=== PATIENT | male | born 1935 | race Caucasian/White ===

== ENCOUNTER 2016-06-09 16:18 | Emergency (ER) | payer MEDICARE, OTHER ==
[2016-06-09] MEDS ORDERED: Lidocaine 1% with EPINEPHrine 1:100,000 20 ML MDV INFILT ONE (16:28)
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
[2016-06-09] MEDS ORDERED: Lidocaine 1% 30 ML SDV INJECT ONE (16:33)
[2016-06-09 17:52] VITALS: BP 162/80
[2016-06-09] MEDS ORDERED: Take Home: traMADol 50 MG, 4 Tab Pack PO ONE (18:50)
== END 2016-06-09 19:00 | disposition home or self-care (01) ==
LOC: VM.ED 16:18
DX: S61.214A Laceration without foreign body of right ring finger without damage to nail, initial encounter (principal); S67.21XA Crushing injury of right hand, initial encounter; S62.612A Displaced fracture of proximal phalanx of right middle finger, initial encounter for closed fracture; S61.212A Laceration without foreign body of right middle finger without damage to nail, initial encounter; E78.00 Pure hypercholesterolemia, unspecified; I10 Essential (primary) hypertension; W31.9XXA Contact with unspecified machinery, initial encounter; Z79.82 Long term (current) use of aspirin; Y92.009 Unspecified place in unspecified non-institutional (private) residence as the place of occurrence of the external cause
CPT/HCPCS: 12004; 29125; 73130; 99283; A4216; A9270

== ENCOUNTER 2020-01-02 17:20 | Observation (INO) | payer MEDICARE, OTHER ==
[2020-01-02] MEDS ORDERED: LORazepam 2 MG/ML SDV ONE (17:34)
[2020-01-02 18:10] LABS: CHLORIDE,CL 98 mmol/L (98-107); SODIUM,NA 135 mmol/L (136-145)
[2020-01-02 18:11] LABS: ANION GAP 15.8 mmol/L (10-20)
[2020-01-02] MEDS ORDERED: LORazepam 2 MG/ML SDV IVPUSH ONE (18:37)
[2020-01-02] MEDS ORDERED: Sodium Chloride 0.9% 1,000 ML IV SCH (19:00)
--- NOTE | 2020-01-02 19:06 | CT ---
[id number] CT/CT Head WO IV EXAM: CT Head WO IV CLINICAL DATA: Altered mental status. COMPARISON STUDY: None FINDINGS: No intracranial hemorrhage, extra-axial fluid collection, mass, or acute ischemia. No hydrocephalus. Small areas of encephalomalacia in the left occipital lobe and right cerebellar hemisphere, consistent with chronic ischemia. Mild to moderate changes chronic small vessel disease, including diffuse bilateral symmetric parenchymal atrophy throughout the brain. Calvarium intact. Paranasal sinuses and mastoid air cells are clear. IMPRESSION: No acute intracranial findings. Rufino Arvizu MD 01/02/20 [id number] Thank you for allowing us to participate in the care of your patient.
[2020-01-02] MEDS ORDERED: cefTRIAXone 1 GM Vial IVPUSH ONE (19:27)
[2020-01-02] MEDS: Sodium Chloride 0.9% 10 ML Syringe FLUSH PRN (19:36)
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
[2020-01-02] MEDS ORDERED: Acetaminophen 325 MG Tab PO PRN (20:09)
[2020-01-02] MEDS ORDERED: Sodium Chloride 0.9% 10 ML Syringe FLUSH PRN (20:09)
[2020-01-02] MEDS ORDERED: Ondansetron 4 MG/2 ML SDV IV PRN (20:09)
[2020-01-03 07:55] LABS: ANION GAP 13.2 mmol/L (10-20); CHLORIDE,CL 101 mmol/L (98-107); SODIUM,NA 136 mmol/L (136-145)
[2020-01-03] MEDS: Lisinopril 2.5 MG Tab PO SCH (08:01)
[2020-01-03] MEDS: Sodium Chloride 0.9% 10 ML Syringe FLUSH PRN ×2 (08:02→21:00)
[2020-01-03] MEDS ORDERED: amLODIPine 5 MG Tab PO ONE (08:48)
--- NOTE | 2020-01-03 08:48 | PCM.PN ---
- General Info Date of Service: 01/03/20 Subjective Update: Pt. is much improved this AM. Nursing relates that is has been alert. Appetite has been adequate. He has been afebrile since admission. Lactic acid has decreased from 2.9 to 1.3. He is currently on rocephin IV for UTI. Creatinine has improved as well. Pt. noted to be hypertensive. He was in the 170-190/90 range. He states that he takes his lisinopril intermittently. Not sure if he took the medication yesterday. Previously he was on 5mg once daily but this was recently decreased to 2.5mg daily. Again, he has not been taking this as directed either. Functional Status: Reports: Pain Controlled - Review of Systems General: Reports: No Symptoms HEENT: Reports: No Symptoms Pulmonary: Reports: No Symptoms Cardiovascular: Reports: Other (See HPI) Gastrointestinal: Reports: No Symptoms Genitourinary: Reports: No Symptoms Musculoskeletal: Reports: No Symptoms Skin: Reports: No Symptoms Neurological: Reports: No Symptoms Psychiatric: Reports: No Symptoms - Patient Data Vitals - Most Recent: Last Vital Signs Temp 36.5 C 01/03/20 06:00 Pulse 56 L 01/03/20 06:00 Resp 19 01/03/20 06:00 BP 188/96 H 01/03/20 08:01 Pulse Ox 95 01/03/20 06:00 Weight - Most Recent: 78.698 kg I&O - Last 24 Hours: Intake & Output 01/02/20 01/03/20 01/03/20 22:59 06:59 14:59 Intake Total 0 Output Total 850 750 Balance -850 -750 Lab Results Last 24 Hours: Laboratory Results - last 24 hr 01/02/20 01/02/20 01/02/20 Range/Units 17:20 17:20 17:20 WBC 8.6 (4.0-10.0) x10^3/uL RBC 3.55 L (4.5-6.0) x10^6/uL Hgb 11.9 L (14.0-18.0) g/dL Hct 34.8 L (40.0-52.0) % MCV 98.0 H D (78.0-93.0) fL MCH 33.5 H (26.0-32.0) pg MCHC 34.2 (32.0-36.0) g/dL RDW Coeff of Sara 12.4 (10.0-15.0) % Plt Count 229 (130-400) x10^3/uL Neut % (Auto) 55.6 (50.0-80.0) % Lymph % (Auto) 32.3 (25.0-50.0) % [place] % (Auto) 9.1 (2.0-11.0) % Eos % (Auto) 2.7 (0.0-4.0) % Baso % (Auto) 0.3 (0.2-1.2) % PT 11.1 (9.5-12.3) SEC INR 1.0 L (2.0-3.5) APTT 25.0 L (25.6-32.8) SEC Sodium 135 L (136-145) mmol/L Potassium 3.8 (3.5-5.1) mmol/L Chloride 98 (98-107) mmol/L Carbon Dioxide 25 (21-32) mmol/L Anion Gap 15.8 (10-20) mmol/L BUN 20 H (7-18) mg/dL Creatinine 1.4 H (0.70-1.30) mg/dL Est Cr Clr Drug Dosing TNP Estimated GFR (MDRD) 48 Glucose 101 (74-106) mg/dL Lactic Acid (0.4-2.0) mmol/L Calcium 8.7 (8.5-10.1) mg/dL Corrected Calcium 8.78 (8.5-10.1) mg/dL Magnesium 2.0 (1.8-2.4) mg/dL Total Bilirubin 0.5 (0.2-1.0) mg/dL AST 21 (15-37) U/L ALT 27 (16-63) U/L Alkaline Phosphatase 83 (46-116) U/L Troponin I 0.00 (0.00-0.08) ng/mL Total Protein 7.2 (6.4-8.2) g/dL Albumin 3.9 (3.4-5.0) g/dL Globulin 3.3 Albumin/Globulin Ratio 1.18 Urine Color (YELLOW) Urine Appearance (CLEAR) Urine pH (5.0-8.0) Ur Specific [place] Urine Protein (NEGATIVE) mg/dL Urine Glucose (UA) (NEGATIVE) mg/dL Urine Ketones (NEGATIVE) mg/dL Urine Occult Blood (NEGATIVE) Urine Nitrite (NEGATIVE) Urine Bilirubin (NEGATIVE) Urine Urobilinogen (0.2) EU/dL Ur Leukocyte Esterase (NEGATIVE) Urine RBC (NOT SEEN) /HPF Urine WBC (NOT SEEN) /HPF Ur Squamous Epith Cells (NEGATIVE) /HPF Triple Phos Crystals (NEGATIVE) /HPF Urine Bacteria (NEGATIVE) /HPF Urine Mucus (NEGATIVE) /LPF Ethyl Alcohol 50 H (0-3) mg/dL SARS CoV-2 RNA Rapid MARCO (NEGATIVE) 01/02/20 01/02/20 01/02/20 Range/Units 17:20 17:35 18:00 WBC (4.0-10.0) x10^3/uL RBC (4.5-6.0) x10^6/uL Hgb (14.0-18.0) g/dL Hct (40.0-52.0) % MCV (78.0-93.0) fL MCH (26.0-32.0) pg MCHC (32.0-36.0) g/dL RDW Coeff of Sara (10.0-15.0) % Plt Count (130-400) x10^3/uL Neut % (Auto) (50.0-80.0) % Lymph % (Auto) (25.0-50.0) % [place] % (Auto) (2.0-11.0) % Eos % (Auto) (0.0-4.0) % Baso % (Auto) (0.2-1.2) % PT (9.5-12.3) SEC INR (2.0-3.5) APTT (25.6-32.8) SEC Sodium (136-145) mmol/L Potassium (3.5-5.1) mmol/L Chloride (98-107) mmol/L Carbon Dioxide (21-32) mmol/L Anion Gap (10-20) mmol/L BUN (7-18) mg/dL Creatinine (0.70-1.30) mg/dL Est Cr Clr Drug Dosing Estimated GFR (MDRD) Glucose (74-106) mg/dL Lactic Acid 2.9 H* (0.4-2.0) mmol/L Calcium (8.5-10.1) mg/dL Corrected Calcium (8.5-10.1) mg/dL Magnesium (1.8-2.4) mg/dL Total Bilirubin (0.2-1.0) mg/dL AST (15-37) U/L ALT (16-63) U/L Alkaline Phosphatase (46-116) U/L Troponin I (0.00-0.08) ng/mL Total Protein (6.4-8.2) g/dL Albumin (3.4-5.0) g/dL Globulin Albumin/Globulin Ratio Urine Color Light yellow (YELLOW) Urine Appearance Slightly cloudy H (CLEAR) Urine pH >=9.0 H (5.0-8.0) Ur Specific [place] 1.015 Urine Protein Negative (NEGATIVE) mg/dL Urine Glucose (UA) Negative (NEGATIVE) mg/dL Urine Ketones Negative (NEGATIVE) mg/dL Urine Occult Blood Negative (NEGATIVE) Urine Nitrite Positive H (NEGATIVE) Urine Bilirubin Negative (NEGATIVE) Urine Urobilinogen 0.2 (0.2) EU/dL Ur Leukocyte Esterase Moderate H (NEGATIVE) Urine RBC 0-5 (NOT SEEN) /HPF Urine WBC 5-10 H (NOT SEEN) /HPF Ur Squamous Epith Cells Rare (NEGATIVE) /HPF Triple Phos Crystals Moderate H (NEGATIVE) /HPF Urine Bacteria Few H (NEGATIVE) /HPF Urine Mucus Rare H (NEGATIVE) /LPF Ethyl Alcohol (0-3) mg/dL SARS CoV-2 RNA Rapid MAR[place] Negative (NEGATIVE) 01/02/20 01/03/20 01/03/20 Range/Units 22:03 06:37 06:37 WBC 7.1 (4.0-10.0) x10^3/uL RBC 3.49 L (4.5-6.0) x10^6/uL Hgb 11.6 L (14.0-18.0) g/dL Hct 34.1 L (40.0-52.0) % MCV 97.7 H (78.0-93.0) fL MCH 33.2 H (26.0-32.0) pg MCHC 34.0 (32.0-36.0) g/dL RDW Coeff of Sara 12.3 (10.0-15.0) % Plt Count 198 (130-400) x10^3/uL Neut % (Auto) 64.8 (50.0-80.0) % Lymph % (Auto) 23.0 L (25.0-50.0) % [place] % (Auto) 9.4 (2.0-11.0) % Eos % (Auto) 2.8 (0.0-4.0) % Baso % (Auto) 0.0 L (0.2-1.2) % PT (9.5-12.3) SEC INR (2.0-3.5) APTT (25.6-32.8) SEC Sodium 136 (136-145) mmol/L Potassium 4.2 (3.5-5.1) mmol/L Chloride 101 (98-107) mmol/L Carbon Dioxide 26 (21-32) mmol/L Anion Gap 13.2 (10-20) mmol/L BUN 16 (7-18) mg/dL Creatinine 1.0 (0.70-1.30) mg/dL Est Cr Clr Drug Dosing 60.12 Estimated GFR (MDRD) > 60 Glucose 100 (74-106) mg/dL Lactic Acid 1.3 (0.4-2.0) mmol/L Calcium 8.3 L (8.5-10.1) mg/dL Corrected Calcium (8.5-10.1) mg/dL Magnesium 1.9 (1.8-2.4) mg/dL Total Bilirubin (0.2-1.0) mg/dL AST (15-37) U/L ALT (16-63) U/L Alkaline Phosphatase (46-116) U/L Troponin I (0.00-0.08) ng/mL Total Protein (6.4-8.2) g/dL Albumin (3.4-5.0) g/dL Globulin Albumin/Globulin Ratio Urine Color (YELLOW) Urine Appearance (CLEAR) Urine pH (5.0-8.0) Ur Specific [place] Urine Protein (NEGATIVE) mg/dL Urine Glucose (UA) (NEGATIVE) mg/dL Urine Ketones (NEGATIVE) mg/dL Urine Occult Blood (NEGATIVE) Urine Nitrite (NEGATIVE) Urine Bilirubin (NEGATIVE) Urine Urobilinogen (0.2) EU/dL Ur Leukocyte Esterase (NEGATIVE) Urine RBC (NOT SEEN) /HPF Urine WBC (NOT SEEN) /HPF Ur Squamous Epith Cells (NEGATIVE) /HPF Triple Phos Crystals (NEGATIVE) /HPF Urine Bacteria (NEGATIVE) /HPF Urine Mucus (NEGATIVE) /LPF Ethyl Alcohol < 3 (0-3) mg/dL SARS CoV-2 RNA Rapid MARCO (NEGATIVE) Med Orders - Current: Current Medications Acetaminophen (Tylenol) 650 mg PO Q4H PRN PRN Reason: Pain (Mild 1-3)/fever Aspirin (Halfprin) 81 mg PO MOTH@08 CHAN Sodium Chloride (Normal Saline) 1,000 mls @ 200 mls/hr IV ASDIRECTED CHAN Last Admin: 01/02/20 18:56 Dose: 200 mls/hr Documented by: Lisinopril (Prinivil) 2.5 mg PO DAILY CHAN Last Admin: 01/03/20 08:01 Dose: 2.5 mg Documented by: Ondansetron HCl (Zofran) 4 mg IV Q4H PRN PRN Reason: Nausea/Vomiting Sodium Chloride (Saline Flush) 10 ml FLUSH ASDIRECTED PRN PRN Reason: Keep Vein Open Last Admin: 01/03/20 08:02 Dose: 10 ml Documented by: Discontinued Medications Ceftriaxone Sodium (Rocephin) 1 gm IVPUSH STAT ONE Stop: 01/02/20 19:28 Last Admin: 01/02/20 19:36 Dose: 1 gm Documented by: Lorazepam (Ativan) Confirm Administered Dose 2 mg .ROUTE .STK-MED ONE Stop: 01/02/20 17:35 Last Admin: 01/02/20 17:34 Dose: 2 mg Documented by: Lorazepam (Ativan) 1 mg IVPUSH STAT ONE Stop: 01/02/20 18:38 Last Admin: 01/02/20 18:05 Dose: 1 mg Documented by: Sodium Chloride (Saline Flush) 10 ml FLUSH ASDIRECTED PRN PRN Reason: Keep Vein Open - Exam General: Alert, Oriented HEENT: Pupils Equal, Pupils Reactive, EOMI, Mucous Membr. Moist/[place] Neck: Supple Lungs: Clear to Auscultation, Normal Respiratory Effort Cardiovascular: Regular Rate, Regular Rhythm, No Murmurs, Murmurs GI/Abdominal Exam: Normal Bowel Sounds, Soft, Non-Tender, No Distention, No Mass (Male) Exam: Deferred Back Exam: Normal Inspection, Full Range of Motion Extremities: Normal Inspection, No Pedal Edema, Normal Capillary Refill Skin: Warm, Dry, Intact Neurological: No New Focal Deficit Psy/Mental Status: Alert, Normal Affect, Normal Mood Sepsis Event Note - Evaluation Sepsis Screening Result: No Definite Risk - Focused Exam Vital Signs: Vital Signs Temp Pulse Resp BP BP Pulse Ox 01/03/20 08:01 188/96 H 01/03/20 06:00 36.5 C 56 L 19 180/79 H 95 01/03/20 05:39 97 01/03/20 02:00 36.4 C 63 17 158/79 H 95 01/02/20 22:00 36.3 C 71 16 176/88 H 96 - Problem List Review Problem List Initiated/Reviewed/Updated: Yes - My Orders Last 24 Hours: My Active Orders 01/03/20 08:36 Consult to Physical Therapy [PT Evaluation and Treatment] [CONS] Routine - Plan Plan:: Pt. will be started on amlodipine 5mg once daily and transitioned off the lisinopril since he is not tolerating it. He is keen to go home, but his blood pressure needs to be addressed prior to discharge. Will have PT evaluate the patient today and see how he does with ambulation and ADLs. Continue with IV rocephin. Anticipate discharge tomorrow AM.
[2020-01-04 06:25] VITALS: PULSE 58
[2020-01-04] MEDS: Lisinopril 2.5 MG Tab PO SCH (07:32)
[2020-01-04 07:33] VITALS: BP 157/96
[2020-01-04] MEDS ORDERED: cefTRIAXone 2 GM Vial IVPUSH ONE (09:23)
[2020-01-04] MEDS: Sodium Chloride 0.9% 10 ML Syringe FLUSH PRN (09:39)
[2020-01-06] MEDS ORDERED: Aspirin 81 MG Tab.EC PO SCH (08:00)
--- NOTE | 2020-01-09 11:39 | PCM.DCSUM1 ---
Discharge Summary - Hospital Course Free Text/Narrative:: Pt. was feeling much improved. He was alert and oriented, and was up washing his face. Appetite has been excellent. He has not been experiencing any increased shortness of breath while walking. Denies any chest pain. No diaphoresis. Denies any lightheadedness. No weakness. Lactic acid had returned to normal limits. He has been afebrile since admission. He has not had any elevated white count. Diagnosis: Stroke: No - Discharge Data Discharge Date: 01/04/20 Discharge Disposition: Home, Self-Care 01 Condition: Good - Referral to Home Health Primary Care Physician: Mohit Tadeo PA-C - Discharge Diagnosis/Problem(s) (1) UTI (urinary tract infection) SNOMED Code(s): 75447842 ICD Code: N39.0 - URINARY TRACT INFECTION, SITE NOT SPECIFIED Status: Acute Qualifiers: Urinary tract infection type: catheter-associated UTI Indwelling urinary catheter type: nephrostomy catheter Encounter type: initial encounter Qualified Code(s): T83.512A - Infection and inflammatory reaction due to nephrostomy catheter, initial encounter; N39.0 - Urinary tract infection, site not specified - Patient Summary/Data Consults: Consultations 01/03/20 08:36 Consult to Physical Therapy [PT Evaluation and Treatment] [CONS] Routine - Discharge Plan Home Medications: Home Meds Aspirin [Aspirin EC] 81 mg PO MOTH@08 01/02/20 [History] Cyanocobalamin (Vitamin B-12) [B-12] 1,000 mcg PO DAILY 01/02/20 [History] Multivitamin with Minerals [Multiple Vitamin] 1 each PO DAILY 01/02/20 [History] Sildenafil [Viagra] 100 mg PO BEDTIME PRN 01/02/20 [History] lisinopriL [Prinivil] 2.5 mg PO DAILY 01/02/20 [History] Referrals: Mohit Tadeo PA-C [Primary Care Provider] - - Discharge Summary/Plan Comment DC Time >30 min.: Yes Discharge Summary/Plan Comment: Pt. will be started on bactrim DS twice daily for 1 week. Continue consuming plenty of fluids. Tyenol and ibuprofen as needed for fever. Recheck in clinic in 5-7 days, sooner if not gradually improving. - General Info Functional Status: Reports: Pain Controlled - Review of Systems General: Reports: No Symptoms HEENT: Reports: No Symptoms Pulmonary: Reports: No Symptoms Cardiovascular: Reports: No Symptoms Gastrointestinal: Reports: No Symptoms Genitourinary: Reports: No Symptoms Musculoskeletal: Reports: No Symptoms Skin: Reports: No Symptoms Neurological: Reports: No Symptoms Psychiatric: Reports: No Symptoms - Patient Data Vitals - Most Recent: Last Vital Signs Temp 37.0 C 01/04/20 06:00 Pulse 58 L 01/04/20 06:00 Resp 18 01/04/20 06:00 BP 157/96 H 01/04/20 07:32 Pulse Ox 94 L 01/04/20 06:00 Weight - Most Recent: 78.698 kg Med Orders - Current: Current Medications Discontinued Medications Acetaminophen (Tylenol) 650 mg PO Q4H PRN PRN Reason: Pain (Mild 1-3)/fever Amlodipine Besylate (Norvasc) 5 mg PO ONETIME ONE Stop: 01/03/20 08:49 Last Admin: 01/03/20 09:23 Dose: 5 mg Documented by: Aspirin (Halfprin) 81 mg PO MOTH@08 CHAN Ceftriaxone Sodium (Rocephin) 1 gm IVPUSH STAT ONE Stop: 01/02/20 19:28 Last Admin: 01/02/20 19:36 Dose: 1 gm Documented by: Ceftriaxone Sodium (Rocephin) 2 gm IVPUSH STAT ONE Stop: 01/04/20 09:24 Last Admin: 01/04/20 09:39 Dose: 2 gm Documented by: Sodium Chloride (Normal Saline) 1,000 mls @ 200 mls/hr IV ASDIRECTED [facility] Last Admin: 01/02/20 18:56 Dose: 200 mls/hr Documented by: Lisinopril (Prinivil) 2.5 mg PO DAILY [facility] Last Admin: 01/04/20 07:32 Dose: 2.5 mg Documented by: Lorazepam (Ativan) Confirm Administered Dose 2 mg .ROUTE .STK-MED ONE Stop: 01/02/20 17:35 Last Admin: 01/02/20 17:34 Dose: 2 mg Documented by: Lorazepam (Ativan) 1 mg IVPUSH STAT ONE Stop: 01/02/20 18:38 Last Admin: 01/02/20 18:05 Dose: 1 mg Documented by: Ondansetron HCl (Zofran) 4 mg IV Q4H PRN PRN Reason: Nausea/Vomiting Sodium Chloride (Saline Flush) 10 ml FLUSH ASDIRECTED PRN PRN Reason: Keep Vein Open Last Admin: 01/04/20 09:39 Dose: 10 ml Documented by: Sodium Chloride (Saline Flush) 10 ml FLUSH ASDIRECTED PRN PRN Reason: Keep Vein Open - Exam General: Reports: Alert, Oriented HEENT: Reports: Pupils Equal, Pupils Reactive, EOMI, Mucous Membr. Moist/[place] Neck: Reports: Supple Lungs: Reports: Clear to Auscultation, Normal Respiratory Effort Cardiovascular: Reports: Regular Rate, Regular Rhythm GI/Abdominal Exam: Soft, Non-Tender, No Distention, No Mass Back Exam: Reports: Normal Inspection, Full Range of Motion Extremities: Normal Inspection, Normal Range of Motion, No Pedal Edema, Normal Capillary Refill Skin: Reports: Warm, Dry, Intact Neurological: Reports: No New Focal Deficit Psy/Mental Status: Reports: Alert, Normal Affect
== END 2020-01-04 10:00 | disposition home or self-care (01) ==
LOC: VM.ED 17:20 → VM.MS 19:32
PROVIDERS: ADMIT Nurse Practitioner Family; ATTEND Nurse Practitioner Family
DX: R41.82 Altered mental status, unspecified (principal); N39.0 Urinary tract infection, site not specified; R74.02 Elevation of levels of lactic acid dehydrogenase [LDH]; E78.00 Pure hypercholesterolemia, unspecified; I10 Essential (primary) hypertension; Z98.890 Other specified postprocedural states; Z79.82 Long term (current) use of aspirin; Z79.899 Other long term (current) drug therapy; Z20.828 Contact with and (suspected) exposure to other viral communicable diseases
CPT/HCPCS: 36415; 70450; 80048; 80053; 80307; 81001; 82962; 83605; 83735; 84484; 85025; 85610; 85730; 87086; 87088; 87186; 93005; 93010; 97161-GP; 97530-GP; 99217; 99220; 99225; A9270-GY; J0696; J2060; J7030; U0002

== ENCOUNTER 2020-03-21 10:38 | Inpatient (IN) | payer MEDICARE, OTHER ==
[2020-03-21] MEDS ORDERED: cefTRIAXone 2 GM Vial IVPUSH ONE (10:57)
[2020-03-21] MEDS ORDERED: Lactated Ringers 1,000 ML IV ONE (11:20)
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
[2020-03-21 11:39] LABS: ANION GAP 15.6 mmol/L (5-15); CHLORIDE,CL 94 mmol/L (98-107); SODIUM,NA 131 mmol/L (136-145)
--- NOTE | 2020-03-21 11:49 | CT ---
[id number] CT/CT Head WO IV EXAM: CT Head WO IV CLINICAL DATA: CONFUSION. COMPARISON STUDY: January 02, 2020. FINDINGS: Findings are within limitations of patient motion artifact. No obvious intracranial hemorrhage or extra-axial fluid collection. No hydrocephalus. No CT evidence of acute ischemia. Chronic small vessel disease. Calvarium intact. Paranasal sinuses and mastoid air cells are clear. IMPRESSION: No acute intracranial findings. Rufino Arvizu MD 03/21/20 1147 Thank you for allowing us to participate in the care of your patient.
--- NOTE | 2020-03-21 11:52 | CT ---
[id number] CT/CT Cervical Spine WO IV EXAM: CT Cervical Spine WO IV INDICATION: FALL, CONFUSION. COMPARISON: None. DISCUSSION: No fracture or compression deformity. Vertebral bodies remain in normal alignment. Spondylosis. Findings include ankylosis of the C2-3 facet joints. Advanced degenerative disc disease at C3-4 through C6-7. No prevertebral soft tissue edema. Lung apices are clear. IMPRESSION: No acute findings in the cervical spine. Rufino Arvizu MD 03/21/20 [id number] Thank you for allowing us to participate in the care of your patient.
[2020-03-21] MEDS: Lactated Ringers 1,000 ML IV SCH (12:06)
[2020-03-21] MEDS: Sodium Chloride 0.9% 10 ML Syringe FLUSH PRN (12:07)
--- NOTE | 2020-03-21 12:35 | CR ---
[id number] RAD/RAD Chest PA or AP 1V EXAM: RAD Chest PA or AP 1V INDICATION: CONFUSION. COMPARISON: None. DISCUSSION: Prominent appearance of the hilar regions. On the left there is opacity in the AP window. Finding is nonspecific but underlying lymphadenopathy is possible. Lungs are clear. No pleural effusion or pneumothorax. Consider noncontrast chest CT for further evaluation. IMPRESSION: As above. Rufino Arvizu MD 03/21/20 [id number] Thank you for allowing us to participate in the care of your patient.
[2020-03-21] MEDS ORDERED: Ondansetron 4 MG/2 ML SDV IV PRN (13:17)
[2020-03-21] MEDS ORDERED: Lactated Ringers 1,000 ML IV SCH (13:30)
[2020-03-21] MEDS: Enoxaparin 40 MG/0.4 ML Syringe SUBCUT SCH (14:34)
--- NOTE | 2020-03-21 16:48 | PCM.SN.2 ---
- Free Text/Narrative Note: Patient's confusion has resolved since admission under observation. He is alert appropriate. He follows commands. He is still in C-spine precautions. His CT was negative in the emergency department for any bony abnormality. Palpation on the posterior midline spine does not elicit any midline tenderness or step-offs. He moves all extremities strong and equal to command. He has gross and fine motor appropriate to his upper extremities. He denies any paresthesias. C- collar was removed he was able to flex and extend and rotate without any pain discomfort or paresthesias. He also was able to flex and extend and rotate against resistance without any pain. C-spine is cleared. Has been complaining of some left knee pain with his for the past couple of days after ambulating around the walking track at the [facility] that they do 5 days a week. Examination of the left knee does show some swelling soft tissue around the knee. There is a moderate amount of crepitus on flexion and extension. He has no varus and valgus stress pain. There is no warmth erythema or induration. There is no calf tenderness. Complete an x-ray of the left knee. A/P Left knee pain swelling, ? knee sprain. Xray left knee.
--- NOTE | 2020-03-21 17:57 | CR ---
[id number] RAD/RAD Knee Left 3V Exam: RAD Knee Left 3V Indication:LEFT KNEE PAIN, SWELLING. NO INJURY. PATIENT UNABLE Comparison: No prior imaging for comparison. Discussion/Impression: Moderate-sized knee joint effusion. Bones remain in normal alignment. No fracture. Tricompartmental osteoarthritis with joint space narrowing. No AVN or erosive changes. No periosteal reaction. Vascular calcifications. Rufino Arvizu MD 03/21/20 3302 Thank you for allowing us to participate in the care of your patient.
[2020-03-22] MEDS: Lactated Ringers 1,000 ML IV SCH (03:20)
[2020-03-22] MEDS: Acetaminophen 325 MG Tab PO PRN ×2 (05:35→21:14)
[2020-03-22 08:41] LABS: ANION GAP 13.9 mmol/L (5-15)
[2020-03-22] MEDS: Cyanocobalamin (Vitamin B12) 1,000 MCG Tab PO SCH (08:48)
[2020-03-22] MEDS: Lisinopril 2.5 MG Tab PO SCH (08:48)
[2020-03-22] MEDS: Multivitamins with Iron/Calcium/Folic Acid/Minerals Tab PO SCH (08:48)
[2020-03-22] MEDS: cefTRIAXone 1 GM Vial IVPUSH SCH (08:48)
[2020-03-22] MEDS: Enoxaparin 40 MG/0.4 ML Syringe SUBCUT SCH (14:59)
--- NOTE | 2020-03-22 18:38 | PCM.PN ---
- General Info Date of Service: 03/22/20 Admission Dx/Problem (Free Text): Complicated UTI urostomy infection Acute confusion from infectious process Subjective Update: The patient states that he slept well throughout the night. He ate most of his breakfast. He really does not recall the details of yesterday. He does state that he has a little bit of pain to his knee but he feels very good he would like to go home. He denies any fever or chills. No chest pain no shortness of breath or difficulty breathing. No abdominal pain nausea or vomiting. He relates that his urostomy is draining clear urine like it typically does and he has not seen any of the sediment in there like he had over the past week. He has had no diarrhea. No constipation. He feels strong enough that he should be able to go home. Functional Status: Reports: Pain Controlled - Patient Data Vitals - Most Recent: Last Vital Signs Temp 98.4 F 03/22/20 14:00 Pulse 65 03/22/20 14:00 Resp 20 03/22/20 14:00 BP 144/67 H 03/22/20 14:00 Pulse Ox 97 03/22/20 14:00 Weight - Most Recent: 175 lb 8 oz I&O - Last 24 Hours: Intake & Output 03/22/20 03/22/20 03/22/20 06:59 14:59 22:59 Intake Total 424 922 5716 Output Total 650 Balance 390 192 2028 Lab Results Last 24 Hours: Laboratory Results - last 24 hr 03/22/20 03/22/20 03/22/20 Range/Units 08:07 08:07 08:07 WBC 6.3 (4.0-10.0) x10^3/uL RBC 3.49 L (4.5-6.0) x10^6/uL Hgb 11.7 L (14.0-18.0) g/dL Hct 33.1 L (40.0-52.0) % MCV 94.8 H (78.0-93.0) fL MCH 33.5 H (26.0-32.0) pg MCHC 35.3 (32.0-36.0) g/dL RDW Coeff of Sara 12.2 (10.0-15.0) % Plt Count 129 L (130-400) x10^3/uL Neut % (Auto) 77.0 (50.0-80.0) % Lymph % (Auto) 15.9 L (25.0-50.0) % [place] % (Auto) 6.7 (2.0-11.0) % Eos % (Auto) 0.2 (0.0-4.0) % Baso % (Auto) 0.2 (0.2-1.2) % Sodium 130 L (136-145) mmol/L Potassium 3.9 (3.5-5.1) mmol/L Chloride 94 L (98-107) mmol/L Carbon Dioxide 26 (21-32) mmol/L Anion Gap 13.9 (5-15) mmol/L BUN 21 H (7-18) mg/dL Creatinine 1.4 H (0.70-1.30) mg/dL Est Cr Clr Drug Dosing 43.44 mL/min Estimated GFR (MDRD) 48 Glucose 168 H (74-106) mg/dL Lactic Acid 1.6 (0.4-2.0) mmol/L Calcium 8.4 L (8.5-10.1) mg/dL Corrected Calcium 8.88 (8.5-10.1) mg/dL Total Bilirubin 0.4 (0.2-1.0) mg/dL AST 39 H (15-37) U/L ALT 34 (16-63) U/L Alkaline Phosphatase 92 (46-116) U/L C-Reactive Protein 6.6 H (<=0.9) mg/dL Total Protein 6.9 (6.4-8.2) g/dL Albumin 3.4 (3.4-5.0) g/dL Globulin 3.5 Albumin/Globulin Ratio 0.97 Aki Results Last 24 Hours: Microbiology 03/21/20 11:11 Aerobic Blood Culture - Preliminary Blood - Venous - Lab Draw NO GROWTH AFTER 1 DAY Anaerobic Blood Culture - Preliminary NO GROWTH AFTER 1 DAY 03/21/20 11:01 Aerobic Blood Culture - Preliminary Blood - Venous NO GROWTH AFTER 1 DAY Anaerobic Blood Culture - Final 03/21/20 11:31 Urine Culture - Preliminary Urine, Nephrostomy Gram Negative Rods Gram Positive Cocci Streptococcus Species Med Orders - Current: Current Medications Acetaminophen (Tylenol) 650 mg PO Q4H PRN PRN Reason: Pain (Mild 1-3)/fever Last Admin: 03/22/20 05:35 Dose: 650 mg Documented by: Aspirin (Halfprin) 81 mg PO MOTH@08 [facility] Ceftriaxone Sodium (Rocephin) 1 gm IVPUSH DAILY [facility] Last Admin: 03/22/20 08:48 Dose: 1 gm Documented by: Cyanocobalamin (Vitamin B12) 1,000 mcg PO DAILY [facility] Last Admin: 03/22/20 08:48 Dose: 1,000 mcg Documented by: Enoxaparin Sodium (Lovenox) 40 mg SUBCUT Q24H [facility] Last Admin: 03/22/20 14:59 Dose: 40 mg Documented by: Lisinopril (Prinivil) 5 mg PO DAILY [facility] Last Admin: 03/22/20 08:48 Dose: 5 mg Documented by: Multivitamins/Minerals (Thera M Plus) 1 tab PO DAILY [facility] Last Admin: 03/22/20 08:48 Dose: 1 tab Documented by: Ondansetron HCl (Zofran) 4 mg IV Q6H PRN PRN Reason: Nausea/Vomiting Sodium Chloride (Saline Flush) 10 ml FLUSH ASDIRECTED PRN PRN Reason: Keep Vein Open Last Admin: 03/21/20 12:07 Dose: 10 ml Documented by: Discontinued Medications Ceftriaxone Sodium (Rocephin) 2 gm IVPUSH STAT ONE Stop: 03/21/20 10:58 Last Admin: 03/21/20 11:09 Dose: 2 gm Documented by: Lactated Ringer's (Ringers, Lactated) 1,000 mls @ 999 mls/hr IV ONETIME ONE Stop: 03/21/20 12:20 Last Admin: 03/21/20 11:51 Dose: 999 mls/hr Documented by: Lactated Ringer's (Ringers, Lactated) 1,000 mls @ 150 mls/hr IV ASDIRECTED [facility] Last Admin: 03/22/20 03:20 Dose: 75 mls/hr Documented by: Lactated Ringer's (Ringers, Lactated) 1,000 mls @ 75 mls/hr IV ASDIRECTED [facility] Last Admin: 03/21/20 14:34 Dose: 75 mls/hr Documented by: - Exam General: Alert, Oriented (He knows his name he knows what year it is he knows that he is in the hospital. He does not recall the incidents of yesterday. I do not see any overt confusion he has some what slow to answer at times and has to think about his answers but he is markedly improved since yesterday.), Cooperative HEENT: Pupils Equal, Pupils Reactive, EOMI Neck: Supple Lungs: Clear to Auscultation, Normal Respiratory Effort Cardiovascular: Regular Rate, Regular Rhythm GI/Abdominal Exam: Normal Bowel Sounds, Soft, Non-Tender, No Distention, Other (His urostomy in the right lower quadrant is draining clear pale yellow urine. The stoma has good appearance and is nice and pink. There is no breakdown around the stoma site. There is no mucus or sediment within the urine.) (Male) Exam: Deferred Back Exam: Normal Inspection Extremities: Normal Range of Motion. No: Normal Inspection (The left knee is still somewhat tender on palpation. He is able to flex and extend. There is no warmth. There is a moderate effusion to the left knee. Jensen wrap is kept in place to the left knee. There is no pedal edema.) Peripheral Pulses: 2+: Radial (L), Radial (R), Posterior Tibial (L), Posterior Tibial (R), Dorsalis Pedis (L), Dorsalis Pedis (R) Skin: Warm, Dry, Intact Wound/Incisions: Healing Well Neurological: No New Focal Deficit Psy/Mental Status: Alert, Normal Affect Sepsis Event Note - Evaluation Sepsis Screening Result: No Definite Risk - Focused Exam Vital Signs: Vital Signs Temp Pulse Resp BP BP Pulse Ox 03/22/20 14:00 98.4 F 65 20 144/67 H 97 03/22/20 10:00 97.9 F 64 20 102/56 L 95 03/22/20 08:48 170/90 H - Problem List & Annotations (1) Acute confusion due to infection SNOMED Code(s): 809596989 Code(s): F05 - DELIRIUM DUE TO KNOWN PHYSIOLOGICAL CONDITION Status: Acute Current Visit: Yes (2) Complicated urinary tract infection SNOMED Code(s): 83359373 Code(s): N39.0 - URINARY TRACT INFECTION, SITE NOT SPECIFIED Status: Acute Current Visit: Yes (3) Scalp abrasion SNOMED Code(s): 232017854 Code(s): S00.01XA - ABRASION OF SCALP, INITIAL ENCOUNTER Status: Acute Current Visit: Yes Qualifiers: Encounter type: initial encounter Qualified Code(s): S00.01XA - Abrasion of scalp, initial encounter (4) Presence of urostomy SNOMED Code(s): 135780550 Code(s): Z93.6 - OTHER ARTIFICIAL OPENINGS OF URINARY TRACT STATUS Status: Chronic Current Visit: Yes (5) Hyponatremia SNOMED Code(s): 64479081 Code(s): E87.1 - HYPO-OSMOLALITY AND HYPONATREMIA Status: Acute Current Visit: No (6) Knee effusion, left SNOMED Code(s): 555440924437720 Code(s): M25.462 - EFFUSION, LEFT KNEE Status: Acute Current Visit: Yes - Problem List Review Problem List Initiated/Reviewed/Updated: Yes - My Orders Last 24 Hours: My Active Orders 03/21/20 18:45 Consult to Physical Therapy [PT Evaluation and Treatment] [CONS] Routine JENSEN Bandage [Elastic Wrap] [OM.PC] Routine 03/22/20 08:00 Cyanocobalamin (Vitamin B12) [Vitamin B12] 1,000 mcg PO DAILY Multivitamins w-Iron/Ca/FA/Min [Thera M Plus] 1 tab PO DAILY cefTRIAXone [Rocephin] 1 gm IVPUSH DAILY lisinopriL [Prinivil] 5 mg PO DAILY 03/23/20 08:00 Aspirin [Halfprin] 81 mg PO MOTH@08 03/25/20 07:00 CBC W/O DIFF,HEMOGRAM [HEME] Q3D 03/28/20 07:00 CBC W/O DIFF,HEMOGRAM [HEME] Q3D 03/31/20 07:00 CBC W/O DIFF,HEMOGRAM [HEME] Q3D 04/03/20 07:00 CBC W/O DIFF,HEMOGRAM [HEME] Q3D 04/06/20 07:00 CBC W/O DIFF,HEMOGRAM [HEME] Q3D 04/09/20 07:00 CBC W/O DIFF,HEMOGRAM [HEME] Q3D - Assessment Assessment:: A/P #1: Acute confusion most likely due to UTI complicated with the presence of his urostomy. Much improved still not back to baseline. A little weak and tough to get out of bed. Able to carry on conversation but not back to baseline will take some time for this to resolve. #2: UTI complicated with urostomy. Waiting on cultures improved mucus amount in urostomy. #3: Fall with acute altered mental status. Most likely from #1. Almost back to baseline, most likely take a few more days to improve. #4: Hyponatremia continue to monitor IV fluids discontinued taking in good oral fluids. #5: Presence of urostomy, urostomy cares new bag placed in the ED. Monitor. #6: HX of HTN continue Lisinopril. #7: Anemia chronic continue B 12 and check iron studies. #8: Hx of carotid endart continue aspirin. #9 New diagnosis of left knee effusion. NO real injury. NO erythema most likely for overusage or trauma jensen wrap PT/OT to evaluate for cares and discharge planning. This patient really has improved quite remarkedly on his confusion as well as his altered mental status. He is not back to baseline as of yet and his family especially his daughter is very concerned about this. He is still somewhat weak and difficult to ambulate with the effusion of the left knee. The patient's daughter is very very concerned of discharge home as she does not feel that he is back to baseline. However they are going to care for him at home. We will have physical therapy evaluate him tomorrow to see if he needs some swing bed or other therapies to improve his functional status. We will also have social work meet with him tomorrow to see if they need more assistance at home. We will continue observation at this time. Care will be transferred to Indra Farias PA-C in the morning.
[2020-03-22] MEDS: Sodium Chloride 0.9% 10 ML Syringe FLUSH PRN (21:14)
[2020-03-23] MEDS ORDERED: Aspirin 81 MG Tab.EC PO SCH (08:00)
[2020-03-23] MEDS: Cyanocobalamin (Vitamin B12) 1,000 MCG Tab PO SCH (08:40)
[2020-03-23] MEDS: Multivitamins with Iron/Calcium/Folic Acid/Minerals Tab PO SCH (08:40)
[2020-03-23] MEDS: Lisinopril 2.5 MG Tab PO SCH (08:40)
[2020-03-23] MEDS: cefTRIAXone 1 GM Vial IVPUSH SCH (08:41)
[2020-03-23] MEDS: Enoxaparin 40 MG/0.4 ML Syringe SUBCUT SCH (15:15)
--- NOTE | 2020-03-23 15:54 | PCM.PN ---
- General Info Date of Service: 03/23/20 Admission Dx/Problem (Free Text): Complicated UTI urostomy infection Acute confusion from infectious process Subjective Update: Pt. is one hospital day 2 being treated for a UTI. Overall, he states that he had a good night. Staff states that he continues to be quite weak and requires the assist of 2 for standing/ambulation. Tmax in past 24 hours has been 38.2. He has been eating and drinking and is tolerating this. Fluids had been discontinued by AVELINA Roberts as his intake was adequate. CBC today showed white count of 6.3. lactic acid was within normal limits. Pt. urine culture showed predominant gram positive rods. He also had rare gram negative rods and few strep species. Blood cultures at this point have not grown anything. Pt. will be transitioned to acute care, pending further sensitivity of urine culture/due to continued weakness. Functional Status: Reports: Pain Controlled - Review of Systems General: Reports: No Symptoms HEENT: Reports: No Symptoms Pulmonary: Reports: No Symptoms Cardiovascular: Reports: No Symptoms Gastrointestinal: Reports: No Symptoms Genitourinary: Reports: No Symptoms Musculoskeletal: Reports: No Symptoms Skin: Reports: No Symptoms Neurological: Reports: No Symptoms Psychiatric: Reports: No Symptoms - Patient Data Vitals - Most Recent: Last Vital Signs Temp 37.0 C 03/23/20 14:00 Pulse 66 03/23/20 14:00 Resp 20 03/23/20 14:00 BP 94/54 L 03/23/20 14:00 Pulse Ox 96 03/23/20 14:00 Weight - Most Recent: 79.605 kg I&O - Last 24 Hours: Intake & Output 03/23/20 03/23/20 03/23/20 06:59 14:59 22:59 Intake Total 420 Output Total 700 Balance -700 420 Aki Results Last 24 Hours: Microbiology 03/21/20 11:11 Aerobic Blood Culture - Preliminary Blood - Venous - Lab Draw NO GROWTH AFTER 2 DAYS Anaerobic Blood Culture - Preliminary NO GROWTH AFTER 2 DAYS 03/21/20 11:01 Aerobic Blood Culture - Preliminary Blood - Venous NO GROWTH AFTER 2 DAYS Anaerobic Blood Culture - Final 03/21/20 11:31 Urine Culture - Preliminary Urine, Nephrostomy Gram Negative Rods Gram Positive Rods Streptococcus Species Med Orders - Current: Current Medications Acetaminophen (Tylenol) 650 mg PO Q4H PRN PRN Reason: Pain (Mild 1-3)/fever Last Admin: 03/22/20 21:14 Dose: 650 mg Documented by: Aspirin (Halfprin) 81 mg PO MOTH@08 [facility] Last Admin: 03/23/20 08:40 Dose: 81 mg Documented by: Ceftriaxone Sodium (Rocephin) 1 gm IVPUSH DAILY [facility] Last Admin: 03/23/20 08:41 Dose: 1 gm Documented by: Cyanocobalamin (Vitamin B12) 1,000 mcg PO DAILY [facility] Last Admin: 03/23/20 08:40 Dose: 1,000 mcg Documented by: Enoxaparin Sodium (Lovenox) 40 mg SUBCUT Q24H [facility] Last Admin: 03/23/20 15:15 Dose: 40 mg Documented by: Lisinopril (Prinivil) 5 mg PO DAILY [facility] Last Admin: 03/23/20 08:40 Dose: 5 mg Documented by: Multivitamins/Minerals (Thera M Plus) 1 tab PO DAILY [facility] Last Admin: 03/23/20 08:40 Dose: 1 tab Documented by: Ondansetron HCl (Zofran) 4 mg IV Q6H PRN PRN Reason: Nausea/Vomiting Sodium Chloride (Saline Flush) 10 ml FLUSH ASDIRECTED PRN PRN Reason: Keep Vein Open Last Admin: 03/22/20 21:14 Dose: 10 ml Documented by: Discontinued Medications Ceftriaxone Sodium (Rocephin) 2 gm IVPUSH STAT ONE Stop: 03/21/20 10:58 Last Admin: 03/21/20 11:09 Dose: 2 gm Documented by: Lactated Ringer's (Ringers, Lactated) 1,000 mls @ 999 mls/hr IV ONETIME ONE Stop: 03/21/20 12:20 Last Admin: 03/21/20 11:51 Dose: 999 mls/hr Documented by: Lactated Ringer's (Ringers, Lactated) 1,000 mls @ 150 mls/hr IV ASDIRECTED [facility] Last Admin: 03/22/20 03:20 Dose: 75 mls/hr Documented by: Lactated Ringer's (Ringers, Lactated) 1,000 mls @ 75 mls/hr IV ASDIRECTED [facility] Last Admin: 03/21/20 14:34 Dose: 75 mls/hr Documented by: - Exam General: Alert, Oriented, Lethargic HEENT: Pupils Equal, Pupils Reactive, EOMI Lungs: Clear to Auscultation, Normal Respiratory Effort Cardiovascular: Regular Rate, Regular Rhythm GI/Abdominal Exam: Soft, Non-Tender, No Distention, No Mass (Male) Exam: Deferred Back Exam: Normal Inspection, Full Range of Motion Extremities: Normal Inspection, Normal Range of Motion, Non-Tender, No Pedal Edema, Normal Capillary Refill Peripheral Pulses: 4+: Radial (L) Skin: Warm, Dry, Intact Neurological: No New Focal Deficit Psy/Mental Status: Alert, Normal Affect, Normal Mood Sepsis Event Note - Evaluation Sepsis Screening Result: No Definite Risk - Focused Exam Vital Signs: Vital Signs Temp Temp Pulse Resp BP BP Pulse Ox 03/23/20 14:00 37.0 C 66 20 94/54 L 96 03/23/20 10:00 36.8 C 65 20 149/68 H 97 03/23/20 08:40 174/84 H 03/23/20 05:48 36.6 C 62 18 174/84 H 95 - Problem List Review Problem List Initiated/Reviewed/Updated: Yes - My Orders Last 24 Hours: My Active Orders 03/23/20 11:06 Patient Status [ADT] Routine - Assessment Assessment:: A/P #1: Acute confusion most likely due to UTI complicated with the presence of his urostomy. Much improved still not back to baseline. A little weak and tough to get out of bed. Able to carry on conversation but not back to baseline will take some time for this to resolve. #2: UTI complicated with urostomy. Waiting on cultures improved mucus amount in urostomy. #3: Fall with acute altered mental status. Most likely from #1. Almost back to baseline, most likely take a few more days to improve. #4: Hyponatremia continue to monitor IV fluids discontinued taking in good oral fluids. #5: Presence of urostomy, urostomy cares new bag placed in the ED. Monitor. #6: HX of HTN continue Lisinopril. #7: Anemia chronic continue B 12 and check iron studies. #8: Hx of carotid endart continue aspirin. #9 New diagnosis of left knee effusion. NO real injury. NO erythema most likely for overusage or trauma stefanie wrap PT/OT to evaluate for cares and discharge planning. This patient really has improved quite remarkedly on his confusion as well as his altered mental status. He is not back to baseline as of yet and his family especially his daughter is very concerned about this. He is still somewhat weak and difficult to ambulate with the effusion of the left knee. The patient's daughter is very very concerned of discharge home as she does not feel that he is back to baseline. However they are going to care for him at home. We will have physical therapy evaluate him tomorrow to see if he needs some swing bed or other therapies to improve his functional status. We will also have social work meet with him tomorrow to see if they need more assistance at home. We will continue observation at this time. Care will be transferred to Indra Farias PA-C in the morning. - Plan Plan:: Again patient will be transitioned to acute care. Lynette David PA-C is his PCP and will be handling this. Discussed findings at length with family. They agree with plan of care. Will continue IV rocephin in the hospital. Repeat CBC, BMP and lactic acid in the AM. Will continue PT/OT for ambulation/strengthening. Will encourage ambulation on the unit as well. Family inquired about doing random UA/home UA testing when the patient is discharged. Advised against that, we typically don't treat asymptomatic bacteruria. Pt. is at great risk of bacterial resistance if he is treated without being asymptomatic. Certainly if he is experiencing symptoms such as fever, confusion, weakness, chills, etc. they can contact his PCP or come to ER for a UA.
[2020-03-24 07:21] LABS: CHLORIDE,CL 96 mmol/L (98-107); SODIUM,NA 132 mmol/L (136-145)
[2020-03-24 07:22] LABS: ANION GAP 13.2 mmol/L (5-15)
[2020-03-24] MEDS: Sodium Chloride 0.9% 10 ML Syringe FLUSH PRN (08:22)
[2020-03-24] MEDS: Cyanocobalamin (Vitamin B12) 1,000 MCG Tab PO SCH (08:22)
[2020-03-24] MEDS: cefTRIAXone 1 GM Vial IVPUSH SCH (08:22)
[2020-03-24] MEDS: Lisinopril 2.5 MG Tab PO SCH (08:22)
[2020-03-24] MEDS: Multivitamins with Iron/Calcium/Folic Acid/Minerals Tab PO SCH (08:22)
[2020-03-24] MEDS: Acetaminophen 325 MG Tab PO PRN (08:22)
--- NOTE | 2020-03-24 09:02 | PN ---
Progress Note for BETO DELGADO Date: 03/24/2020 Room #: VM.215 SUBJECTIVE: The patient says he is feeling a little bit better. He is still a little bit confused. He is not exactly certain how he is weak or confused, but he knows he does not think quite clearly yet. He has been seen by Physical Therapy as of yesterday, but not Occupational Therapy. The patient was admitted with urosepsis with confusion as well as left knee injury. He is getting a little bit stronger with therapy. OBJECTIVE: Vital Signs: His temperature is 36.8, pulse 65, blood pressure 146/71, respiratory rate is 19, sats are 97%. General: The patient does easily recognize me. Heart: Regular rate and rhythm. Lungs: Clear to auscultation. He has a few abrasions on top of his scalp. Extremities: His left knee is dressed. He does have slight fluid present with slight effusion. LABORATORY DATA: His urine culture is showing Escherichia coli, small organism, greater than 10 to the 6th is a gram-positive kim, possibly diplococci, but ID and sensitivities are pending yet. Organism 3 is a Streptococcus, small amount. His white blood cell count has improved to 5.0, hemoglobin has dropped slightly to 11.4, platelets are 123 with 64 segs, 21 lymphocytes, 11 monos. Sodium is 132, potassium 4.2, creatinine 1.1. GFR is greater than 60, which has improved. Glucose 98. His AST has increased slightly to 48, ALT is 50. CRP yesterday had gone up to 6.6 from 2.2, was not checked today. Lactic acid has trended downward, it was 2.0 on admission and 1.6 yesterday, and then 0.7 today. Albumin is slightly low at 3.0. IMPRESSION: 1. Urosepsis. 2. Confusion related to urosepsis. 3. Fall with altered mental status. 4. Left knee contusion. 5. Hyponatremia. 6. Bladder cancer history. 7. Hypertension. 8. Anemia of chronic disease. 9. Pending are B12 and iron studies. PLAN: The patient will continue on IV Rocephin. We will continue with physical therapy. We are awaiting Occupational Therapy to see the patient. Lynette David is his primary care provider and she will see the patient tomorrow as she has gone today. Do anticipate the patient hopefully can go home possibly tomorrow versus the next day once he is strong enough with transfers and he would need to be switched over to oral antibiotics as well. GM03/24/2020 08:24:57 MODL: 03/24/2020 08:53:21 /[id number]
[2020-03-24] MEDS: Enoxaparin 40 MG/0.4 ML Syringe SUBCUT SCH (14:33)
[2020-03-25 05:49] VITALS: BP 143/65; PULSE 65
[2020-03-25] MEDS: cefTRIAXone 1 GM Vial IVPUSH SCH (07:42)
[2020-03-25] MEDS: Sodium Chloride 0.9% 10 ML Syringe FLUSH PRN (07:42)
[2020-03-25] MEDS: Lisinopril 2.5 MG Tab PO SCH (07:43)
[2020-03-25] MEDS: Cyanocobalamin (Vitamin B12) 1,000 MCG Tab PO SCH (07:43)
[2020-03-25] MEDS: Multivitamins with Iron/Calcium/Folic Acid/Minerals Tab PO SCH (07:43)
[2020-03-25 07:44] LABS: ANION GAP 12.9 mmol/L (5-15); CHLORIDE,CL 97 mmol/L (98-107); SODIUM,NA 132 mmol/L (136-145)
--- NOTE | 2020-03-25 09:53 | PCM.DCSUM1 ---
Discharge Summary - Hospital Course Free Text/Narrative:: Thiago came to the hospital after confusion and fall at home. He had urosepsis, knee contusion, confusion, scalp abrasion, weakness. He was placed on IV Rocephin for E. coli UTI. The Urine culture is also growing 2 other bacteria, awaiting susceptibility on one strain yet. CT head and C spine were negative. Xray of knee showed effusion. He has had PT evaluation and treatment. He indicates improvement today. He can get up on his own but often forgets walker. He had OT start cognitive and ADL evaluation. She reported ADL evaluation was good. Cognitive evaluation is currently being assessed. Lab studies show mild iron deficiency anemia. Sodium is slightly decreased. His lactic acid returned to normal. He denies pain or other difficulty today. He is anxious to go home. Plan is to go home with home care. Will do further planning with his today. Diagnosis: Stroke: No - Discharge Data Discharge Date: 03/25/20 Discharge Disposition: Home, W Home Health Agency 06 Condition: Good - Referral to Home Health Date of Face to Face Encounter: 03/25/20 Reason for Homebound Status: I certify that Thiago is under my care and I had a face to face encounter on 03/25/20. The encounter with the patient was in whole or in part for the following medical condition which is the primary reason for home health care. PT for strengthening, balance and gait training, detention for medication instruction and compliance. My clinical findings support the need for services because of inability to safely get to an outpatient facility due to fall risk, lack of muscle coordination and tone, balance issues, and weakness. Further I certify that my clinical findings support that this patient is home bound because the patient is unable to safely ambulate distances further than 20 feet. Patient requires stand by assist due to loss of balance and patient requires frequent rest periods due to weakness and loss of endurance. Patient requires use of assistive device and patient requires assistance of another person to leave the home. I certify that Thiago meets home bound requirements for the payor source and has a need for intermittent detention, physician, and therapy services in the home for the diagnosis currently outlined in the initial plan of care. These services will continue to be monitored by , Lynette David PA-C. This provider will periodically review and update the plan of care as required. My signature indicates that this supplemental documentation has been incorporated in the patients medical record. Primary Care Physician: Lynette David PA-C Skilled Need: halfway and PT for strengthening. - Patient Summary/Data Consults: Consultations 03/21/20 13:17 Consult to Case Management/Social Media Senior Associate [CONS] Routine 03/21/20 18:45 Consult to Physical Therapy [PT Evaluation and Treatment] [CONS] Routine 03/22/20 19:38 Consult to Occupational Therapy [OT Evaluation and Treatment] [CONS] Routine 03/24/20 12:14 OT Evaluation and Treatment [CONS] Routine Labs Pending at D/C: Urine susceptibility - Patient Instructions Diet: Regular Diet as Tolerated, Drink 8-10+ Glasses/Day Activity: As Tolerated Driving: Do Not Drive Showering/Bathing: May Shower Other/Special Instructions: Bactrim DS one tablet 2 times a day for 5 days. Home Care and Physical Therapy for strengthening. Follow up clinic visit in 2 weeks. - Discharge Plan *PRESCRIPTION DRUG MONITORING PROGRAM REVIEWED*: Not Applicable *COPY OF PRESCRIPTION DRUG MONITORING REPORT IN PATIENT SATISH: Not Applicable Prescriptions/Med Rec: Sulfamethoxazole/Trimethoprim [Bactrim Ds Tablet] 1 each PO BID 5 Days #10 tablet Home Medications: Home Meds Aspirin [Aspirin EC] 81 mg PO MOTH@08 01/02/20 [History] Cyanocobalamin (Vitamin B-12) [B-12] 1,000 mcg PO DAILY 01/02/20 [History] Multivitamin with Minerals [Multiple Vitamin] 1 each PO DAILY 01/02/20 [History] Sildenafil [Viagra] 100 mg PO BEDTIME PRN 01/02/20 [History] lisinopriL [Prinivil] 5 mg PO DAILY 01/02/20 [History] Sulfamethoxazole/Trimethoprim [Bactrim Ds Tablet] 1 each PO BID 5 Days #10 tablet 03/25/20 [Rx] Oxygen Therapy Mode: Room Air Forms: ED Department Discharge Referrals: Lynette David PA-C [Primary Care Provider] - - Discharge Summary/Plan Comment DC Time >30 min.: Yes - General Info Date of Service: 03/25/20 Admission Dx/Problem (Free Text: Complicated UTI urostomy infection Acute confusion from infectious process Subjective Update: Pt. is one hospital day 2 being treated for a UTI. Overall, he states that he had a good night. Staff states that he continues to be quite weak and requires the assist of 2 for standing/ambulation. Tmax in past 24 hours has been 38.2. He has been eating and drinking and is tolerating this. Fluids had been discontinued by AVELINA Roberts as his intake was adequate. CBC today showed white count of 6.3. lactic acid was within normal limits. Pt. urine culture showed predominant gram positive rods. He also had rare gram negative rods and few strep species. Blood cultures at this point have not grown anything. Pt. will be transitioned to acute care, pending further sensitivity of urine culture/due to continued weakness. Functional Status: Reports: Pain Controlled, Tolerating Diet, Ambulating - Review of Systems General: Reports: Weakness HEENT: Reports: No Symptoms Pulmonary: Reports: No Symptoms Cardiovascular: Reports: No Symptoms Gastrointestinal: Reports: No Symptoms Genitourinary: Reports: No Symptoms Musculoskeletal: Reports: No Symptoms Skin: Reports: Bruising Neurological: Reports: Confusion, Weakness Psychiatric: Reports: Confusion - Patient Data Vitals - Most Recent: Last Vital Signs Temp 37.2 C 03/25/20 05:48 Pulse 65 03/25/20 05:48 Resp 18 03/25/20 05:48 BP 143/65 H 03/25/20 07:43 Pulse Ox 92 L 03/25/20 05:48 Weight - Most Recent: 79.605 kg I&O - Last 24 hours: Intake & Output 03/24/20 03/25/20 03/25/20 22:59 06:59 14:59 Intake Total 240 Output Total 350 475 Balance -110 -475 Lab Results - Last 24 hrs: Laboratory Results - last 24 hr 03/24/20 03/25/20 03/25/20 Range/Units 06:43 06:42 06:42 WBC 5.1 (4.0-10.0) x10^3/uL RBC 3.40 L (4.5-6.0) x10^6/uL Hgb 11.1 L (14.0-18.0) g/dL Hct 32.1 L (40.0-52.0) % MCV 94.4 H (78.0-93.0) fL MCH 32.6 H (26.0-32.0) pg MCHC 34.6 (32.0-36.0) g/dL RDW Coeff of Sara 12.3 (10.0-15.0) % Plt Count 142 (130-400) x10^3/uL Neut % (Auto) 58.3 (50.0-80.0) % Lymph % (Auto) 23.1 L (25.0-50.0) % [place] % (Auto) 13.1 H (2.0-11.0) % Eos % (Auto) 5.3 H (0.0-4.0) % Baso % (Auto) 0.2 (0.2-1.2) % Sodium (136-145) mmol/L Potassium (3.5-5.1) mmol/L Chloride (98-107) mmol/L Carbon Dioxide (21-32) mmol/L Anion Gap (5-15) mmol/L BUN (7-18) mg/dL Creatinine (0.70-1.30) mg/dL Est Cr Clr Drug Dosing mL/min Estimated GFR (MDRD) Glucose (74-106) mg/dL Calcium (8.5-10.1) mg/dL Corrected Calcium (8.5-10.1) mg/dL Iron (65-175) ug/dL TIBC (250-450) ug/dL % Saturation (20.0-50.0) % Ferritin (26-388) ng/mL Total Bilirubin (0.2-1.0) mg/dL AST (15-37) U/L ALT (16-63) U/L Alkaline Phosphatase (46-116) U/L C-Reactive Protein 4.2 H (<=0.9) mg/dL Total Protein (6.4-8.2) g/dL Albumin (3.4-5.0) g/dL Globulin Albumin/Globulin Ratio Vitamin B12 637 (180-914) pg/mL TSH, Ultra Sensitive 2.124 (0.358-3.74) uIU/mL 03/25/20 03/25/20 Range/Units 06:42 06:42 WBC (4.0-10.0) x10^3/uL RBC (4.5-6.0) x10^6/uL Hgb (14.0-18.0) g/dL Hct (40.0-52.0) % MCV (78.0-93.0) fL MCH (26.0-32.0) pg MCHC (32.0-36.0) g/dL RDW Coeff of Sara (10.0-15.0) % Plt Count (130-400) x10^3/uL Neut % (Auto) (50.0-80.0) % Lymph % (Auto) (25.0-50.0) % [place] % (Auto) (2.0-11.0) % Eos % (Auto) (0.0-4.0) % Baso % (Auto) (0.2-1.2) % Sodium 132 L (136-145) mmol/L Potassium 3.9 (3.5-5.1) mmol/L Chloride 97 L (98-107) mmol/L Carbon Dioxide 26 (21-32) mmol/L Anion Gap 12.9 (5-15) mmol/L BUN 21 H (7-18) mg/dL Creatinine 1.1 (0.70-1.30) mg/dL Est Cr Clr Drug Dosing 55.28 mL/min Estimated GFR (MDRD) > 60 Glucose 98 (74-106) mg/dL Calcium 8.2 L (8.5-10.1) mg/dL Corrected Calcium 9.00 (8.5-10.1) mg/dL Iron 54 L (65-175) ug/dL TIBC 225 L (250-450) ug/dL % Saturation 24.0 (20.0-50.0) % Ferritin 324 (26-388) ng/mL Total Bilirubin 0.2 (0.2-1.0) mg/dL AST 51 H (15-37) U/L ALT 60 (16-63) U/L Alkaline Phosphatase 89 (46-116) U/L C-Reactive Protein (<=0.9) mg/dL Total Protein 6.3 L (6.4-8.2) g/dL Albumin 3.0 L (3.4-5.0) g/dL Globulin 3.3 Albumin/Globulin Ratio 0.91 Vitamin B12 (180-914) pg/mL TSH, Ultra Sensitive (0.358-3.74) uIU/mL DARVIN Results - Last 24 hrs: Microbiology 03/21/20 11:11 Aerobic Blood Culture - Preliminary Blood - Venous - Lab Draw NO GROWTH AFTER 3 DAYS Anaerobic Blood Culture - Preliminary NO GROWTH AFTER 3 DAYS 03/21/20 11:01 Aerobic Blood Culture - Preliminary Blood - Venous NO GROWTH AFTER 3 DAYS Anaerobic Blood Culture - Final 03/21/20 11:31 Urine Culture - Preliminary Urine, Nephrostomy Escherichia Coli Gram Positive Rods Streptococcus Species Med Orders - Current: Current Medications Acetaminophen (Tylenol) 650 mg PO Q4H PRN PRN Reason: Pain (Mild 1-3)/fever Last Admin: 03/24/20 08:22 Dose: 650 mg Documented by: Aspirin (Halfprin) 81 mg PO MOTH@08 [facility] Last Admin: 03/23/20 08:40 Dose: 81 mg Documented by: Ceftriaxone Sodium (Rocephin) 1 gm IVPUSH DAILY [facility] Last Admin: 03/25/20 07:42 Dose: 1 gm Documented by: Cyanocobalamin (Vitamin B12) 1,000 mcg PO DAILY [facility] Last Admin: 03/25/20 07:43 Dose: 1,000 mcg Documented by: Enoxaparin Sodium (Lovenox) 40 mg SUBCUT Q24H [facility] Last Admin: 03/24/20 14:33 Dose: 40 mg Documented by: Lisinopril (Prinivil) 5 mg PO DAILY [facility] Last Admin: 03/25/20 07:43 Dose: 5 mg Documented by: Multivitamins/Minerals (Thera M Plus) 1 tab PO DAILY [facility] Last Admin: 03/25/20 07:43 Dose: 1 tab Documented by: Ondansetron HCl (Zofran) 4 mg IV Q6H PRN PRN Reason: Nausea/Vomiting Sodium Chloride (Saline Flush) 10 ml FLUSH ASDIRECTED PRN PRN Reason: Keep Vein Open Last Admin: 03/25/20 07:42 Dose: 10 ml Documented by: Discontinued Medications Ceftriaxone Sodium (Rocephin) 2 gm IVPUSH STAT ONE Stop: 03/21/20 10:58 Last Admin: 03/21/20 11:09 Dose: 2 gm Documented by: Lactated Ringer's (Ringers, Lactated) 1,000 mls @ 999 mls/hr IV ONETIME ONE Stop: 03/21/20 12:20 Last Admin: 03/21/20 11:51 Dose: 999 mls/hr Documented by: Lactated Ringer's (Ringers, Lactated) 1,000 mls @ 150 mls/hr IV ASDIRECTED [facility] Last Admin: 03/22/20 03:20 Dose: 75 mls/hr Documented by: Lactated Ringer's (Ringers, Lactated) 1,000 mls @ 75 mls/hr IV ASDIRECTED [facility] Last Admin: 03/21/20 14:34 Dose: 75 mls/hr Documented by: - Exam General: Reports: Alert, Oriented, Cooperative Cardiovascular: Reports: Regular Rate, Regular Rhythm GI/Abdominal Exam: Normal Bowel Sounds, Soft, Non-Tender Skin: Reports: Warm, Dry Wound/Incisions: Reports: Healing Well Neurological: Reports: No New Focal Deficit Psy/Mental Status: Reports: Alert, Normal Affect, Normal Mood
== END 2020-03-25 11:00 | disposition home health service (06) | DRG 698 ==
LOC: VM.ED 10:38 → VM.MS 12:44 → OBSVTOIN 03-23 11:06
PROVIDERS: ADMIT Physician Assistant; ATTEND Physician Assistant
DX: N39.0 Urinary tract infection, site not specified (principal); Z93.6 Other artificial openings of urinary tract status; R41.0 Disorientation, unspecified; N99.521 Infection of incontinent external stoma of urinary tract; A41.51 Sepsis due to Escherichia coli [E. coli]; G93.41 Metabolic encephalopathy; E87.1 Hypo-osmolality and hyponatremia; F05 Delirium due to known physiological condition; I10 Essential (primary) hypertension; M25.462 Effusion, left knee; Z85.828 Personal history of other malignant neoplasm of skin; D63.8 Anemia in other chronic diseases classified elsewhere; Z85.51 Personal history of malignant neoplasm of bladder; Z20.822 Contact with and (suspected) exposure to COVID-19; S00.01XA Abrasion of scalp, initial encounter; E78.00 Pure hypercholesterolemia, unspecified; N40.0 Benign prostatic hyperplasia without lower urinary tract symptoms; M19.90 Unspecified osteoarthritis, unspecified site; I25.10 Atherosclerotic heart disease of native coronary artery without angina pectoris; S80.02XA Contusion of left knee, initial encounter; I73.9 Peripheral vascular disease, unspecified; Z98.62 Peripheral vascular angioplasty status; Z79.82 Long term (current) use of aspirin; Z79.899 Other long term (current) drug therapy; Z98.49 Cataract extraction status, unspecified eye; W19.XXXA Unspecified fall, initial encounter
CPT/HCPCS: 36415; 70450; 71045; 72125; 73562-LT; 80053; 80307; 81001; 82607; 82728; 82962; 83540; 83550; 83605; 84443; 84484; 85025; 86140; 87040; 87086; 87088; 87186; 93005; 93010; 96372; 96374; 96376; 97110-GP; 97116-GP; 97129-GO; 97130-GO; 97161-GP; 97165-GO; 97530-GP; 99220; 99225; 99232; 99285-25; A9270-GY; G0378; J0696; J1650; J7120; U0002

== ENCOUNTER 2020-04-24 10:42 | Observation (INO) | payer MEDICARE, OTHER ==
[2020-04-24] MEDS ORDERED: cefTRIAXone 2 GM Vial IVPUSH ONE (11:03)
--- NOTE | 2020-04-24 11:05 | CT ---
[id number] CT/CT Head Stroke Protocol Exam: CT Head Stroke Protocol Clinical Data: NEUROLOGIC DEFICIT COMPARISON: CORRELATION IS MADE WITH MARCH 21, 2020 FINDINGS: There is motion artifact There is no mass or mass effect There is no hemorrhage or hydrocephalus There are no extra axial fluid collections Report called at time of dictation IMPRESSION: NEGATIVE PLAIN CT BRAIN CURRENTLY Tone Rosales MD 04/24/20 0433 Thank you for allowing us to participate in the care of your patient.
[2020-04-24] MEDS: Sodium Chloride 0.9% 1,000 ML IV SCH ×2 (11:27→19:28)
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
[2020-04-24 11:35] LABS: ANION GAP 9.7 mmol/L (5-15)
[2020-04-24] MEDS ORDERED: Sodium Chloride 0.9% 10 ML Syringe FLUSH PRN (13:12)
[2020-04-24] MEDS ORDERED: Ondansetron 4 MG/2 ML SDV IV PRN (13:12)
[2020-04-24] MEDS ORDERED: Ondansetron 4 MG Tab.DIS PO PRN (13:12)
[2020-04-24] MEDS ORDERED: Acetaminophen 325 MG Tab PO PRN (13:12)
[2020-04-24] MEDS ORDERED: Enoxaparin 30 MG/0.3 ML Syringe SUBCUT SCH (20:00)
[2020-04-25] MEDS: Sodium Chloride 0.9% 1,000 ML IV SCH ×2 (01:04→08:35)
[2020-04-25] MEDS ORDERED: cefTRIAXone 1 GM Vial IVPUSH SCH (08:00)
[2020-04-25] MEDS ORDERED: Lisinopril 2.5 MG Tab PO SCH (08:00)
[2020-04-25 08:19] LABS: CHLORIDE,CL 102 mmol/L (98-107); SODIUM,NA 133 mmol/L (136-145)
[2020-04-25 08:21] LABS: ANION GAP 11.4 mmol/L (5-15)
--- NOTE | 2020-04-25 09:46 | PCM.DCSUM1 ---
Discharge Summary - Hospital Course HPI Initial Comments: This 84-year-old male was admitted to observation yesterday morning for a syncopal episode which happened at home. Head CT negative for stroke at that time, patient back to baseline shortly after being admitted. Patient had no difficulties throughout the night, is alert and appropriate this morning. Speech is clear and understandable, no weakness. Discussed findings of urine sample as well as lab work with daughter and as well as the patient. Pat ient encouraged to drink more water, fluids with electrolytes. Patient also encouraged to follow-up with his primary care provider for referral to neurology. Patient was given 2 doses of Rocephin while here, and instructed to finish the Keflex that he was placed on by Dr. Cline. Patient and family verbalized understanding. Diagnosis: Stroke: No Modified [place] Scale: No Symptoms at All Modified Hien Scale Score: 0 - Discharge Data Discharge Date: 04/25/20 Discharge Disposition: Home, Self-Care 01 Condition: Good - Referral to Home Health Primary Care Physician: Lynette David PA-C - Discharge Plan *PRESCRIPTION DRUG MONITORING PROGRAM REVIEWED*: No *COPY OF PRESCRIPTION DRUG MONITORING REPORT IN PATIENT SATISH: No Home Medications: Home Meds Aspirin [Aspirin EC] 81 mg PO MOTH@08 01/02/20 [History] Cyanocobalamin (Vitamin B-12) [B-12] 1,000 mcg PO DAILY 01/02/20 [History] Multivitamin with Minerals [Multiple Vitamin] 1 each PO DAILY 01/02/20 [History] Sildenafil [Viagra] 100 mg PO BEDTIME PRN 01/02/20 [History] lisinopriL [Prinivil] 5 mg PO DAILY 01/02/20 [History] cephALEXin [Keflex] 250 mg PO DAILY 04/24/20 [History] Oxygen Therapy Mode: Room Air Patient Handouts: Transient Ischemic Attack, [id number], Urinary Tract Infection, Adult, [id number] Referrals: Lynette David PA-C [Primary Care Provider] - - Discharge Summary/Plan Comment DC Time >30 min.: No - General Info Date of Service: 04/25/20 Functional Status: Reports: Pain Controlled - Review of Systems General: Reports: No Symptoms HEENT: Reports: No Symptoms Pulmonary: Reports: No Symptoms Cardiovascular: Reports: No Symptoms Gastrointestinal: Reports: No Symptoms Genitourinary: Reports: No Symptoms Musculoskeletal: Reports: No Symptoms Skin: Reports: No Symptoms Neurological: Reports: No Symptoms Psychiatric: Reports: No Symptoms - Patient Data Vitals - Most Recent: Last Vital Signs Temp 97.8 F 04/25/20 05:32 Pulse 62 04/25/20 05:32 Resp 16 04/25/20 05:32 BP 149/77 H 04/25/20 08:36 Pulse Ox 97 04/25/20 05:32 Weight - Most Recent: 166 lb 9.6 oz I&O - Last 24 hours: Intake & Output 04/24/20 04/25/20 04/25/20 22:59 06:59 14:59 Intake Total 999 1742 400 Output Total 500 450 Balance 499 1292 400 Lab Results - Last 24 hrs: Laboratory Results - last 24 hr 04/24/20 04/24/20 04/24/20 Range/Units 10:52 10:52 10:52 WBC 8.2 (4.0-10.0) x10^3/uL RBC 3.52 L (4.5-6.0) x10^6/uL Hgb 12.0 L (14.0-18.0) g/dL Hct 33.2 L (40.0-52.0) % MCV 94.3 H (78.0-93.0) fL MCH 34.1 H (26.0-32.0) pg MCHC 36.1 H (32.0-36.0) g/dL RDW Coeff of Sara 12.3 (10.0-15.0) % Plt Count 226 D (130-400) x10^3/uL Neut % (Auto) 64.8 (50.0-80.0) % Lymph % (Auto) 20.2 L (25.0-50.0) % [place] % (Auto) 9.9 (2.0-11.0) % Eos % (Auto) 4.7 H (0.0-4.0) % Baso % (Auto) 0.4 (0.2-1.2) % PT 10.9 (9.9-12.5) SEC INR 1.0 L (2.0-3.5) Sodium 129 L* (136-145) mmol/L Potassium 4.7 (3.5-5.1) mmol/L Chloride 97 L (98-107) mmol/L Carbon Dioxide 27 (21-32) mmol/L Anion Gap 9.7 (5-15) mmol/L BUN 16 (7-18) mg/dL Creatinine 1.2 (0.70-1.30) mg/dL Est Cr Clr Drug Dosing 49.95 mL/min Estimated GFR (MDRD) 58 Glucose 105 (74-106) mg/dL Lactic Acid (0.4-2.0) mmol/L Calcium 9.3 (8.5-10.1) mg/dL Corrected Calcium 9.54 (8.5-10.1) mg/dL Magnesium 1.8 (1.8-2.4) mg/dL Total Bilirubin 0.6 (0.2-1.0) mg/dL AST 32 (15-37) U/L ALT 34 (16-63) U/L Alkaline Phosphatase 107 (46-116) U/L Troponin I High Sens 6 (<=76) ng/L C-Reactive Protein 0.8 (<=0.9) mg/dL Total Protein 7.4 (6.4-8.2) g/dL Albumin 3.7 (3.4-5.0) g/dL Globulin 3.7 Albumin/Globulin Ratio 1.00 Urine Color (YELLOW) Urine Appearance (CLEAR) Urine pH (5.0-8.0) Ur Specific [place] Urine Protein (NEGATIVE) mg/dL Urine Glucose (UA) (NEGATIVE) mg/dL Urine Ketones (NEGATIVE) mg/dL Urine Occult Blood (NEGATIVE) Urine Nitrite (NEGATIVE) Urine Bilirubin (NEGATIVE) Urine Urobilinogen (0.2) EU/dL Ur Leukocyte Esterase (NEGATIVE) U Hyaline Cast (Auto) Urine RBC (NOT SEEN) /HPF Urine WBC (NOT SEEN) /HPF Ur Squamous Epith Cells (NOT SEEN) /HPF Urine Bacteria (NOT SEEN) /HPF Urine Mucus (NOT SEEN) /LPF SARS CoV-2 RNA Rapid MARCO (NEGATIVE) 04/24/20 04/24/20 04/24/20 Range/Units 10:52 12:16 14:41 WBC (4.0-10.0) x10^3/uL RBC (4.5-6.0) x10^6/uL Hgb (14.0-18.0) g/dL Hct (40.0-52.0) % MCV (78.0-93.0) fL MCH (26.0-32.0) pg MCHC (32.0-36.0) g/dL RDW Coeff of Sara (10.0-15.0) % Plt Count (130-400) x10^3/uL Neut % (Auto) (50.0-80.0) % Lymph % (Auto) (25.0-50.0) % [place] % (Auto) (2.0-11.0) % Eos % (Auto) (0.0-4.0) % Baso % (Auto) (0.2-1.2) % PT (9.9-12.5) SEC INR (2.0-3.5) Sodium (136-145) mmol/L Potassium (3.5-5.1) mmol/L Chloride (98-107) mmol/L Carbon Dioxide (21-32) mmol/L Anion Gap (5-15) mmol/L BUN (7-18) mg/dL Creatinine (0.70-1.30) mg/dL Est Cr Clr Drug Dosing mL/min Estimated GFR (MDRD) Glucose (74-106) mg/dL Lactic Acid 1.3 (0.4-2.0) mmol/L Calcium (8.5-10.1) mg/dL Corrected Calcium (8.5-10.1) mg/dL Magnesium (1.8-2.4) mg/dL Total Bilirubin (0.2-1.0) mg/dL AST (15-37) U/L ALT (16-63) U/L Alkaline Phosphatase (46-116) U/L Troponin I High Sens (<=76) ng/L C-Reactive Protein (<=0.9) mg/dL Total Protein (6.4-8.2) g/dL Albumin (3.4-5.0) g/dL Globulin Albumin/Globulin Ratio Urine Color Light yellow (YELLOW) Urine Appearance Clear (CLEAR) Urine pH 7.5 (5.0-8.0) Ur Specific [place] 1.020 Urine Protein Negative (NEGATIVE) mg/dL Urine Glucose (UA) Negative (NEGATIVE) mg/dL Urine Ketones Negative (NEGATIVE) mg/dL Urine Occult Blood Trace-intact H (NEGATIVE) Urine Nitrite Negative (NEGATIVE) Urine Bilirubin Negative (NEGATIVE) Urine Urobilinogen 0.2 (0.2) EU/dL Ur Leukocyte Esterase Trace H (NEGATIVE) U Hyaline Cast (Auto) Rare Urine RBC 5-10 H (NOT SEEN) /HPF Urine WBC 5-10 H (NOT SEEN) /HPF Ur Squamous Epith Cells Rare (NOT SEEN) /HPF Urine Bacteria Few H (NOT SEEN) /HPF Urine Mucus Rare H (NOT SEEN) /LPF SARS CoV-2 RNA Rapid MARCO Negative (NEGATIVE) 04/25/20 04/25/20 Range/Units 07:35 07:35 WBC 6.6 (4.0-10.0) x10^3/uL RBC 3.03 L (4.5-6.0) x10^6/uL Hgb 10.3 L D (14.0-18.0) g/dL Hct 29.3 L (40.0-52.0) % MCV 96.7 H (78.0-93.0) fL MCH 34.0 H (26.0-32.0) pg MCHC 35.2 (32.0-36.0) g/dL RDW Coeff of Sara 12.7 (10.0-15.0) % Plt Count 195 (130-400) x10^3/uL Neut % (Auto) 61.1 (50.0-80.0) % Lymph % (Auto) 22.7 L (25.0-50.0) % [place] % (Auto) 9.8 (2.0-11.0) % Eos % (Auto) 6.1 H (0.0-4.0) % Baso % (Auto) 0.3 (0.2-1.2) % PT (9.9-12.5) SEC INR (2.0-3.5) Sodium 133 L (136-145) mmol/L Potassium 4.4 (3.5-5.1) mmol/L Chloride 102 (98-107) mmol/L Carbon Dioxide 24 (21-32) mmol/L Anion Gap 11.4 (5-15) mmol/L BUN 15 (7-18) mg/dL Creatinine 1.0 (0.70-1.30) mg/dL Est Cr Clr Drug Dosing 57.73 mL/min Estimated GFR (MDRD) > 60 Glucose 98 (74-106) mg/dL Lactic Acid (0.4-2.0) mmol/L Calcium 8.2 L (8.5-10.1) mg/dL Corrected Calcium (8.5-10.1) mg/dL Magnesium (1.8-2.4) mg/dL Total Bilirubin (0.2-1.0) mg/dL AST (15-37) U/L ALT (16-63) U/L Alkaline Phosphatase (46-116) U/L Troponin I High Sens (<=76) ng/L C-Reactive Protein 0.7 (<=0.9) mg/dL Total Protein (6.4-8.2) g/dL Albumin (3.4-5.0) g/dL Globulin Albumin/Globulin Ratio Urine Color (YELLOW) Urine Appearance (CLEAR) Urine pH (5.0-8.0) Ur Specific [place] Urine Protein (NEGATIVE) mg/dL Urine Glucose (UA) (NEGATIVE) mg/dL Urine Ketones (NEGATIVE) mg/dL Urine Occult Blood (NEGATIVE) Urine Nitrite (NEGATIVE) Urine Bilirubin (NEGATIVE) Urine Urobilinogen (0.2) EU/dL Ur Leukocyte Esterase (NEGATIVE) U Hyaline Cast (Auto) Urine RBC (NOT SEEN) /HPF Urine WBC (NOT SEEN) /HPF Ur Squamous Epith Cells (NOT SEEN) /HPF Urine Bacteria (NOT SEEN) /HPF Urine Mucus (NOT SEEN) /LPF SARS CoV-2 RNA Rapid MARCO (NEGATIVE) Med Orders - Current: Current Medications Acetaminophen (Acetaminophen 325 Mg Tab) 650 mg PO Q4H PRN PRN Reason: Pain (Mild 1-3)/fever Aspirin (Aspirin 81 Mg Tab.Ec) 81 mg PO MoTh@0800 [facility] Ceftriaxone Sodium (Ceftriaxone 1 Gm Vial) 1 gm IVPUSH Q24H [facility] Last Admin: 04/25/20 08:36 Dose: 1 gm Documented by: Enoxaparin Sodium (Enoxaparin 30 Mg/0.3 Ml Syringe) 30 mg SUBCUT BEDTIME [facility] Last Admin: 04/24/20 20:08 Dose: 30 mg Documented by: Sodium Chloride (Normal Saline) 1,000 mls @ 150 mls/hr IV ASDIRECTED [facility] Last Admin: 04/25/20 08:35 Dose: 150 mls/hr Documented by: Lisinopril (Lisinopril 2.5 Mg Tab) 5 mg PO DAILY [facility] Last Admin: 04/25/20 08:36 Dose: 5 mg Documented by: Ondansetron HCl (Ondansetron 4 Mg Tab.Dis) 4 mg PO Q4H PRN PRN Reason: nausea, able to take PO Ondansetron HCl (Ondansetron 4 Mg/2 Ml Sdv) 4 mg IV Q4H PRN PRN Reason: Nausea/Vomiting Sodium Chloride (Sodium Chloride 0.9% 10 Ml Syringe) 10 ml FLUSH ASDIRECTED PRN PRN Reason: Keep Vein Open Last Admin: 04/25/20 08:37 Dose: 10 ml Documented by: Discontinued Medications Ceftriaxone Sodium (Ceftriaxone 2 Gm Vial) 2 gm IVPUSH ONETIME ONE Stop: 04/24/20 11:04 Last Admin: 04/24/20 12:45 Dose: 2 gm Documented by: - Exam General: Reports: Alert, Oriented HEENT: Reports: Pupils Equal, Pupils Reactive, EOMI, Mucous Membr. Moist/[place] Neck: Reports: Supple Lungs: Reports: Clear to Auscultation, Normal Respiratory Effort Cardiovascular: Reports: Regular Rate, Regular Rhythm GI/Abdominal Exam: Normal Bowel Sounds, Soft, Non-Tender, No Organomegaly, No Distention, No Abnormal Bruit, No Mass, Pelvis Stable (Male) Exam: Deferred Rectal (Males) Exam: Deferred Back Exam: Reports: Normal Inspection, Full Range of Motion Extremities: Normal Inspection, Normal Range of Motion, Non-Tender, No Pedal Edema, Normal Capillary Refill Skin: Reports: Warm, Dry, Intact Neurological: Reports: No New Focal Deficit Psy/Mental Status: Reports: Alert, Normal Affect, Normal Mood
[2020-04-25 10:12] VITALS: BP 139/72; PULSE 63
[2020-04-27] MEDS ORDERED: Aspirin 81 MG Tab.EC PO SCH (08:00)
== END 2020-04-25 11:05 | disposition home or self-care (01) ==
LOC: VM.ED 10:42 → VM.MS 12:41
PROVIDERS: ADMIT Physician Assistant Medical; ATTEND Physician Assistant Medical
DX: R55 Syncope and collapse (principal); R47.01 Aphasia; E78.00 Pure hypercholesterolemia, unspecified; I10 Essential (primary) hypertension; I73.9 Peripheral vascular disease, unspecified; T83.512A Infection and inflammatory reaction due to nephrostomy catheter, initial encounter; E87.1 Hypo-osmolality and hyponatremia; N39.0 Urinary tract infection, site not specified; Z20.822 Contact with and (suspected) exposure to COVID-19; Z79.82 Long term (current) use of aspirin; Z79.899 Other long term (current) drug therapy; Z98.890 Other specified postprocedural states
CPT/HCPCS: 36415; 70450; 80048; 80053; 81001; 83605; 83735; 84484; 85025; 85610; 86140; 87040; 87086; 87088; 87186; 93005; 96374; 99285-25; A9270-GY; J0696; J1650; J7030; U0002

== ENCOUNTER 2020-08-26 09:13 | Emergency (ER) | payer MEDICARE, OTHER ==
[2020-08-26 09:31] VITALS: BP 128/62; PULSE 68
[2020-08-26] MEDS ORDERED: Sodium Chloride 0.9% 10 ML Syringe FLUSH PRN (10:17)
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
[2020-08-26 11:07] LABS: CHLORIDE,CL 96 mmol/L (98-107); SODIUM,NA 131 mmol/L (136-145)
[2020-08-26 11:10] LABS: ANION GAP 14.6 mmol/L (5-15)
[2020-08-26] MEDS ORDERED: Sodium Chloride 0.9% 500 ML IV ONE (11:37)
--- NOTE | 2020-08-26 11:39 | CR ---
[id number] RAD/RAD Chest PA or AP 1V EXAM: FRONTAL CHEST INDICATION: WEAKNESS. COMPARISON: March 21, 2020. DISCUSSION: Low lung volumes result in mild central vascular crowding and basilar atelectasis. Early left mid lung infiltrates are not excluded. Right nipple shadow versus small nodule at the level of the fifth anterior rib. Consider repeat views with nipple markers. Probable skinfold overlying the right lung apex. IMPRESSION: 1. Small nodule versus nipple shadow right lung base. 2. Low lung volumes with central vascular crowding and possible left mid lung infiltrates. Lazarus Franco MD 08/26/20 [id number] Thank you for allowing us to participate in the care of your patient.
--- NOTE | 2020-08-26 11:40 | CR ---
[id number] RAD/RAD Foot Right 3V Min EXAM: RAD Foot Right 3V Min INDICATION: FELL DOWN, BRUISING TO RIGHT FOOT. COMPARISON: None. DISCUSSION: Extension of the toes somewhat limits assessment. Mild tibiotalar, midfoot and first metatarsophalangeal osteoarthritis. No acute fracture or dislocation is identified. Small plantar calcaneal spur and Achilles tendon attachment enthesophyte. Arterial calcifications. IMPRESSION: 1. No acute findings. Lazarus Franco MD 08/26/20 [id number] Thank you for allowing us to participate in the care of your patient.
[2020-08-26] MEDS ORDERED: Cefepime 2 GM Vial IVPUSH ONE (13:48)
[2020-08-26] MEDS ORDERED: Ciprofloxacin in D5W 400 MG in Premix Bag 1 BAG IV ONE ×2 (13:48)
--- NOTE | 2020-08-28 13:09 | PCM.SN.2 ---
- Free Text/Narrative Note: Received culture and sensitivity report regarding the patient's urine analysis. Patient was contacted and encouraged to report to the clinic at the nearest available appointment for further investigation evaluation of antibiotic use. Patient is currently on antibiotic that is resistant also most outpatient antibiotics on the culture And sensitivity report appear to be resistant. Patient's records were faxed over to the clinic. Patient had no further questions or concerns.
== END 2020-08-26 14:13 | disposition home or self-care (01) ==
LOC: VM.ED 09:13
DX: T83.512A Infection and inflammatory reaction due to nephrostomy catheter, initial encounter (principal); N39.0 Urinary tract infection, site not specified; E86.0 Dehydration; I10 Essential (primary) hypertension; Z79.82 Long term (current) use of aspirin; Z79.899 Other long term (current) drug therapy
CPT/HCPCS: 36415; 71045; 73630-RT; 80053; 81001; 83605; 83735; 83880; 84145; 84484; 85025; 86140; 87086; 87088; 87186; 93005; 96374; 99284; 99285-25; J0692; J7030

== ENCOUNTER 2020-10-28 09:48 | Emergency (ER) | payer MEDICARE, OTHER ==
--- NOTE | 2020-10-28 10:24 | CT ---
[id number] CT/CT Head Stroke Protocol EXAM: NONCONTRAST HEAD CT INDICATION: CODE STROKE. COMPARISON: April 24, 2020. 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 Stable mild generalized atrophy and chronic small vessel ischemic changes. No acute hemorrhage, mass effect, midline shift, hydrocephalus or extra-axial collection. The orbits and paranasal sinuses are unremarkable. Results called at 10:18 AM on 10/28/2020. IMPRESSION: 1. No acute findings. Lazarus Franco MD 10/28/20 [id number] Thank you for allowing us to participate in the care of your patient.
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
[2020-10-28 10:30] LABS: PTT,PARTIAL THROMBOPLSTIN TIME 22.7 SEC (25.6-32.8)
[2020-10-28 10:37] LABS: ANION GAP 14.3 mmol/L (5-15); CHLORIDE,CL 95 mmol/L (98-107); SODIUM,NA 130 mmol/L (136-145)
== END 2020-10-28 11:20 | disposition short-term general hospital (02) ==
LOC: VM.ED 09:48
DX: I63.9 Cerebral infarction, unspecified (principal); E78.00 Pure hypercholesterolemia, unspecified; I10 Essential (primary) hypertension; Z79.82 Long term (current) use of aspirin; Z79.899 Other long term (current) drug therapy
CPT/HCPCS: 36415; 37195; 70450; 80048; 81001; 84484; 85025; 85610; 85730; 99284; 99285-25

== ENCOUNTER 2020-11-03 12:49 | Inpatient (IN) | payer MEDICARE, OTHER ==
[2020-11-03] MEDS: QUEtiapine 25 MG Tab PO SCH (20:12)
[2020-11-03] MEDS: Lisinopril 20 MG Tab PO SCH (20:12)
[2020-11-04] MEDS: Cholecalciferol (Vitamin D3) 25 MCG Tab PO SCH (07:34)
[2020-11-04] MEDS: Cephalexin 250 MG Cap PO SCH (07:34)
[2020-11-04] MEDS: Cyanocobalamin (Vitamin B12) 1,000 MCG Tab PO SCH (07:34)
[2020-11-04] MEDS: Clopidogrel 75 MG Tab PO SCH (07:34)
[2020-11-04] MEDS: Aspirin 81 MG Tab.Chew PO SCH (07:34)
[2020-11-04] MEDS: atorvaSTATin 40 MG Tab PO SCH (07:34)
[2020-11-04] MEDS: Lisinopril 20 MG Tab PO SCH ×2 (07:35→20:26)
--- OUTSIDE RECORDS SUMMARY | 2020-11-04 08:24 | XMSREPORT ---
:1935 Author Organization [facility] Address [facility] [address] [place] [address] Care Team Providers Name Role Phone Nba Barragan MD Unavailable Sam David PA-C Primary Care Provider Sam David PA-C Attributed Provider Reason for Referral Comprehensive Primary Care Plus (Routine) Status Reason Specialty Diagnoses / Referred By Referred To Contact Procedures Contact New Request Diagnoses Cerebrovascular accident (CVA), unspecified mechanism (HCC) Juan Carlos Chau Neuropsych Andry Alexandre MD [address] [place] [address] [place] [address] Phone: Fax: Scheduling Instructions This is an electronic referral. Comprehensive Primary Care Plus (Routine) Status Reason Specialty Diagnoses / Referred By Referred To Procedures Contact Contact New Request Diagnoses Ischemic stroke (HCC) Juan Carlos Chau Neurology Andry Alexandre MD [address] [place] [address] [place] [address] Phone: Scheduling Instructions This is an electronic referral. Reason for Visit Reason Comments Aphasia Pt arrives via EMS from [facility] for aphasia and confusion. Was sitting with , became dizzy then unable to communicate or follow commands. Stroke code called. Auth/Cert Status Reason Specialty Diagnoses / Procedures Referred By Sunil bansal Referred To Contact Encounter Details Date Type Department Care Team Description 10/28/2020 - Hospital Encounter [facility] Department [address] [place] [address] [phone] Ischemic stroke 11/03/2020 CENTER [facility] NEURO Joshua Gonzalez DO [address] [place] [address] [phone] ([facility]) Griffin Hudson MD [address] [place] [address] [phone] [address] [facility] Mariela Eaton MD [address] [place] [address] [phone] [place] [address] Juan Carlos Chau MD [address] [place] [address] [phone] Allergies No Known Active Allergiesdocumented as of this encounter (statuses as of 11/03/2020) Medications Medication Sig Dispensed Refills Start End Date Status Date cyanocobalamin Take 1 tablet 90 tablet 3 A ctive (VITAMIN B-12) (1,000 mcg) by 9 1000 mcg mouth 1 time tabletIndications: per day Stomatitis cephalexin Take 1 capsule 30 capsule 12 Act eddie (KEFLEX) 250 mg (250 mg) by 1 capsuleIndications mouth 1 time : Recurrent UTI per day One pill daily vitamin D3, Take 50 mcg by 0 Act eddie cholecalciferol, mouth 1 time 50 mcg (2000 unit) per day tablet atorvaSTATin Take 1 tablet 90 tablet 1 02/03/20 Act eddie (LIPITOR) 80 mg (80 mg) by 1 21 tabletIndications: mouth 1 time Ischemic stroke per day (HCC) lisinopril Take 1 tablet 180 tablet 0 02/02/20 Acti ve (PRINIVIL, (20 mg) by 1 ZESTRIL) 20 mg mouth 2 times a tabletIndications: day Ischemic stroke (HCC) QUEtiapine Take 1 tablet 30 tablet 0 12/04/19 Activ e (SEROQUEL) 25 mg (25 mg) by 02 26 tabletIndications: mouth every Acute confusional night at state bedtime aspirin 81 mg Take 1 tablet 90 tablet 0 02/03/20 Ac tive chewable (81 mg) by 02 26 tabletIndications: mouth 1 time Ischemic stroke per day (HCC) clopidogrel Take 1 tablet 90 tablet 0 02/03/20 Acti ve (PLAVIX) 75 mg (75 mg) by 02 26 tabletIndications: mouth 1 time Ischemic stroke per day (HCC) aspirin 81 mg Take 81 mg by 0 11/04/19 Di scontinued enteric coated mouth 1 time 21 (S top Taking at tablet per day Discharge) Multiple Take 1 tablet 0 11/04/19 Discon tinued Vitamins-Minerals by mouth 1 time 9 21 (Stop Taking at (MULTIVITAMIN per day Discha rge) THERAPEUTIC WITH MINERALS) tabletIndications: Stomatitis lisinopril Take 1 tablet 90 tablet 4 11/04/19 Disco ntinued (PRINIVIL, (5 mg) by mouth 0 21 (St op Taking at ZESTRIL) 5 mg 1 time per day D ischarge) tabletIndications: Essential hypertension, benign sildenafil Take 100 mg by 0 11/04/19 Disc ontinued (VIAGRA) 100 MG mouth 1 time a 21 (Stop Taking at tablet day as needed Discha rge) for other (Specify) Take 1 hour prior to anticipated sexual activity. aspirin 81 mg Take 1 tablet 0 11/04/19 Di scontinued chewable (81 mg) by 1 21 tabletIndications: mouth 1 time Ischemic stroke per day (HCC) clopidogrel Take 1 tablet 90 tablet 1 11/04/19 Disc ontinued (PLAVIX) 75 mg (75 mg) by 1 21 tabletIndications: mouth 1 time Ischemic stroke per day (HCC) documented as of this encounter (statuses as of 11/03/2020) Active Problems Problem Noted Date Ischemic stroke 10/28/2020 Acute confusional state 05/02/2020 Hyponatremia 04/09/2020 Daily consumption of alcohol 04/09/2020 Vancomycin resistant Enterococcus 04/02/2020 Overview: UTI, 03/29 Cognitive dysfunction 03/25/2020 Overview: Eval on 03/25/20- ADL screen 3.8/5.8 is 66% of norm. MMSE /30 is 80% of norm. OT felt he is still aware of his issues but becomes agitated and covers limitations with aggression/ anger. 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 Gray) 11/19/2007 Left hip arthroplasty by Alireza Gray 11/2007 DJD in both hips was noted. At some point, a procedure was done t o remove/destroy Ca++ deposits 12/08/2014 Patient walks a couple mile s a day and is active Prostatic hypertrophy Overview: PSA has never been above ~1.3 or 1.4, 12/20 0.27 ~ urinary symptoms included waking many times to urinate in the middle of the night Has been treated with Tamsulosin/Duta steride which has helped 12/21 still has to wake a few times p er night to urinate and is uncomfortable when a bathroom is not near. PSA 0.30, post void residual 340 mL 05/22 Photovaporization of prostate by Dr. Cline along with first resection of bladder carcinoma Hyperlipidemia Overview: Was first treated for hypercholestero lemia 02/12/2007. At this time his labs were as follows: LDL-106, HDL-65, Triglycerides-88 By 2009, patient was off statin due t o medication side effects (myalgias) and was to be controlling his hyperlipidemia through lifestyle modification 2010 was started on Crestor, unsure w hen it was discontinued Lipids as of 01/07/2013: LDL-83, HDL-5 7, Triglycerides-75 12/21 Rx Crestor again due to his ris k factors, agreed to restart; Lipids: [id number], HDL 63, trig 94; Crestor appropriate because of the carotid disease; 09/21 D/C'd for Chemo but planning to restart 12/22 Colon cancer screening Overview: Reportedly FH of colon cancer via Dan[facility] tricity (reviewed 12/08/2014) 11/21/02 Colonoscopy-redundant colon 11/12/2007 Negative occult blood test, letter sent to inform patient about results and about colonoscopy screening Should have received colonoscopy 2012 , no record History of bilateral carotid endarterectomy Overview: In 2006: left-sided. In 01/2015: right- sided. Carotid artery stenosis Overview: See also hyperlipidemia 11/12 Patient down in [place] for shopping trip, awoke and was dysarthric, had a left CVA 11/12 L carotid [place]arte[place] 11/13 Bilateral carotid US showed les s than 40% stenosis in each carotid 12/21 OV no further problems, healed scar viewed on exam; now has bruit on R, severe stenosis on repeat US; R carotid endarterectomy 01/20, in [place] again per his request Basal cell carcinoma Overview: Excision, L chest 06/17 09/16 Mohs excision BCC L eyebrow Peripheral vascular disease Overview: See also carotid stenosis, F/P bilate ral carotid endarterectomy 12/22 unable to feel pulses in feet, capillary refill 6 seconds bilateral but asymptomatic, urged lots of walking Anemia, iron deficiency Overview: 10/22 Hb is 9.9, Fe saturation 7% foll owing radical cystectomy 12/22 CBC, Fe sat 25%; folate and B-1 2 also normal, his anemia is probably from chronic disease and stress now, he will continue one iron per day through the winter Systolic murmur Overview: Noted in Hospital 10/22 and on exam , no studies planned since asymptomatic Stomatitis Overview: 06/24 Says his lips are always cracked and painful, already on B-12 tabs, per recommendation of MKA Will also start taking a MV with minerals daily documented as of this encounter (statuses as of 11/03/2020) Resolved Problems Problem Noted Date Resolved Date SBO (small bowel obstruction) 09/04/2017 01/24/2019 Small bowel obstruction 10/29/2015 01/24/2019 Chemotherapy induced neutropenia 07/15/2015 016 S/P vascular surgery 05/02/2020 Ankle edema 01/24/2019 Overview: 11/21 Rx HCTZ 12.5 daily for 3+ ankle edema, no orthopnea 12/22 already off HCTZ, no more edema ; will D/C Coreg also Id reaction 01/24/2019 Overview: 05/23 generalized small scaling macule s, has considerable redness under tape of his ileostomy bag: Rx prednisone 20 mg daily 2 weeks p.o. Fracture, finger, multiple sites 019 Overview: 06/22 PIP joints of ring and long fing ers in log splitter, laceration sutured in ER Has other medical appointments, doesn't want Hand consult unless necessary, x-rays sent to Hand Surgery to request review regarding importance of consult; in the meantime splinted in extension 3 wk 06/24 has flexion contracture of R vielka g and ring fingers, he is used to it now, can grasp fairly well documented as of this encounter (statuses as of 11/03/2020) Immunizations Name Administration Dates Next Due FLU VACCINE TRIVALENT SINGLE 01/25/2013 DOSE(Fluvirin,Afluria) DT (pediatric) 09/15/2003 FLU VACCINE HIGH DOSE 65YR+(Fluzone) 12/04/2019, 11/07/2017, 11/04/2015, 11/13/2014 Hep A,peds/adol 05/18/2004, 09/22/2003 Influenza Vaccine 11/11/2013 Influenza Vaccine,unspecified 02/20/2012 Moderna COVID-19 Vaccine 03/31/2020, 03/03/2020 Pneumococcal Conj PCV13 11/13/2013 Pneumococcal Polysaccharide PPSV23 01/14/2010 TDAP 01/25/2013 Zoster Live(Zostavax) 02/12/2007 Zoster Recombinant (Shingrix) 10/31/2018 documented as of this encounter Social History Tobacco Use Types Packs/Day Years Used Date Never Smoker Smokeless Tobacco: Never Used Alcohol Use Standard Drinks/Week Comments Yes 11 (1 standard drink = 0.6 oz pure alcoh ol) Alcohol Habits Answer Date Recorded How often do you have a drink containing alcohol? Patient re fused 10/31/2020 How many drinks containing alcohol do you have on a 1 or 2 07/02/2019 typical day when you are drinking? How often do you have six or more drinks on one Never 07/02/2019 occasion? Comment: Not asked Sex Assigned at Date Recorded Not on file documented as of this encounter Last Filed Vital Signs Vital Sign Reading Time Taken Comments Blood Pressure 172/83 11/03/2020 7:32 AM CDT Pulse 62 11/03/2020 7:32 AM CDT Temperature 37 C (98.6 F) 11/03/2020 7:32 AM CDT Respiratory Rate 16 11/03/2020 7:32 AM CDT Oxygen Saturation 100% 11/03/2020 7:32 AM CDT Inhaled Oxygen Concentration - - Weight 75.8 kg (167 lb 1.7 oz) 11/03/2020 6:30 AM CDT Height 182.9 cm (6') 10/28/2020 6:00 PM CDT Body Mass Index 22.66 10/28/2020 6:00 PM CDT documented in this encounter Functional Status Functional Status Response Date of Assessment Is the person deaf or does he/she have serious difficulty No 09/04/2017 hearing? Is this person blind or does he/she have difficulty No 09/04/2017 seeing even when wearing glasses? Do you have difficulty with walking, balance, climbing Yes 11/02/2020 stairs, or had a fall in the last 3 months? Does the patient have difficulty dressing or bathing? No 09/04/2017 Because of a physical, mental, or emotional condition; No 09/04/2017 does this person have difficulty doing errands alone such as visiting a doctor's office or shopping? Cognitive Status Response Date of Assessment Because of a physical, mental, or emotional condition; No 09/04/2017 does this person have serious difficulty concentrating, remembering, or making decisions? documented as of this encounter Discharge Summaries Not on filedocumented in this encounter Discharge Instructions Es Mcdermott RN - 11/03/2020 Stroke / TIA Discharge Instructions Medications Medications are an important part of reducing your risk of stroke and transient ischemic attack (TIA) always take medications as directed; do not skip doses. If you are unable to take your medications, please contact your provider. See schedule of discharge medications. If you are on a blood thinner (anticoagulant), call your provider if any signs of bleeding (bruising, blood in urine, stool, vomit, or sputum). Please contact your provider before beginning or resuming herbal and/or vitamin supplements. Review of Risk Factors and Interventions Smoking? No Advised to quit? No Do not smoke or use tobacco. Ask family members to stop smoking. Talk to your provider about using the nicotine patch or other medication. Join a smoking cessation group. High Blood Pressure? Yes Your BP: 172/83 Goal BP is less than 140/90 mmHg or as recommended by your provider Monitor your Blood Pressure Lower your blood pressure by losing weight, exercising, and eating less salt. High Cholesterol? Yes Your current LDL (bad cholesterol) No results found for: LDLDIR Lab Results Component Value Date LDL 86 10/29/2020 Your goal LDL (bad cholesterol) level is less than 70. Review your cholesterol levels with your provider. Follow a low fat and low cholesterol diet. Diabetes? No HgbA1c value Lab Results Component Value Date HGBA1C 5.1 10/28/2020 Your goal is to keep your HgbA1c less than 7 mg/dL. Follow your diet and exercise plan as directed. Keeping your blood sugars under control will lower your risk for another stroke / transient ischemic attack (TIA). Exercise? No Exercise as directed. Staying active (walking or riding a stationary bike) for 30 minutes 5 times a week could reduce the risk of stroke. Alcohol Use? Yes No more than 1 - 2 alcoholic drinks a day. It is very important that you keep all your appointments. Call 911 immediately if you are experiencing any of these common warning signs of stroke / TIA Sudden numbness or weakness of the face, arm or leg, especially on one side of the body. Sudden confusion, trouble speaking or understanding speech. Sudden trouble seeing in one or both eyes. Sudden trouble walking, dizziness, loss of balance or coordination. Sudden severe headache with no known cause. For more information about stroke contact [place] [employer] [facility], , www.strokeassociation.org National Stroke Association, , www.stroke.org National [place] [employer] Neurological Disorders and Stroke, , www. ninds.nih.gov documented in this encounter Medications at Time of Discharge Medication Sig Dispensed Refills Start Date End Date atorvaSTATin (LIPITOR) 80 Take 1 tablet (80 90 tablet 1 02/02/2021 mg tabletIndications: mg) by mouth 1 Ischemic stroke (HCC) time per day lisinopril (PRINIVIL, Take 1 tablet (20 180 tablet 0 021 02/01/2021 ZESTRIL) 20 mg mg) by mouth 2 tabletIndications: times a day Ischemic stroke (HCC) QUEtiapine (SEROQUEL) 25 Take 1 tablet (25 30 tablet 0 10/0812/03/2020 mg tabletIndications: mg) by mouth every Acute confusional state night at bedtime aspirin 81 mg chewable Take 1 tablet (81 90 tablet 0 202002/02/2021 tabletIndications: mg) by mouth 1 Ischemic stroke (HCC) time per day clopidogrel (PLAVIX) 75 mg Take 1 tablet (75 90 tablet 0 02/02/2021 tabletIndications: mg) by mouth 1 Ischemic stroke (HCC) time per day vitamin D3, Take 50 mcg by 0 cholecalciferol, 50 mcg mouth 1 time per (2000 unit) tablet day cephalexin (KEFLEX) 250 mg Take 1 capsule 30 capsule 12 09/02 capsuleIndications: (250 mg) by mouth Recurrent UTI 1 time per day One pill daily cyanocobalamin (VITAMIN Take 1 tablet 90 tablet 3 9 B-12) 1000 mcg (1,000 mcg) by tabletIndications: mouth 1 time per Stomatitis day documented as of this encounter Progress Notes Kierra Ngo DO - 11/02/2020 1:08 PM CDT PROGRESS NOTE Patient Name: Beto Delgado Admitted: 10/28/2020 Today's Date: 11/02/2020 Beto Delgado is an 84-year-old male with a PMH of bilateral carotid artery stenosis, peripheral vascular disease, HTN, hyperlipidemia, who was transferred from [facility] ED on 10/28/2020 for a stroke code. NIHSS was 22. CT head at outside facility was negative for ICH. [place] stroke neurologist was consulted and recommended patient receive tPA and be transferred to [facility] for possible intervention. Upon arrival to [place] ED, the patient was globally aphasic and not following commands. Last known well was 729. ASSESSMENT AND PLAN #1 Acute ischemic stroke, occluded left A2/A3 and occluded right D2. S/p IV tPA. Patient was seen by neurovascular services who felt that the patient likely had a small cyst frontal stroke etiology is likely atherosclerosis vs cardioembolic. Diagnostics: -CTA brain w/ perfusion and neck 10/28 showed occluded left A2/A3 and occluded right D2. Severe stenosis at the origin of the right vertebral artery. Remote left cerebral infarct and at the left PICA territory. No acute intracranial hemorrhage. Symmetrical brain perfusion. -MRI of brain 10/28 showed no evidence of acute ischemia on diffusion imaging. -MRI of brain 10/29 showed a single punctate focus of diffusion abnormality involving the left frontal cortex consistent with acute lacunar infarct. -Neurovascular services consulted and signed off. Plan to follow-up with neurovascular services in 3months. --Continue ASA and plavix: Continue DAPT for 90 days, then ASA only. --Continue Lipitor 80 mg po daily. -EEG negative, Echocardiogram negative. -On telemetry -Plan to place a loop recorder prior to discharge. -Neuro checks Q4 hours, NIHSS q shift. -Swallow study today. SUCTION DREDGE DUMPING SUPERVISOR recommending level 6 soft & bite sized, and mildly thick liquids (nectar like thickness). -PT, OT, SUCTION DREDGE DUMPING SUPERVISOR following. #2 Recurrent syncopal episodes: Etiology unknown at this time. -On telemetry -Plan to place a loop recorder prior to discharge. #2 Bilateral carotid artery stenosis: Noted on imaging. --Continue ASA and plavix: Continue DAPT for 90 days, then ASA only. --Continue Lipitor 80 mg po daily. #3 Hypertension: Noted. Increased Lisinopril to 20 mg BID. The patient is more than 48 hours outsideof stroke. #4 Acute encephalopathy, improving: Secondary to delirium. Continue low dose Seroquel. #5 Hyperlipidemia: Noted. Continue Lipitor 80 mg daily. #6 Left eye ptosis: Noted. Occurred after cataract surgery. #7 Hx of cystectomy: Noted. #8 Disposition: OT recommending high intensity upon medical stability. PT recommending low intensityupon medical stability. Patient has received both COVID-19 vaccines. Moderna 03/03/20 & 03/31/20. CODE STATUS: Full Code DVT Prophylaxis: SCD's and subcutaneous heparin. Therapies: PT, OT, SUCTION DREDGE DUMPING SUPERVISOR Diet: SUCTION DREDGE DUMPING SUPERVISOR recommending level 6 soft & bite sized, and mildly thick liquids (nectar like thickness). INTERVAL HISTORY Today is hospital day 5. Daughter and at the bedside. States the patient has experienced these syncopal episodes five times in the past. Daughter states it is usually attributed to UTI's as the patient does not have a bladder. Currently, the patient is afebrile. Oxygenating well on room air. Blood pressure is elevated 178/83.Plan to increase Lisinopril to 20 mg BID. Patient is able to understand conversations. Global aphasia seems to be resolved. Alert and orientedto person, place, time, date, month, year, president. Able to recall 2/3 items. Family states they feel he is at his baseline. Family is requesting placement for rehab in [place], [place]. Likely placement of loop recorder in the next 1-2 days. Continue to monitor. Subjective: General: No fever, no chills. Respiratory: No cough. No shortness of breath. Cardiovascular: No chest pain. No palpitations. Abdomen: No abdominal pain. No distension. Neuro: No headache. No dizziness. Psychiatry: No severe mood swings. Objective: General: No acute distress. Well nourished, sitting in recliner. Head/ENT: Atraumatic, normocephalic. Hearing grossly intact. External ear/nose normal. Respiratory: Bilateral breath sounds without wheezing or crackles. Cardiovascular: S1 S2 heard, regular. No murmur. Abdomen: Soft, bowel sounds present. Musculoskeletal: No cyanosis. No gross joint swelling. Neuro: Awake and oriented x3. Speech normal. Left eye ptosis. Skin: No rash. Vitals: 11/01/20 1855 11/02/20 0010 11/02/20 0605 11/02/20 0717 BP: 167/75 169/81 178/83 Pulse: 63 58 63 Resp: 18 18 16 Temp: 98 F (36.7 C) 97.8 F (36.6 C) 97.6 F (36.4 C) SpO2: 98% 97% 98% Weight: 76 kg (167 lb 8 oz) Height: Intake/Output Summary (Last 24 hours) at 11/02/2020 1308 Last data filed at 11/02/2020 0800 Gross per 24 hour Intake 200 ml Output 850 ml Net -650 ml Patient Vitals for the past 72 hrs: Weight 11/02/20 0605 76 kg (167 lb 8 oz) LABS/IMAGING I have reviewed all labs and imaging, and pertinent positives and negatives are discussed in the Assessment and Plan. CTA HEAD, NECK 10/28: IMPRESSION: 1. No acute intracranial hemorrhage. 2. Occluded left A-2/A3 anterior cerebral artery and occluded right A2 slightly more proximally withreconstitution distally. There is thready reconstitution distally on the left. Findings may be real or artifactual. Consider MR angiogram for further assessment to include sedation to decreased motion artifact. 3. Very diminutive caliber of the left M3 within the sylvian fissure versus occlusion. There is suboptimal contrast opacification of the intracranial vasculature hampering fine detailed assessment. 4. Occluded origin of the left vertebral artery which is reconstituted at the mid cervical V3 segment, however is thready in opacification to the level of the V4 segment. There is severe stenosis at the origin of the right vertebral artery. Signed by: Kierra Ngo D.O. PGY-1 [facility] [employer] Pager #[phone] Shekhar Hitchcock [place] Associated attestation - Juan Carlos Chau MD - 11/03/2020 2:01 PM CDT I discussed the patient with the resident and personally interviewed and examined the patient. I verified in the medical record all resident documentation/findings, including history, physical exam, and medical decision making, and I agree with the resident's documentation.Mariela Eaton MD - 11/01/2020 11:05 PM CDT Hospital Progress Note Beto Delgado is a 84yr old male admitted on 10/28/2020. Assessment / Plan Active Problems: Ischemic stroke (HCC) Resolved Problems: * No resolved hospital problems. * 84-year-old male who presented to hospital on October 28, 2021 1 secondary to acute ischemic stroke. When the patient initially presented he complained of unresponsive episode. He has a known history of hypertension peripheral vascular disease, hyperlipidemia. Apparently patient went to the bathroom and was planning to take a shower had an episode of dizziness. He sat on the toilet and became unresponsive. CT head at the outside facility showed negative for intracerebral hemorrhage. Stroke neurology was consulted and recommended TPA. Patient was noted to be globally aphasic and not following commands. Stat CTA of the head neck showed occluded left A2/A3 and occluded right D2. There was a lso vertebral artery occlusion and severe stenosis of the right vertebral artery. CT perfusion showed symmetrical cerebral blood flow without evidence of infarct or penumbra. Patient was subsequentlyintubated and sedated for MRI which did not show any evidence of brain ischemia. Patient was seen by neurovascular who felt that the patient likely had a small cyst frontal stroke etiology is likely atherosclerosis versus cardioembolic. Patient was also found to have remote strokes in the frontal lobes and cerebellar area. He also has known history of high-grade stenosis. He was recommended to beon aspirin for stroke prevention, dual antiplatelet for 90 days and aspirin only. His stay has beencomplicated with severe aspiration risk. He was eventually transferred to that medical floor. Interval history 1. Significant improvement in mentation 2. Continue working with PT and OT 3. Will need LOOP recorder placed prior to discharge 4. Discussed with neuro 5. Due to continue elevated BP, will increase lisinopril to 30 Assessment plan Acute encephalopathy: secondary to delerium. Likely has some underlying cognitive issues. Continue low dose seroquel Small acute frontal stroke with now significant aphasia. He is currently on dual antiplatelet therapy. Patient's blood pressures are not controlled. I will restart the patient's home medications oflisinopril but increase it to 20 mg daily. He is more than 48 hours outside of stroke. Accelerated hypertension in the setting of recent stroke: Increase lisinopril. Severe dysphagia secondary to encephalopathy: Video swallow today. I suspect delerium was a component Hyperlipidemia statin 8 Lipitor 80 mg once DVT prophylaxis We will start heparin Code level 1 HPI / History / ROS HPI Review of Systems Constitutional: Negative. Respiratory: Negative. Gastrointestinal: Negative. Musculoskeletal: Negative. Hematological: Negative. Psychiatric/Behavioral: Negative. Physical / Results Vitals: 11/01/20 1855 BP: 167/75 Pulse: 63 Resp: 18 Temp: 98 F (36.7 C) SpO2: 98% Physical Exam Constitutional: General: He is not in acute distress. Appearance: He is not toxic-appearing. Cardiovascular: Rate and Rhythm: Normal rate. Pulmonary: Effort: Pulmonary effort is normal. Abdominal: Comments: ursotomy Musculoskeletal: General: Normal range of motion. Skin: General: Skin is warm. Neurological: Mental Status: He is alert. Mental status is at baseline. [facility] APRN-CHEMISTRY PROFESSOR - 10/31/2020 1:00 PM CDT Neurovascular Note Mr. Delgado is an 84 year old male admitted on 10/28/2020 with episode of unresponsiveness while on the toilet. Upon presentation to outside ER, he was not following commands. S/P IV tPA Interval History: No new events Subjective: Patient frequently closing the left eye which is baseline for the patient feels he's at his baseline cognition Has had several episodes of feeling dizzy then passes out. She's unable to answer questions for me regarding his cognition at that time. Feels he's at his baseline Objective: Current Vital Signs Temp: 98.2 F (36.8 C) BP: 186/73 Pulse: 68 O2 Device: Room Air O2 Flow Rate (L/min): 2 l/min Resp: 14 Pain Rating: Other (specify) (sleeping) (out of 10) Weight: 75 kg (165 lb 5.5 oz) SpO2: 93 % General: He is sitting in the chair, not in distress Eyes: EOMs appear grossly intact but not following all commands. Visual larsen intact Neurologic: Alert, Ox3 Speech and language: Intact in comprehension and fluency Has some trouble with following some commands, but follows most CN: II to XII: Intact Motor: 5/5 in all extremities Sensory exam: Intact with no extinction or neglect. Coordination: Consistently missing nose on the RUE (?) Diagnostics: CTA head and neck/CTP: Bilateral ICA without significant stenosis extracranially. Left VA occluded at the origin which later reconstitutes. Right VA dominant, severe stenosis at the origin. Bilateral V4 segment atherosclerotic disease, but not significant stenosis. Multifocal areas of intracranial atherosclerotic disease, primarily in ROBB with occluded left A2 segment and possibly left M3 stenosis. No perfusion deficit MRI brain: No stroke MRA brain: No left M3 occlusion MRI brain: Small focal restricted diffusion in left frontal lobe. Remote strokes in the left cerebellum, bilateral frontal lobe, left occipital lobe EE) Mild-Moderate generalized slowing. - This is a non-specific finding but is consistent with a generalized disturbance of cerebral function. It may be seen in a variety of conditions, such as toxic, metabolic, post-anoxic, multi-focal ordiffuse structural abnormalities. - No electrographic seizures or non-convulsive status epilepticus were seen during this recording. CTA brain: Left A3 occluded TTE: EF 65%, markedly dilated LA LDL: 86 HgbA1C: 5.1 Assessment: Stroke, small left frontal. Etiology: ICAD vs cardio-embolic S/P IV tPA Remote stroke in bilateral frontal lobes, left cerebellar and left occipital lobe. 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 ?cardiac arrhythmia or hypotension? with hypoperfusion to the brain stem causing syncope. But this would not explain the encephalopathy upon arrival with normal first brain MRI and CTP Encephalopathy unlikely to be related to stroke. ?seizures? Vs alternative etiology Plan: Care coordination and plan discussed with Dr. Smith, it is as follows: Antiplatelet: Continue ASA for stroke prevention Continue Plavix with plan for DAPT x 90 days, then ASA only Continue Lipitor for 80mg PO daily Neuro checks: q4 hours NIHSS q shift DVT prophylaxis: SCDs and SQ hparin PT, OT and ST Recommend implantable loop recorder prior to discharge if no atrial fibrillation found prior to discharge. I discussed extensively with patient and his family that his small left frontal stroke is unrelated to his symptoms. I tried to tease out any details from prior episodes to suggest VB insufficiencyor exclude vascular etiology but his is not a good historian. General neurology consultation for encephalopathy, recurrent episodes of syncope and AMS. Neurovascular will sign off, please call with questions. We will follow remotely for loop recorder placement prior to discharge Follow up with neurovascular in 3 months- ordered Mariela Eaton MD - 10/31/2020 12:36 PM CDT Hospital Progress Note Beto Delgado is a 84yr old male admitted on 10/28/2020. Assessment / Plan Active Problems: Ischemic stroke (HCC) Resolved Problems: * No resolved hospital problems. * 84-year-old male who presented to hospital on October 28, 2021 1 secondary to acute ischemic stroke. When the patient initially presented he complained of unresponsive episode. He has a known history of hypertension peripheral vascular disease, hyperlipidemia. Apparently patient went to the bathroom and was planning to take a shower had an episode of dizziness. He sat on the toilet and became unresponsive. CT head at the outside facility showed negative for intracerebral hemorrhage. Stroke neurology was consulted and recommended TPA. Patient was noted to be globally aphasic and not following commands. Stat CTA of the head neck showed occluded left A2/A3 and occluded right D2. There was a lso vertebral artery occlusion and severe stenosis of the right vertebral artery. CT perfusion showed symmetrical cerebral blood flow without evidence of infarct or penumbra. Patient was subsequentlyintubated and sedated for MRI which did not show any evidence of brain ischemia. Patient was seen by neurovascular who felt that the patient likely had a small cyst frontal stroke etiology is likely atherosclerosis versus cardioembolic. Patient was also found to have remote strokes in the frontal lobes and cerebellar area. He also has known history of high-grade stenosis. He was recommended to beon aspirin for stroke prevention, dual antiplatelet for 90 days and aspirin only. His stay has beencomplicated with severe aspiration risk. He was eventually transferred to that medical floor. Assessment plan Acute encephalopathy: secondary to delerium. Likely has some underlying cognitive issues. Will try low dose seroquel and delerium bundle. Small acute frontal stroke with now significant aphasia. Patient was seen by physical medicine rehab, they are recommending low intensity therapy. He is currently on dual antiplatelet therapy. Patient's blood pressures are not controlled. I will restart the patient's home medications of lisinoprilbut increase it to 20 mg daily. He is more than 48 hours outside of stroke. Accelerated hypertension in the setting of recent stroke: Increase lisinopril. Continue as needed medication. Severe dysphagia secondary to encephalopathy: Speech is recommended n.p.o. however after discussing with speech and the patient words and a trial of least restrictive diet of moderately thick liquids of spoons and pured solids. If he continues to not do well with this we may have to talk about enteral feeding. Hyperlipidemia statin 8 Lipitor 80 mg once DVT prophylaxis We will start heparin Code level 1 HPI / History / ROS HPI Review of Systems Constitutional: Negative. Respiratory: Negative. Gastrointestinal: Negative. Musculoskeletal: Negative. Hematological: Negative. Psychiatric/Behavioral: Negative. Physical / Results Current Vital Signs Temp: 98.2 F (36.8 C) BP: 186/73 Weight: 75 kg (165 lb 5.5 oz) SpO2: 93 % Resp: 14 Pulse: 68 Current BMI (>50 = increased risk): 22.42 O2 Device: Room Air O2 Flow Rate (L/min): 2 l/min Pain Rating: Other (specify) (sleeping) Physical Exam Constitutional: General: He is not in acute distress. Appearance: He is not toxic-appearing. Cardiovascular: Rate and Rhythm: Normal rate. Pulmonary: Effort: Pulmonary effort is normal. Abdominal: Comments: ursotomy Musculoskeletal: General: Normal range of motion. Skin: General: Skin is warm. Neurological: Mental Status: He is alert. He is disoriented. [facility], JESSICA Sky - 10/30/2020 3:13 PM CDT Neurovascular Note Mr. Delgado is an 84 year old male admitted on 10/28/2020 with episode of unresponsiveness while on the toilet. Upon presentation to outside ER, he was not following commands. S/P IV tPA Interval History: Extubated this morning Subjective: Daughter concerned that he doesn't seem "with it" Patient frequently closing the left eye which is baseline for the patient Apparently, has had recurrent, similar episodes in the past few months per family coversation Objective: Current Vital Signs Temp: 96.8 F (36 C) BP: 176/77 Pulse: 109 O2 Device: NC - cool humidity O2 Flow Rate (L/min): 2 l/min Resp: 30 Pain Ratin (out of 10) Weight: 75 kg (165 lb 5.5 oz) SpO2: 96 % General: He is sitting in bed, requiring multiple cues to participate in exam. Continually clearing his throat and very distractable Eyes: EOMs and visual larsen intact Neurologic: Alert, Ox3 Speech and language: Intact in comprehension. Not much fluent speech observed, answering questionswith 1-2 words. Fund of knowledge: Unable to assess as he's minimally answering questions CN: II to XII: Intact Motor: 5/5 in all extremities Sensory exam: Intact with no extinction or neglect. Coordination: Not tested Diagnostics: CTA head and neck/CTP: Bilateral ICA without significant stenosis extracranially. Left VA occluded at the origin which later reconstitutes. Right VA dominant, severe stenosis at the origin. Bilateral V4 segment atherosclerotic disease, but not significant stenosis. Multifocal areas of intracranial atherosclerotic disease, primarily in ROBB with occluded left A2 segment and possibly left M3 stenosis. No perfusion deficit MRI brain: No stroke MRA brain: No left M3 occlusion MRI brain: Small focal restricted diffusion in left frontal lobe. Remote strokes in the left cerebellum, bilateral frontal lobe, left occipital lobe EE) Mild-Moderate generalized slowing. - This is a non-specific finding but is consistent with a generalized disturbance of cerebral function. It may be seen in a variety of conditions, such as toxic, metabolic, post-anoxic, multi-focal ordiffuse structural abnormalities. - No electrographic seizures or non-convulsive status epilepticus were seen during this recording. CTA brain: Left A3 occluded TTE: EF 65%, markedly dilated LA LDL: 86 HgbA1C: 5.1 Assessment: Stroke, small left frontal. Etiology: ICAD vs cardio-embolic Remote stroke in bilateral frontal lobes, left cerebellar and left occipital lobe. 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 ?vasovagal episode with hypoperfusion to the brain stem causing unresponsiveness? But this would not cause ongoing encephalopathy Encephalopathy unlikely to be related to stroke. ?seizures? Vs alternative etiology Plan: Care coordination and plan discussed with Dr. Smith, it is as follows: Antiplatelet: Continue ASA for stroke prevention Add Plavix with plan for DAPT x 90 days, then ASA only Increase Lipitor for 80mg PO daily Neuro checks: q4 hours NIHSS q shift DVT prophylaxis: SCDs. Okay with SQ heparin PT, OT and ST Will continue to follow. If encephalopathy doesn't improve, may need further work up because stroke doesn't explain this. Recommend implantable loop recorder prior to discharge if no atrial fibrillation found. Nayeli Murphy APRN-CNP - 10/30/2020 9:32 AM CDT Neuro Critical Care Progress Note Chief Complaint: Acute onset confusion/ global aphasia s/p tPA History of present illness: Beto Delgado is a 84yr male with a past medical history significant for basal cell carcinomaof skin, BPH, carotid artery stenosis, cognitive dysfunction, hypertension, hyponatremia, PVD, and hyperlipidemia who was admitted on 10/28 as a stroke code. Per chart review, patient apparently got up t o go to the bathroom and take a shower when he had an episode of dizziness. Pt sat down on the toilet and became semi unresponsive. He was not able to follow commands or communicate. [facility] is reported [id number]. Patient was initially seen and evaluated in [place] [facility] where NIHSS was 22. CT head at OSH was negative for ICH. [place] stroke neurology was consulted and recommended pt receive tPA and be transferred to [facility] for possible intervention. On arrival to [facility] pt was globally aphasic, not following commands. Stat head/ Neck CTA was obtained and showed occluded left A2/A3 and occluded right A2 though findings may be artifactual d/t motion. Left vertebral artery occlusion and severe stenosis of the right vertebral artery were also seen. CT perfusion showed symmetric cerebral blood volume and mean transit time without evidence of infarct or penumbra. Given motion artifact on CT/CTA pt was intubated and sedated for brain MRI which did not show any evidence of acute ischemia on diffusion imaging. Patient will be admitted to ICU for close neurological monitoring and continuation of cares. Interval History: Patient seen and evaluated this morning. No neurological changes or acute events overnight. Intubated on mechanical ventilation, Peep 8, FiO2 30%. Hemodynamically stable. Moves all four extremities spontaneously with good antigravity strength. Past Medical History: Diagnosis Date Basal cell carcinoma of skin BPH w/o Urinary Obs/LUTS 02/12/2007 Carotid artery stenosis Elevated blood pressure reading without diagnosis of hypertension 11/28/2012 Osteoarth NOS-unspec 11/07/2007 Pure hypercholesterolemia 02/12/2007 S/P vascular surgery Skin cancer Stroke (HCC) Past Surgical History: Procedure Laterality Date CAROTID ENDARTERECTOMY Left 11/29/2006 Dr Titus Barragan CAROTID ENDARTERECTOMY Right 01/21/2015 Procedure: RIGHT CAROTID ENDARTERECTOMY ;; Surgeon: Edgar Barragan MD CYSTECTOMY W ILEODIVERSION N/A 10/20/2015 Procedure: RADICAL CYSTECTOMY, W/ ILEAL CONDUIT URINARY DIVERSION;; Surgeon: Aleks Cline MD EXCISION BASAL CELL 07/06/2011 removed from left chest JOINT REPLACEMENT bilateral hip replacement and repetitive surgeries TUR BLADDER TUMOR N/A 06/02/2015 Procedure: TRANSURETHRAL RESECTION BLADDER TUMOR (MEDIUM) ;; Surgeon: Aleks Cline MD TURP LASER ASSISTED N/A 06/02/2015 Procedure: PHOTOSELECTIVE VAPORIZATION OF PROSTATE;; Surgeon: Aleks Cline MD Prior to Admission medications Medication Sig Start Date End Date Taking? Authorizing Provider cephalexin (KEFLEX) 250 mg capsule Take 1 capsule (250 mg) by mouth 1 time per day One pill daily 09/02/20 Lynette David PA-C lisinopril (PRINIVIL, ZESTRIL) 5 mg tablet Take 1 tablet (5 mg) by mouth 1 time per day 01/15/20 01/19/21 Lynette David PA-C cyanocobalamin (VITAMIN B-12) 1000 mcg tablet Take 1 tablet (1,000 mcg) by mouth 1 time per day 06/28/18 Yoav Covington MD Multiple Vitamins-Minerals (MULTIVITAMIN THERAPEUTIC WITH MINERALS) tablet Take 1 tablet by mouth 1 time per day 06/14/18 Yoav Covington MD aspirin 81 mg enteric coated tablet Take 81 mg by mouth 2 times a week Provider, Abstract No Known Allergies Social History Tobacco Use Smoking status: Never Smoker Smokeless tobacco: Never Used Substance Use Topics Alcohol use: Yes Alcohol/week: 11.0 standard drinks Types: 4 Glasses of wine, 7 Shots of liquor per week Family History Problem Relation Age of Onset Negative Sister Other Brother 80 Problems with prostate Negative Daughter Negative Son Other Son achilles tendon problems Negative Son Other Son was heavier smoker and alcohol consumption,,? seizure Negative Daughter Negative Daughter Bladder Cancer Neg Hx Kidney Cancer Neg Hx Kidney Disease Neg Hx Nephrolithiasis Neg Hx Prostate Cancer Neg Hx Testicular Cancer Neg Hx Review of Systems: Pertinent items are noted in HPI PHYSICAL EXAMINATION: Temp: 96.8 F (36 C) BP: 143/81 Pulse: 71 O2 Device: Ventilator O2 Flow Rate (L/min): 40 l/min Resp: 16 Pain Ratin (out of 10) Weight: 75 kg (165 lb 5.5 oz) SpO2: 99 % Maximum Temperatures (last 24 hours) Temperature Maximum Max Temp 99.3 F (37.4 C) General: Lightly sedated, opens eyes spontaneously. HEENT: Pupils equal and reactive; conjunctiva and lids unremarkable. Sclera anicteric Neck: Supple. No masses or thyromegaly. Trachea midline. Resp: Intubated on mechanical ventilation. Respiratory effort normal. No rales, rubs or rhonchi to auscultation. CV: Regular rhythm, normal rate. No murmurs or extra sounds auscultated. Abdomen: Soft, non-tender, non-distended. No guarding, no rigidity, no rebound tenderness. Urostomy noted. Ext: No lower extremity edema or varicosities, pulses positive Skin: No rashes, lesions, or subcutaneous nodules, no petechiae. Neuro: Lightly sedated for exam, opens eyes spontaneously. Pupils PERRL, tracking examiner around room. Following some commands, moves all four extremities spontaneously with good antigravity strength. Lines: PIV, Urostomy LABS: Lab Results Component Value Date WBC 11.5 (H) 10/30/2020 NUCRBC 0 10/30/2020 RBC 3.20 (L) 10/30/2020 HEMOGLOBIN 11.0 (L) 10/30/2020 HEMATOCRIT 31.1 (L) 10/30/2020 MCV 97.2 10/30/2020 MCH 34.4 (H) 10/30/2020 MCHC 35.4 10/30/2020 RDW 12.8 05/26/2016 PLTCOUNT 173 10/30/2020 NEUTROPCT 73.7 10/30/2020 BANDPCT 4.0 08/20/2015 LYMPHSPCT 15.1 10/30/2020 MONOSPCT 8.1 10/30/2020 EOSPCT 2.4 10/30/2020 BASOPHILPCT 0.3 10/30/2020 METAMYELOPCT 2.0 08/20/2015 MYELOCYTEPCT 1.0 07/30/2015 Lab Results Component Value Date GLUCOSE 86 10/30/2020 BUN 15 10/30/2020 CREATSERUM 1.04 10/30/2020 BCRATIO 14.4 10/30/2020 NA 133 (L) 10/30/2020 POTASSIUM 4.0 10/30/2020 CL 106 10/30/2020 CO2 19 (L) 10/30/2020 CA 8.5 10/30/2020 PROTEINTOTAL 7.6 07/02/2019 ALBUMIN 3.4 (L) 10/30/2020 ALKPHOS 89 07/02/2019 AST 22 07/02/2019 ALT 16 07/02/2019 BILITOTAL 0.4 07/02/2019 Relevant diagnostic, laboratory and radiological studies have been reviewed in the Electronic Medical Record. Current Medications: atorvaSTATin (LIPITOR) tablet 40 mg 40 mg Feeding tube Daily 40 mg at 10/29/20 0934 cephalexin (KEFLEX) oral suspension (250 mg/5 mL) 250 mg 250 mg Feeding tube daily aspirin chewable tablet 81 mg 81 mg Feeding tube Daily famotidine (PEPCID) tablet 20 mg 20 mg Feeding tube Daily sodium chloride 0.9% flush (adult) 10 mL 10 mL IV 2 times a day and prn sodium chloride 0.9% IV solution IV Continuous New Bag at 10/29/202035 niCARdipine (CARDENE) 25 mg in sodium chloride 0.9% 250 mL (Conc: 0.1 mg/mL) 0-15 mg/hr IV Titrate Stopped at 10/28/20 1438 fentaNYL 100 mcg/2 mL preservative free injection solution 25 mcg 25 mcg IV Every 5 minutes prn nalOXone (NARCAN) injection solution (vial) 0.4 mg 0.4 mg Injection Every 2 minutes prn nalOXone (NARCAN) injection solution (vial) 0.2 mg 0.2 mg Injection Every 2 minutes prn ondansetron (ZOFRAN) injection solution 4 mg 4 mg IV Every 4 hours prn haloperidol lactate (HALDOL) injection solution 2.5 mg 2.5 mg IV Every 6 hours prn chlorhexidine (PERIDEX) 0.12 % solution 15 mL 15 mL Mouth/Throat 2 times a day 15 mL at 10/30/20 0027 polyethyl glycol-propyl glycol (SYSTANE) ophthalmic solution 1 drop 1 drop Both eyes Every 4 hours 1 drop at 10/30/20 0350 propofol (DIPRIVAN) 1000 mg/100 mL IV emulsion 0-50 mcg/kg/min IV Titrate 20 mcg/kg/min at 10/30/20 0350 fentanyl IV BOLUS taken from INFUSION *ADULT* 50 mcg IV Every 15 minutes prn 50 mcg at And fentaNYL 20mcg/ml (2000mcg/100 ml) 0.9% sodium chloride IV solution 0-200 mcg/hr IV Titrate 75 mcg/hr at 10/29/20 2331 hydrALAZINE (APRESOLINE) injection solution 20 mg 20 mg IV Every 3 hours prn labetalol (NORMODYNE;TRANDATE) IV solution 20 mg 20 mg IV Every 3 hours prn acetaminophen (TYLENOL) tablet 650 mg 650 mg Feeding tube Every 4 hours prn senna-docusate sodium (SENOKOT-S;PERICOLACE) tablet 1 tablet 1 tablet Feeding tube 2 times a day 1 tablet at 10/29/20 0934 NORepinephrine (LEVOPHED) 8 mg in sodium chloride 0.9% 250 mL (conc: 32 mcg/mL) 0-1 mcg/kg/min IV Titrate Stopped at 10/29/20 0906 sodium chloride 0.9% flush (adult) 10 mL 10 mL IV 2 times a day and prn bisacodyl (DULCOLAX) suppository 10 mg 10 mg Rectal 1 time a day prn IMAGING: Head/Neck CTA 10/28 IMPRESSION: 1. No acute intracranial hemorrhage. 2. Occluded left A-2/A3 anterior cerebral artery and occluded right A2 slightly more proximally withreconstitution distally. There is thready reconstitution distally on the left. Findings may be real or artifactual. Consider MR angiogram for further assessment to include sedation to decreased motion artifact. 3. Very diminutive caliber of the left M3 within the sylvian fissure versus occlusion. There is suboptimal contrast opacification of the intracranial vasculature hampering fine detailed assessment. 4. Occluded origin of the left vertebral artery which is reconstituted at the mid cervical V3 segment, however is thready in opacification to the level of the V4 segment. There is severe stenosis at the origin of the right vertebral artery. CT Perfusion 10/28 IMPRESSION: Symmetric cerebral blood volume and mean transit time without evidenceof infarct or penumbra Brain MRI 10/28 IMPRESSION: 1.No evidence of acute ischemia on the diffusion imaging. Brain MRI 10/29 IMPRESSION: 1. Single punctate focus of diffusion abnormality involving the left frontal cortex consistent with acute lacunar infarct. 2. Chronic small vessel disease 3. Small areas of encephalomalacia involving the left cerebellum and left posterior frontal, left parietal, and left occipital lobe consistent with remote infarcts. Head CTA 10/30 IMPRESSION: CT head: 1. Chronic infarcts within MCA, DIRECTOR MEDICAL WRITING and PICA territories on the left. 2. No acute territorial infarct. MRI confirmed punctate infarct within left frontal lobe is not visible on CT. 3. No acute intracranial hemorrhage. CTA head: 1. Minimal stenosis along P2 segment of both senior software qa analyst. 2. Short focus moderate stenosis along a three segment right ROBB. 3. Stenosis involving V4 segments of both vertebral arteries, minimal on the right and moderate on the left. PROBLEM LIST: 1. Acute onset global aphasia s/p tPA symptoms likely s/t left A2/A3 occlusion/ stroke vs. seizures 2. Left vertebral artery stenosis 3. Right vertebral artery stenosis 4. Intubated on mechanical ventilation for airway protection- extubated on 10/30 5. Hyponatremia 6. History of basal cell carcinoma of skin 7. 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 History of BPH 9. History of carotid artery stenosis 10. History of cognitive dysfunction 11. History of hypertension 12. History of hyponatremia 13. History of PVD 14. History of hyperlipidemia ASSESSMENT & PLAN emodynamics: Hemodynamically stable, no inotropic support. lactic acid 1.2 BP liberated to allow for permissive hypertension up to 220/120 with reduction of BP by 15% each day. Nicardipine drip and PRN labetalol/hydralazine available. Cardiovascular: Normal sinus rhythm, no cardiac issues 2-D echo showed EF 65%, no wall motion abnormalities or PFO History of hypertension- will hold lisinopril per home regimen for now to allow for permissive hypertension History of hyperlipidemia, LDL 86- continue Lipitor 40 mg daily for secondary stroke prevention Pulmonary: Intubated on mechanical ventilation for airway protection- successfully extubated this AM Adequate oxygenating on 2L NC. Use supplemental oxygen as needed to keep SpO2 >92% ABG and chest xray reviewed- Lungs are clear with stable small calcified granulomas on the right. RT per protocol. Infectious Diseases: Afebrile with no leukocytosis. 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 Bowel regimen as ordered LAB PACK CHEMIST: Patient with confusion and global aphasia status post TPA symptoms likely related to involvement of Left A2/A3 occlusion/stroke vs. seizures Head/ Neck CTA 10/28- occluded left A2/A3 and occluded right A2 though findings may be artifactual d/t motion. Left vertebral artery occlusion and severe stenosis of the right vertebral artery. Repeat Brain MRI 10/29- Single punctate focus of diffusion abnormality involving the left frontal cortex consistent with acute lacunar infarct Repeat Head CTA 10/30- Minimal stenosis along P2 segment of both senior software qa analyst, minimal to moderate stenosis involving V4 segments of both vertebral arteries. Moderate stenosis along right ROBB A3 segment. Spot EEG did not show any electrographic seizures or non-convulsive status epilepticus Neurovascular following appreciate input/ recommendations. Neuro exams and NIHSS as ordered. Stat CT scan of the head if acute change in neuro status. Closely monitor neuro status while in ICU. UDS negative Endocrine: Blood sugar is monitored as per critical care protocol and patient is on insulin sliding scale - HgbA1c 5.1 Health Maintenance: Pepcid for stress ulcer prophylaxis and SCDs for deep venous thrombosis. PT/OT speech following Critical care time spent with this patient for evaluation, assessment and management of the above problems is 40 minutes not including procedure time. This patient was discussed with Dr. Pozo, he agrees with the assessment and plan [facility] Neuro Critical Care Suleiman Serna APRN-CNP - 10/29/2020 2:12 PM CDT NEUROVASCULAR DAILY PROGRESS NOTE Beto Delgado is a 84yr old male admitted on 10/28/2020 with language difficulty. S/P: IV-TPA SUBJECTIVE Intubated, minimal sedation Family at bedside No fluctuations per nursing OBJECTIVE Current Vital Signs Temp: 97.4 F (36.3 C) BP: 141/69 Pulse: 63 O2 Device: Ventilator O2 Flow Rate (L/min): 40 l/min Resp: 20 (out of 10) Weight: 75 kg (165 lb 5.5 oz) SpO2: 100 % Vitals Min/Max Last 24 Hours Vital Signs Min/Max (last 24 hours) Flowsheet Row Name Min Max Temp 97.4 F (36.3 C) 100 F (37.8 C) BP: Systolic 74 158 BP: Diastolic 48 88 Pulse 45 89 Resp 6 21 SpO2 98 % 100 % FiO2 (Set , %) 30 % 40 % O2 Flow Rate (L/min) 40 l/min 40 l/min MAP (mm Hg) 58 mm Hg 107 mm Hg Medications Current Facility-Administered Medications Medication Dose Route Frequency famotidine (PEPCID) tablet 20 mg 20 mg Feeding tube 2 times a day atorvaSTATin (LIPITOR) tablet 40 mg 40 mg Feeding tube Daily [START ON 10/30/2020] cephalexin (KEFLEX) oral suspension (250 mg/5 mL) 250 mg 250 mg Feeding tube daily [START ON 10/30/2020] aspirin chewable tablet 81 mg 81 mg Oral Daily sodium chloride 0.9% flush (adult) 10 mL 10 mL IV 2 times a day and prn sodium chloride 0.9% IV solution IV Continuous niCARdipine (CARDENE) 25 mg in sodium chloride 0.9% 250 mL (Conc: 0.1 mg/mL) 0-15 mg/hr IV Titrate fentaNYL 100 mcg/2 mL preservative free injection solution 25 mcg 25 mcg IV Every 5 minutes prn nalOXone (NARCAN) injection solution (vial) 0.4 mg 0.4 mg Injection Every 2 minutes prn nalOXone (NARCAN) injection solution (vial) 0.2 mg 0.2 mg Injection Every 2 minutes prn ondansetron (ZOFRAN) injection solution 4 mg 4 mg IV Every 4 hours prn haloperidol lactate (HALDOL) injection solution 2.5 mg 2.5 mg IV Every 6 hours prn chlorhexidine (PERIDEX) 0.12 % solution 15 mL 15 mL Mouth/Throat 2 times a day polyethyl glycol-propyl glycol (SYSTANE) ophthalmic solution 1 drop 1 drop Both eyes Every 4 hours propofol (DIPRIVAN) 1000 mg/100 mL IV emulsion 0-50 mcg/kg/min IV Titrate fentanyl IV BOLUS taken from INFUSION *ADULT* 50 mcg IV Every 15 minutes prn And fentaNYL 20mcg/ml (2000mcg/100 ml) 0.9% sodium chloride IV solution 0-200 mcg/hr IV Titrate hydrALAZINE (APRESOLINE) injection solution 20 mg 20 mg IV Every 3 hours prn labetalol (NORMODYNE;TRANDATE) IV solution 20 mg 20 mg IV Every 3 hours prn acetaminophen (TYLENOL) tablet 650 mg 650 mg Feeding tube Every 4 hours prn senna-docusate sodium (SENOKOT-S;PERICOLACE) tablet 1 tablet 1 tablet Feeding tube 2 times a day NORepinephrine (LEVOPHED) 8 mg in sodium chloride 0.9% 250 mL (conc: 32 mcg/mL) 0-1 mcg/kg/min IV Titrate sodium chloride 0.9% flush (adult) 10 mL 10 mL IV 2 times a day and prn bisacodyl (DULCOLAX) suppository 10 mg 10 mg Rectal 1 time a day prn Exam: GCS: [id number] Alert Intubated Follows all verbal commands appropriately. CN: II to XII: Intact Motor: 5/5 in all extremities Sensory exam: Intact with no extinction or neglect. Coordination: Deferred Diagnostics and Labs MRI brain 10/29/2020: Punctate acute diffusion restriction left frontal lobe. Evidence of encephalomalacia involving left cerebellum, left frontal lobe, left parietal lobe, right frontal lobe MRA head 10/28/2020: No LVO. Bilateral ROBB luminal irregularity without ROBB occlusion CTA neck with CTA brain perfusion 10/28/2020: No hemorrhage, no large vessel occlusion. Left ROBB irregularity, stenosis with possible occlusion, distal reconstitution bilaterally. Diminutive left MCA,M M3 segment. Possible occluded left vertebral artery at the origin with distal reconstitution. Right vertebral artery severe stenosis at origin Symmetric blood volume and transit time without evidence of infarct or penumbra TTE: Pending EKG: Normal sinus rhythm EEG: No epileptiform activity Relevant diagnostic, laboratory and radiological studies have been reviewed in the Electronic Medical Record. 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 Suspicious for embolic etiology PLAN 1) Continue neuro critical care 2) Begin aspirin for secondary stroke mention 3) Continue atorvastatin for secondary stroke prevention 4) Q2h neurochecks, NIHSS per protocol 5) Telemetry: Monitor for atrial fibrillation. If no atrial fibrillation detected prior to discharge, recommend adjunct faculty for medical terminology outpatient rhythm monitoring with implantable loop recorder. If atrial fibrillation detected, would be indication for long-term anticoagulation 6) Vascular risk factor modification - Permissive hypertension with blood pressure goal of less than 220/120 for the next 24-48 hours. Decrease by 10-15% daily to SBP goal: < 140 - Goal Total cholesterol: < 200, LDL: < 70, Last: 86 - HbA1c: < 6.0, Last: 5.1 7) TTE: Pending 8) PT/OT/ST 9) Rehab consult 10) DVT prophylaxis: SCDs Will continue to follow Diagnostic imaging, assessment, and plan reviewed in detail with patient and family at bedside. Case reviewed and discussed with Dr. Smith, who agrees with assessment and plan. Total time spent: 40 minutes, with >50% spent reviewing the chart, counseling patient and family,and discussing test results and treatment plan with the patient and family. JESSICA Lara, 10/29/2020 Neurology Consult Service [facility], [place], [place] Nahun Santoro DO - 10/29/2020 12:20 PM CDT Rehab medicine consult note: Attempted to see patient however currently in MRI will attempt to see him again tomorrow if possible. Nayeli Resendiz APRN-CNP - 10/29/2020 7:34 AM CDT Neuro Critical Care Progress Note Chief Complaint: Acute onset confusion/ global aphasia s/p tPA History of present illness: Beto Delgado is a 84yr male with a past medical history significant for basal cell carcinomaof skin, BPH, carotid artery stenosis, cognitive dysfunction, hypertension, hyponatremia, PVD, and hyperlipidemia who was admitted on 10/28 as a stroke code. Per chart review, patient apparently got up t o go to the bathroom and take a shower when he had an episode of dizziness. Pt sat down on the toilet and became semi unresponsive. He was not able to follow commands or communicate. [facility] is reported [id number]. Patient was initially seen and evaluated in [facility] where NIHSS was 22. CT head at OSH was negative for ICH. [place] stroke neurology was consulted and recommended pt receive tPA and be transferred to [facility] for possible intervention. On arrival to [facility] pt was globally aphasic, not following commands. Stat head/ Neck CTA was obtained and showed occluded left A2/A3 and occluded right A2 though findings may be artifactual d/t motion. Left vertebral artery occlusion and severe stenosis of the right vertebral artery were also seen. CT perfusion showed symmetric cerebral blood volume and mean transit time without evidence of infarct or penumbra. Given motion artifact on CT/CTA pt was intubated and sedated for brain MRI which did not show any evidence of acute ischemia on diffusion imaging. Patient will be admitted to ICU for close neurological monitoring and continuation of cares. Interval History: Patient seen and evaluated this morning. No acute events overnight. Hemodynamically unstable overnight, requiring Levo gtt to keep SBP >100- currently off. Intubated on mechanical ventilation. Peep 8, FiO2 30%. Not following commands, moves all extremities spontaneously with good a ntigravity strength. Past Medical History: Diagnosis Date Basal cell carcinoma of skin BPH w/o Urinary Obs/LUTS 02/12/2007 Carotid artery stenosis Elevated blood pressure reading without diagnosis of hypertension 11/28/2012 Osteoarth NOS-unspec 11/07/2007 Pure hypercholesterolemia 02/12/2007 S/P vascular surgery Skin cancer Stroke (HCC) Past Surgical History: Procedure Laterality Date CAROTID ENDARTERECTOMY Left 11/29/2006 Dr Titus Barragan CAROTID ENDARTERECTOMY Right 01/21/2015 Procedure: RIGHT CAROTID ENDARTERECTOMY ;; Surgeon: Edgar Barragan MD CYSTECTOMY W ILEODIVERSION N/A 10/20/2015 Procedure: RADICAL CYSTECTOMY, W/ ILEAL CONDUIT URINARY DIVERSION;; Surgeon: Aleks Cline MD EXCISION BASAL CELL 07/06/2011 removed from left chest JOINT REPLACEMENT bilateral hip replacement and repetitive surgeries TUR BLADDER TUMOR N/A 06/02/2015 Procedure: TRANSURETHRAL RESECTION BLADDER TUMOR (MEDIUM) ;; Surgeon: Aleks Cline MD TURP LASER ASSISTED N/A 06/02/2015 Procedure: PHOTOSELECTIVE VAPORIZATION OF PROSTATE;; Surgeon: Aleks Cline MD Prior to Admission medications Medication Sig Start Date End Date Taking? Authorizing Provider cephalexin (KEFLEX) 250 mg capsule Take 1 capsule (250 mg) by mouth 1 time per day One pill daily 09/02/20 Frankie, Lynette L, PA-C lisinopril (PRINIVIL, ZESTRIL) 5 mg tablet Take 1 tablet (5 mg) by mouth 1 time per day 01/15/20 01/19/21 Lynette David PA-C cyanocobalamin (VITAMIN B-12) 1000 mcg tablet Take 1 tablet (1,000 mcg) by mouth 1 time per day 06/28/18 Yoav Covington MD Multiple Vitamins-Minerals (MULTIVITAMIN THERAPEUTIC WITH MINERALS) tablet Take 1 tablet by mouth 1 time per day 06/14/18 Yoav Covington MD aspirin 81 mg enteric coated tablet Take 81 mg by mouth 2 times a week Provider, Abstract No Known Allergies Social History Tobacco Use Smoking status: Never Smoker Smokeless tobacco: Never Used Substance Use Topics Alcohol use: Yes Alcohol/week: 11.0 standard drinks Types: 4 Glasses of wine, 7 Shots of liquor per week Family History Problem Relation Age of Onset Negative Sister Other Brother 80 Problems with prostate Negative Daughter Negative Son Other Son achilles tendon problems Negative Son Other Son was heavier smoker and alcohol consumption,,? seizure Negative Daughter Negative Daughter Bladder Cancer Neg Hx Kidney Cancer Neg Hx Kidney Disease Neg Hx Nephrolithiasis Neg Hx Prostate Cancer Neg Hx Testicular Cancer Neg Hx Review of Systems: Pertinent items are noted in HPI PHYSICAL EXAMINATION: Temp: 98.1 F (36.7 C) BP: 100/48 Pulse: 51 O2 Device: Ventilator O2 Flow Rate (L/min): 40 l/min Resp: 18 (out of 10) Weight: 75 kg (165 lb 5.5 oz) SpO2: 100 % Maximum Temperatures (last 24 hours) Temperature Maximum Max Temp 100 F (37.8 C) General: Lightly sedated, opens eyes spontaneously. HEENT: Pupils equal and reactive; conjunctiva and lids unremarkable. Sclera anicteric, Examination of oropharynx reveals no oral lesions, mucositis or thrush. Neck: Supple. No masses or thyromegaly. Trachea midline. Resp: Intubated on mechanical ventilation. Respiratory effort normal. No rales, rubs or rhonchi to auscultation. CV: Regular rhythm, normal rate. No murmurs or extra sounds auscultated. Abdomen: Soft, non-tender, non-distended. No guarding, no rigidity, no rebound. No hepatomegaly, no splenomegaly. Urostomy noted Ext: No lower extremity edema or varicosities, pulses positive Skin: No rashes, lesions, or subcutaneous nodules, no petechiae. Neuro: Lightly sedated for exam. Opens eyes spontaneously. Not following commands. Pupils PERRL, tracks around room. Moves all for extremities spontaneously with good antigravity strength. Lines: PIV, Urostomy LABS: Lab Results Component Value Date WBC 10.9 10/29/2020 NUCRBC 0 10/29/2020 RBC 3.26 (L) 10/29/2020 HEMOGLOBIN 11.0 (L) 10/29/2020 HEMATOCRIT 31.3 (L) 10/29/2020 MCV 96.0 10/29/2020 MCH 33.7 10/29/2020 MCHC 35.1 10/29/2020 RDW 12.8 05/26/2016 PLTCOUNT 215 10/29/2020 NEUTROPCT 66.4 10/29/2020 BANDPCT 4.0 08/20/2015 LYMPHSPCT 22.6 10/29/2020 MONOSPCT 8.9 10/29/2020 EOSPCT 1.4 10/29/2020 BASOPHILPCT 0.2 10/29/2020 METAMYELOPCT 2.0 08/20/2015 MYELOCYTEPCT 1.0 07/30/2015 Lab Results Component Value Date GLUCOSE 103 (H) 10/29/2020 BUN 18 10/29/2020 CREATSERUM 1.14 10/29/2020 BCRATIO 15.8 10/29/2020 NA 132 (L) 10/29/2020 POTASSIUM 3.9 10/29/2020 CL 104 10/29/2020 CO2 18 (L) 10/29/2020 CA 8.8 10/29/2020 PROTEINTOTAL 7.6 07/02/2019 ALBUMIN 3.4 (L) 10/29/2020 ALKPHOS 89 07/02/2019 AST 22 07/02/2019 ALT 16 07/02/2019 BILITOTAL 0.4 07/02/2019 Relevant diagnostic, laboratory and radiological studies have been reviewed in the Electronic Medical Record. Current Medications: magnesium sulfate 2 g/50 mL premixed IV solution 2 g IV Now sodium chloride 0.9% flush (adult) 10 mL 10 mL IV 2 times a day and prn sodium chloride 0.9% IV solution IV Continuous New Bag at 10/28/20 1254 niCARdipine (CARDENE) 25 mg in sodium chloride 0.9% 250 mL (Conc: 0.1 mg/mL) 0-15 mg/hr IV Titrate Stopped at 10/28/20 1438 fentaNYL 100 mcg/2 mL preservative free injection solution 25 mcg 25 mcg IV Every 5 minutes prn nalOXone (NARCAN) injection solution (vial) 0.4 mg 0.4 mg Injection Every 2 minutes prn nalOXone (NARCAN) injection solution (vial) 0.2 mg 0.2 mg Injection Every 2 minutes prn ondansetron (ZOFRAN) injection solution 4 mg 4 mg IV Every 4 hours prn haloperidol lactate (HALDOL) injection solution 2.5 mg 2.5 mg IV Every 6 hours prn chlorhexidine (PERIDEX) 0.12 % solution 15 mL 15 mL Mouth/Throat 2 times a day 15 mL at 10/29/20 0025 polyethyl glycol-propyl glycol (SYSTANE) ophthalmic solution 1 drop 1 drop Both eyes Every 4 hours 1 drop at 10/29/20 0405 famotidine (PEPCID) IV solution 20 mg 20 mg IV 2 times a day 20 mg at 10/28/20 2111 propofol (DIPRIVAN) 1000 mg/100 mL IV emulsion 0-50 mcg/kg/min IV Titrate 20 mcg/kg/min at 10/29/20 0416 fentanyl IV BOLUS taken from INFUSION *ADULT* 50 mcg IV Every 15 minutes prn 50 mcg at 009 And fentaNYL 20mcg/ml (2000mcg/100 ml) 0.9% sodium chloride IV solution 0-200 mcg/hr IV Titrate 75 mcg/hr at 10/29/20 0232 hydrALAZINE (APRESOLINE) injection solution 20 mg 20 mg IV Every 3 hours prn labetalol (NORMODYNE;TRANDATE) IV solution 20 mg 20 mg IV Every 3 hours prn no anticoagulants/antiplatelets reminder 1 each Does not apply Upon permission acetaminophen (TYLENOL) tablet 650 mg 650 mg Feeding tube Every 4 hours prn senna-docusate sodium (SENOKOT-S;PERICOLACE) tablet 1 tablet 1 tablet Feeding tube 2 times a day 1 tablet at 10/28/202033 NORepinephrine (LEVOPHED) 8 mg in sodium chloride 0.9% 250 mL (conc: 32 mcg/mL) 0-1 mcg/kg/min IV Titrate 0.03 mcg/kg/min at 10/29/20 0303 sodium chloride 0.9% flush (adult) 10 mL 10 mL IV 2 times a day and prn sodium chloride 0.9% IV solution 1 L IV Continuous bisacodyl (DULCOLAX) suppository 10 mg 10 mg Rectal 1 time a day prn IMAGING: Head/Neck CTA 10/28 IMPRESSION: 1. No acute intracranial hemorrhage. 2. Occluded left A-2/A3 anterior cerebral artery and occluded right A2 slightly more proximally withreconstitution distally. There is thready reconstitution distally on the left. Findings may be real or artifactual. Consider MR angiogram for further assessment to include sedation to decreased motion artifact. 3. Very diminutive caliber of the left M3 within the sylvian fissure versus occlusion. There is suboptimal contrast opacification of the intracranial vasculature hampering fine detailed assessment. 4. Occluded origin of the left vertebral artery which is reconstituted at the mid cervical V3 segment, however is thready in opacification to the level of the V4 segment. There is severe stenosis at the origin of the right vertebral artery. CT Perfusion 10/28 IMPRESSION: Symmetric cerebral blood volume and mean transit time without evidenceof infarct or penumbra Brain MRI 10/28 IMPRESSION: 1.No evidence of acute ischemia on the diffusion imaging. PROBLEM LIST: 1. Acute onset global aphasia s/p tPA symptoms likely s/t left A2/A3 occlusion/ stroke vs. seizures 2. Left vertebral artery occlusion 3. Right vertebral artery severe stenosis 4. Intubated on mechanical ventilation for airway protection 5. Hyponatremia 6. History of basal cell carcinoma of skin 7. 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 History of BPH 9. History of carotid artery stenosis 10. History of cognitive dysfunction 11. History of hypertension 12. History of hyponatremia 13. History of PVD 14. History of hyperlipidemia ASSESSMENT & PLAN emodynamics: Hemodynamically unstable, requiring Levo overnight to keep SBP 90- 100, currently off. Hypotension likely s/t to sedation. Will check lactic acid Keep SBP<180/105 for first 24 hours post TPA, then permissive hypertension up to 220/120 with reduction of BP by 15% each day. Nicardipine drip and PRN labetalol/hydralazine available. Cardiovascular: Normal sinus rhythm, no cardiac issues - Serum troponin negative 2-D echo to evaluate for wall motion abnormality/ejection fraction/rule out thrombus - results pending History of hypertension- will hold lisinopril per home regimen for now to allow for permissive hypertension History of hyperlipidemia, LDL 86- Lipitor 40 mg started for secondary stroke prevention Pulmonary: Intubated on mechanical ventilation for airway protection Adequate oxygenating and ventilation on peep 8, FiO2 30%, adjust FiO2 as needed to keep SpO2 >92% ABG and chest xray reviewed- Lungs are clear with small calcified granulomas on the right. SBT today after repeat MRI at 11 am and if pt does well will extubate. RT per protocol. Infectious Diseases: Afebrile with no leukocytosis. 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 OG in place, if pt is able to be extubated and passes bed side swallow eval can advance diet as tolerated. If unable to be extubated will start TF. Bowel regimen as ordered LAB PACK CHEMIST: Patient with confusion and global aphasia status post TPA symptoms likely related to involvement of Left A2/A3 occlusion/stroke vs. seizures Head/ Neck CTA showed occluded left A2/A3 and occluded right A2 though findings may be artifactual d/t motion. Left vertebral artery occlusion and severe stenosis of the right vertebral artery. CT perfusion showed symmetric cerebral blood volume and mean transit time without evidence of infarct or penumbra. Brain MRI- No evidence of acute ischemia on the diffusion imaging. Repeat brain MRI scheduled for 11 am, If no ICH will start on aspirin. S/P TPA we'll hold antiplatelet/anticoagulation for 24 hours. Spot EEG ordered to evaluate for seizures- will follow results, will also send prolactin levels Neurovascular following appreciate input/ recommendations. Neuro exams and NIHSS as ordered. Stat CT scan of the head if acute change in neuro status. Closely monitor neuro status while in ICU. Endocrine: Blood sugar is monitored as per critical care protocol - HgbA1c 5.1 Health Maintenance: Pepcid for stress ulcer prophylaxis and SCDs for deep venous thrombosis. PT OT speech following Patient discussed with neurology service appreciated their input and follow-up. Critical care time spent with this patient for evaluation, assessment and management of the above problems is 38 minutes not including procedure time. This patient was discussed with Dr. Pozo, he agrees with the assessment and plan JESSICA Marrero Neuro Critical Care documented in this encounter H&P Notes Nayeli Murphy APRN-CNP - 10/28/2020 12:30 PM CDT HOSPITAL ADMISSION HISTORY AND PHYSICAL Chief Complaint: Acute onset confusion/ global aphasia s/p tPA History of present illness: Beto Delgado is a 84yr male with a past medical history significant for basal cell carcinomaof skin, BPH, carotid artery stenosis, cognitive dysfunction, hypertension, hyponatremia, PVD, and hyperlipidemia who was admitted on 10/28 as a stroke code. Per chart review, patient apparently got up t o go to the bathroom and take a shower when he had an episode of dizziness. Pt sat down on the toilet and became semi unresponsive. He was not able to follow commands or communicate. [facility] is reported [id number]. Patient was initially seen and evaluated in [facility] ER where NIHSS was 22. CT head at OSH was negative for ICH. [place] stroke neurology was consulted and recommended pt receive tPA and be transferred to [facility] for possible intervention. On arrival to [facility] pt was globally aphasic, not following commands. Stat head/ Neck CTA was obtained and showed occluded left A2/A3 and occluded right A2 though findings may be artifactual d/t motion. Left vertebral artery occlusion and severe stenosis of the right vertebral artery were also seen. CT perfusion showed symmetric cerebral blood volume and mean transit time without evidence of infarct or penumbra. Given motion artifact on CT/CTA pt was intubated and sedated for brain MRI which did not show any evidence of acute ischemia on diffusion imaging. Patient will be admitted to ICU for close neurological monitoring and continuation of cares. Patient was seen and evaluated in ER prior to intubation. Hemodynamically stable. Oxygenating well on 2L NC. Confusion/globally aphasic, not following commands. Moves all four extremities spontaneouslywith good antigravity strength. Past Medical History: Diagnosis Date Basal cell carcinoma of skin BPH w/o Urinary Obs/LUTS 02/12/2007 Carotid artery stenosis Elevated blood pressure reading without diagnosis of hypertension 11/28/2012 Osteoarth NOS-unspec 11/07/2007 Pure hypercholesterolemia 02/12/2007 S/P vascular surgery Skin cancer Stroke (HCC) Past Surgical History: Procedure Laterality Date CAROTID ENDARTERECTOMY Left 11/29/2006 Dr Titus Barragan CAROTID ENDARTERECTOMY Right 01/21/2015 Procedure: RIGHT CAROTID ENDARTERECTOMY ;; Surgeon: Edgar Barragan MD CYSTECTOMY W ILEODIVERSION N/A 10/20/2015 Procedure: RADICAL CYSTECTOMY, W/ ILEAL CONDUIT URINARY DIVERSION;; Surgeon: Aleks Cline MD EXCISION BASAL CELL 07/06/2011 removed from left chest JOINT REPLACEMENT bilateral hip replacement and repetitive surgeries TUR BLADDER TUMOR N/A 06/02/2015 Procedure: TRANSURETHRAL RESECTION BLADDER TUMOR (MEDIUM) ;; Surgeon: Aleks Cline MD TURP LASER ASSISTED N/A 06/02/2015 Procedure: PHOTOSELECTIVE VAPORIZATION OF PROSTATE;; Surgeon: Aleks Cline MD Prior to Admission medications Medication Sig Start Date End Date Taking? Authorizing Provider cephalexin (KEFLEX) 250 mg capsule Take 1 capsule (250 mg) by mouth 1 time per day One pill daily 09/02/20 Lynette David PA-C lisinopril (PRINIVIL, ZESTRIL) 5 mg tablet Take 1 tablet (5 mg) by mouth 1 time per day 01/15/20 01/19/21 Lynette David PA-C cyanocobalamin (VITAMIN B-12) 1000 mcg tablet Take 1 tablet (1,000 mcg) by mouth 1 time per day 06/28/18 Yoav Covington MD Multiple Vitamins-Minerals (MULTIVITAMIN THERAPEUTIC WITH MINERALS) tablet Take 1 tablet by mouth 1 time per day 06/14/18 Yoav Covington MD aspirin 81 mg enteric coated tablet Take 81 mg by mouth 2 times a week Provider, Abstract No Known Allergies Social History Tobacco Use Smoking status: Never Smoker Smokeless tobacco: Never Used Substance Use Topics Alcohol use: Yes Alcohol/week: 11.0 standard drinks Types: 4 Glasses of wine, 7 Shots of liquor per week Family History Problem Relation Age of Onset Negative Sister Other Brother 80 Problems with prostate Negative Daughter Negative Son Other Son achilles tendon problems Negative Son Other Son was heavier smoker and alcohol consumption,,? seizure Negative Daughter Negative Daughter Bladder Cancer Neg Hx Kidney Cancer Neg Hx Kidney Disease Neg Hx Nephrolithiasis Neg Hx Prostate Cancer Neg Hx Testicular Cancer Neg Hx Review of Systems: Pertinent items are noted in HPI PHYSICAL EXAMINATION: (out of 10) Maximum Temperatures (last 24 hours) None General: Alert, sitting up in bed. No obvious distress. HEENT: Pupils equal and reactive; conjunctiva and lids unremarkable. Sclera anicteric, Examination of oropharynx reveals no oral lesions, mucositis or thrush. Neck: Supple. No masses or thyromegaly. Trachea midline. Resp: Intubated on mechanical ventilation. Respiratory effort normal. No rales, rubs or rhonchi to auscultation. CV: Regular rhythm, normal rate. No murmurs or extra sounds auscultated. Abdomen: Soft, non-tender, non-distended. No guarding, no rigidity, no rebound. No hepatomegaly, no splenomegaly. No masses palpated. Ext: No lower extremity edema or varicosities, pulses positive Skin: No rashes, lesions, or subcutaneous nodules, no petechiae. Neuro: Alert, not following commands. Globally aphasic/ incomprehensible sounds. Pupils PERRL, EOM intact. Moves all four extremities spontaneously with good antigravity strength. Lines: PIV LABS: Lab Results Component Value Date WBC 10.1 08/28/2020 RBC 3.48 (L) 08/28/2020 HEMOGLOBIN 12.0 (L) 08/28/2020 HEMATOCRIT 33.3 (L) 08/28/2020 MCV 95.7 08/28/2020 MCH 34.5 (H) 08/28/2020 MCHC 36.0 08/28/2020 RDW 12.8 05/26/2016 PLTCOUNT 232 08/28/2020 NEUTROPCT 59.3 08/28/2020 BANDPCT 4.0 08/20/2015 LYMPHSPCT 25.3 08/28/2020 MONOSPCT 11.3 08/28/2020 EOSPCT 3.9 08/28/2020 BASOPHILPCT 0.2 08/28/2020 METAMYELOPCT 2.0 08/20/2015 MYELOCYTEPCT 1.0 07/30/2015 Lab Results Component Value Date GLUCOSE 97 04/08/2020 BUN 16 04/08/2020 CREATSERUM 0.95 04/08/2020 BCRATIO 16.8 04/08/2020 NA 129 (L) 04/08/2020 POTASSIUM 4.6 04/08/2020 CL 95 (L) 04/08/2020 CO2 24 04/08/2020 CA 9.0 04/08/2020 PROTEINTOTAL 7.6 07/02/2019 ALBUMIN 4.6 07/02/2019 ALKPHOS 89 07/02/2019 AST 22 07/02/2019 ALT 16 07/02/2019 BILITOTAL 0.4 07/02/2019 Relevant diagnostic, laboratory and radiological studies have been reviewed in the Electronic Medical Record. Current Medications: sodium chloride 0.9% flush (adult) 10 mL 10 mL IV 2 times a day and prn sodium chloride 0.9% IV solution IV Continuous New Bag at 10/28/20 1254 niCARdipine (CARDENE) 25 mg in sodium chloride 0.9% 250 mL (Conc: 0.1 mg/mL) 0-15 mg/hr IV Titrate 5 mg/hr at 10/28/20 1346 propofol (DIPRIVAN) 1000 mg/100 mL IV emulsion propofol (DIPRIVAN) 1000 mg/100 mL IV emulsion 0-50 mcg/kg/min IV Titrate acetaminophen (TYLENOL) tablet 650 mg 650 mg Oral Every 4 hours prn fentaNYL 100 mcg/2 mL preservative free injection solution 25 mcg 25 mcg IV Every 5 minutes prn nalOXone (NARCAN) injection solution (vial) 0.4 mg 0.4 mg Injection Every 2 minutes prn nalOXone (NARCAN) injection solution (vial) 0.2 mg 0.2 mg Injection Every 2 minutes prn ondansetron (ZOFRAN) injection solution 4 mg 4 mg IV Every 4 hours prn haloperidol lactate (HALDOL) injection solution 2.5 mg 2.5 mg IV Every 6 hours prn [START ON 10/29/2020] chlorhexidine (PERIDEX) 0.12 % solution 15 mL 15 mL Mouth/Throat 2 times aday polyethyl glycol-propyl glycol (SYSTANE) ophthalmic solution 1 drop 1 drop Both eyes Every 4 hours famotidine (PEPCID) IV solution 20 mg 20 mg IV 2 times a day propofol (DIPRIVAN) 1000 mg/100 mL IV emulsion 0-50 mcg/kg/min IV Titrate fentanyl IV BOLUS taken from INFUSION *ADULT* 50 mcg IV Every 15 minutes prn And fentaNYL 20mcg/ml (2000mcg/100 ml) 0.9% sodium chloride IV solution 0-200 mcg/hr IV Titrate senna-docusate sodium (SENOKOT-S;PERICOLACE) tablet 1 tablet 1 tablet Oral 2 times a day bisacodyl (DULCOLAX) suppository 10 mg 10 mg Rectal 1 time a day prn hydrALAZINE (APRESOLINE) injection solution 20 mg 20 mg IV Every 3 hours prn labetalol (NORMODYNE;TRANDATE) IV solution 20 mg 20 mg IV Every 3 hours prn IMAGING: Head/Neck CTA 10/28 IMPRESSION: 1. No acute intracranial hemorrhage. 2. Occluded left A-2/A3 anterior cerebral artery and occluded right A2 slightly more proximally withreconstitution distally. There is thready reconstitution distally on the left. Findings may be real or artifactual. Consider MR angiogram for further assessment to include sedation to decreased motion artifact. 3. Very diminutive caliber of the left M3 within the sylvian fissure versus occlusion. There is suboptimal contrast opacification of the intracranial vasculature hampering fine detailed assessment. 4. Occluded origin of the left vertebral artery which is reconstituted at the mid cervical V3 segment, however is thready in opacification to the level of the V4 segment. There is severe stenosis at the origin of the right vertebral artery. CT Perfusion 10/28 IMPRESSION: Symmetric cerebral blood volume and mean transit time without evidenceof infarct or penumbra Brain MRI 10/28 IMPRESSION: 1.No evidence of acute ischemia on the diffusion imaging. PROBLEM LIST: 1. Acute onset global aphasia s/p tPA symptoms likely s/t left A2/A3 occlusion 2. Left vertebral artery occlusion 3. Right vertebral artery severe stenosis 4. Intubated on mechanical ventilation for airway protection 5. Hyponatremia 6. History of basal cell carcinoma of skin 7. History of BPH 8. History of carotid artery stenosis 9. History of cognitive dysfunction 10. History of hypertension 11. History of hyponatremia 12. History of PVD 13. History of hyperlipidemia ASSESSMENT & PLAN emodynamics: Hemodynamically stable, no inotropic support. Keep SPB<180/105 for first 24 hours post TPA, then permissive hypertension up to 220/120 with reduction of BP by 15% each day. Nicardipine drip and PRN labetalol/hydralazine available. Cardiovascular: Normal sinus rhythm, no cardiac issues - Serum troponin negative 2-D echo to evaluate for wall motion abnormality/ejection fraction/rule out thrombus - ordered History of hypertension- will hold lisinopril per home regimen for now to allow for permissive hypertension History of hyperlipidemia- will check lipid profile and if needed use Lipitor for secondary stroke prevention Pulmonary: Intubated on mechanical ventilation for airway protection Will obtain ABG and chest xray and will adjust ventilator settings based on the results Adequate oxygenation on nasal cannula - incentive spirometry as ordered. Infectious Diseases: Afebrile with mild leukocytosis, likely stress reacitve. No signs of infectionor indication for antibiotics Will obtain UA to evaluate for UTI Renal/Fluids/Elecrlytes and Metabolic: Stable kidney functions, will monitor urine output, electrolytes and kidney functions History of chronic hyponatremia, Na 132- continue NS IVF as ordered and will recheck renal panel tomorrow AM Replace electrolytes per critical care protocol Hematology: Stable hemoglobin, hematocrit and platelets, normal coagulation profile INR 1.3 GI: No active issues. Will keep pt NPO for possible surgical intervnetion and reevaluate tomorrow morning. Bowel regimen as ordered LAB PACK CHEMIST: Patient with confusion and global aphasia status post TPA symptoms likely related to involvement of Left A2/A3 occlusion Head/ Neck CTA showed occluded left A2/A3 and occluded right A2 though findings may be artifactual d/t motion. Left vertebral artery occlusion and severe stenosis of the right vertebral artery. CT perfusion showed symmetric cerebral blood volume and mean transit time without evidence of infarct or penumbra. Brain MRI- No evidence of acute ischemia on the diffusion imaging. S/P TPA we'll hold antiplatelet/anticoagulation for 24 hours. Repeat neuro imaging 24 hours post tPA. If no ICH will start on aspirin. cEEG ordered to evaluate for seizures- will follow results Neurovascular following appreciate input/ recommendations. Neuro exams and NIHSS as ordered. Stat CT scan of the head if acute change in neuro status. Closely monitor neuro status while in ICU. Endocrine: Blood sugar is monitored as per critical care protocol - will check HbA1c Health Maintenance: Pepcid for stress ulcer prophylaxis and SCDs for deep venous thrombosis. PT OT speech consulted Patient discussed with neurology service appreciated their input and follow-up. Critical care time spent with this patient for evaluation, assessment and management of the above problems is 77 minutes not including procedure time. This patient was discussed with Dr. Pozo, he agrees with the assessment and plan Nayeli Murphy APRN-CHEMISTRY PROFESSOR Neuro Critical Care Associated attestation - Griffin Pzoo MD - 10/28/2020 4:46 PM CDT I discussed the patient with the WILEY and personally interviewed and examined the patient. I verifiedin the medical record all WILEY documentation/findings, including history, physical exam, and medical decision making, and I agree with the WILEY's documentation. Will keep intubated on mech vent and obtain MRI brain tomorrow with contrast. F/U EEG results Griffin Pozo MD Critical Care/ Neuro Critical Care documented in this encounter Procedure Notes Amber Betancur MD - 10/29/2020 12:30 PM CDTAssociated Order(s): ELECTROENCEPHALOGRAM ROUTINE EEG Identifying Information: Name: Beto Delgado : 1935 Interpreting Physician: Amber Betancur MD Clinical History: Beto Delgado is an 84yr male for which a routine EEG was ordered on for further evaluation of altered mental status. EEG date: 10/29/20 Technical Summary: 20 channels of continuous EEG were recorded in a digital format on a patient who is reported to be sedated during the recording. The background rhythm consists of 20-40 microvolt activity in the theta frequency range approximately 6 Hz that was maximal over the posterior head regions and reactive to eye opening and closure. During the recording: No focal slowing was seen. No epileptiform discharges or seizures were detected. The EKG monitoring channel did not detect any significant rhythm abnormalities. EEG Interpretation: This EEG is abnormal due to the presence of: 1) Mild-Moderate generalized slowing. - This is a non-specific finding but is consistent with a generalized disturbance of cerebral function. It may be seen in a variety of conditions, such as toxic, metabolic, post-anoxic, multi-focal or diffuse structural abnormalities. - No electrographic seizures or non-convulsive status epilepticus were seen during this recording. Clinical correlation is recommended. Kierra Ruiz - 10/29/2020 11:37 AM CDT Date: 10/29/2020 CSN#: [id number] Beto Delgado : 1935 84yr old male PCP: Lynette David PA-C Order # [id number] Electroencephalogram Procedure EEG Record # [id number] Requesting provider: No ref. provider found Study type: Inpatient Study performed at: [facility] Medications at time of study: Current Facility-Administered Medications Medication famotidine atorvaSTATin [START ON 10/30/2020] cephalexin sodium chloride sodium chloride niCARdipine (CARDENE) 0.1 mg/mL IV solution (SMF-standard) fentaNYL nalOXone nalOXone ondansetron haloperidol lactate chlorhexidine polyethyl glycol-propyl glycol propofol fentanyl IV BOLUS taken from INFUSION *ADULT* And fentaNYL 20mcg/ml (2000mcg/100 ml) 0.9% sodium chloride hydrALAZINE labetalol acetaminophen senna-docusate sodium NORepinephrine (LEVOPHED) 8 mg in sodium chloride 0.9% 250 mL sodium chloride bisacodyl IV Fluids: Yes Feeding Tube: Yes Hours since last meal:1 Patient status: intubated light sedation Head appearance:normalcephalic Activation: Photic-No Hyperventilation-No Reason if no activation: n/a EKG strip:Yes Patient history: Beto Delgado is having EEG study today by request of Katherine REYNAGA. Beto Delgado is noted to be having episodes of AMS post stroke. This EEG will be presented to a neurologist for interpretation. Indication: AMS Channel:16 Video: Yes Level of Monitoring: continuous monitoring Total time of study: 00 Hours 30 Minutes 02 Seconds Kierra FergusonEEGT documented in this encounter Consult Notes Amber Betancur MD - 10/31/2020 4:17 PM CDTAssociated Order(s): CONSULT NEUROLOGY NEUROLOGY CONSULT NOTE 10/31/2020 NAME: Beto Delgaod is a 84yr old male 1935 PCP: Lynette David PA-C Referring Provider: No ref. provider found Reason for Consult: confusional spells Impression / Plan 1) Prolonged confusion: fainted per report, no obvious seizure activity; ? Prolonged cerebral hypoperfusion; ? Due to Cardiac arrhythmia vs VBI (less likely); agree with stroke workup; stressed importance of loop recorder The patient is an 84-year-old with a history of hypertension, hyperlipidemia, and bladder cancer currently in remission who was admitted to the ICU on 10/28/2020 after having acute onset confusion and aphasia concerning for stroke. Neurology was consulted for further evaluation of confusion. His hospital course has included an MRI brain which revealed a tiny left frontal stroke in the setting of multiple areas of encephalomalacia. After further discussion with the on 10/28/2020 he reported feeling woozy, then sat on a chair, fainted and slumped over. She held him up for the next 10-15 minutes. She then called 911. When EMS arrived he remained limp with eyes closed and they took him to the. It is unclear what occurred there if he regained consciousness and was poorly responsive, but there was concern for stroke, he was given tPA, and was ultimately admitted to the [facility]. At this time his prolonged confusion cannot be explained by his left frontal punctate stroke. Therewas obviously no witnessed seizure activity and him slumping over with eyes closed fits more with syncope rather than seizure. I do wonder whether he may have had a cardiac arrhythmia causing him to feel woozy which ultimately led to a loss of consciousness which was complicated by remaining upright for 10-15 minutes. I feel this arrhythmia may have resulted in his tiny punctate stroke. I feel it is less likely that his issues were related to VBI as there is no obvious posterior circulation stroke. Prolonged cerebral hypoperfusion from remaining upright for 10-15 minutes may have resulted in his prolonged confusion. Moving forward I feel it is important to capture these events as they seem lesa occurring once every 2-3 months. I recommended to the patient's family that he proceed with a implantable loop recorder to capture any obvious cardiac arrhythmias. No further neurological evaluation is needed at this time. Plan (discussed with the patient): 1) Continue current medical management 2) Loop recorder placement prior to discharge - Ideally need to capture an event. Per daughter events are occurred 1x every 2 months. Total time spent with patient care: 45 minutes. Chief Complaint Confusional spells HPI History is taken from the patient's . Family reports that the patient has slowed down in the last few years and does not walk as much. He has had intermittent episodes of confusion which have coincided with UTIs. He is also had issues with being found on the floor in April 2020 which was felt possibly due to a TIA but no work-up was initiated at that time per family preference. On the day of admission on 10/28/2020 after getting out of the shower he reported feeling woozy and sat on a stool. He then lost consciousness and slumped to the side. His was then holding him upand he was poorly responsive. She does not remember if he was pale or diaphoretic. She was afraid to let go as she thought he would fall. 10-15 minutes later she propped him up against the wall and called 911. He was then taken to the [place] emergency room where there was concern for stroke and he was ultimately given TPA. The patient is with multiple grown children and he lives in [place] with his . Medications Outpatient Medications Marked as Taking for the 10/28/20 encounter (Hospital Encounter) Medication Sig Dispense Refill sildenafil (VIAGRA) 100 MG tablet Take 100 mg by mouth 1 time a day as needed for other (Specify) Take 1 hour prior to anticipated sexual activity. vitamin D3, cholecalciferol, 50 mcg (2000 unit) tablet Take 50 mcg by mouth 1 time per day cephalexin (KEFLEX) 250 mg capsule Take 1 capsule (250 mg) by mouth 1 time per day One pill daily 30 capsule 12 lisinopril (PRINIVIL, ZESTRIL) 5 mg tablet Take 1 tablet (5 mg) by mouth 1 time per day 90 tablet 4 cyanocobalamin (VITAMIN B-12) 1000 mcg tablet Take 1 tablet (1,000 mcg) by mouth 1 time per day 90 tablet 3 Multiple Vitamins-Minerals (MULTIVITAMIN THERAPEUTIC WITH MINERALS) tablet Take 1 tablet by mouth 1 time per day 0 aspirin 81 mg enteric coated tablet Take 81 mg by mouth 1 time per day Allergies No Known Allergies Problem List Patient Active Problem List Diagnosis Ischemic stroke (HCC) Acute confusional state Hyponatremia Daily consumption of alcohol Vancomycin resistant Enterococcus UTI, 03/29 Cognitive dysfunction Eval on 03/25/20- ADL screen 3.8/5.8 is 66% of norm. MMSE 24/30 is 80% of norm. OT felt he is still aware of his issues but becomes agitated and covers limitations with aggression/anger. Sepsis due to urinary tract infection ([facility]) Dec 2019 and Mar 2020 Essential hypertension, benign Stomatitis 06/24 Says his lips are always cracked and painful, already on B-12 tabs, per recommendation of [facility] Will also start taking a MV with minerals daily Peripheral vascular disease ([facility]) See also carotid stenosis, F/P bilateral carotid endarterectomy 12/22 unable to feel pulses in feet, capillary refill 6 seconds bilateral but asymptomatic, urgedlots of walking Anemia, iron deficiency 10/22 Hb is 9.9, Fe saturation 7% following radical cystectomy 12/22 CBC, Fe sat 25%; folate and B-12 also normal, his anemia is probably from chronic disease and stress now, he will continue one iron per day through the winter Systolic murmur Noted in Hospital 10/22 and on exam 12/22, no studies planned since asymptomatic Carotid artery stenosis See also hyperlipidemia 11/12 Patient down in [place] for shopping trip, awoke and was dysarthric, had a left CVA 11/12 L carotid endarterectomy in [place] 11/13 Bilateral carotid US showed less than 40% stenosis in each carotid 12/21 OV no further problems, healed scar viewed on exam; now has bruit on R, severe stenosis on repeat US; R carotid endarterectomy 01/20, in [place] again per his request Basal cell carcinoma Excision, L chest 06/17 09/16 Mohs excision BCC L eyebrow Status post ileal conduit ([facility]) In 10/2015 in [facility]: Underwent radical cystectomy w/ ileal conduit urinary diversion. Transitional cell carcinoma of bladder (HCC) 05/22 Hematuria, found to have high-grade urothelial CA,, resection along with TURP; ChemoRx with plans for surgery later 10/22 radical cystectomy with ileal diversion, Oncology F/U q.6 months History of bilateral carotid endarterectomy In 2006: left-sided. In 01/2015: right-sided. Colon cancer screening Reportedly FH of colon cancer via [facility] (reviewed 12/08/2014) 11/21/02 Colonoscopy-redundant colon 11/12/2007 Negative occult blood test, letter sent to inform patient about results and about colonoscopy screening Should have received colonoscopy 2012, no record Osteoarthritis First hip arthroplasty was done on right hip when patient was in his late 30s or 40s, at this time the kim that was placed was not cemented and later needed further repair/operation ([address] Gray) 11/19/2007 Left hip arthroplasty by Dr. 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 At some point, a procedure was done to remove/destroy Ca++ deposits 12/08/2014 Patient walks a couple miles a day and is active Prostatic hypertrophy PSA has never been above ~1.3 or 1.4, 12/20 0.27 ~ urinary symptoms included waking many times to urinate in the middle of the night Has been treated with Tamsulosin/Dutasteride which has helped 12/21 still has to wake a few times per night to urinate and is uncomfortable when a bathroom is not near. PSA 0.30, post void residual 340 mL 05/22 Photovaporization of prostate by Dr. Cline along with first resection of bladder carcinoma Hyperlipidemia Was first treated for hypercholesterolemia 02/12/2007. At this time his labs were as follows: LDL-106, HDL-65, Triglycerides-88 By 2009, patient was off statin due to medication side effects (myalgias) and was to be controlling his hyperlipidemia through lifestyle modification 2010 was started on Crestor, unsure when it was discontinued Lipids as of 01/07/2013: LDL-83, HDL-57, Triglycerides-75 12/21 Rx Crestor again due to his risk factors, agreed to restart; Lipids: [id number], HDL 63, trig 94; Crestor appropriate because of the carotid disease; 09/21 D/C'd for Chemo but planning to restart 12/22 Social History Social History Socioeconomic History Marital status: Spouse name: Not on file Number of children: Not on file Years of education: Not on file Highest education level: Not on file Occupational History Not on file Tobacco Use Smoking status: Never Smoker Smokeless tobacco: Never Used Substance and Sexual Activity Alcohol use: Yes Alcohol/week: 11.0 standard drinks Types: 4 Glasses of wine, 7 Shots of liquor per week Drug use: No Sexual activity: Not on file Other Topics Concern Not on file Social History Narrative Lives with in [place], has 5 children. Retired from [employer], his sons manage [employer]. He and winter in [place], as they have for 20 yr, on [place] [facility], from about mid-Feb annually, will not go 02/25. [facility] info in 12/08/14. Last CPE 06/28/18. Social Determinants of Health Financial Resource Strain: Difficulty of Paying Living Expenses: Food Insecurity: Worried About Running Out of Food in the Last Year: Ran Out of Food in the Last Year: Transportation Needs: Lack of Transportation (Medical): Lack of Transportation (Non-Medical): Physical Activity: Days of Exercise per Week: Minutes of Exercise per Session: Stress: Feeling of Stress : Social Connections: Frequency of Communication with Friends and Family: Frequency of Social Gatherings with Friends and Family: Attends [employer] Services: Active Member of Clubs or Organizations: Attends Club or Organization Meetings: Marital Status: Intimate Partner Violence: Fear of Current or Ex-Partner: Emotionally Abused: Physically Abused: Sexually Abused: Famly History Family History Problem Relation Age of Onset Negative Sister Other Brother 80 Problems with prostate Negative Daughter Negative Son Other Son achilles tendon problems Negative Son Other Son was heavier smoker and alcohol consumption,,? seizure Negative Daughter Negative Daughter Bladder Cancer Neg Hx Kidney Cancer Neg Hx Kidney Disease Neg Hx Nephrolithiasis Neg Hx Prostate Cancer Neg Hx Testicular Cancer Neg Hx ROS Allergic: No frequent infections, no frequent sneezing, no itchy eyes. Cardiovascular: No chest pain, no heart murmur, no rapid heart beat, no swollen feet/ankles. Constitutional: Fatigue Endocrine: No increased thirst, no increased urination. Gastrointestinal: No constipation, no diarrhea, no heartburn, no nausea, no poor appetite, no stomach pain, no stool incontinence, no vomiting. Genitourinary: No frequent urination, no frequent night urination, no leaking urine, no pain with urination, no sexual concerns, no urinary urgency. HEENT: No decreased sense of smell, no drooling, no eye pain, no hearing loss, no ringing in the ears, no sinus problems. Hematological: No easy bleeding, no easy bruising, no swollen glands. Integumentary: No rash, no skin lumps, no sores that won't heal. Musculoskeletal: Back Pain Neurologic: Blackouts/Fainting Psychiatric: No anxiety, no depression, no mood swings. Pulmonary: No cough, no shortness of breath. Sleep: No acting out in dreams, no problems falling asleep, no problems staying asleep, no disruptive snoring, no excessive daytime sleepiness, no vivid dreams. Physical Exam BP 163/82 Pulse 63 Temp 98.1 F (36.7 C) Resp 16 Ht 1.829 m (6') Wt 75 kg (165 lb 5.5 oz) SpO2 95% BMI 22.42 kg/m2 Body mass index is 22.42 kg/m. General Exam: General: Well nourished well hyrated, in no acute distress. Neurologic Exam: Mental Status: Pleasant to conversation. Average historian. Able to name items. Repeat a sentence. Able to follow 2 step commands. Confused about year. Labs/Imaging Procedures Amber Betancur MD Nahun Santoro DO - 10/30/2020 9:14 PM CDT Images from the original note were not included. INITIAL REHAB MEDICINE CONSULT NOTE: Referring Physician: Dr. Eaton PCP: Lynette David PA-C Reason for consult: Evaluate patient for admission to acute inpatient rehab. 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 He sat on the toilet and became semi unresponsive. He was unabl;eto follow commands at that time. He was then brought to [facility] ER, CT head was neg for ICH and NIHSS was 22, he received TPA and was transferred to [facility] for further evaluation and management. Upon arrival he was globally aphasic, not following commands. Stat head/ Neck CTA was obtained andshowed occluded left A2/A3 and occluded right A2 though findings may be artifactual d/t motion. Leftvertebral artery occlusion and severe stenosis of the right vertebral artery were also seen. CT perfusion showed symmetric cerebral blood volume and mean transit time without evidence of infarct or penumbra. Given motion artifact on CT/CTA pt was intubated and sedated for brain MRI which did not showany evidence of acute ischemia on diffusion imaging. Past Medical History Beto has a past medical history of Basal cell carcinoma of skin, BPH w/o Urinary Obs/LUTS (02/12/2007), Carotid artery stenosis, Elevated blood pressure reading without diagnosis of hypertension (11/28/2012), Osteoarth NOS-unspec (11/07/2007), Pure hypercholesterolemia (02/12/2007), S/P vascular surgery, Skin cancer, and Stroke (HCC). Past Surgical History Beto has a past surgical history that includes Joint Replacement; carotid endarterectomy (Left, 11/29/2006); excision basal cell; carotid endarterectomy (Right, 01/21/2015); tur bladder tumor (N/A, 06/02/2015); turp laser assisted (N/A, 06/02/2015); and cystectomy w ileodiversion (N/A, 10/20/2015). Prior to Admission Medications Medications Prior to Admission Medication Sig Dispense Refill Last Dose sildenafil (VIAGRA) 100 MG tablet Take 100 mg by mouth 1 time a day as needed for other (Specify) Take 1 hour prior to anticipated sexual activity. vitamin D3, cholecalciferol, 50 mcg (2000 unit) tablet Take 50 mcg by mouth 1 time per day 10/28/2020 cephalexin (KEFLEX) 250 mg capsule Take 1 capsule (250 mg) by mouth 1 time per day One pill daily 30 capsule 12 10/27/2020 lisinopril (PRINIVIL, ZESTRIL) 5 mg tablet Take 1 tablet (5 mg) by mouth 1 time per day 90 tablet 4 10/27/2020 cyanocobalamin (VITAMIN B-12) 1000 mcg tablet Take 1 tablet (1,000 mcg) by mouth 1 time per day 90 tablet 3 10/28/2020 Multiple Vitamins-Minerals (MULTIVITAMIN THERAPEUTIC WITH MINERALS) tablet Take 1 tablet by mouth 1 time per day 0 10/28/2020 aspirin 81 mg enteric coated tablet Take 81 mg by mouth 1 time per day 10/28/2020 Allergies Allergies have been reviewed. Beto has No Known Allergies. Social History Beto reports that he has never smoked. He has never used smokeless tobacco. He reports current alcohol use of about 11.0 standard drinks of alcohol per week. He reports that he does not use drugs. Family History Beto's family history includes Negative in his daughter, daughter, daughter, sister, son, and son;Other in his son and son; Other (age of onset: 80) in his brother. Immunizations Immunization History Administered Date(s) Administered FLU VACCINE TRIVALENT SINGLE DOSE(Fluvirin,Afluria) 01/25/2013 DT (pediatric) 09/15/2003 FLU VACCINE HIGH DOSE 65YR+(Fluzone) 11/13/2014, 11/04/2015, 11/07/2017, 12/04/2019 Hep A,peds/adol 09/22/2003, 05/18/2004 Influenza Vaccine 11/11/2013 Influenza Vaccine,unspecified 02/20/2012 Moderna COVID-19 Vaccine 03/03/2020, 03/31/2020 Pneumococcal Conj PCV13 11/13/2013 Pneumococcal Polysaccharide PPSV23 01/14/2010 TDAP 01/25/2013 Zoster Live(Zostavax) 02/12/2007 Zoster Recombinant (Shingrix) 10/31/2018 Code Status Full Code Review of Systems History obtained from chart review and unable to perform ROS due to mental status of the patient Admission Vital Signs Temp: 96.9 F (36.1 C) BP: 166/115 Pulse: 101 Resp: 18 Pain Ratin (out of 10) O2 Device: Ventilator O2 Flow Rate (L/min): 40 l/min SpO2: 97 % Height: 182.9 cm (6') Wt Readings from Last 3 Encounters: 10/28/20 75 kg (165 lb 5.5 oz) 09/02/20 78 kg (172 lb) 08/28/20 78 kg (172 lb) Ht Readings from Last 3 Encounters: 10/28/20 1.829 m (6') 09/02/20 1.842 m (6' 0.5") 07/02/19 1.84 m (6' 0.44") Body mass index is 22.42 kg/m. Physical Exam Constitutional: Appears well developed, well nourished, average body habitus and normal hygiene Head: NC/AT and EOMI Cardiovascular: (+) S1, S2, No lower extremity edema appreciated, 1+ distal pulses at PT BL, and extremities warm to palpation and not tender to palpation Lymphatic: No cervical Adenopathy and No axillary adenopathy Pulmonary: normal breath sounds Skin: Skin appears normal without scars,lesions, rashes, ulcers Neurological/psychiatric: Awake, unable to follow commands, DTRs 2+ at LUE, RUE, RLE and LLE, Yodit's and Babinski negative bilaterally, and Sensation intact to LT Extremities and MSK: Inspection and palpation of Head and neck, spine/ribs/pelvis, RUE, RLE, LUE andLLE with no gross misalignment, asymmetry, defects, masses or effusion, FPROM x 4 extremities with end range of motion discomfort, Muscle tone: normal and no spasticity noted, and No cogwheeling or flaccidity noted Gait: Could not be safely assessed today. Diagnostics and Labs Recent Results (from the past 120 hour(s)) RAD OUTSIDE STUDY WITHOUT INTERP Narrative Outside Study no Interpretation. EKG Result Value Ref Range EKG WAVEFORM Normal sinus rhythm Right bundle branch block Septal infarct , age undetermined Abnormal ECG When compared with ECG of 02-OCT-2015 13:45, Nonspecific T wave abnormality no longer evident in Lateral leads QT has lengthened Ventricular Rate: 92 BPM Atrial Rate: 92 BPM P-R Interval: 178 ms QRS Duration: 144 ms Q-T Interval: 420 ms QTc Calculation(Bazett): 519 ms Calculated P Laurier: 53 degrees Calculated R Laurier: -19 degrees Calculated T Laurier: 49 degrees CTA BRAIN WITH PERFUSION Narrative Patient Name: BETO DELGADO Date of : 1935 Procedure: CTA BRAIN WITH PERFUSION Date of Service: 10/28/2020 EXAM: CTA NECK, CTA BRAIN WITH PERFUSION INDICATION: Neuro deficit, acute, stroke suspected TECHNIQUE: 1. CT angiogram of the brain performed without and following IV contrast administration. MIP reformations generated and reviewed. 2. CT angiogram of the neck performed following the same IV contrast injection. MIP reformations generated and reviewed. 3. Brain perfusion images generated on an independent workstation including cerebral blood volume, cerebral blood flow, mean transit time and Tmax. COMPARISON(S): Head CT dated 10/28/2020 at T10 01 hours FINDINGS: Noncontrast head CT: Remote left cerebral infarct, also seen at the left PICA territory. Age-appropriate global parenchymal volume loss. No evidence of acute intra-axial hemorrhage. Mild/moderate motion artifact on the exam. CT angiogram brain: Suboptimal contrast opacification of the intracranial vasculature, potentially on the basis of poor cardiac output. There is occlusion of the left A2/A3 junction and of the right Q2ishcepsl more proximally with reconstitution of these vessels beyond this point which is quite thready on the left. The right middle cerebral artery is without large vessel occlusion or aneurysm. Similarly on the left, no large vessel occlusion. There is either very diminutive caliber or occlusion of the left M3 in the sylvian fissure on image 155 of 280. Posteriorly, nondominant intracranial left vertebral artery with atheromatous multifocal luminal narrowing. Mild narrowing involving the right intracranial vertebral artery. Basilar artery and bilateral posterior cerebral arteries are without flow-limiting stenosis or aneurysm. Multifocal luminal irregularity of the right [employer] at the level of the crural cistern, likely on the basis of atheromatous disease. Brain perfusion: Symmetric cerebral blood volume and mean transit time without evidence of infarct or penumbra. CT angiogram neck: Left-sided aortic arch. Common origin innominate and left common carotid artery. Carotid origins are unremarkable bilaterally. Severe stenosis at the origin of the right vertebral artery which is the dominant vessel. There is occlusion of the origin of the left vertebral artery which is reconstituted by muscular collaterals in the mid cervical spine with thready opacification throughout the remainder of the vessel with normal appearance of the distal V3 segment. There is atheromatous disease with soft and calcified plaquing at the carotid bifurcations bilaterally and distal common carotid arteries. No significant narrowing within the carotid vessels. Moderate motion artifact at the upper neck hampering findings detailed assessment of the cervical internal carotid arteries. IMPRESSION: 1. No acute intracranial hemorrhage. 2. Occluded left A-2/A3 anterior cerebral artery and occluded right A2 slightly more proximally withreconstitution distally. There is thready reconstitution distally on the left. Findings may be real or artifactual. Consider MR angiogram for further assessment to include sedation to decreased motion artifact. 3. Very diminutive caliber of the left M3 within the sylvian fissure versus occlusion. There is suboptimal contrast opacification of the intracranial vasculature hampering fine detailed assessment. 4. Occluded origin of the left vertebral artery which is reconstituted at the mid cervical V3 segment, however is thready in opacification to the level of the V4 segment. There is severe stenosis at the origin of the right vertebral artery. Findings discussed with GARRY SMITH on 10/28/2020 12:46 PM CDT Finalized by: Ross David DO on 10/28/2020 12:51 PM CDT Patient/Procedure Information: [facility] MRN/TIFFANY: [id number] Order Number: [id number] Accession Number: [id number] Ordering Provider: GARRY SMITH Authorizing Provider: GARRY SMITH CTA NECK Narrative Patient Name: BETO DELGADO Date of : 1935 Procedure: CTA NECK Date of Service: 10/28/2020 EXAM: CTA NECK, CTA BRAIN WITH PERFUSION INDICATION: Neuro deficit, acute, stroke suspected TECHNIQUE: 1. CT angiogram of the brain performed without and following IV contrast administration. MIP reformations generated and reviewed. 2. CT angiogram of the neck performed following the same IV contrast injection. MIP reformations generated and reviewed. 3. Brain perfusion images generated on an independent workstation including cerebral blood volume, cerebral blood flow, mean transit time and Tmax. COMPARISON(S): Head CT dated 10/28/2020 at T10 01 hours FINDINGS: Noncontrast head CT: Remote left cerebral infarct, also seen at the left PICA territory. Age-appropriate global parenchymal volume loss. No evidence of acute intra-axial hemorrhage. Mild/moderate motion artifact on the exam. CT angiogram brain: Suboptimal contrast opacification of the intracranial vasculature, potentially on the basis of poor cardiac output. There is occlusion of the left A2/A3 junction and of the right [id number] more proximally with reconstitution of these vessels beyond this point which is quite thready on the left. The right middle cerebral artery is without large vessel occlusion or aneurysm. Similarly on the left, no large vessel occlusion. There is either very diminutive caliber or occlusion of the left M3 in the sylvian fissure on image 155 of 280. Posteriorly, nondominant intracranial left vertebral artery with atheromatous multifocal luminal narrowing. Mild narrowing involving the right intracranial vertebral artery. Basilar artery and bilateral posterior cerebral arteries are without flow-limiting stenosis or aneurysm. Multifocal luminal irregularity of the right [employer] at the level of the crural cistern, likely on the basis of atheromatous disease. Brain perfusion: Symmetric cerebral blood volume and mean transit time without evidence of infarct or penumbra. CT angiogram neck: Left-sided aortic arch. Common origin innominate and left common carotid artery. Carotid origins are unremarkable bilaterally. Severe stenosis at the origin of the right vertebral artery which is the dominant vessel. There is occlusion of the origin of the left vertebral artery which is reconstituted by muscular collaterals in the mid cervical spine with thready opacification throughout the remainder of the vessel with normal appearance of the distal V3 segment. There is atheromatous disease with soft and calcified plaquing at the carotid bifurcations bilaterally and distal common carotid arteries. No significant narrowing within the carotid vessels. Moderate motion artifact at the upper neck hampering findings detailed assessment of the cervical internal carotid arteries. IMPRESSION: 1. No acute intracranial hemorrhage. 2. Occluded left A-2/A3 anterior cerebral artery and occluded right A2 slightly more proximally withreconstitution distally. There is thready reconstitution distally on the left. Findings may be real or artifactual. Consider MR angiogram for further assessment to include sedation to decreased motion artifact. 3. Very diminutive caliber of the left M3 within the sylvian fissure versus occlusion. There is suboptimal contrast opacification of the intracranial vasculature hampering fine detailed assessment. 4. Occluded origin of the left vertebral artery which is reconstituted at the mid cervical V3 segment, however is thready in opacification to the level of the V4 segment. There is severe stenosis at the origin of the right vertebral artery. Findings discussed with GARRY SMITH on 10/28/2020 12:46 PM CDT Finalized by: Ross David DO on 10/28/2020 12:51 PM CDT Patient/Procedure Information: [facility] MRN/[facility]FF[facility]: [id number] Order Number: [id number] Accession Number: [id number] Ordering Provider: GARRY SMITH Authorizing Provider: GARRY SMITH XRAY CHEST PORTABLE - Narrative Patient Name: BETO DELGADO Date of : 1935 Procedure: XRAY CHEST PORTABLE Date of Service: 10/28/2020 EXAM: XRAY CHEST PORTABLE INDICATION:check ett placement COMPARISON(S): 08/26/2020 FINDINGS/IMPRESSION: Endotracheal tube is present with the tip approximately 11.3 cm above the radha. Enteric tube can be followed as far as the stomach. The lungs are free of consolidating opacities. There is no significant pneumothorax. There are no significant pleural effusions. The cardiomediastinal silhouette is stable. Finalized by: Gideon Silverman MD on 10/28/2020 1:47 PM CDT Patient/Procedure Information: [facility] MRN/[facility]FF[facility]: [id number] Order Number: [id number] Accession Number: [id number] Ordering Provider: JOSHUA GONZALEZ Authorizing Provider: JOSHUA GONZALEZ MRA HEAD WITHOUT CONTRAST Narrative Patient Name: BETO DELGADO Date of : 1935 Procedure: MRA HEAD WITHOUT CONTRAST Date of Service: 10/28/2020 -------- ADDENDUM #1 -------- Addendum: Additional images obtained. 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 The left posterior inferior cerebellar artery and right posterior inferior cerebellar artery appear to be patent. Left middle cerebral artery is grossly patent. There is no discrete M2 or M3 identified. The right middle cerebral artery is grossly patent. There is luminal irregularity/narrowing involving the distalright anterior cerebral artery likely A3 segment. Mild luminal irregularity in the right A2 segment more proximally. There is mild luminal irregularity/narrowing involving the left A2 segment anterior cerebral artery. No anterior cerebral artery complete occlusion. Finalized by: Elijah Quijano MD on 10/28/2020 4:47 PM CDT -------- ORIGINAL REPORT -------- EXAM: MRA HEAD WITHOUT CONTRAST INDICATION: Neuro deficit, acute, stroke suspected. TECHNIQUE: MRA of the brain performed without IV contrast using time of flight imaging. MIP and 3D reformations generated and reviewed. COMPARISON(S): CT angiogram brain dated 10/28/2020. FINDINGS: Right intracranial vertebral artery is dominant. The left intracranial vertebral artery is limited in evaluation. There is mild luminal irregularity. This is better appreciated on the CTA head dated 10/28/2020. The visualized left posterior inferior cerebellar artery is grossly patent. Origin of the right posterior inferior cerebellar artery is patent with the vessels incompletely imaged. The basilar artery, bilateral superior cerebellar arteries, and posterior cerebral arteries are grossly patent. The posterior communicating arteries are not well visualized. Limited evaluation of the middle cerebral arteries demonstrates a grossly patent M1 and visualized M2 segments of the middle cerebral arteries. The M3 segments are not included on this limited exam. The A1 and proximal A2 segments of the anterior cerebral arteries appear to be patent. The A3 and distal anterior cerebral arteries are not included on this exam. There is mild luminal narrowing involvingthe intracranial internal carotid arteries due to atherosclerotic plaquing. IMPRESSION: 1. Dominant right vertebral artery with small left vertebral artery demonstrated luminal narrowing. This is better visualized on the previous study dated 10/28/2020. 2. The proximal middle cerebral arteries and anterior cerebral arteries are imaged on today's MRA and appear to be patent. The luminal irregularity/narrowing seen on the CTA involving the distal A2 segments of the anterior cerebral arteries and left M3 segment of the middle cerebral artery are not included on the MRA images and therefore not well evaluated on this follow- up exam. Edited by: lam 10/28/2020 4:07 PM CDT Finalized by: Elijah Quijano MD on 10/28/2020 4:17 PM CDT Patient/Procedure Information: [facility] MRN/[facility]: [id number] Order Number: [id number] Accession Number: [id number] Ordering Provider: GARRY SMITH Authorizing Provider: GARRY SMITH MRI BRAIN WITHOUT CONTRAST Narrative Patient Name: BETO DELGADO Date of : 1935 Procedure: MRI BRAIN WITHOUT CONTRAST Date of Service: 10/28/2020 EXAM: MRI BRAIN WITHOUT CONTRAST INDICATION: Stroke, follow up TECHNIQUE: Axial diffusion images were obtained per hyperacute stroke protocol COMPARISON(S): CTA brain 10/28/2020 FINDINGS: Diffusion images demonstrate convincing area of acute diffusion restriction.. No midline shift, herniation or hydrocephalus.. IMPRESSION: 1.No evidence of acute ischemia on the diffusion imaging. Finalized by: Greg Castellano MD on 10/28/2020 2:41 PM CDT Patient/Procedure Information: [facility] MRN/[facility]FF[facility]: [id number] Order Number: [id number] Accession Number: [id number] Ordering Provider: GARRY SMITH Authorizing Provider: GARRY SMITH XRAY CHEST PORTABLE - Narrative Patient Name: BETO DELGADO Date of : 1935 Procedure: XRAY CHEST PORTABLE Date of Service: 10/29/2020 EXAM: XRAY CHEST PORTABLE INDICATION: Male, 84 years year old patient, ETT placement COMPARISON(S): 10/28/2020 TECHNIQUE: AP portable view FINDINGS: Support devices: Side port of enteric tube terminates within gastroesophageal junction. Distal tip of endotracheal tube terminates at the level of clavicular heads. Lungs: The lungs are expanded. The lungs are clear. There are small calcified granulomas on the right. Pleura: There is no visible pneumothorax on either side. There is minimal blunting of right costophrenic angle. Left costophrenic angle is sharp. Cardiac/Mediastinum: Normal heart size. Normal mediastinum. There is no pulmonary edema. Thoracic aorta is tortuous. IMPRESSION: Lungs are clear. Please advance enteric tube by 8 cm if there is no contraindication such as prior esophageal or gastric surgery. Finalized by: Jayme Torres MD on 10/29/2020 7:42 AM CDT Patient/Procedure Information: [facility] MRN/[facility]FF[facility]: [id number] Order Number: [id number] Accession Number: [id number] Ordering Provider: NAYELI MURPHY Authorizing Provider: NAYELI MURPHY MRI BRAIN WITHOUT AND WITH CONTRAST Narrative Patient Name: BETO DELGADO Date of : 1935 Procedure: MRI BRAIN WITH AND WITHOUT CONTRAST Date of Service: 10/29/2020 EXAM: MRI BRAIN WITH AND WITHOUT CONTRAST INDICATION: Stroke, follow up, 24 hour post TPA, with initial DWI negative, complete with contrast to look for other etiologies TECHNIQUE: MRI of the brain performed without and following IV contrast. COMPARISON(S): 10/28/2020 FINDINGS: Diffusion-weighted images demonstrate a small punctate focus of hyperintensity within the left frontal cortex consistent with acute lacunar infarct. The ventricles are stable in size and position without evidence of hydrocephalus. There are T2 hyperintensities of the cerebral white matter which are most consistent with chronic small vessel disease. Small areas of encephalomalacia are seen within the left posterior frontal lobe, left parietal lobe, left occipital lobe and left cerebellum consistent with remote infarcts. There is no mass effect or midline shift. There is no abnormal intraparenchymal enhancement. On the sagittal images, the midline markers are unremarkable. The corpus callosum is normal in shapeand signal intensity. The posterior fossa is unremarkable. The pituitary and sella are normal. The brainstem and craniocervical junction are unremarkable. There is mild mucosal thickening of the paranasal sinuses. Visualized orbits and mastoids are unremarkable. IMPRESSION: 1. Single punctate focus of diffusion abnormality involving the left frontal cortex consistent withacute lacunar infarct. 2. Chronic small vessel disease 3. Small areas of encephalomalacia involving the left cerebellum and left posterior frontal, left parietal, and left occipital lobe consistent with remote infarcts. Finalized by: Gideon Silverman MD on 10/29/2020 1:40 PM CDT Patient/Procedure Information: [facility] MRN/TIFFANY: [id number] Order Number: [id number] Accession Number: [id number] Ordering Provider: GARRY SMITH Authorizing Provider: GARRY SMITH ECHO ADULT COMPLETE Narrative Patient: BETO DELGADO MR#: [id number] Exam Date: 10/29/2020 [facility] [address] [place]hor[place] [address] BP: 141/69 mmHg HR: 69 bpm : 1935 Exam Location: Height: 72.00 "(182.9 cm) Age: 84 year(s) Patient Room: 539 Weight: 178 lbs.(80.74 kg) Gender: Male Patient Status: Inpatient BSA: 2.03m2 Narcotics Investigator: DONNIE MALDONADO RDCS Reading Physician: HERNANDO COLON MD Ordering Physician: GARRY SMITH Procedure Indication(s): TIA Examination: TTE Complete 2D(m-mode), Complete Spectral Doppler, Color Doppler Conclusions Left Ventricle: Normal left ventricular systolic function. The ejection fraction is visually estimated to be 65 %. Left Atrium: Markedly dilated left atrium. Aortic Valve: Mild aortic regurgitation. Mild aortic stenosis. IAS: No evidence of an atrial shunt. Right Ventricle: Normal right ventricular systolic function. IVC: Normal IVC size with normal respirophasic changes. Pericardium: No significant pericardial effusion.Sinus rhythm. Comparison Study Comparison Study: No previous echo was available for comparison Findings Left Ventricle: Normal left ventricular size. Normal left ventricular wall thickness. Normal left ventricular systolic function. The ejection fraction is visually estimated to be 65 %. There are no left ventricular regional wall motion abnormalities. Grade 1 left ventricular diastolic dysfunction. Left Atrium: Markedly dilated left atrium. Aortic Valve: The aortic valve is tricuspid. Mild aortic cuspal calcification. Mild aortic regurgitation. Mild aortic stenosis. Aortic valve mean gradient is 12 mmHg. Estimated aortic valve area (by VTI) is 2.0 cm-sq. Aorta: The ascending aorta is normal in size measuring 42.0 mm. Mitral Valve: Normal mitral valve structure. No significant mitral regurgitation. No mitral stenosis. IAS: No evidence of an atrial shunt. Right Ventricle: Normal right ventricular size. Normal right ventricular systolic function. Normal right ventricular wall thickness. Right Atrium: Dilated right atrium. Tricuspid Valve: Normal tricuspid valve structure. No significant tricuspid regurgitation. Pulmonic Valve: Normal pulmonary valve structure. No significant pulmonary regurgitation. No pulmonary stenosis. IVC: Normal IVC size with normal respirophasic changes. Pericardium: No significant pericardial effusion. Sinus rhythm. No pleural effusion. Measurements Left Ventricle Aortic Valve Label Value Normal Value Label Value Normal Value Cardiac Output 6.83 L/min LVOT Vmax 140 cm/s Cardiac Index 3.36 AV Vmax 245 cm/s L/min/m-sq LVOTd 21 mm LVDd, 2D 51.2 mm LVOT VTI 28.6 cm LVDs, 2D 29.6 mm LVOT PGmax 8 mmHg IVSd, 2D 11.6 mm AV Vmean 159 cm/s LVPWd, 2D 10.6 mm AV VTI 49.3 cm FS, 2D 42.19 % AV PGmax 24 mmHg LVEF, 2D 73 % VISHNU (Vmax) 2 cm-sq LVEDV, 2D 125 ml AV Vmax, Caliper 245 cm/s LVESV, 2D 34 ml Obstructive Index 0.57 LVEDVI, 2D 61.6 ml/m2 (Vmax) LVESVI, 2D 16.7 ml/m2 Obstruction Index 0.58 Stroke Index 48.77 (VTI) ml/m-sq AV PGmean 12 mmHg Left Atrium VISHNU (VTI) 2 cm-sq Label Value Normal Value Mitral Valve LADs Long. 61 mm Label Value Normal Value LA Volume Index 47.1 ml/m-sq MV E Vmax 88 cm/s Aorta MV A Vmax 114 cm/s Label Value Normal Value MV E/E' lateral 9.21 Ao Asc 42 mm MV E/E' septal 13.75 Ao Sinus, 2D 35 mm MV Dec Time 331 ms Heart Rate MV E' septal 0.1 cm/s Label Value Normal Value MV E' lateral 0.1 cm/s Heart Rate 69 bpm MV E/A 0.77 HEAD Narrative Patient Name: BETO DELGADO Date of : 1935 Procedure: CTA HEAD Date of Service: 10/30/2020 EXAM: CTA HEAD INDICATION: Male, 84 years year old patient, Stroke, follow up COMPARISON(S): MRI brain 10/29/2020, CT perfusion 10/28/2020 TECHNIQUE: Initial routine unenhanced CT scan of the head was performed. CT angiography was performed with a multi-detector CT scanner. Data acquisition was obtained from the skull base through the vertex following intravenous administration of 70 ml of Omnipaque 350. 2D MIP images were reconstructed from the axial data set. Post-processing of the angiographic images was performed, with multiplanar reformation and 3D volume rendering reconstruction. FINDINGS: NONVASCULAR: Soft tissues and Calvarium: Normal soft tissue structures. No acute calvarial fracture. Parenchyma: There is stable focal encephalomalacia within occipital lobe on the left, DIRECTOR [employer]ICAL WRITING territory. There are also small areas of peripheral encephalomalacia within posterior frontal and posterior parietal lobes on the left, MCA territories. 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 Normal right cerebral hemisphere. The cerebellar tonsils are normally positioned. There are white matter hypodensities scattered within bilateral cerebral hemispheres, consistent with chronic microvascular changes. Normal basal ganglia. Normal thalami. Brainstem: Normal brainstem. Ventricular system and extra-axial spaces: There is no hydrocephalus. Basal cisterns are preserved. Infarct: No acute territorial infarct. Hemorrhage: There is no acute intracranial hemorrhage. Midline shift: None. Orbits: There has been bilateral cataract surgery. With this exception, the remaining orbits and globes are unremarkable. Paranasal sinuses and mastoids: There is minimal mucosal thickening within left maxillary and right sphenoid sinuses. Normal remaining visualized paranasal sinuses. Mastoid air cells are clear bilaterally. ANGIOGRAM HEAD: Right petrous carotid artery: Widely patent. Left petrous carotid artery: Widely patent. Right cavernous/supraclinoid carotid artery: There is moderate stenosis due to calcified plaques. Left cavernous/supraclinoid carotid artery. There is moderate stenosis due to calcified plaques. Right anterior cerebral artery: Patent A1 segment. Patent A2 segment. There is short segment of moderate stenosis involving A3 segment, best seen on coronal 2- D MIP image 66/207. Left anterior cerebral artery: Patent A1 segment. Patent A2 segment. Anterior communicating artery: Normal intact anterior communicating artery (ACOM). Right middle cerebral artery: M1 segment is widely patent. M2 segments are widely patent. Left middle cerebral artery: M1 segment is widely patent. M2 segments are widely patent. Right posterior communicating artery: None visualization. Left posterior communicating artery: None visualization. 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 Minimal stenosis along both PICA V4 segment on the right due to calcified plaque. Thereis short segment of moderate stenosis involving V4 segment on the left, pre-PICA. Basilar artery: Widely patent. Right superior cerebellar artery: Patent. Left superior cerebellar artery: Patent. Right posterior cerebral artery: P1 segment is widely patent. There is minimal stenosis along proximal P2 segment without flow attenuation. Left posterior cerebral artery: P1 segment is widely patent. There is minimal stenosis along proximal P2 segment without flow attenuation. IMPRESSION: CT head: Chronic infarcts within MCA, [employer] WRITING and PICA territories on the left. No acute territorial infarct. MRI confirmed punctate infarct within left frontal lobe is not visibleon CT. No acute intracranial hemorrhage. CTA head: Minimal stenosis along P2 segment of both senior software qa analyst. Short focus moderate stenosis along a three segment right ROBB. Stenosis involving V4 segments of both vertebral arteries, minimal on the right and moderate on theleft. Finalized by: Jayme Torres MD on 10/30/2020 1:15 AM CDT Patient/Procedure Information: [facility] MRN/TIFFANY: [id number] Order Number: [id number] Accession Number: [id number] Ordering Provider: SULEIMAN BEAN Authorizing Provider: SULEIMAN BEAN XRAY CHEST PORTABLE - Narrative Patient Name: BETO DELGADO Date of : 1935 Procedure: XRAY CHEST PORTABLE Date of Service: 10/30/2020 EXAM: XRAY CHEST PORTABLE INDICATION:ETT placement HISTORY: 84-year-old. Respiratory failure. The patient was admitted on 10/28/2020 with a left frontalstroke. Post TPA. COMPARISON(S): 10/29/2020 FINDINGS: Endotracheal tube is in good position. A previous NG tube has been removed. There is no pneumothorax. There are surgical clips in the neck at which I believe are related to previous endarterectomies. The lungs are currently clear of acute infiltrate. No CHF. There appears be a calcified granuloma in the right lower chest and in the right perihilar region. IMPRESSION: No focal pneumonia or CHF Finalized by: Derrick Saunders MD on 10/30/2020 8:04 AM CDT Patient/Procedure Information: [facility] MRN/TIFFANY: [id number] Order Number: [id number] Accession Number: [id number] Ordering Provider: NAYELI MURPHY Authorizing Provider: NAYELI MURPHY Labs (Last day) 10/30/20 0513 - 10/30/20 0513 BG ARTERIAL 10/30/20 0513 BG ARTERIAL pH Arterial 7.35-7.45 7.39 pCO2 Arterial 35-45 (mmHg) 34 pO2 Arterial 80-100 (mmHg) 116 O2 Sat % Arterial 95-98 (%) 97 Base Excess Arterial -2-2 (meq/L) -4 HCO3 (Bicarb) 20-29 (mmol/L) 20 Collection Site Arterial Rt radial O2 Source Ventilator 10/30/20 0434 - 10/30/20 0434 CBC 10/30/20 0434 CBC WBC 4.0-11.0 (K/uL) 11.5 RBC 4.40-5.80 (M/uL) 3.20 Hemoglobin 13.5-17.5 (g/dL) 11.0 Hematocrit 40.0-50.0 (%) 31.1 MCV 80.0-98.0 (fL) 97.2 MCH 25.5-34.0 (pg) 34.4 MCHC 31.5-36.5 (g/dL) 35.4 RDW-CV 11.5-15.5 (%) 13.3 RDW-SD 35.5-50.0 (fl) 47.8 Platelet Count 140-400 (K/uL) 173 MPV 8.5-12.0 (fL) 10.5 10/30/20433 - 10/30/20433 CHEMISTRY 10/30/2043310/30/20433 CHEMISTRY Glucose 70-100 (mg/dL) 86 Sodium 135-145 (meq/L) 133 Potassium 3.5-5.3 (meq/L) 4.0 Chloride 99-110 (meq/L) 106 CO2 20-29 (meq/L) 19 Anion Gap with K 6-20 (meq/L) 12 BUN 6-22 (mg/dL) 15 Creatinine 0.80-1.30 (mg/dL) 1.04 BUN/Creatinine Ratio 10.0-25.0 14.4 Calcium 8.5-10.5 (mg/dL) 8.5 Corrected Calcium 8.5-10.5 (mg/dL) 9.0 Phosphorus 2.5-4.5 (mg/dL) 3.6 Magnesium 1.8-2.4 (mg/dL) 1.9 Albumin 3.5-5.0 (g/dL) 3.4 eGFR >=60 (mL/min/1.73m2) 82 eGFR Non- >=60 (mL/min/1.73m2) 68 10/30/20 0513 - 10/30/20512 CO-OXIMETRY STUDIES 10/30/20512 CO-OXIMETRY STUDIES Carbon Monoxide 0.0-3.0 (%) 1.0 Methemoglobin 0.0-3.0 (%) 0.6 10/30/20433 - 10/30/20433 DIFFERENTIAL 10/30/20433 DIFFERENTIAL Seg Neut Absolute 1.8-8.0 (K/uL) 8.5 Lymphocytes Absolute 0.8-4.1 (K/uL) 1.7 Monocytes Absolute 0.0-1.0 (K/uL) 0.9 Eosinophils Absolute 0.0-0.7 (K/uL) 0.3 Basophil Absolute 0.0-0.2 (K/uL) 0.0 Immature Granulocyte Absolute 0.00-0.06 (K/uL) 0.05 Neutrophils Percent (%) 73.7 Neutrophils Abs. (Segs and Bands) (/uL) 8,500 Lymphocytes Percent (%) 15.1 Monocytes Percent (%) 8.1 Immature Granulocyte Percent (%) 0.4 Eosinophils Percent (%) 2.4 Basophil Percent (%) 0.3 Nucleated RBC (/100 WBC's) 0 10/30/202049 - 10/29/202223 GLUCOSE POINT OF CARE 10/30/20204910/29/202223 GLUCOSE POINT OF CARE Glucose POC 70-99 (mg/dL) 106 93 10/30/20 0434 - 10/30/20 0434 LIPID 10/30/20433 LIPID Triglyceride 50-150 (mg/dL) 102 10/30/20 0513 - 10/30/20 0434 OTHER 10/30/20 0513 10/30/20 0434 OTHER Age (Years) 84 Allens Test Positive p50 25.00-29.00 (mmHg) 26.39 Assessment and recommendations: 84-year-old male with left frontal lacunar infarct and remote infarct involving left cerebellum, left posterior frontal, left parietal and left occipital lobes Plan 1. Recommend low intensity therapy/subacute rehab setting once medically ready. Does not demonstrate the ability to follow three-step commands or carryover at this time. 2. Continue with acute care therapies as tolerated 3. We will continue to follow Thank you for this consult. Please contact with any questions. Gilda Santoro DO Garry Cabrales MD - 10/28/2020 1:22 PM CDT Images from the original note were not included. Neurovascular Initial Consult Evaluation Note: Consult: 10/28/2020, 1:22 PM CDT Senior Interactive Producer: Garry Smith Reason for consult: aphasia or other acute language disorder Source of information: Spouse Beto Delgado is a 84yr male, who presents to [facility] with stroke related symptoms. A stroke alert was called for STAT consultation. He is being seen and evaluated at the request of Dr. Gonzalez at on ER service. 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) Carotid artery stenosis Basal cell carcinoma Peripheral vascular disease (HCC) Anemia, iron deficiency Systolic murmur Stomatitis Essential hypertension, benign Cognitive dysfunction Sepsis due to urinary tract infection (HCC) Vancomycin resistant Enterococcus Hyponatremia Daily consumption of alcohol Acute confusional state Impression Stroke Diagnostic/Treatment Eligibility Information: Last Known Well or Initial Symptom Onset (if fully resolved): 7:30 AM, (10/28/2020) Site of Occlusion: Clinical location of primary occluded vessel not documented or Unable to determine Thrombolytic given at [facility]: No, due to given MERCHANDISE EXECUTION LEADER Endovascular intervention needed: No, due to No LVO Beto Delgado presents today, acutely with symptoms of aphasia or other acute language disorder. After full clinical, laboratory and radiographic assessment, Beto Delgado's presentation is suggestive of a diagnosis of acute ischemic stroke. Beto Delgado presented to his outside hospital with dizziness followed by unresponsiveness followed by acute aphasia that started around 730 this morning after going to the bathroom. He reportedly has not had any similar problems like this before. As was described as very acute and he was given IV TPA and transferred. On arrival he continued to have difficulties communicating without any real focal weakness and attempted imaging was made with CT CT angiogram and CT perfusion being relatively unrevealing. Discussed with family that there was some concern that the CT angiogram was not thebest quality and possibly had some evidence of missing segments of the ROBB however because of movement artifact we could not tell for sure. We also discussed that if they wanted to do any further intervention if possible we would need to complete an MRI and repeat MRA. In order to do this he did require intubation because he would not stop moving. Interestingly this imaging does not show evidence of stroke. It is possible he has something that is either early or cleared however we will need to look for other etiologies as well. For now he is being admitted to the ICU post IV TPA and will continue to treat as a possible stroke until we have repeat MRI with and without contrast tomorrow.. Detailed plan as outlined below. Plan I appreciate the opportunity to participate in the care of this patient. At this time, Neurology team will continue to follow daily and leave further recommendations as indicated after review of pending test/procedure results and review of daily clinical progress. Please feel free to contact me with any questions or concerns. 1. Continue close acute monitoring and medical management for patients admitted with diagnosis of acute ischemic stroke post IV rtPA without thrombectomy 2. Neuro checks q 15 min for 2 hours, then q 30 min for 6 hours, then q 60 minutes for 16 hours, if still in ICU continue q 60 minute checks until 48 hours after IV rtPA administration and then transition to q 2 hours if clinically stable 3. Hold home blood pressure medications (can restart Beta Blockers after passing swallow screen, if failed Beta Blockers should be converted to IV) and utilize PRN therapy (Labetalol preferred, Hydralazine if HR <60), if continued elevation after two PRN doses contact provider to start Nicardipine Drip titrated to achieve noted BP goals to maintain blood pressure goals of <180 SBP & <105 DBP for the first 48 hours after which home medications can be restarted and titrated for goal of 15% reduction of blood pressure / week to achieve final outpatient goal of <130 SBP & <90 DBP 4. Anti-platelet/Anti-coagulation therapy within 24 hours or documentation of contraindication (Recommend that he continue on Asprin 81 mg daily) - As IV rtPA was utilized confirm no hemorrhage on 24 hour imaging before starting 5. High intensity statin therapy or documentation of contraindication (Recommend that he start therapy with Atorvastatin 40 mg daily) 6. Continue telemetry throughout admission and Plan for Zio Patch on discharge 7. Obtain patient appropriate studies to aid in determining stroke etiology and for follow-up as appropriate after acute treatment Imaging studies: Full (w&wo contrast) Brain MRI at 24 hours after IV rtPA or thrombectomy Laboratory studies: CBC, Chem Panel, Liver Function Studies, Full lipid panel and Hemoglobin A1C Cardiovascular studies: Transthoracic Echocardiogram and EKG (if not completed in ER) Other Studies: EEG 8. Obtain consultative services to aid in management as appropriate, recommend evaluation by Social Work, Physical Therapy, Occupational Therapy, Speech Therapy and Physical Medicine & Rehabilitation 9. Provide stroke education to patient and family including all five areas of stroke education: Activation of EMS, Need for post-discharge follow-up, explanation of medications prescribed, risk factorsfor stroke, warning signs and symptoms of acute stroke 10. Place on appropriate GI and DVT Prophylaxis (mechanical prophylaxis for 24 hours after IV rtPA/Thrombectomy, if no hemorrhage on [address] start chemical prophylaxis with subcutaneous heparin) 11. Maintain NPO (including oral medications) until able to pass dysphagia screening while maintaining on 1 ml / kg IV fluids; when able to pass dysphagia screening, initiate appropriate diet accounting for any documented cardiac or metabolic risk factors 12. Document patient formal code status and goals of care 13. Arrange follow-up in stroke clinic within 90 days of discharge Admission History: Beto Delgado developed symptoms of aphasia. At this time he does still have symptoms which are currently unchanged. Additional associated symptoms at the time of onset included unresponsive. Hereports that he has never had a previous stroke or TIA in the past. His historical stroke risk factors include Hypertension, Hyperlipidemia and Carotid artery stenosis. Prior Anti-Thrombotic / Anti-Coagulation Use: Asprin 81 mg daily Prior Statin Use: None Stroke Clinical Assessment Information: NIH Stroke Scale: (Date:10/28/2020 Time: 1:22 PM CDT) 1a. Level of Consciousness (LOC) General 0=Alert 1b. LOC Questions: Ask patient: What month is it? How old are you? 2=Both incorrect 1c. LOC Commands: Ask patient: Open and close your eyes. Squeeze and release your hand. 2=Both incorrect 2. Best Gaze (Only horizontal eye movements are tested) 0=Normal 3. Visual Field Testin=No visual loss 4. Facial Paresis: Ask patient to show teeth, raise eyebrows, and close eyes tightly. (by words orpantomime) 0=Normal symmetrical movement 5a. Motor Functions Arm Right: 0=Normal - able to hold arm at 45 degrees for 10 seconds without drift 5b. Motor Functions Arm Left: 0=Normal - able to hold arm at 45 degrees for 10 seconds without drift 6a. Motor Functions Leg Right: 0=Normal - holds leg at 30 degrees for 5 seconds 6b. Motor Functions Leg Left: 0=Normal - holds leg at 30 degrees for 5 seconds 7. Limb Ataxia: Ievddp-tdzy-serfcf and heel-llamas (score only if out of proportion to weakness) 0=No ataxia 8. Sensory: Pinprick to test arms, legs, trunk and face. Compare side to side. Use noxious stimulus in obtunded or aphasic patient. Do not test on hands or feet. 0=Normal 9. Best Language: Describe picture, name items, read sentence. 3=Mute/global aphasia 10. Dysarthria: Read several words. 2=Near unintelligible or unable to speak 11. Extinction and Inattention: 0=Normal attention to both sides for vision sensation and attention TOTAL NIHSS = 9 Baseline (Pre-Admission) Modified [place] Score: 0 - No symptoms Medical History Past Medical History: Diagnosis Date Basal cell carcinoma of skin BPH w/o Urinary Obs/LUTS 02/12/2007 Carotid artery stenosis Elevated blood pressure reading without diagnosis of hypertension 11/28/2012 Osteoarth NOS-unspec 11/07/2007 Pure hypercholesterolemia 02/12/2007 S/P vascular surgery Skin cancer Stroke (HCC) Social History Social History Socioeconomic History Marital status: Spouse name: Not on file Number of children: Not on file Years of education: Not on file Highest education level: Not on file Occupational History Not on file Tobacco Use Smoking status: Never Smoker Smokeless tobacco: Never Used Substance and Sexual Activity Alcohol use: Yes Alcohol/week: 11.0 standard drinks Types: 4 Glasses of wine, 7 Shots of liquor per week Drug use: No Sexual activity: Not on file Other Topics Concern Not on file Social History Narrative Lives with in [place], has 5 children. Retired from [employer], his sons manage [employer]. He and winter in [place], as they have for 20 yr, on [place] [facility], from about mid-Feb annually, will not go 02/25. Centricity info in 12/08/14. Last CPE 06/28/18. Social Determinants of Health Financial Resource Strain: Difficulty of Paying Living Expenses: Food Insecurity: Worried About Running Out of Food in the Last Year: Ran Out of Food in the Last Year: Transportation Needs: Lack of Transportation (Medical): Lack of Transportation (Non-Medical): Physical Activity: Days of Exercise per Week: Minutes of Exercise per Session: Stress: Feeling of Stress : Social Connections: Frequency of Communication with Friends and Family: Frequency of Social Gatherings with Friends and Family: Attends [employer] Services: Active Member of Clubs or Organizations: Attends Club or Organization Meetings: Marital Status: Intimate Partner Violence: Fear of Current or Ex-Partner: Emotionally Abused: Physically Abused: Sexually Abused: Famly History Family History Problem Relation Age of Onset Negative Sister Other Brother 80 Problems with prostate Negative Daughter Negative Son Other Son achilles tendon problems Negative Son Other Son was heavier smoker and alcohol consumption,,? seizure Negative Daughter Negative Daughter Bladder Cancer Neg Hx Kidney Cancer Neg Hx Kidney Disease Neg Hx Nephrolithiasis Neg Hx Prostate Cancer Neg Hx Testicular Cancer Neg Hx Allergies No Known Allergies Medications Current Facility-Administered Medications Medication Dose Route Frequency Provider Last Rate Last Admin sodium chloride 0.9% flush (adult) 10 mL 10 mL IV 2 times a day and prn Garry Smith MD sodium chloride 0.9% IV solution IV Continuous Garry Smith MD 100 mL/hr at 10/28/20 1254 New Bag at 10/28/20 1254 niCARdipine (CARDENE) 25 mg in sodium chloride 0.9% 250 mL (Conc: 0.1 mg/mL) 0-15 mg/hr IV Titrate Garry Smith MD 50 mL/hr at 10/28/20 1250 5 mg/hr at 10/28/20 1250 propofol (DIPRIVAN) 1000 mg/100 mL IV emulsion Review of Systems: Review of Systems Unable to perform ROS: Mental status change Physical Exam Current Vital Signs Temp: 96.9 F (36.1 C) BP: 100/48 Pulse: 93 Resp: 27 (out of 10) Weight: 81 kg (178 lb 9.2 oz) SpO2: 96 % GENERAL PHYSICAL EXAM: Gen: Patient is critically ill HENT/N: Normocephalic, Atraumatic, Mucus Membranes Moist, No notable conjunctival injection or jaundice Heart: Tachycardic rate Lungs: regular rate, no distress Extremities: No cyanosis, clubbing or edema NEUROLOGICAL EXAMINATION: General Appearance / Mental Status: Beto Delgado is alert, eyes are open at baseline. His speech is limited, no usable verbal or non-verbal communication. He will not follow any commands in allextremities. Cranial Nerve Examination: He does have intact visual larsen to threat. He does have intact pupillary response to light bilateral, he does not track a visual target in all directions spontaneously. His eye movements are normal. His facial symmetry demonstrates no appreciable side-side difference his hearing is intact to loud noise, his tongue and palate does appear grossly midline. He does have an intact gag reflex. Strength/Motor/Reflex Examination: His passive movement is not limited. He does not follow commands with his any of the tested extremities. He does have spontaneous movement in his left upper extremity, right upper extremity, left lowerextremity and right lower extremity. Sensory examination: He does not acknowledge awareness of light touch and light noxious stimulation in the any of the tested extremities. On deeper noxious stimulation he does respond appropriately in the left upper extremity, right upper extremity, left lower extremity and right lower extremity. DIAGNOSTIC RESULTS/PROCEDURES: Imaging/Radiologic Studies: MRI Brain (10/28/2020): Images reviewed personally, radiology report as below 1.No evidence of acute ischemia on the diffusion imaging. MRI Angiogram Brain (10/28/2020): Images reviewed personally, radiology report as below The distal cervical vertebral artery is occluded and reconstitutes intracranially. The left posterior inferior cerebellar artery and right posterior inferior cerebellar artery appear to be patent. Left middle cerebral artery is grossly patent. There is no discrete M2 or M3 identified. The right middle cerebral artery is grossly patent. There is luminal irregularity/narrowing involving the distalright anterior cerebral artery likely A3 segment. Mild luminal irregularity in the right A2 segment more proximally. There is mild luminal irregularity/narrowing involving the left A2 segment anterior cerebral artery. No anterior cerebral artery complete occlusion. CT Brain, Cerebral Perfusion, Angiogram Brain and Angiogram Neck (10/28/2020): Images reviewed personally, radiology report as below 1. No acute intracranial hemorrhage. 2. Occluded left A-2/A3 anterior cerebral artery and occluded right A2 slightly more proximally withreconstitution distally. There is thready reconstitution distally on the left. Findings may be real or artifactual. Consider MR angiogram for further assessment to include sedation to decreased motion artifact. 3. Very diminutive caliber of the left M3 within the sylvian fissure versus occlusion. There is suboptimal contrast opacification of the intracranial vasculature hampering fine detailed assessment. 4. Occluded origin of the left vertebral artery which is reconstituted at the mid cervical V3 segment, however is thready in opacification to the level of the V4 segment. There is severe stenosis at the origin of the right vertebral artery. Procedures: EKG (10/28/2020): Report reviewed as below Normal sinus rhythm Right bundle branch block Septal infarct , age undetermined Abnormal ECG When compared with ECG of 02-OCT-2015 13:45, Nonspecific T wave abnormality no longer evident in Lateral leads QT has lengthened Ventricular Rate: 92 BPM Atrial Rate: 92 BPM P-R Interval: 178 ms QRS Duration: 144 ms Q-T Interval: 420 ms QTc Calculation(Bazett): 519 ms Calculated P Laurier: 53 degrees Calculated R Laurier: -19 degrees Calculated T Laurier: 49 degrees Labs Last CBC: Lab Results Component Value Date WBC 13.1 (H) 10/28/2020 RBC 3.80 (L) 10/28/2020 HEMOGLOBIN 12.7 (L) 10/28/2020 HEMATOCRIT 34.9 (L) 10/28/2020 MCV 91.8 10/28/2020 MCH 33.4 10/28/2020 MCHC 36.4 10/28/2020 RDW 12.8 05/26/2016 PLTCOUNT 246 10/28/2020 NEUTROPCT 59.3 08/28/2020 BANDPCT 4.0 08/20/2015 LYMPHSPCT 25.3 08/28/2020 MONOSPCT 11.3 08/28/2020 EOSPCT 3.9 08/28/2020 BASOPHILPCT 0.2 08/28/2020 METAMYELOPCT 2.0 08/20/2015 MYELOCYTEPCT 1.0 07/30/2015 Last Chemistry: Lab Results Component Value Date GLUCOSE 120 (H) 10/28/2020 BUN 16 10/28/2020 CREATSERUM 1.06 10/28/2020 BCRATIO 15.1 10/28/2020 NA 132 (L) 10/28/2020 POTASSIUM 3.8 10/28/2020 CL 99 10/28/2020 CO2 19 (L) 10/28/2020 CA 9.7 10/28/2020 EGFR 66 10/28/2020 EGFRAF 80 10/28/2020 Last Coags: Lab Results Component Value Date INR 1.3 (H) 10/28/2020 PT 15.0 (H) 10/28/2020 Lab Results Component Value Date APTT 23 (L) 10/28/2020 Last LFTs and Pacreatic Enzymes: Lab Results Component Value Date ALBUMIN 4.6 07/02/2019 ALKPHOS 89 07/02/2019 BILIDIRECT 0.4 (H) 01/21/2015 BILIINDIRECT 0.1 01/21/2015 BILITOTAL 0.4 07/02/2019 AST 22 07/02/2019 ALT 16 07/02/2019 PROTEINTOTAL 7.6 07/02/2019 Last Diabetic & Lipid Studies: Lab Results Component Value Date HGBA1C 5.6 11/20/2006 Lab Results Component Value Date CHOLESTEROL 203 (H) 07/02/2019 HDLCHOL 67 07/02/2019 LDL 107 (H) 07/02/2019 CHOLHDLRAT1 3.8 11/18/2006 TRIGLYCERIDE 144 07/02/2019 Inflammatory Markers: No results found for: ESR No results found for: CRPHS, CRP Last Test: No results found for: BETAHCGSCR, PREGURINE, BETAHCGQNT Medical Decision Making 10/28/2020, I have personally spent 45 min, for documentation but not time billed as patient in ER (ER code [id number]) providing patient care for Beto oMralesmatias inclusive of time spent in reviewing the chart (all relevant laboratory studies and imaging studies independently reviewed), examining Beto Delgado, completing orders and charting and counseling Beto Delgado / Beto Arian Delgado's family, including discussing test results and treatment plan with them. Greater than 50% of this visit was spent in [id number] counseling with Beto Delgado / Beto Don Samantha's family and providing coordination of care as documented. Garry Smith MD [facility] Department of Neurology / Vascular Neurology Pager #[phone] documented in this encounter ED Notes Ted Stone RN - 10/28/2020 1:40 PM CDT Plan of care includes addressing Neurological with attention to Chief Complaint Patient presents with Aphasia Pt arrives via EMS from [place] for aphasia and confusion. Was sitting with , became dizzythen unable to communicate or follow commands. Stroke code called. LITJoshua Gonzalez DO - 10/28/2020 12:19 PM CDTAssociated Order(s): CRITICAL CARE; INTUBATIONPost-Procedure Diagnose(s): Cerebrovascular accident (CVA), unspecified mechanism (HCC) DIAGNOSIS 1. Cerebrovascular accident (CVA), unspecified mechanism (HCC) Plan: Admit to the neuro ICU DISPOSITION Patient Admitted and Treated in this Facility Patient will be admitted. MonOct 28, 2020 1:13 PM CDT FOLLOW UP INFORMATION DISCHARGE MEDS Medication List ASK your doctor about these medications aspirin 81 mg enteric coated tablet cephalexin 250 mg capsule Commonly known as: KEFLEX Take 1 capsule (250 mg) by mouth 1 time per day One pill daily cyanocobalamin 1000 mcg tablet Commonly known as: vitamin B-12 Take 1 tablet (1,000 mcg) by mouth 1 time per day lisinopril 5 mg tablet Commonly known as: PRINIVIL, ZESTRIL Take 1 tablet (5 mg) by mouth 1 time per day multivitamin therapeutic with minerals tablet Take 1 tablet by mouth 1 time per day sildenafil 100 MG tablet Commonly known as: VIAGRA vitamin D3 (cholecalciferol) 50 mcg (2000 unit) tablet HPI / History / ROS Chief Complaint Patient presents with Aphasia Pt arrives via EMS from [place] for aphasia and confusion. Was sitting with , became dizzythen unable to communicate or follow commands. Stroke code called. HPI Patient is a 84-year-old male with history of cognitive dysfunction, carotid artery stenosis, hypertension, hyperlipidemia, hyponatremia, peripheral vascular disease, sepsis, UTI, transitional cell carcinoma the bladder who presents to the ER from [place] at [facility] for evaluation of a stroke code. Apparently he was last known well this morning around 830. He apparently got up to use thebathroom and take a shower. He had an episode of dizziness and sat down on the toilet and became semiunresponsive. He was not able to follow commands or communicate. He was taken to the ER in [place] where they did a head CT which was unremarkable. Labs, urinalysis were unremarkable. His NIH s troke scale was 22. The case was discussed with our stroke neurologist on-call and the decision wasmade to give TPA. He was given TPA and is finished prior to arrival. Symptoms have been unchanged since transport. History is unobtainable from the patient. The history is provided by the EMS personnel. The history is limited by the condition of the patient. Aphasia Primary symptoms include speech change. This is a new problem. Episode onset: today. The problem hasnot changed since onset. 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 02/12/2007 Carotid artery stenosis Elevated blood pressure reading without diagnosis of hypertension 11/28/2012 Osteoarth NOS-unspec 11/07/2007 Pure hypercholesterolemia 02/12/2007 S/P vascular surgery Skin cancer Stroke (HCC) Past Surgical History: Procedure Laterality Date CAROTID ENDARTERECTOMY Left 11/29/2006 Dr Titus Barragan CAROTID ENDARTERECTOMY Right 01/21/2015 Procedure: RIGHT CAROTID ENDARTERECTOMY ;; Surgeon: Edgar Barragan MD CYSTECTOMY W ILEODIVERSION N/A 10/20/2015 Procedure: RADICAL CYSTECTOMY, W/ ILEAL CONDUIT URINARY DIVERSION;; Surgeon: Aleks Cline MD EXCISION BASAL CELL 07/06/2011 removed from left chest JOINT REPLACEMENT bilateral hip replacement and repetitive surgeries TUR BLADDER TUMOR N/A 06/02/2015 Procedure: TRANSURETHRAL RESECTION BLADDER TUMOR (MEDIUM) ;; Surgeon: Aleks Cline MD TURP LASER ASSISTED N/A 06/02/2015 Procedure: PHOTOSELECTIVE VAPORIZATION OF PROSTATE;; Surgeon: Aleks Cline MD Family History Problem Relation Age of Onset Negative Sister Other Brother 80 Problems with prostate Negative Daughter Negative Son Other Son achilles tendon problems Negative Son Other Son was heavier smoker and alcohol consumption,,? seizure Negative Daughter Negative Daughter Bladder Cancer Neg Hx Kidney Cancer Neg Hx Kidney Disease Neg Hx Nephrolithiasis Neg Hx Prostate Cancer Neg Hx Testicular Cancer Neg Hx Social History Socioeconomic History Marital status: Spouse name: Not on file Number of children: Not on file Years of education: Not on file Highest education level: Not on file Tobacco Use Smoking status: Never Smoker Smokeless tobacco: Never Used Substance and Sexual Activity Alcohol use: Yes Alcohol/week: 11.0 standard drinks Types: 4 Glasses of wine, 7 Shots of liquor per week Drug use: No Social History Narrative Lives with in [place], has 5 children. Retired from [employer], his sons manage [employer]. He and winter in [place], as they have for 20 yr, on [place] [facility], from about mid-Feb annually, will not go 02/25. Centricity info in 12/08/14. Last CPE 06/28/18. Social Determinants of Health Physical Activity: Days of Exercise per Week: Minutes of Exercise per Session: Stress: Feeling of Stress : Social Connections: Frequency of Communication with Friends and Family: Frequency of Social Gatherings with Friends and Family: Attends [employer] Services: Active Member of Clubs or Organizations: Attends Club or Organization Meetings: Marital Status: Intimate Partner Violence: Fear of Current or Ex-Partner: Emotionally Abused: Physically Abused: Sexually Abused: Financial Resource Strain: Difficulty of Paying Living Expenses: Food Insecurity: Worried About Running Out of Food in the Last Year: Ran Out of Food in the Last Year: Transportation Needs: Lack of Transportation (Medical): Lack of Transportation (Non-Medical): HOME MEDICATIONS Current Outpatient Medications Medication Sig sildenafil (VIAGRA) 100 MG tablet Take 100 mg by mouth 1 time a day as needed for other (Specify) Take 1 hour prior to anticipated sexual activity. vitamin D3, cholecalciferol, 50 mcg (2000 unit) tablet Take 50 mcg by mouth 1 time per day cephalexin (KEFLEX) 250 mg capsule Take 1 capsule (250 mg) by mouth 1 time per day One pill daily lisinopril (PRINIVIL, ZESTRIL) 5 mg tablet Take 1 tablet (5 mg) by mouth 1 time per day cyanocobalamin (VITAMIN B-12) 1000 mcg tablet Take 1 tablet (1,000 mcg) by mouth 1 time per day Multiple Vitamins-Minerals (MULTIVITAMIN THERAPEUTIC WITH MINERALS) tablet Take 1 tablet by mouth 1 time per day aspirin 81 mg enteric coated tablet Take 81 mg by mouth 1 time per day ROS Review of Systems Unable to perform ROS: Mental status change Neurological: Positive for speech change. Physical / Results PHYSICAL EXAM ED Triage Vitals [10/28/20 1215] Temp Temp Source Pulse Resp BP SpO2 O2 Flow Rate (L/min) O2 Device 96.9 F (36.1 C) Oral 101 18 166/115 97 % -- -- Physical Exam Vitals and nursing note reviewed. Constitutional: Appearance: He is normal weight. HENT: Head: Normocephalic and atraumatic. Nose: Nose normal. Mouth/Throat: Mouth: Mucous membranes are moist. Eyes: Extraocular Movements: Extraocular movements intact. Pupils: Pupils are equal, round, and reactive to light. Comments: Left eyelid remains closed, chronic related to previous eye surgery by report. Cardiovascular: Rate and Rhythm: Normal rate and regular rhythm. Pulmonary: Effort: Pulmonary effort is normal. Breath sounds: Normal breath sounds. Abdominal: General: Abdomen is flat. Musculoskeletal: General: Normal range of motion. Cervical back: Normal range of motion. Comments: Moving all extremities spontaneously Neurological: Mental Status: He is alert. Comments: Mumbling, garbled speech, moving all extremities but not following commands Scoring Scales Zeina Coma Scale Score: 11 NIHSS Total Score: 5 ED COURSE The patient was examined at bedside. Currently he is not able to follow commands or verbalize. History is obtained from EMS staff and medical records. He was placed on the hall monitor. Labs were obtained. The patient was seen and evaluated by Dr. Smith from stroke neurology. EKG was done andshows normal sinus rhythm with a right bundle branch block and a septal infarct at a rate of 92.. CTA of the neck, CTA of the head with perfusion and a brain MRI were ordered. CT/CTA shows no acute hemorrhage. There appears to be an occluded left AT 2/A3 anterior cerebral artery and occluded right A2 slightly more proximally with reconstitution distally. The patient has a very diminutive caliber of the left M3 within the sylvian fissure versus an occlusion. There is suboptimal contrast opacification of the intracranial vasculature hampering fine details. There appears to be occluded origin ofthe left vertebral arch which is reconstituted at the mid cervical V3 segment. There is severe stenosis at the origin of the right vertebral artery. Stroke neurology is wanting to do an MRI for better definition of the patient's lesions. However though to do this the patient will require sedation and paralyzation as he cannot remain still for imaging. The discussion was had with the patient's and daughters and they agree to emergent intubation, sedation and MRI to see if there is anything that can be done with neurovascular intervention. The patient was sedated with IV etomidate and paralyzed with rocuronium. He was intubated with a 8.0 ET tube without complication. He was then sedatedwith IV propofol. OG tube was placed. Portable chest x-ray shows good position of the ET/OG tubes. The patient was taken emergently for an MRI and then will ultimately end up being admitted to the neuro ICU. It is unclear if he will undergo neurovascular intervention at this time. This will be determined by his MRI. The plan was discussed with the patient's family. They were understanding and agreeable with this plan. PROCEDURES CRITICAL CARE Performed by: Joshua Gonzalez DO Authorized by: Joshua Gonzalez DO Critical care time (minutes): 60. Critical care was necessary to treat or prevent imminent or life-threatening deterioration of the following conditions: LAB PACK CHEMIST failure or compromise. Critical care was time spent personally by me on the following activities: discussions with consultants, development of treatment plan with patient or surrogate, interpretation of cardiac output measurements, evaluation of patient's response to treatment, examination of patient, obtaining history from patient or surrogate, ordering and performing treatments and interventions, ordering and review of laboratory studies, ordering and review of radiographic studies, pulse oximetry, re-evaluation of patient's condition, review of old charts and ventilator management. INTUBATION Date/Time: 10/28/2020 2:02 PM Performed by: Joshua Gonzalez DO Authorized by: Joshua Gonzalez DO Consent: The procedure was performed in an emergent situation. Risks and benefits: risks, benefits and alternatives were discussed Consent given by: spouse Required items: required blood products, implants, devices, and special equipment available Patient identity confirmed: arm band Indications: airway protection Intubation method: video-assisted Patient status: paralyzed (RSI) Preoxygenation: nonrebreather mask Sedatives: etomidate Paralytic: rocuronium Laryngoscope size: Mac 3 Tube size: 8.0 mm Number of attempts: 1 Cricoid pressure: yes Cords visualized: yes Post-procedure assessment: chest rise and ETCO2 monitor Breath sounds: equal Cuff inflated: yes ETT to lip: 22 cm Tube secured with: ETT carranza Chest x-ray interpreted by me. Chest x-ray findings: endotracheal tube in appropriate position Patient tolerance: patient tolerated the procedure well with no immediate complications MDM-CODING: MDM Number of Diagnoses or Management Options Cerebrovascular accident (CVA), unspecified mechanism (HCC): new and requires workup Amount and/or Complexity of Data Reviewed Clinical lab tests: ordered and reviewed Tests in the radiology section of CPT: ordered and reviewed Tests in the medicine section of CPT: ordered and reviewed Review and summarize past medical records: yes (Outside medical records, imaging reports, labs) Discuss the patient with other providers: yes (Dr. Smith from stroke neurology) Independent visualization of images, tracings, or specimens: yes documented in this encounter Miscellaneous Notes Physical Therapy - Carla Rosas PT - 11/03/2020 11:45 AM CDT Physical Therapy Acute Inpatient Treatment Note ASSESSMENT/RECOMMENDATIONS Patient continues to have deficits with strength, balance, and overall activity tolerance. Recommend continued PT at low-intensity therapy setting. SUBJECTIVE Agreeable to PT. States he will be leaving for swing bed today. OBJECTIVE Transfers: Sit to/from stand with contact guard assistance from chair to front wheeled walker, somewhat effortful. Therapeutic Exercises: 10 x sit to stands 10 x marching at FWW 10 x hamstring curls 10 x heel raises 10 x hip abduction in standing Other: Patient left sitting up in chair with call light within reach and chair alarm on. Patient Education: Patient was educated on goals of PT session, daily activity recommendations, and PT POC today through explanation. They accepted teaching and verbalized understanding. Interdisciplinary Communication: Spoke with interdisciplinary team members regarding patient plan ofcare. PLAN Continue plan of care. Today's Treatment: Gait Trainin minutes Therapeutic Exercise: 23 minutes Therapeutic Activity: 0 minutes TOTAL TIMED CODES: 23 minutes TREATMENT TOTAL TIME: 23 minutes Carla Rosas PT, DPT Board-Certified Clinical Specialist in Geriatric Physical Therapy Certified Exercise Expert for Aging Adults Alpha Pager [phone] [phone] Mgmt - Heather Grewal RN - 11/03/2020 11:07 AM CDT CASE MANAGEMENT / SOCIAL SERVICE FINAL TRANSITION PLAN TRANSITION DATE: 11/03/2020 TRANSITION TIME: 1400 INTENDED PAYER SOURCE FOR AGENCY: Medicare Replacement Plan: [employer] TRANSITION DESTINATION: [facility] [id number]: [phone] DOES ACCEPTING FACILITY REQUIRE COVID TESTING BEFORE DISCHARGE: N/A-- Per Admissions TRANSITION TRANSPORTATION: Family Car TRANSPORTATION PAYMENT: Not applicable TRANSITION CHOICES OFFERED: Acute Rehab Swing Bed Transitional Care DOES THE PATIENT HAVE A PRIMARY CARE PHYSICIAN? Yes Lynette David PA-C PATIENT / SUBSTITUTE DECISION MAKER GOAL UPON TRANSITION: First Choice: Swing Bed Second Choice: Acute Rehab PATIENT CHOICE EDUCATION: Patient/family completed Choice Form with Gas CutterManager MEDICARE 3 IP MIDNIGHT CRITERIA MET: Yes: 6 Midnights RESOURCE(S) PROVIDED: Placement and Transportation DOES PATIENT HAVE CLOTHING TO WEAR AT DISCHARGE? Yes ANTICIPATED MODE OF TRANSPORT TO AND FROM FOLLOW UP APPOINTMENTS: Family Car VERIFIED CORRECT PHARMACY IS ENTERED FOR DISCHARGE: Yes - Pharmacy: [facility] METHOD OF PRESCRIBING MEDICATIONS: Reconcile medications as Patient Transfer ("65 button") TRANSITION ROUNDING COMPLETED WITH THE FOLLOWING: Patient / family Gas Cutter Attending MD Bedside RN Discussed in person COMMENTS / PATIENT AND FAMILY RESPONSE TO PLAN: Patient's medical record reviewed. Discussed with attending provider. Requested that loop recorder be placed this morning. Received call from [facility] and they are able to accept the patient today. They DO NOT need a ND Screen. Plan is for patient to discharge today and admit to [facility]. Patient's family is going to provide transportation SPECIAL TRANSITION DAY INSTRUCTIONS TO NURSE / MD: RN: Please call report to [phone]. Do NOT release the signed/held orders. If the patient is running late, please call [phone] and notify them. MD: Please complete the discharge/re-admit to rehab order set. "Button 65" for medications. CURRENT READMISSION RISK SCORE / HANDOFF: Predictive Risk Score Risk of Unplanned Readmission: 25.7 Handoff given: N/A SIGNED: Heather Grewal RN, BSN, SCRN Case Management [id number] signed by Heather Grewal RN at 11/03/2020 11:40 AM CDTCase Mgmt - Heather Grewal RN - 11/03/2020 9:48 AM CDT CASE MANAGEMENT / SOCIAL SERVICE TRANSITION PLAN - PROGRESS NOTE PLAN: Awaiting Medical Doctor Recommendations for Transition Will Continue to Follow for Support and Progression Towards Final Transition Plan BARRIERS TO TRANSITION: Awaiting Therapy Recommendations Discharge Needs to be Determined Medical barriers: q4h neuro checks, NIHSS, tele DOES ACCEPTING FACILITY REQUIRE COVID TESTING BEFORE DISCHARGE: Other: To be determined based upon transition planning -- Patient is vaccinated. Moderna 03/03/20 & 03/31/20 COMMENTS / PATIENT AND FAMILY RESPONSE TO PLAN: Patient's medical record reviewed. Planning for loop recorder placement today. Received call VM from patient's family yesterday evening. The family has decided that they would like to try and pursue the [place] [facility]ing[facility] at [facility]. CM faxed clinicals this AM to facility and called and provided writers contact information. Updated Stephanie (Patient's daughter) regarding fax being sent, and loop recorder plan. Will update as able regarding Swing bed. They are having a meeting today at regarding admissions.Updated Sharon at [facility]. PT recommending low intensity. Will continue to follow and assist with transition planning IS PATIENT'S ADMISSION ASSOCIATED WITH TIA, ISCHEMIC, OR HEMORRHAGIC STROKE?: Yes Depression screening assessment completed and documented in flowsheet. PATIENT / SUBSTITUTE DECISION MAKER GOAL UPON TRANSITION: First Choice: Transitional Care Second Choice: Acute Rehab ANTICIPATED NEEDS UPON TRANSITION: Acute Rehab Swing Bed Transitional Care RESOURCE(S) PROVIDED: Placement VERIFIED CORRECT PHARMACY IS ENTERED FOR DISCHARGE: No-- Will be determined based upon transition plan TRANSITION ROUNDING COMPLETED WITH THE FOLLOWING: Patient / family Gas Cutter Discussed in person SIGNED: Heather Grewal RN, BSN, SCRN Case Management [id number] signed by Heather Grewal RN at 11/03/2020 9:53 AM CDTOccupational Therapy - Jeannette Cali OTR/Sam - 11/03/2020 8:50 AM CDT Occupational Therapy Acute Care Progress Note Impression/Recommendations Recommend high intensity upon medical stability. Patient completing observed ADLs and functional transfers with SBA-Hima/FWW. Patient presents with decreased strength and activity tolerance, mild-moderate cognitive deficits (MoCA score of 17/30 on 11/02) in relation to attention, sequencing and problem-solving. Patient currently below baseline independence. Will continue to monitor acutely and make updated recommendations as able to maximize functional strength, activity tolerance, cognition and safety. Objective Diagnosis: ICD-10-CM 1. Cerebrovascular accident (CVA), unspecified mechanism (HCC) I63.9 CRITICAL CARE INTUBATION Precautions: Pressure ulcer risk, HOB [id number] degrees, falland bed/chair alarms Infection Control: Contact Precautions Cognition: Patient alert upon OT arrival, agreeable to therapy session. Oriented x name, , month, city and location. Difficulty verbalizing year. Very pleasant; mild difficulty noted at times with sequencing and problem-solving. Vision: Patient reports baseline droopy L eyelid; patient able to consciously able to open it thoughotherwise at rest is closed. ADLs: Feeding: Independent Grooming: SBA in standing for ~12 minutes to wash/dry face, brush dentures and teeth, and shave Dressing: Hima to thread R LE into pants, CGA in standing for clothing management Toileting: SBA sitting and standing for cares while holding onto L side grab bar; CGA standing for clothing management Transfers: Bed: Not observed, sitting in chair upon OT arrival. Chair: Sit <> stand with CGA/FWW Toilet: Sit <> stand with CGA-SBA/FWW, use of L side grab bar Mobility/Ambulation: Patient ambulating in room room, and loop in hallway (~250 ft) with CGA-Hima/FWW. Patient benefits from VCs to decreased shuffling steps. At end of session: patient up in chair, alarm activated, call light and tray table within reach, education provided on use call light and waiting for assistance prior to transferring , RN updated on patient status, safety precautions in place upon OT departure from room and Gripper socks and gait belt donned for all OOB activity. Pain: Pain at rest: 0/10 Pain during activity: 0/10 Location: No pain reported/observed. Vitals: Pt on RA without signs of shortness of breath during OT. Interdisciplinary Communication: Nurse Bonita Education Education/Training provided: Role of OT, plan of care, ADLs, transfers/mobility, safety, AE needs,d/c recommendations, activity tolerance, cognition and vision Learners: Patient Readiness: accepting Method of Training: verbal and demonstration Response: Verbalizes understanding and Demonstrates understanding; Will benefit from continued reinforcement: yes Adaptive Equipment Recommendations Adaptive Equipment Recommended: OT will continue to assess AE needs and will update as necessary Adaptive Equipment Available:shower stool, hand held shower, grab bars tub/shower and handicapped-height toilet Plan to obtain adaptive equipment: To further assess. Goals Patient/Family Stated Goal for Session: agreeable to therapy Goals by Discharge: (1) Patient will tolerate 15-30 minutes U/E exercise to further increase independence with ADL/IADLs. (2) Patient will complete 3x grooming tasks safely standing at the sink withminAusing adaptive equipment as needed. (met) (3) Patient will complete LB dressing safely withminAusing adaptive equipment as needed.(partially met) (4) Patient will complete toileting safely withminAusing adaptive equipment as needed.(met) (5) Patient will complete functional transfers safely withminAusing adaptive equipment as needed.(met) (6) Patient will further participate with cognitive assessment to increase safety with functional tasks. (met) (7) Patient will have AE in place to increase safety with ADLs by discharge. Patient continues to demonstrate progress towards OT goals: Yes Charges Treatment/Minutes: Today's Evaluation/Treatment Self care/home management: 44 minutes Therapeutic activity: 10 minutes Total Treatment Time: 54 minutes Treatment Session 04/10 Weekly Assessment/Plan (): Continue OT POC. Therapist Alpha Pager Number [phone] are Planning - Bala Robles RN - 11/03/2020 5:32 AM CDT Problem: RISK FOR INEFFECTIVE CEREBRAL PERFUSION Goal: NEUROLOGICAL STATUS Description: DEFINITION: Ability of the peripheral and central nervous systems to receive, process, and respond to internal and external stimuli. 1=Severely compromised, 2=Substantially compromised, 3=Moderately compromised, 4=Mildly compromised, 5=Not compromised. Outcome: NOC Rating 3 Flowsheets (Taken 11/03/2020 0528) Initial Score: 4 Target Score: 5 Plan of care reviewed with: Patient Patient specific goal for the day: To not have neuro decline. Patient specific goal for the stay: To establish new neurological baseline Achieve goal for stay: By discharge Patient Progress: Patient is alert and oriented x 4. forgetful at times. Denied pain, Vital signs WDL. NIHSS 3, No acute neuro decline. Urostomy functioning. Urine out has strong smell. Will continue to monitor. Occupational Therapy - Jeannette Cali, OTR/L - 11/02/2020 11:30 AM CDT Occupational Therapy Acute Care Progress Note Impression/Recommendations Recommend high intensity upon medical stability. Patient recently up to the chair, agreeable to completion of the MoCA. Patient completing the MoCA with a score of 17/30 indicating moderate cognitive impairment; borderline mild- moderate, which is below baseline per patient and family. Will continue to monitor acutely and make updated recommendations as able to maximize functional strength, activity tolerance, cognition and safety. Objective Diagnosis: ICD-10-CM 1. Cerebrovascular accident (CVA), unspecified mechanism (HCC) I63.9 CRITICAL CARE INTUBATION Precautions: Pressure ulcer risk, HOB elevated 30 degrees, fall and bed/chair alarms Infection Control: Contact Precautions Cognition: Patient is alert, agreeable to completion of the MOCA. The purpose of the MoCA is to be used as a screening tool and not used as the sole indicator to determine patient's capacity (i.e. if a patient is competent to make decisions or care for themselves). Patient completing with much increased time, appeared to be frustrated at times with difficult comprehension. Discussed recommended discharge plan from an OT perspective for placement to regain strength and independence with functional tasks; patient hopeful to discharge home though aware of recommendation. Yonny Cognitive Assessment (MoCA) Category Score Version 8.1 Visual-Spatial / Executive 2/5 Naming 3/3 Memory Trial not scored Attention Digits Letters Serial 2/2 0/1 0/3 Language Repeat Fluency 1/2 0/1 Abstraction 1/2 Delayed Recall 2/5 Orientation 5/6 Does patient have less than or equal to 12 years of education? Yes Total 17/30 Score of 26 or greater indicates cognitive function within normal limits. Score below 26 is indicative of cognitive impairment. 18-25: Mild Cognitive Impairment 10-17: Moderate Cognitive Impairment Less than 10: Significant Cognitive Impairment Memory Index Score Category Score Recall with No Cue 6 Category Cue 6 Multiple Choice Cue 0 MIS Total Score 12 ADLs: Not observed. Transfers: Patient sitting in chair upon OT arrival with eliud chair alarm in place. At end of session: call light and tray table within reach, education provided on use call light and waiting for assistance prior to transferring , family at bedside and Gripper socks and gait belt donned for all OOB activity. Pain: Pain at rest: 0/10 Pain during activity: 0/10 Location: No pain reported/observed. Vitals: Pt on RA without signs of shortness of breath during OT. SpO2 at rest >90%, SpO2 with activity >90% Interdisciplinary Communication: Family/Caregivers Education Education/Training provided: Role of OT, plan of care, ADLs, transfers/mobility, safety, AE needs,d/c recommendations, cognition Learners: Patient and family Readiness: accepting Method of Training: verbal and demonstration Response: Verbalizes understanding and Demonstrates understanding; Will benefit from continued reinforcement: yes Adaptive Equipment Recommendations Adaptive Equipment Recommended: OT will continue to assess AE needs and will update as necessary Adaptive Equipment Available: shower stool, hand held shower, grab bars tub/shower and handicapped-height toilet Plan to obtain adaptive equipment: To further assess. Goals Patient/Family Stated Goal for Session: agreeable to therapy Goals by Discharge: (1) Patient will tolerate 15-30 minutes U/E exercise to further increase independence with ADL/IADLs. (2) Patient will complete 3x grooming tasks safely standing at the sink withminAusing adaptive equipment as needed. (3) Patient will complete LB dressing safely withminAusing adaptive equipment as needed. (4) Patient will complete toileting safely withminAusing adaptive equipment as needed. (5) Patient will complete functional transfers safely withminAusing adaptive equipment as needed. (6) Patient will further participate with cognitive assessment to increase safety with functional tasks. (met) (7) Patient will have AE in place to increase safety with ADLs by discharge. Patient continues to demonstrate progress towards OT goals: Yes Charges Treatment/Minutes: Today's Evaluation/Treatment Therapeutic activity: 58 minutes Total Treatment Time: 58 minutes Treatment Session / Weekly Assessment/Plan (Day 5): Continue OT POC. Therapist Alpha Pager Number [phone] ase Mgmt - Uri Heather Alonzo RN - 11/02/2020 11:22 AM CDT CASE MANAGEMENT / SOCIAL SERVICE TRANSITION PLAN - PROGRESS NOTE PLAN: Awaiting Medical Doctor Recommendations for Transition Will Continue to Follow for Support and Progression Towards Final Transition Plan BARRIERS TO TRANSITION: Awaiting Therapy Recommendations Discharge Needs to be Determined Medical barriers: q4h neuro checks, NIHSS, tele, Swallow Eval DOES ACCEPTING FACILITY REQUIRE COVID TESTING BEFORE DISCHARGE: Other: To be determined based upon transition planning -- Patient is vaccinated. Moderna 03/03/20 & 03/31/20 COMMENTS / PATIENT AND FAMILY RESPONSE TO PLAN: Patient's medical record reviewed. Rounding completed with attending provider. Discussed loop recorder. Will need prior to discharge. Received call from patient's daughter Stephanie. She would like for patient to have placement, rather than returning home. Stephanie indicated that her parents home is large, with many stairs. Requested therapies see this AM to get a better idea of patient's needs. Met with patient's other daughter, and at the bedside. Discussed therapies and patient's current needs. First preference [facility] be [facility], but patient's daughter also brought up [facility]. Patient is profiled in [facility]. [facility] does not currently have any openings, message left for the hospital [facility] in regards to their availability. Sugar Grinder updated family regarding discussions. At this time, family is going to speak at 5pm and discuss their options. 1- D/C to [facility] ([facility] w/ ) OR 2- [facility]. They are going to call and leave a for CM regarding plan. Will fax clinicals to [facility] at [phone] PT recommending low intensity. Will continue to follow and assist with transition planning IS PATIENT'S ADMISSION ASSOCIATED WITH TIA, ISCHEMIC, OR HEMORRHAGIC STROKE?: Yes Depression screening assessment completed and documented in flowsheet. PATIENT / SUBSTITUTE DECISION MAKER GOAL UPON TRANSITION: First Choice: Transitional Care Second Choice: Acute Rehab ANTICIPATED NEEDS UPON TRANSITION: Acute Rehab Swing Bed Transitional Care RESOURCE(S) PROVIDED: Placement VERIFIED CORRECT PHARMACY IS ENTERED FOR DISCHARGE: No-- Will be determined based upon transition plan TRANSITION ROUNDING COMPLETED WITH THE FOLLOWING: Patient / family Gas Cutter Attending MD Residents Discussed in person SIGNED: Heather Grewal RN, BSN, SCRN Case Management [id number] signed by Heather Grewal RN at 11/02/2020 2:24 PM CDTSpeech Therapy - Jazmyn Morales, [facility]-SUCTION DREDGE DUMPING SUPERVISOR - 11/02/2020 11:13 AM CDT Speech Therapy Acute Care Video Fluoroscopy Swallow Evaluation Assessment/ Impression Oral phase of swallow: Mild impairment characterized by mildly weak and prolonged oral phase for bolus formation, cohesion and propulsion. Oral containment and clearance adequate. Mastication rotary and effective. Pharyngeal phase of swallow: Mild to moderate characterized by pharyngeal delay to valleculae and pyriform sinuses, mild laryngeal penetration noted with thin liquids only, mild to moderate degree of post-swallow residue in valleculae and pyriform sinuses with solids indicates weak tongue base and laryngeal excursion. Laryngeal sensation noted. Delayed pharyngeal clearance, improved with use of liquid wash. Patient was noted to cough during mildly thick liquid trials, twice in a 120 ml trial, but no supporting penetration or aspiration noted. Recommendations for diet as per below. ST will continue f/u as per POC for dysphagia, and speech/language and cognition programming as per stroke program, at future session. Plan/ Recommendations Diet textures: Level 6 Soft & Bite Sized (NDD3) and Mildly Thick Liquids ([place] Like Thickness) Feeding: self feed, assist for set-up and supervision vs. Feeding assist if needed Positioning: up to chair for meals as able Swallow strategies: 1 tsp per bite/sip, eat and drink slowly, reduce/no distractions at meals, okay to drink from straw, remain upright 45 degrees-usp- for 30 to 45 minutes after meals, meals only when patient most awake/alert and 3 cough rule- if patient coughs 3x with any one item, discontinue that item for current meal tray and notify SUCTION DREDGE DUMPING SUPERVISOR Medications: whole with Mildly Thick Liquids ([place] Like Thickness) Problems signs to watch for: throat clearing, coughing, choking and pneumonia Speech-Language Pathology will follow the patient 3-5 times a week for dysphagia treatment. Speech-Language Pathology will follow up for: diet tolerance, assessment of upgraded textures, diet upgrade as appropriate, oropharyngeal exercise program and instrumental swallow evaluation if indicated Recommend high vs. low intensity rehabilitation program upon d/c. Recommend: Repeat videofluoroscopic swallow study if not tolerating diet recommendations otherwise do not anticipate further VFSS needs. May be able to advance textures with clinical bedside exam. These recommendations are based upon todays assessment and may reduce, but cannot entirely eliminate this patients risk of aspiration. 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) Carotid artery stenosis Basal cell carcinoma Peripheral vascular disease (HCC) Anemia, iron deficiency Systolic murmur Stomatitis Essential hypertension, benign Cognitive dysfunction Sepsis due to urinary tract infection (HCC) Vancomycin resistant Enterococcus Hyponatremia Daily consumption of alcohol Acute confusional state Ischemic stroke (HCC) Social History: Social History Socioeconomic History Marital status: Spouse name: Not on file Number of children: Not on file Years of education: Not on file Highest education level: Not on file Occupational History Not on file Tobacco Use Smoking status: Never Smoker Smokeless tobacco: Never Used Substance and Sexual Activity Alcohol use: Yes Alcohol/week: 11.0 standard drinks Types: 4 Glasses of wine, 7 Shots of liquor per week Drug use: No Sexual activity: Not on file Other Topics Concern Not on file Social History Narrative Lives with in [place], has 5 children. Retired from [employer], his sons manage [employer]. He and winter in [place], as they have for 20 yr, on [place] [facility], from about mid-Feb annually, will not go 02/25. Centricity info in 12/08/14. Last CPE 06/28/18. Social Determinants of Health Financial Resource Strain: Difficulty of Paying Living Expenses: Food Insecurity: Worried About Running Out of Food in the Last Year: Ran Out of Food in the Last Year: Transportation Needs: Lack of Transportation (Medical): Lack of Transportation (Non-Medical): Physical Activity: Days of Exercise per Week: Minutes of Exercise per Session: Stress: Feeling of Stress : Social Connections: Frequency of Communication with Friends and Family: Frequency of Social Gatherings with Friends and Family: Attends [employer] Services: Active Member of Clubs or Organizations: Attends Club or Organization Meetings: Marital Status: Intimate Partner Violence: Fear of Current or Ex-Partner: Emotionally Abused: Physically Abused: Sexually Abused: Patient lives: [address] [place] [address] SUCTION DREDGE DUMPING SUPERVISOR Diagnosis: oral and pharyngeal dysphagia Indication/reason for referral: high risk of aspiration Dysphagia history: None per EMR or patient's family report. Subjective Patient is an 84 year old male admitted on 10/28 with dizziness episode and not being able to follow commands or communicate. LKW 0830. NIHSS 22. CT head (-) for ICH. TPA around 1100. Transfer to [facility]. Global aphasia, not following commands. MRI Brain complete. No evidence of acute ischemia. Intubated from 10/29 - 10/30. PMH significant for cognitive dysfunction, HTN, PVD, and hyperlipidemia. Patient alert, interactive, appropriate. He was also seen up in room after exam with spouse present,asking appropriate questions. Objective Completed in the lateral plane. Amount of barium consumed: 160 ml Radiologist: Dr. Mayo CURRENT NUTRITION: #4 solids and moderately thick liquids RESPIRATORY: RA, LS clear and dimin CONTEXTUAL FACTORS (POSITIONING, ENVIRONMENT, ETC): Video chair, lateral view, regular fluoro ORAL MOTOR EXAMINATION: No change c/w initial eval Dentition: full TEXTURES TRIALED: Thin liquids, mild and moderately thick liquids, puree, soft/mixed solids and regular solids ORAL PHASE: Lip seal: within normal limits Mastication: slow, rotary and thorough Bolus formation: mildly reduced bolus formation and control kervin with thin liquids Bolus transit: slow Oral clearance: within normal lmits Nasal Regurgitation: neg PHARYNGEAL PHASE: Pharyngeal swallow: delayed to the level of the valleculae for single bolus liquids or solids, pyriform sinuses mixed textures and larger volumes liquids Tongue base retraction: Mild-moderate impaired as evidenced by small to moderate amount of residue in valleculae with larger volumes with solids Pharyngeal contraction: Not impaired as evidenced by trace to no amount of residue on the posterior pharyngeal wall Laryngeal elevation/excursion: Mild to moderate impaired as evidenced by small to moderate amount ofresidue in pyriform sinuses with increased volume with coarse dry solids Epiglottic inversion: Noted Pharyngeal clearance: Needs cues to reswallow, delayed with repeat dry swallows, and use of liquid flush did clear post-swallow food residue. Aspiration: Not noted Penetration: Noted with thin liquids Laryngeal sensation: cough reflexive Airway protection: Thin Liquids: #3 by tsp Mildly/[place] thick Liquids: #1 by spoon, cup and straw Coughing was noted with nectar liquid use x 2 during a 120 ml trial, but there was no supporting penetration or aspiration Moderately/Honey thick Liquids: #1 Puree #4: #1 Mixed/soft #6: #1 Regular #7: #1 Barium tablet: administered with nectar/mildly thick liquids #1 Penetration/Aspiration Scale: #1: Contrast does not enter airway #2: Contrast enters the airway, remains above vocal folds, no residue #3: Contrast enters above vocal folds, visible residue remains #4: Contrast contacts vocal folds, no residue #5: Contrast contacts vocal folds, visible residue remains #6: Contrast passes glottis, no sub-glottic residue visible #7: Contrast passes glottis, visible sub-glottic residue despite patient's response #8. Contrast passes glottis, visible sub-glottic residue, absent patient response Source: Nohemi COLLADO. Geoffrey MESA. Dora DIEGO. Morales JACKSON. Lai JACKSON. A penetration- aspiration scale. Dysphagia. 11(2):93-8, 1995. COMPENSATORY STRATEGIES: Texture and volume alterations Goals/Education Patient/family goal: No new goals indicated by family today. Goals: Pattern Grader Goals: Patient will tolerate the least restrictive diet with no signs/symptoms of aspiration. Short Term Goals: Patient will demonstrate recall and use of compensatory swallowing strategies for safe oral intake. Patient will participate in trials of upgraded textures with SUCTION DREDGE DUMPING SUPERVISOR only to determine safety with diet upgrade. Patient will participate in oropharyngeal strengthening program to improve safety with swallowing. Patient will participate in repeat instrumental swallow assessment (FEES exam or VFSS) if clinicallyindicated or as recommended by SUCTION DREDGE DUMPING SUPERVISOR. Education: Education regarding the results and recommendations of todays evaluation provided to: patient andfamily Understanding and agreement expressed by: patient and family Patient was able to express understanding but would need repetition and reinforcement secondary to: impaired comprehensive/cognition Education Interventions: Results were documented in the patient care notes section of the patient's inpatient chart. Sign reflecting diet and swallow recommendations were posted in the patient's room. Nurse was updated regarding the results and recommendations of today's evaluation. MD informed re: diet upgrade. Charges Total Time: 30 minutes Video Swallow Evaluation Alpha Pager [phone] Em: [facility]: [phone] signed by Jazmyn Morales CCC-SUCTION DREDGE DUMPING SUPERVISOR at 11/02/2020 1:13 PM CDTPhysical Therapy - Carla Rosas PT - 11/02/2020 9:11 AM CDT Physical Therapy Acute Inpatient Treatment Note ASSESSMENT/RECOMMENDATIONS Patient presents with generalized deconditioning. He is able to perform bed mobility, transfers, and ambulation with front wheeled walker with standby assist. He did require minimal assistance for stairs. At this point, I feel he would likely benefit from continued PT at low-intensity therapy setting prior to return home. If he and family do choose to return home, would recommend PT. 6-Clicks Basic Mobility Score: 18 Activity Prescription with Nursing: With assist of 1, walk in kahn 3 times per day. At a minimum, up to chair for all meals or 3 times per day. SUBJECTIVE Agreeable to PT. States he wants to go home and do outpatient PT at the hospital in [place]. OBJECTIVE Bed Mobility: Supine to/from sit with standby assist from supine to sit. Transfers: Sit to/from stand with standby assist from bed to front wheeled walker. Gait: Ambulated ~150' with front wheeled walker and standby assist. He ambulates extremely slowly,although no imbalance or otherwise impairments noted. Stairs: Ascended/descended 4 stairs with single railing in step to pattern with close contact guardassistance-minimal assistance. Stairs very effortful for him. Other: Left sitting up in chair with call light within reach and chair alarm on. Patient Education: Patient was educated on goals of PT session, daily activity recommendations, and rec's of SNF today through explanation. They accepted teaching and verbalized understanding. Interdisciplinary Communication: Spoke with interdisciplinary team members regarding patient plan ofcare. PLAN Continue plan of care. Today's Treatment: Gait Trainin minutes Therapeutic Exercise: 0 minutes Therapeutic Activity: 23 minutes TOTAL TIMED CODES: 23 minutes TREATMENT TOTAL TIME: 23 minutes Carla Rosas PT, DPT Board-Certified Clinical Specialist in Geriatric Physical Therapy Certified Exercise Expert for Aging Adults Alpha Pager [phone] are Planning - Oliva Campos RN - 11/02/2020 1:46 AM CDT Problem: RISK FOR INEFFECTIVE CEREBRAL PERFUSION Goal: NEUROLOGICAL STATUS Description: DEFINITION: Ability of the peripheral and central nervous systems to receive, process, and respond to internal and external stimuli. 1=Severely compromised, 2=Substantially compromised, 3=Moderately compromised, 4=Mildly compromised, 5=Not compromised. Outcome: NOC Rating 5 Flowsheets (Taken 11/02/2020 0145) Initial Score: 4 Target Score: 5 Plan of care reviewed with: Patient Spouse/Significant Other Patient specific goal for the day: Pt will have acute neuro changes this shift Patient specific goal for the stay: Pt will establish new neurological baseline Achieve goal for stay: By discharge Patient Progress: Alert and orientedx3 is forgetful and impulsive, denies pain vital signs WDL, NIHSS 4. he is up with 2 GB/W, fall precautions in place. linical Team - Julieta Lino RN - 11/01/2020 6:19 PM CDT Pt alert to self, constant redirection needed. Able to make simple needs known. Delirium protocol inplace. VSS, on RA. Tele in place, NSR Denies any chest pain or SOB. No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 clearing. SUCTION DREDGE DUMPING SUPERVISOR then reviewed results of bedside swallow evaluation, including recommendations to keep patient NPO with the exception of meds in puree and single ice chips for comfort. Discussed with Dr. Eaton after evaluation who is in agreement. Instructed patient and family on aspiration precautions (listed abov e). Also discussed option to complete VFSS at later date. Patient unable to verbalize understanding,although family verbalized understanding of information provided and had no further questions/concerns for SUCTION DREDGE DUMPING SUPERVISOR. Will follow while in acute care. Goals/Education Patient/family goal: To go home Goals: Pattern Grader Goals: Patient will tolerate the least restrictive diet with no signs/symptoms of aspiration. Short Term Goals: Patient will demonstrate recall and use of compensatory swallowing strategies for safe oral intake. Patient will participate in trials of upgraded textures with SUCTION DREDGE DUMPING SUPERVISOR only to determine safety with diet upgrade. Patient will participate in oropharyngeal strengthening program to improve safety with swallowing. Patient will participate in instrumental swallow assessment (FEES exam or VFSS) if clinically indicated or as recommended by SUCTION DREDGE DUMPING SUPERVISOR. Education: Education regarding the results and recommendations of todays evaluation provided to: patient, family and nurse Understanding and agreement expressed by: family and nurse Patient was unable to express understanding secondary to: impaired comprehensive/cognition Education Interventions: Results were documented in the patient care notes section of the patient's inpatient chart. Nurse was updated regarding the results and recommendations of today's evaluation. Charges Total Time: 28 minutes Dysphagia Evaluation Alpha Pager [phone] Em: [facility]: [phone] signed by Renae Manjarrez CCC-SUCTION DREDGE DUMPING SUPERVISOR at 10/30/2020 4:48 PM CDTPhysical Therapy - Bianca Davis, PT - 10/30/2020 11:03 AM CDT Physical Therapy Acute Inpatient Initial Evaluation ASSESSMENT/RECOMMENDATIONS Pt presents with good strength x 4 extremities. Impaired cognition, inconsistent following commands.Able to stand bedside min/mod assist x 2, required max assist to return to sitting 2/2 unable to follow directives. 6-Clicks Basic Mobility Score: 12 Activity Prescription with Nursing: pivot transfer assist x 2 Anticipated D/C Service needs: Too early to determine. Will update as medical acuity diminishes. Diagnosis: ICD-10-CM 1. Cerebrovascular accident (CVA), unspecified mechanism (HCC) I63.9 CRITICAL CARE INTUBATION Prescription: Eval and Treat Admit Date: 10/28/2020 Pertinent Medical / Surgical History: Patient has a past medical history of Basal cell carcinoma of skin, BPH w/o Urinary Obs/LUTS (02/12/2007), Carotid artery stenosis, Elevated blood pressure reading without diagnosis of hypertension (11/28/2012), Osteoarth NOS-unspec (11/07/2007), Pure hypercholesterolemia (02/12/2007), S/P vascular surgery, Skin cancer, and Stroke ([facility]). Patient has a past surgical history that includes Joint Replacement; carotid endarterectomy (Left, 11/29/2006); excision basal cell; carotid endarterectomy (Right, 01/21/2015); tur bladder tumor (N/A,06/02/2015); turp laser assisted (N/A, 06/02/2015); and cystectomy w ileodiversion (N/A, 10/20/2015). Activity Orders: Activity as tolerated, Progressive Mobility Bundle, Precautions: contact SUBJECTIVE Social History: Patient lives: with spouse Home environment: house Steps: bi-level home ~8 steps, 2 rails Prior Level of Function: Activities of Daily Living: independent Mobility: independent History of falls: no Home O2: no Adaptive equipment available: quad cane, SEC, 4WW Patient Concerns: expressed fear of falling in sitting and standing. Patient/Family Goals: TBD OBJECTIVE Observation: Patient seen at bedside. Patient presents with O2 2L NC, IV Gait belt applied prior to out of bed activity. Vitals: Prior to activity: HR: 97, O2 Sats: 95% 2L, BP: 153/71 Cognition: oriented to self and spouse only. Pain: no reports of pain Posture: wfl Observation: frequently blinks L eye-per family this is baseline. Diminished tracking. Constant throat clearing-was extubated ~ 1 hour ago. Range of Motion: Bilateral lower extremities within functional limits Refer to Occupational Therapy report for upper extremity range of motion. Strength: Bilateral lower extremities within grossly functional limits Refer to Occupational Therapy report for upper extremity strength testing. Tone: normal Bed Mobility: Supine to Sit: min/mod assist x 2 Sit to Supine: max a x 2 Transfers: Sit to Stand: min assist x 2. Stand to sit:max a x 2 Balance: Static Sitting Balance: good balance, constant reaching out into space to hold on to something. "I'm going to fall" Education: Patient was educated on role of acute PT, goals of PT session, and daily activity recommendations through explanation. They were unable to learn and will need reinforcement. Interdisciplinary Communication: Spoke with interdisciplinary team members regarding patient plan ofcare. GOALS Goals to be achieved by discharge. Patient will be aware of equipment recommendations as indicated in note to allow for safe mobility. Patient will transfer sit to/from supine with SBA assistance. Patient will transfer from sit to/from stand with CGA assistance and equipment as needed to progressto safe household mobility. Patient will be able to ambulate 50 feet using LRAD with CGA assistance to progress to safe functional mobility in the home. PLAN Will continue 5 times per week. Physical Therapy Services: balance training bed mobility training education equipment gait training therapeutic activity therapeutic exercise transfer training Evaluation, goals, and plan discussed with family Today's Treatment Evaluation: Completed Gait: 0 minutes Exercise: 0 minutes Therapeutic Activity: 10 minutes TOTAL TIMED CODES: 10 minutes TREATMENT TOTAL TIME: 40 Minutes Alpha Pager: [phone] linical Team - Brianne Mruphy RN - 10/30/2020 10:53 AM CDT Shift Summary Assessment Neurological: Neuro Q4h. Pt awake, oriented to self and time. Confused with some directions, intermittently follows commands. NIH 12 this AM prior to extubation. PERRL. Afebrile. Respiratory: Lung sounds clear/diminished, on RA. Extubated at 1000. Weak, non- productive cough. Cardiac: NSR to ST. SBP goal <180 GI/: NPO. No BM. Urostomy in place, adequate UO. Speech consulted d/t cough and repeated throat clearing, recommend NPO with meds pureed. IV's/Lines: PIV x1 are Planning - Brianne Murphy RN - 10/30/2020 10:52 AM CDT Problem: RISK FOR INJURY Goal: SAFE HEALTH CARE ENVIRONMENT Description: DEFINITION: Physical and system arrangements to minimize factors that might cause physical harm or injury in the health care facility. 1 = Not adequate, 2 = Slightly adequate, 3 = Moderately adequate, 4 = Substantially adequate, 5 = Totally adequate. 10/30/2020 1052 by Brianne Murphy RN Outcome: Outcome acceptable for discharge 10/30/2020 1051 by Brianne Murphy RN Flowsheets (Taken 10/30/2020 0800) Plan of care reviewed with: Patient Patient specific goal for the day: Remain free from injury. Patient specific goal for the stay: No longer meet requirements for restraint use. Achieve goal for stay: By discharge Patient Progress: Bilateral soft wrist restraints remain in place. Reaching for invasive airway at times. Q2hr release, ROM and skin checks complete. No signs of injury noted. are Planning - Brianne Murphy RN - 10/30/2020 10:52 AM CDT Problem: RISK FOR INJURY Goal: SAFE HEALTH CARE ENVIRONMENT Description: DEFINITION: Physical and system arrangements to minimize factors that might cause physical harm or injury in the health care facility. 1 = Not adequate, 2 = Slightly adequate, 3 = Moderately adequate, 4 = Substantially adequate, 5 = Totally adequate. Flowsheets (Taken 10/30/2020 0800) Plan of care reviewed with: Patient Patient specific goal for the day: Remain free from injury. Patient specific goal for the stay: No longer meet requirements for restraint use. Achieve goal for stay: By discharge Patient Progress: Bilateral soft wrist restraints remain in place. Reaching for invasive airway at times. Q2hr release, ROM and skin checks complete. No signs of injury noted. Respiratory Therapy - Shahbaz Phelps RRT - 10/30/2020 10:09 AM CDT Order to extubate was received. Pt was extubated to NC 2L RR 20 97%. No evidence of stridor. RT to follow. ase Mgmt - Heather Grewal RN - 10/30/2020 8:07 AM CDT CASE MANAGEMENT / SOCIAL SERVICE TRANSITION PLAN - PROGRESS NOTE PLAN: Awaiting Medical Doctor Recommendations for Transition Will Continue to Follow for Support and Progression Towards Final Transition Plan BARRIERS TO TRANSITION: Awaiting Therapy Recommendations Discharge Needs to be Determined Medical barriers: q2h neuro checks, NIHSS, tele, intubated, sedated, NPO DOES ACCEPTING FACILITY REQUIRE COVID TESTING BEFORE DISCHARGE: Other: To be determined based upon transition planning COMMENTS / PATIENT AND FAMILY RESPONSE TO PLAN: Patient's medical record reviewed. Discussed with Neurovascular team. Patient extubated this morning. Stopped by patient's room this morning. No family at bedside. Will follow-up Monday OT worked with patient yesterday, recommending low intensity. No other therapy recommendations at this time. Will continue to follow and assist with transition planning IS PATIENT'S ADMISSION ASSOCIATED WITH TIA, ISCHEMIC, OR HEMORRHAGIC STROKE?: Yes Family / caregiver readiness to provide care (review of skills, capacity and rescources to provide post-hospital care): Patient's family ( and Children) are able to provide increased assistance unable to complete stroke assessment depression screening at this time due to aphasia or critical illness PATIENT / SUBSTITUTE DECISION MAKER GOAL UPON TRANSITION: First Choice: Acute Rehab ANTICIPATED NEEDS UPON TRANSITION: Acute Rehab Swing Bed Transitional Care RESOURCE(S) PROVIDED: nothing needed at this time VERIFIED CORRECT PHARMACY IS ENTERED FOR DISCHARGE: No-- Will be determined based upon transition plan TRANSITION ROUNDING COMPLETED WITH THE FOLLOWING: Gas Cutter TYPEWRITER ASSEMBLY AND PARTS INSPECTOR / PA Discussed in person SIGNED: Heather Grewal RN, BSN, SCRN Case Management [id number] signed by Heather Grewal RN at 10/30/2020 12:37 PM CDTClinical Team - Pepito Jane RN - 10/30/2020 6:55 AM CDT Shift Summary: [id number] Neuro: NIHSS 10. Q2hr neuros. Sedated. Eyes open spontaneously and to voice. PERRL. Follows commandsintermittently. Left droop. Cough/gag/corneals present. See flowsheet. CTA Head complete. Cardiac: Regular w/ PVCs. HR 60s-80s. SBP goal >90, <180; DBP goal <105. No pressors needed. Lungs: Intubated. PEEP 8, FiO2 30%. Clear, diminished lung sounds. Small secretions w/ suction. GI/: NPO. Bowel sounds active. No BM. Urostomy. 600mL UO. BG stable. Skin: No new skin issues. Lines/Drains: 1 PIV, ETT, Urostomy. Drips: Propofol, Fentanyl, IVF. Other: Soft bilateral wrist restraints in use. are Planning - Pepito Jane RN - 10/30/2020 3:19 AM CDT Problem: RISK FOR INEFFECTIVE CEREBRAL PERFUSION Goal: NEUROLOGICAL STATUS Description: DEFINITION: Ability of the peripheral and central nervous systems to receive, process, and respond to internal and external stimuli. 1=Severely compromised, 2=Substantially compromised, 3=Moderately compromised, 4=Mildly compromised, 5=Not compromised. Outcome: NOC Rating 3 Flowsheets (Taken 10/30/2020318) Initial Score: 3 Target Score: 5 Plan of care reviewed with: Patient Patient specific goal for the day: No neurological decline. Patient specific goal for the stay: Return to neurological baseline. Achieve goal for stay: By discharge Patient Progress: NIHSS 10. Neuros completed Q2hrs. CTA Head complete. Following commands intermittently. See flowsheet and shift note. Problem: RISK FOR INJURY Goal: SAFE HEALTH CARE ENVIRONMENT Description: DEFINITION: Physical and system arrangements to minimize factors that might cause physical harm or injury in the health care facility. 1 = Not adequate, 2 = Slightly adequate, 3 = Moderately adequate, 4 = Substantially adequate, 5 = Totally adequate. Outcome: NOC Rating 4 Flowsheets (Taken 10/30/2020315) Initial Score: 4 Target Score: 5 Plan of care reviewed with: Patient Patient specific goal for the day: Remain free from injury. Patient specific goal for the stay: No longer meet requirments for restriant use. Achieve goal for stay: By discharge Patient Progress: Bilateral soft wrist restraints remain in place. Reaching for invasive airway at times. Q2hr release, ROM and skin checks complete. No signs of injury noted. linical Team - Maria E Olguin RN - 10/29/2020 6:20 PM CDT Shift Summary [id number] Assessment Neurological: using minimal sedation needed to tolerate vent, patient follows commands in all 4 extremities, eyes conjugate, PERRL 2-3 mm, left eye has slight droop, hand squeeze is equal, ataxia in both limbs. Neuro status improving throughout shift, patient more interactive and makes needs known. NIHSS 14, neuros q2h unchanged Respiratory: tolerating vent, started suctioning plata/white/thick secretions from ETT around 16:00 Cardiac: sinus rhythm 50-70, frequent runs of vent trigeminy and vent bigeminy GI: BS present in all quadrants, abdomen rounded/soft : urostomy patent, yellow/temi/clear output, UA sent Peripheral Vascular: pulses present in all extremities, cap refill < 3 sec in all extremities, BUE cool, BLE cool Skin: Pain: shakes head no when asked about pain IV's/Access: L AC PIV Pertinent details/events: plan to keep intubated for CT and SBT tomorrow morning Occupational Therapy - Jeannette Cali, BETTY/Sam - 10/29/2020 3:30 PM CDT Occupational Therapy Acute Care Evaluation Note Impression/Recommendations Recommend low intensity upon medical stability. Patient intubated/sedated, completing observed ADLs and functional transfers with assist of 1-2. Patient presents with decreased strength and activity tolerance, following commands in all extremities; difficulty tracking L <> R. Will continue to monitor acutely and make updated recommendations as able to maximize functional strength, activity tolerance, cognition and safety. Admitting Diagnosis: ICD-10-CM 1. Cerebrovascular accident (CVA), unspecified mechanism (HCC) I63.9 CRITICAL CARE INTUBATION History of Present Illness: Refer to H&P for details Past Medical History: Past Medical History: Diagnosis Date Basal cell carcinoma of skin BPH w/o Urinary Obs/LUTS 02/12/2007 Carotid artery stenosis Elevated blood pressure reading without diagnosis of hypertension 11/28/2012 Osteoarth NOS-unspec 11/07/2007 Pure hypercholesterolemia 02/12/2007 S/P vascular surgery Skin cancer Stroke (HCC) Activity Level: Progressive mobility bundle Precautions: Pressure ulcer risk, HOB elevated 30 degrees and non violent wrist restraints Infection Control: Standard Precautions Patient History Patient intubated/sedated, information obtained from family present. Social/Home Environment: Patient lives: with their House: House Steps to enter: Yes- 2 with B rails Home Environment: Bed/Bath on main level: No, split level (7 to bed/bath) Bathroom Setup: walk in shower with curtain Employment: retired Prior Level of Function Independent with: dressing, bathing and money management Assistance needed with: medication management Comments: Per spouse, patient is independent at baseline. Daughter does medication management; does majority of driving and homemaking tasks. Adaptive Equipment Available: shower stool, hand held shower, grab bars tub/shower and handicapped-height toilet Present for Eval: Patient and family Objective Activities of Daily Living: Feeding: NPO, TF Grooming: Not observed. Upper Extremity Dressing: Not observed. Lower Extremity Dressing: MaxA to don B gripper socks Bathing: Not observed. Toileting: Not observed. Comments: Patient currently below baseline independence. Transfers: Bed: Supine <> sit EOB with maxA of 2. Chair: Not observed. Toilet: Not observed. Tub/Shower: Not observed. Comments: Patient tolerates static sitting EOB with CGA-Hima, brief bouts of SBA. Improves with verbal and tactile cues. At end of session: patient resting in bed, bed in lowest position, call light and tray table within reach, non-violent restraints in place, family at bedside, RN present at end of session and taking over pt care, safety precautions in place upon OT departure from room and Gripper socks donned for all OOB activity. Pain: Patient gave thumbs up to pain, though difficult to know where. Vitals: Pt on vent (PEEP 8, 30% FiO2) without signs of shortness of breath during OT. SpO2 at rest >90%, SpO2 with activity >90% Upper Extremity Function: Range of Motion: Right:limited to ~45 degrees limited by lines/tubes Left: limited to ~45 degrees limited by lines/tubes Strength: Right: within functional limits Left: within functional limits Endurance: limited Coordination: intact Sensation: intact Edema: No Dominant Hand: right Cognition: Orientation: alert. Intubated/sedated. Attention: intact Following Directions: intact Safety Awareness: impaired Impulsivity: Mild Comments: Patient following verbal commands in all 4 extremities. Nodding/smiling appropriately. Visual/Perception: Glasses: Yes- reading Comments: Patient having a difficult time tracking. Interdisciplinary Communication: Family/Caregivers and Nurse Maria E Education Education/Training provided: Role of OT, plan of care, ADLs, transfers/mobility, safety, AE needs,d/c recommendations, cognition, vision and activity tolerance Learners: Patient and family Readiness: accepting Method of Training: verbal and handout Response: Demonstrates understanding; Will benefit from continued reinforcement: yes Adaptive Equipment Recommendations Adaptive Equipment Recommended: OT will continue to assess AE needs and will update as necessary Adaptive Equipment Available: shower stool, hand held shower, grab bars tub/shower and handicapped-height toilet Plan to obtain adaptive equipment: To further assess. Assessment/Plan Assessment: Patient demonstrates decreased UE strength, decreased physical conditioning, decreased visual perceptual skills, decreased independence with ADL/IADL tasks, decreased independence with functional mobility and decreased safety judgement/insight into deficits Patient showing a decrease in ADL/transfer performance and will benefit from continued OT. Plan: Patient to be seen 3-5x/week to work toward goals listed below. Treatment plan will consist of Monday thru Monday sessions. Goals Patient/Family Stated Goal for Session: agreeable to therapy evaluation, RN agreeable Goals by Discharge: (1) Patient will tolerate 15-30 minutes U/E exercise to further increase independence with ADL/IADLs. (2) Patient will complete 3x grooming tasks safely standing at the sink with Hima using adaptive equipment as needed. (3) Patient will complete LB dressing safely with Hima using adaptive equipment as needed. (4) Patient will complete toileting safely with Hima using adaptive equipment as needed. (5) Patient will complete functional transfers safely with Hima using adaptive equipment as needed. (6) Patient will further participate with cognitive assessment to increase safety with functional tasks. (7) Patient will have AE in place to increase safety with ADLs by discharge. Treatment Provided See above note for detailed evaluation. Provided patient with education regarding ADLs, transfers/mobility, safety, AE needs, d/c recommendations, cognition, vision and activity tolerance. Charges Treatment/Minutes: Today's Evaluation/Treatment Evaluation Self care/home management: 15 minutes Total for time-based codes: 15 minutes Total treatment time: 35 minutes Evaluation Complexity PMH/Comorbidities that affect Occupational Performance: See PMHx Occupational Profile/Medical and Therapy History: LOW - Brief history relating to presenting problem Patient Assessment: LOW - 1-3 performance deficits relating to physical, cognitive, psychosocial limitations/restrictions Clinical Decision Making: LOW - Low complexity, limited amount of treatment options, no assessment modification, no comorbidities Evaluation Complexity: Low Therapist Alpha Pager Number: [phone] Physical Therapy - Bianca Davis PT - 10/29/2020 12:55 PM CDT Orders acknowledged, pt intubated and sedated. Will follow up as appropriate. 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 Intubated on mechanical ventilation for airway protection Hyponatremia PMH: Basal cell carcinoma of skin, Carotid artery stenosis, Skin cancer, Stroke Recommendations/Plan: If unable to extubate, start enteral nutrition for nutrition support: With similar propofol rate (25 mcg/kg/min, providing ~320 kcal): Replete with 60 ml/hour goal rate Add Liquid Protein Powder 11 gm daily Expect ~ 1760 kcal & 95 gm protein/day NUTRITION ASSESSMENT Anthropometrics: Height: 182.9 cm (6') Admission Wt: Weight: 81 kg (178 lb 9.2 oz) as of 10/28/2020 per bed scale Most Recent Wt: Weight: 75 kg (165 lb 5.5 oz) (10/28/20 1800) per bed scale Weight Change: -6 kg (13 lb) since admission BMI: Body mass index is 22.42 kg/m. IBW: 81 kg %IBW: 92% (based on most recent weight) Usual Body Weight: 170-175 lbs per EMR review Unintentional Weight Loss: Current weight appears down ~ 7 lbs from 2 months ago Estimated Needs: 8202-1185 kcal/day (23-25 kcal/kg Using: Most Recent Weight) 90-110 gm protein (1.2-1.5 gm/kg) Using:Most Recent Weight Fluids per MD (10/29/2020) [place] Equation: 1763 kcal Intake Records: Intake Prior to Admit: Quality of diet unknown at this time. Current Intake: Pt is NPO Type of Feeding Tube / Location of Tip / Date Placed: OG tube placed on 10/28 Physical Assessment: Edema: (per cable coverer at 0900 today) None GI Assessment: Abdominal exam: Surgical Incision with Active, Audible bowel sounds, per cable coverer at 0900 today. Stool Frequency: Pt has not had a documented BM since admission Wounds/Pressure Points: (per cable coverer at 0900 today) Elbow Left, Right, Blanchable Redness Heel Left, Right, Blanchable Redness Functional Status: Intubated and Sedated Nutrition Focused Physical Exam: Deferred at this time, pt out of room at time of visit Nutritionally-Relevant Medications, Vitamins and Minerals: Lipitor, Pepcid, Fentanyl, Senokot, IV sodium chloride Nutritionally-Relevant Biochemical Data: (10/29/2020) Glucose: 103 H Sodium: 132 L Magnesium: 1.6 L Albumin: 3.4 L GFR: 61 Triglycerides: 125 WNL Allergies/Food Intolerance: Beto has No Known Allergies. Culturally Episcopal Needs: no INTERVENTIONS Provided tube feeding recommendations MONITORING/EVALUATION Monitor diet advancement Monitor for initiation of nutrition support Monitor I&O, weight trends, nutrition-related labs and medications, clinical status, and planof care r/t need for nutrition intervention and provide as warranted Stable renal panel Nutrition Therapy will reassess every 1-5 days Myriam Winn MS, RD, LRD Pager # [phone] ase Mgmt - Heather Grewal RN - 10/29/2020 11:00 AM CDT CASE MANAGEMENT / SOCIAL SERVICE TRANSITION PLAN - INITIAL ASSESSMENT TRANSITION PLAN: Awaiting Medical Doctor Recommendations for Transition Will Continue to Follow for Support and Progression Towards Final Transition Plan BARRIERS TO TRANSITION: Awaiting Therapy Recommendations Discharge Needs to be Determined Medical barriers: Post-TPA Neuro checks, NIHSS, tele, Intubated, Sedated, MRI, Norephinephrine gtt COMMENTS / PATIENT AND FAMILY RESPONSE TO PLAN: Patient's medical record reviewed. Discussed with Neurovascular team. MRI today. Gas Cutter met with patient's and son at bedside. Patient unable to participate in assessmentas he is currently intubated and sedated. Introduced and explained the role of Case Management. Patient lives in [place] with his Cinthya. At baseline, patient is independent with IADLs. Deniesthe use of DME or services for additional assistance. Patient drives, has a PCP and manages his own medications. Discussed the need for therapy with patient's family. They are understanding. Will wait for clear recommendations from the therapists after patient is extubated. Provided ASA Pamphlet regarding therapysettings. Will continue to follow and assist with transition planning ADMISSION DX: No admission diagnoses are documented for this encounter. PATIENT STATUS: Inpatient RELEASE OF INFORMATION: Substitute consent decision maker being utilized: Patient's Cinthya SOURCES OF INFORMATION (See demographics for contact information): Family: Son and Spouse Medical Doctor Medical Record CURRENT LIVING SITUATION / LEVEL OF ASSISTANCE: Lives with his Cinthya in [place], [place] Independent COMMUNITY SERVICES: None HEALTHCARE DIRECTIVE: Yes-On File and reviewed POWER OF CHUTE MAN: Healthcare Power of Dental Hygiene Administrative Assistant Cinthya Delgado FINANCIAL CONCERNS: No Concerns Medicare Option 1 [employer] PRIMARY CARE PHYSICIAN: Yes Lynette David PA-C : Yes:Patient is but does not use VA services IS PATIENT'S ADMISSION ASSOCIATED WITH TIA, ISCHEMIC, OR HEMORRHAGIC STROKE?: Yes unable to complete stroke assessment depression screening at this time due to aphasia or critical illness LANGUAGE / COMMUNICATION BARRIERS: Does the patient have a barrier to communication other than language: Yes Intubated / sedated PATIENT / SUBSTITUTE DECISION MAKER GOAL UPON TRANSITION: First Choice: Acute Rehab Second Choice: Transitional Care ANTICIPATED NEEDS, TRANSITION CHOICES OFFERED: Swing Bed Transitional Care RESOURCE(S) PROVIDED: nothing needed at this time DOES PATIENT HAVE CLOTHING TO WEAR AT DISCHARGE? Yes ANTICIPATED MODE OF TRANSPORT UPON DISCHARGE: Other: To be determined based on transition plan VERIFIED CORRECT PHARMACY IS ENTERED FOR DISCHARGE: No-- Will be determined based on transition plan Patient typically uses [facility] CURRENT READMISSION RISK SCORE Predictive Risk Score Risk of Unplanned Readmission: 22.9 Please refer to readmission risk assessment flowsheet for further details. SIGNED: Heather Grewal RN, BSN, SCRN Case Management [id number] signed by Heather Grewal RN at 10/29/2020 11:06 AM CDTSpeech Therapy - Renae Manjarrez CCC-SLP - 10/29/2020 9:[address] order received and chart review completed. Patient is currently intubated and sedated. ST will follow along and intervene upon successful extubation and when patient appropriate to participate. Renae Manjarrez MS, CORY-SUCTION DREDGE DUMPING SUPERVISOR Pager #[phone] espiratory Therapy - Elena Askew RRT - 10/29/2020 8:29 AM CDT Ventilator Patient continues on [place] ventilator on settings: Mode APVcmv, RR 16, Vt 500, PEEP 8, WxQ165%. SpO2: 100 % Breath Sounds: Clear Secretions: None, ABG Results: Lab Results Component Value Date PHART 7.49 (H) 10/29/2020 PQP3REM 27 (L) 10/29/2020 PO2ART 193 (H) 10/29/2020 BASEEXART -1 10/29/2020 Patient continues with Q4H vent checks. RT to follow. are Planning - Maria E Olguin RN - 10/29/2020 7:38 AM CDT Problem: RISK FOR INEFFECTIVE CEREBRAL PERFUSION Goal: NEUROLOGICAL STATUS Description: DEFINITION: Ability of the peripheral and central nervous systems to receive, process, and respond to internal and external stimuli. 1=Severely compromised, 2=Substantially compromised, 3=Moderately compromised, 4=Mildly compromised, 5=Not compromised. Outcome: NOC Rating 3 Flowsheets (Taken 10/29/2020 0737) Initial Score: 3 Target Score: 5 Plan of care reviewed with: Patient Spouse/Significant Other Patient specific goal for the day: maintain neuro status Patient specific goal for the stay: maintain neuro status Achieve goal for stay: By discharge Patient Progress: see flowsheet and shift note for details are Planning - Pepito Jane RN - 10/29/2020 6:48 AM CDT Problem: RISK FOR INEFFECTIVE CEREBRAL PERFUSION Goal: NEUROLOGICAL STATUS Description: DEFINITION: Ability of the peripheral and central nervous systems to receive, process, and respond to internal and external stimuli. 1=Severely compromised, 2=Substantially compromised, 3=Moderately compromised, 4=Mildly compromised, 5=Not compromised. Outcome: NOC Rating 3 Flowsheets (Taken 10/29/2020 0644) Initial Score: 3 Target Score: 5 Plan of care reviewed with: Patient Patient specific goal for the day: No neurological decline. Patient specific goal for the stay: Return to neurological baseline. Achieve goal for stay: By discharge Patient Progress: Intubated & sedated. NIHSS 21. Opens eyes to voice. PERRL. Localize/spontaneous movement x4 off sedation. Not following commands. Slight left droop. Cough/gag/corneals present. S/p TPA. linical Team - Pepito Jane RN - 10/28/2020 10:04 PM CDT Shift Summary: [id number] Neuro: Q1hr neuros/NIHSS. NIHSS 21. Sedated. Eyes open to voice. PERRL. Localizes/spontaneous movement x4 off sedation. Left droop. Cough/gag/corneals present. See flowsheet. Cardiac: Regular w/ rare PVCs. HR 60s. SBP goal >90, <180; DBP goal <105. Norepinephrine gtt titrated to SBP goal. Lungs: Intubated. PEEP 8, FiO2 30% following morning ABG. Clear, diminished lung sounds. Minimal secretions w/ suction. GI/: NPO. OG clamped. Bowel sounds active. No BM. Urostomy. 400mL UO. BG stable. Skin: Scattered bruising. Scar to lower abdomen. Blanchable redness heels and elbows. Lines/Drains: 1 PIV, ETT, OG, Urostomy. Drips: Propofol, Fentanyl, Norepinephrine, IVF. linical Team - Chelsie Felipe RN - 10/28/2020 6:59 PM CDT Shift Summary Pt arriving to ICU from ED at approx 1745. Pt intubated and sedated via prop & fent. PERRL. Withdrawing to pain in all 4 extremities, eyes not opening with sedation. Localizing to pain & eyes opening to voice w/ sedation paused for 30min. NIHSS 21, see flowsheets. Ventilator dependent. SpO2 > 90% on +8, 40%. Lung sounds clear, diminished. Strong cough, minimal secretions. NSR/ST rates 50-60s. BP within goal, cardene & levo off. Urostomy w/ 75ml UO. No BM. OG clamped. 4 eyes on skin performed w/ R. Gwen, MARIPOSA - blanchable redness to heels. Family at bedside - all questions answered within nursing scope of practice. espiratory Therapy - Robby Ricketts RT - 10/28/2020 1:27 PM CDT Patient intubated with a 8.0 ETT 22 @ lip. Patient has bilateral breath sounds. End tidal 31. Initial vent settings placed are CMV 16 VT 500 +8 50%. Will go down on FIo2 as tolerated. harmacy - Leona David [facility] - 10/28/2020 12:19 PM CDT 10/28/2020 12:19 PM CDT - Patient was seen by pharmacy in the Emergency Department. HOME MEDICATIONS have been reconciled and updated to match the patient's home usage. Due to patient's condition, medication list from [facility] was utilized to complete medication reconciliation. Daisy David PharmD, [facility] Prior to Admission Medications Prescriptions Last Dose Informant Patient Reported? Taking? Multiple Vitamins-Minerals (MULTIVITAMIN THERAPEUTIC WITH MINERALS) tablet 10/28/2020 MED Bottles or MED List No Yes Sig: Take 1 tablet by mouth 1 time per day aspirin 81 mg enteric coated tablet 10/28/2020 MED Bottles or MED List Yes Yes Sig: Take 81 mg by mouth 1 time per day cephalexin (KEFLEX) 250 mg capsule 10/27/2020 MED Bottles or MED List No Yes Sig: Take 1 capsule (250 mg) by mouth 1 time per day One pill daily cyanocobalamin (VITAMIN B-12) 1000 mcg tablet 10/28/2020 MED Bottles or MED List No Yes Sig: Take 1 tablet (1,000 mcg) by mouth 1 time per day lisinopril (PRINIVIL, ZESTRIL) 5 mg tablet 10/27/2020 MED Bottles or MED List No Yes Sig: Take 1 tablet (5 mg) by mouth 1 time per day sildenafil (VIAGRA) 100 MG tablet MED Bottles or MED List Yes Yes Sig: Take 100 mg by mouth 1 time a day as needed for other (Specify) Take 1 hour prior to anticipated sexual activity. vitamin D3, cholecalciferol, 50 mcg (2000 unit) tablet 10/28/2020 MED Bottles or MED List Yes Yes Sig: Take 50 mcg by mouth 1 time per day Facility-Administered Medications: None documented in this encounter Plan of Treatment Date Type Specialty Care Team Description 02/15/2021 Office Visit Neurology Maite Perez, PhD [address] [place] [address] [phone] 02/15/2021 Clinical Support Visit Neurology 02/22/2021 Office Visit Neurosurgery Suleiman Bean, TOMOGRAPHIC TECH-CHEMISTRY PROFESSOR [address] [place], [place] [id number] Name Type Priority Associated Diagnoses Order S chedule CTA HEAD Imaging Routine today for 1 Occurrences sta rting 10/29/2020 unti l 10/29/2020 CARDIAC EVENT CVS Routine Cerebrovascular accident Or dered: 11/03/2020 MONITOR (UP TO 30 (CVA), unspecified DAY) mechanism (HCC) Name Type Priority Associated Diagnoses Order S chedule CLINIC REFERRAL NEUROLOGY Referral Routine Ischemic stroke (HCC) Ordered: ONE CHART 11/03/2020 CLINIC REFERRAL Referral Routine Cerebrovascular accident Ordered: NEUROPSYCHOLOGY ONE CHART (CVA), unspecif ied 11/03/2020 mechanism (HCC) documented as of this encounter Implants Implanted Type Area Relay Worker Device Shelf Model / Identifier Expiration Serial / Date Lot Patch Vascuguard [id number] N [id number] Ea - [id number] Cardiovascul ar Right: ROJAS 09/27/2019 [id number] / Implanted: Qty: 1 on 01/21/2015 by Edgar Barragan MD at [facility] / [id number] Stnt Remote Computer Terminal Operator Sofflex Rt 7fr 75 N [id number] Ea - [id number] Urology Righ t: COOK 09/07/2018 [id number] / Implanted: Qty: 1 on 10/20/2015 by Aleks Cline MD at [facility] / [id number] Stnt Remote Computer Terminal Operator Sofflex Lft7fr 75 N [id number] Ea - [id number] Urology Left : COOK 08/25/2018 [id number] / Implanted: Qty: 1 on 10/20/2015 by Aleks Cline MD at [facility] / [id number] Patch Vascuguard [id number] - [id number] Vascular Left: SYNOVIS 06/07/2011 [id number] / Implanted: Qty: 1 on 11/29/2006 at [facility] / [id number] documented as of this encounter Procedures Procedure Name Priority Date/Time Associated Diagnosis Comme nts SARS-COV-2, INFLUENZA A+B, STAT 11/03/2020 R esults for AND/OR RSV NUCLEIC ACID 12:48 PM CDT this procedure TESTING PANEL are in the results section. LAB ONLY-COMPLETE BLOOD Routine 11/03/2020 Resu lts for COUNT WITH DIFFERENTIAL 6:50 AM CDT this procedure are in the results section. MAGNESIUM Routine 11/03/2020 Results for 6:50 AM CDT this procedure are in the results section. RENAL FUNCTION PANEL Routine 11/03/2020 Results for 6:50 AM CDT this procedure are in the results section. LAB ONLY-COMPLETE BLOOD Routine 11/03/2020 Resu lts for COUNT WITH DIFFERENTIAL 6:50 AM CDT this procedure are in the results section. LAB ONLY-COMPLETE BLOOD Routine 11/02/2020 Resu lts for COUNT WITH DIFFERENTIAL 3:11 PM CDT this procedure are in the results section. MAGNESIUM Routine 11/02/2020 Results for 3:11 PM CDT this procedure are in the results section. RENAL FUNCTION PANEL Routine 11/02/2020 Results for 3:11 PM CDT this procedure are in the results section. LAB ONLY-COMPLETE BLOOD Routine 11/02/2020 Resu lts for COUNT WITH DIFFERENTIAL 3:11 PM CDT this procedure are in the results section. XRAY VIDEO SWALLOW WITH Routine 11/02/2020 Resu lts for FLUORO 11:09 AM CDT this procedure are in the results section. LAB ONLY-COMPLETE BLOOD Routine 11/01/2020 Resu lts for COUNT WITH DIFFERENTIAL 6:35 AM CDT this procedure are in the results section. MAGNESIUM Routine 11/01/2020 Results for 6:35 AM CDT this procedure are in the results section. RENAL FUNCTION PANEL Routine 11/01/2020 Results for 6:35 AM CDT this procedure are in the results section. LAB ONLY-COMPLETE BLOOD Routine 11/01/2020 Resu lts for COUNT WITH DIFFERENTIAL 6:35 AM CDT this procedure are in the results section. GLUCOSE BY METER, POCT Routine 10/31/2020 Resul ts for 5:37 PM CDT this procedure are in the results section. GLUCOSE BY METER, POCT Routine 10/31/2020 Resul ts for 12:25 PM CDT this procedure are in the results section. LAB ONLY-COMPLETE BLOOD Routine 10/31/2020 Resu lts for COUNT WITH DIFFERENTIAL 5:58 AM CDT this procedure are in the results section. MAGNESIUM Routine 10/31/2020 Results for 5:58 AM CDT this procedure are in the results section. RENAL FUNCTION PANEL Routine 10/31/2020 Results for 5:58 AM CDT this procedure are in the results section. LAB ONLY-COMPLETE BLOOD Routine 10/31/2020 Resu lts for COUNT WITH DIFFERENTIAL 5:58 AM CDT this procedure are in the results section. GLUCOSE BY METER, POCT Routine 10/30/2020 Resul ts for 8:50 PM CDT this procedure are in the results section. XRAY CHEST PORTABLE ADRIENNE 10/30/2020 Results for 5:30 AM CDT this procedure are in the results section. BLOOD GASES ARTERIAL Routine 10/30/2020 Results for 5:13 AM CDT this procedure are in the results section. LAB ONLY-COMPLETE BLOOD Routine 10/30/2020 Resu lts for COUNT WITH DIFFERENTIAL 4:34 AM CDT this procedure are in the results section. TRIGLYCERIDE Routine 10/30/2020 Results for 4:34 AM CDT this procedure are in the results section. MAGNESIUM Routine 10/30/2020 Results for 4:34 AM CDT this procedure are in the results section. RENAL FUNCTION PANEL Routine 10/30/2020 Results for 4:34 AM CDT this procedure are in the results section. LAB ONLY-COMPLETE BLOOD Routine 10/30/2020 Resu lts for COUNT WITH DIFFERENTIAL 4:34 AM CDT this procedure are in the results section. CTA HEAD Routine 10/30/2020 Results for 12:16 AM CDT this procedure are in the results section. GLUCOSE BY METER, POCT Routine 10/29/2020 Resul ts for 10:24 PM CDT this procedure are in the results section. LAB ONLY-URINE MICROSCOPIC STAT 10/29/2020 R esults for REFLEX 4:06 PM CDT this procedure are in the results section. URINE DIP, REFLEX TO STAT 10/29/2020 Results for MICROSCOPIC, REFLEX TO 4:06 PM CDT this procedure CULTURE are in the results section. DRUG SCREEN RAPID, URINE Routine 10/29/2020 Res ults for 4:06 PM CDT this procedure are in the results section. PROLACTIN Routine 10/29/2020 Results for 2:47 PM CDT this procedure are in the results section. LACTIC ACID Routine 10/29/2020 Results for 2:47 PM CDT this procedure are in the results section. ECHO ADULT COMPLETE Routine 10/29/2020 Results for 2:26 PM CDT this procedure are in the results section. MRI BRAIN WITH AND WITHOUT Routine 10/29/2020 R esults for CONTRAST 12:56 PM CDT this procedure are in the results section. ELECTROENCEPHALOGRAM Routine 10/29/2020 Results for 12:30 PM CDT this procedure are in the results section. GLUCOSE BY METER, POCT Routine 10/29/2020 Resul ts for 11:29 AM CDT this procedure are in the results section. XRAY CHEST PORTABLE ADRIENNE 10/29/2020 Results for 5:34 AM CDT this procedure are in the results section. LAB ONLY-COMPLETE BLOOD Routine 10/29/2020 Resu lts for COUNT WITH DIFFERENTIAL 5:10 AM CDT this procedure are in the results section. LIPID PANEL Routine 10/29/2020 Results for 5:10 AM CDT this procedure are in the results section. MAGNESIUM Routine 10/29/2020 Results for 5:10 AM CDT this procedure are in the results section. RENAL FUNCTION PANEL Routine 10/29/2020 Results for 5:10 AM CDT this procedure are in the results section. LAB ONLY-COMPLETE BLOOD Routine 10/29/2020 Resu lts for COUNT WITH DIFFERENTIAL 5:10 AM CDT this procedure are in the results section. BLOOD GASES ARTERIAL Routine 10/29/2020 Results for 3:47 AM CDT this procedure are in the results section. GLUCOSE BY METER, POCT Routine 10/28/2020 Resul ts for 8:43 PM CDT this procedure are in the results section. GLUCOSE BY METER, POCT Routine 10/28/2020 Resul ts for 6:11 PM CDT this procedure are in the results section. BLOOD GASES ARTERIAL STAT 10/28/2020 Results for 4:24 PM CDT this procedure are in the results section. MRI BRAIN WITHOUT CONTRAST STAT 10/28/2020 R esults for 2:23 PM CDT this procedure are in the results section. MRA HEAD WITHOUT CONTRAST STAT 10/28/2020 Re sults for 2:22 PM CDT this procedure are in the results section. INTUBATION Routine 10/28/2020 Cerebrovascular Results for 2:02 PM CDT accident (CVA), this procedu re unspecified mechanism are in the (HCC) results section. XRAY CHEST PORTABLE ADRIENNE 10/28/2020 Results for 1:38 PM CDT this procedure are in the results section. CTA NECK STAT 10/28/2020 Results for 12:50 PM CDT this procedure are in the results section. CTA BRAIN WITH PERFUSION STAT 10/28/2020 Res ults for 12:48 PM CDT this procedure are in the results section. EKG STAT 10/28/2020 Results for 12:36 PM CDT this procedure are in the results section. GLUCOSE BY METER, POCT STAT 10/28/2020 Resul ts for 12:20 PM CDT this procedure are in the results section. CRITICAL CARE Routine 10/28/2020 Cerebrovascular Results for 12:19 PM CDT accident (CVA), this procedu re unspecified mechanism are in the (HCC) results section. PTT STAT 10/28/2020 Results for 12:18 PM CDT this procedure are in the results section. PROTIME/INR STAT 10/28/2020 Results for 12:18 PM CDT this procedure are in the results section. COMPLETE BLOOD COUNT STAT 10/28/2020 Results for WITHOUT DIFFERENTIAL 12:18 PM CDT this pr ocedure are in the results section. GLYCATED HEMOGLOBIN STAT 10/28/2020 Results for 12:18 PM CDT this procedure are in the results section. TROPONIN I STAT 10/28/2020 Results for 12:18 PM CDT this procedure are in the results section. BASIC METABOLIC PANEL STAT 10/28/2020 Result s for 12:18 PM CDT this procedure are in the results section. documented in this encounter Results SARS-COV-2, INFLUENZA A+B, AND/OR RSV NUCLEIC ACID TESTING PANEL (11/03/2020 12:48 PM CDT) Pathologist Sig nature SARS-CoV-2 Not Detected Not Detected [address] Specimen Respiratory - Nasopharyngeal swab (speci men) Narrative Performed At Please read entire report. Results for Influenza A and B or RSV [address] may also be available depending on which viruses your provider selected for testing. Your Covid-19 test is negative: 1)Avoiding close contact is s till recommended. 2)Cover your coughs and snee zes. 3)Wash your hands often with soap and wate r for at least 20 seconds or use an alcohol-based waitress con taining over 60% alcohol. Avoid touching your fa ce. 4)Avoid sharing personal household items, including dishes, cups, utensils, towels, clothing, or bedding. These items should be cleaned thoroughly with soap and water after use. Clean all "high touch" surfaces in your home d aily. 5) Monitor your symptoms. Contact your provider if you are feeling worse. If you have shortness of breath or diff iculty breathing, call 911. This assay is for in vitro diagnostic use under FDA Em ergency Use Authorization only. Optimal performance of this test requires appropriate specimen collection, storage, and transport to [facility] test site. Detection of SARS-CoV-2 RNA may be affected by sample collection methods, patient factors (eg, presence of symptoms), a nd/or stage of infection. False-negative results may arise from degradation of v iral RNA during shipping/storage. Results should be interpreted by a trained professiona l in conjunction with the patient s history and clinical signs and symptoms, and epidemi ological risk factors. Negative (Not Detected) results do not preclude infect ion with the SARS-CoV-2 virus and should not be the sole basis of patient treatment/management or public health decision. Follow up testing should be performed according to the current CDC recom mendations. This test was performed by polymerase chain reaction ( PCR) on the GeneXpert instrument. Performing Organization Address City/State/ZIP Code Phon e Number [address] [place] [address] LAB ONLY-COMPLETE BLOOD COUNT WITH DIFFERENTIAL (11/03/2020 6:50 AM CDT) [facility] WBC 7.7 4.0 - 11.0 K/uL [address] RBC 3.18 (L) 4.40 - 5.[address] M/uL Hemoglobin 10.4 (L) 13.5 - 17.[address] g/dL Hematocrit 31.3 (L) 40.0 - 50.0 % [address] MCV 98.4 (H) 80.0 - 98.[address] MCH 32.7 25.5 - 34.[address] MCHC 33.2 31.5 - 36.[address] g/dL RDW-CV 13.1 11.5 - 15.5 % [address] RDW-SD 46.8 35.5 - 50.[address] Platelet Count 252 140 - 400 K/uL [address] MPV 9.9 8.5 - 12.[address] Seg Neut Absolute 4.8 1.8 - 8.0 K/uL [address] Lymphocytes Absolute 1.8 0.8 - 4.1 K/uL [place] [id number] [facility] Monocytes Absolute 0.7 0.0 - 1.0 K/uL [address] Eosinophils Absolute 0.4 0.0 - 0.7 K/uL [place] [address] [facility] Basophil Absolute 0.0 0.0 - 0.2 K/uL [address] Immature Granulocyte 0.03 0.00 - 0.[address] Absolute K/uL Neutrophils Abs. 4,800 /uL [address] (Segs and Bands) Neutrophils Percent 62.1 % [address] Lymphocytes Percent 23.6 % [address] Monocytes Percent 8.7 % [address] Immature Granulocyte 0.4 % [address] Percent Eosinophils Percent 4.8 % [address] Basophil Percent 0.4 % [address] Nucleated RBC 0 /[address] Specimen Blood - Blood specimen (specimen) Performing Organization Address [facility] Phon e Number [address] [place] [id number] RENAL FUNCTION PANEL (11/03/2020 6:50 AM CDT) Pathologist Sig nature Glucose 94 70 - 100 mg/dL [address] BUN 20 6 - 22 mg/dL [address] Creatinine 0.86 0.80 - 1.[address] mg/dL BUN/Creatinine Ratio 23.3 10.0 - 25.[address] Sodium 139 135 - 145 meq/L [address] Potassium 3.8 3.5 - 5.3 meq/L [address] Chloride 107 99 - 110 meq/L [address] CO2 21 20 - 29 meq/L [address] Anion Gap with K 15 6 - 20 meq/L [address] Calcium 9.3 8.5 - 10.5 mg/dL [address] Phosphorus 3.5 2.5 - 4.5 mg/dL [address] Albumin 3.5 3.5 - 5.0 g/dL [address] Corrected Calcium 9.7 8.5 - 10.5 mg/dL [address] Age [address] eGFR Non- 85 >=[address] Martiniquais mL/min/1.73m2 eGFR >90 >=[address] mL/min/1.73m2 Specimen Blood - Blood specimen (specimen) Performing Organization Address [facility] Phon e Number [address] [place] [address], [place] [address] MAGNESIUM (11/03/2020 6:50 AM CDT) Pathologist Sig nature Magnesium 1.6 (L) 1.8 - 2.4 mg/dL [address] Specimen Blood - Blood specimen (specimen) Performing Organization Address City/State/ZIP Code Phon e Number [address], [place] [address] LAB ONLY-COMPLETE BLOOD COUNT WITH DIFFERENTIAL (11/02/2020 3:11 PM CDT) Pathologist [facility] nature WBC 7.7 4.0 - 11.0 K/uL [address] RBC 3.27 (L) 4.40 - 5.[address] M/uL Hemoglobin 10.7 (L) 13.5 - 17.[address] g/dL Hematocrit 32.3 (L) 40.0 - 50.0 % [address] MCV 98.8 (H) 80.0 - 98.[address] MCH 32.7 25.5 - 34.[address] MCHC 33.1 31.5 - 36.[address] g/dL RDW-CV 13.1 11.5 - 15.5 % [address] RDW-SD 47.7 35.5 - 50.[address] Platelet Count 260 140 - 400 K/uL [address] MPV 10.1 8.5 - 12.[address] Seg Neut Absolute 5.4 1.8 - 8.0 K/uL [address] Lymphocytes Absolute 1.4 0.8 - 4.1 K/uL [place] [address] [facility] Monocytes Absolute 0.7 0.0 - 1.0 K/uL [address] Eosinophils Absolute 0.3 0.0 - 0.7 K/uL [place] [address] [facility] Basophil Absolute 0.0 0.0 - 0.2 K/uL [address] Immature Granulocyte 0.03 0.00 - 0.[address] Absolute K/uL Neutrophils Abs. 5,400 /uL [address] (Segs and Bands) Neutrophils Percent 69.4 % [address] Lymphocytes Percent 17.4 % [address] Monocytes Percent 9.0 % [address] Immature Granulocyte 0.4 % [facility] Percent Eosinophils Percent 3.4 % [place] [address] [facility] Basophil Percent 0.4 % [address] Nucleated RBC 0 /[address] Specimen Blood - Blood specimen (specimen) Performing Organization Address [facility] Phon e Number [address] [place] [address] RENAL FUNCTION PANEL (11/02/2020 3:11 PM CDT) Pathologist Sig nature Glucose 98 70 - 100 mg/dL [address] BUN 23 (H) 6 - 22 mg/dL [address] Creatinine 1.11 0.80 - 1.[address] mg/dL BUN/Creatinine Ratio 20.7 10.0 - 25.[address] Sodium 140 135 - 145 meq/L [address] Potassium 3.9 3.5 - 5.3 meq/L [address] Chloride 108 99 - 110 meq/L [address] CO2 23 20 - 29 meq/L [address] Anion Gap with K 13 6 - 20 meq/L [address] Calcium 9.5 8.5 - 10.5 mg/dL [address] Phosphorus 2.4 (L) 2.5 - 4.5 mg/dL [address] Albumin 3.8 3.5 - 5.0 g/dL [address] Corrected Calcium 9.7 8.5 - 10.5 mg/dL [address] Age [address] eGFR Non- 63 >=[address] Martiniquais mL/min/1.73m2 eGFR 76 >=[address] mL/min/1.73m2 Specimen Blood - Blood specimen (specimen) Performing Organization Address City/[facility]/ZIP Code Phon e Number [place] [address] [facility] [address] [place] [address] MAGNESIUM (11/02/2020 3:11 PM CDT) Pathologist Sig nature Magnesium 1.6 (L) 1.8 - 2.4 mg/dL [address] Specimen Blood - Blood specimen (specimen) Performing Organization Address City/[facility]/ZIP Code Phon e Number [facility] [address] [place] [address] XRAY VIDEO SWALLOW WITH FLUORO (11/02/2020 11:09 AM CDT) Specimen Narrative Performed At [facility] Patient Name: BETO DELGADO Date of : 1935 Procedure: XRAY VIDEO SWALLOW WITH FLUO RO Date of Service: 11/02/2020 EXAM: XRAY VIDEO SWALLOW WITH FLUORO INDICATION:concern for dysphagia/aspirat ion COMPARISON(S): None Available FINDINGS: The patient was challenged with multiple consistencies of barium in conjunction with speech pathology. There was deep pene tration versus aspiration of thin liquids by mouth which was sensed. No penetration or aspiration with nectar thickened or honey thickened li quids. No penetration or aspiration with solids or mixed consist encies. Small to moderate residuals noted with solids. The patient swal lowed the barium tablet without complication. Results were discussed with speech pathology time of exam and full report will follow. Finalized by: Alan Mayo MD on 10/08 11:18 AM CDT Patient/Procedure Information: [facility] MRN/TIFFANY: [id number] Order Number: [id number] Accession Number: [id number] Ordering Provider: MARIELA EATON Authorizing Provider: MARIELA EATON Procedure Note Interface, [facility] - 11/02/2020 11:20 AM CDT Patient Name: BETO DELGADO Date of : 1935 Procedure: XRAY VIDEO SWALLOW WITH FLUO RO Date of Service: 11/02/2020 EXAM: XRAY VIDEO SWALLOW WITH FLUORO INDICATION:concern for dysphagia/aspirat ion COMPARISON(S): None Available FINDINGS: The patient was challenged with multiple consistencies of barium in conjunction with speech pathology. There was deep penetration versus aspiration of thin liquids by mouth which was sensed. No penetration or aspiration with nectar thickened or blanca y thickened liquids. No penetration or aspiration with solids or mixed consistencies. Small to moderate residuals noted with solids. The patient swallowed the barium tablet without complication. Results were discussed with speech path ology time of exam and full report will follow. Finalized by: Alan Mayo MD on 10/08 11:18 AM CDT Patient/Procedure Information: [facility] MRN/TIFFANY: [id number] Order Number: [id number] Accession Number: [id number] Ordering Provider: MARIELA EATON Authorizing Provider: MARIELA EATON Performing Organization Address City/State/ZIP Code Phon e Number [facility] LAB ONLY-COMPLETE BLOOD COUNT WITH DIFFERENTIAL (11/01/2020 6:35 AM CDT) [facility] nature WBC 9.2 4.0 - 11.0 K/uL [address] RBC 2.86 (L) 4.40 - 5.[address] M/uL Hemoglobin 9.4 (L) 13.5 - 17.[address] g/dL Hematocrit 28.2 (L) 40.0 - 50.0 % [address] MCV 98.6 (H) 80.0 - 98.[address] MCH 32.9 25.5 - 34.[address] MCHC 33.3 31.5 - 36.[address] g/dL RDW-CV 13.1 11.5 - 15.5 % [address] RDW-SD 47.1 35.5 - 50.[address] Platelet Count 199 140 - 400 K/uL [address] MPV 10.2 8.5 - 12.[address] Seg Neut Absolute 6.2 1.8 - 8.0 K/uL [address] Lymphocytes Absolute 1.9 0.8 - 4.1 K/uL [place] [address] [facility] Monocytes Absolute 0.7 0.0 - 1.0 K/uL [address] Eosinophils Absolute 0.4 0.0 - 0.7 K/uL [place] [address] [facility] Basophil Absolute 0.0 0.0 - 0.2 K/uL [address] Immature Granulocyte 0.03 0.00 - 0.[address] Absolute K/uL Neutrophils Abs. 6,200 /uL [address] (Segs and Bands) Neutrophils Percent 67.5 % [address] Lymphocytes Percent 20.2 % [address] Monocytes Percent 7.8 % [address] Immature Granulocyte 0.3 % [place] [address] [facility] Percent Eosinophils Percent 3.8 % [place] [address] [facility] Basophil Percent 0.4 % [address] Nucleated RBC 0 /[address] Specimen Blood - Blood specimen (specimen) Performing Organization Address [facility] Phon e Number [address] [place] [address] RENAL FUNCTION PANEL (11/01/2020 6:35 AM CDT) Pathologist Sig nature Glucose 92 70 - 100 mg/dL [address] BUN 19 6 - 22 mg/dL [address] Creatinine 1.03 0.80 - 1.[address] mg/dL BUN/Creatinine Ratio 18.4 10.0 - 25.[address] Sodium 139 135 - 145 meq/L [address] Potassium 3.9 3.5 - 5.3 meq/L [address] Chloride 110 99 - 110 meq/L [address] CO2 21 20 - 29 meq/L [address] Anion Gap with K 12 6 - 20 meq/L [address] Calcium 8.9 8.5 - 10.5 mg/dL [address] Phosphorus 3.5 2.5 - 4.5 mg/dL [address] Albumin 3.3 (L) 3.5 - 5.0 g/dL [address] Corrected Calcium 9.5 8.5 - 10.5 mg/dL [address] Age [address] eGFR Non- 69 >=[address] Martiniquais mL/min/1.73m2 eGFR 83 >=[address] mL/min/1.73m2 Specimen Blood - Blood specimen (specimen) Performing Organization Address [facility] Phon e Number [place] [address] [facility] [address] [place] [address] MAGNESIUM (11/01/2020 6:35 AM CDT) Pathologist Sig nature Magnesium 1.7 (L) 1.8 - 2.4 mg/dL [facility] Specimen Blood - Blood specimen (specimen) Performing Organization Address City/State/ZIP Code Phon e Number [address] [address] GLUCOSE BY METER, POCT (10/31/2020 5:37 PM CDT) Pathologist Sig nature Glucose POC 113 (H) 70 - 99 mg/dL [facility] POINT OF CARE TESTING Specimen Blood - Blood specimen (specimen) Performing Organization Address City/[facility]/ZIP Code Phon e Number [facility] [address], [place] [address] OF CARE TESTING GLUCOSE BY METER, POCT (10/31/2020 12:25 PM CDT) Pathologist Sig nature Glucose POC 119 (H) 70 - 99 mg/dL [facility] POINT OF CARE TESTING Specimen Blood - Blood specimen (specimen) Performing Organization Address [facility]/ZIP [facility] Phon e Number [facility] [address], [place] [address] OF CARE TESTING LAB ONLY-COMPLETE BLOOD COUNT WITH DIFFERENTIAL (10/31/2020 5:58 AM CDT) Pathologist Sig nature WBC 13.4 (H) 4.0 - 11.0 K/uL [address] RBC 2.96 (L) 4.40 - 5.80 [place] [address] [facility] M/uL Hemoglobin 9.9 (L) 13.5 - 17.[address] g/dL Hematocrit 28.7 (L) 40.0 - 50.0 % [address] MCV 97.0 80.0 - 98.[address] MCH 33.4 25.5 - 34.[address] MCHC 34.5 31.5 - 36.[address] g/dL RDW-CV 12.9 11.5 - 15.5 % [address] RDW-SD 46.2 35.5 - 50.[address] Platelet Count 170 140 - 400 K/uL [address] MPV 10.0 8.5 - 12.[address] Seg Neut Absolute 10.7 (H) 1.8 - 8.0 K/uL [address] Lymphocytes Absolute 1.6 0.8 - 4.1 K/uL [place] [address] [facility] Monocytes Absolute 0.8 0.0 - 1.0 K/uL [place] [address] [facility] Eosinophils Absolute 0.3 0.0 - 0.7 K/uL [place] [address] [facility] Basophil Absolute 0.0 0.0 - 0.2 K/uL [address] Immature Granulocyte 0.07 (H) 0.00 - 0.06 [place] [address] [facility] Absolute K/uL Neutrophils Abs. 10,700 /uL [address] (Segs and Bands) Neutrophils Percent 79.9 % [address] Lymphocytes Percent 11.6 % [address] Monocytes Percent 5.9 % [address] Immature Granulocyte 0.5 % [address] Percent Eosinophils Percent 1.9 % [address] Basophil Percent 0.2 % [address] Nucleated RBC 0 /[address] Specimen Blood - Blood specimen (specimen) Performing Organization Address City/State/ZIP Code Phon e Number [address] [place] [address] RENAL FUNCTION PANEL (10/31/2020 5:58 AM CDT) Pathologist Sig nature Glucose 103 (H) 70 - 100 mg/dL [address] BUN 12 6 - 22 mg/dL [address] Creatinine 0.85 0.80 - 1.[address] mg/dL BUN/Creatinine Ratio 14.1 10.0 - 25.[address] Sodium 137 135 - 145 meq/L [address] Potassium 4.0 3.5 - 5.3 meq/L [address] Chloride 108 99 - 110 meq/L [place] [address] [facility] CO2 18 (L) 20 - 29 meq/L [address] Anion Gap with K 15 6 - 20 meq/L [address] Calcium 8.9 8.5 - 10.5 mg/dL [address] Phosphorus 3.7 2.5 - 4.5 mg/dL [address] Albumin 3.5 3.5 - 5.0 g/dL [address] Corrected Calcium 9.3 8.5 - 10.5 mg/dL [address] Age [address] eGFR Non- 86 >=[address] Martiniquais mL/min/1.73m2 eGFR >90 >=[address] mL/min/1.73m2 Specimen Blood - Blood specimen (specimen) Performing Organization Address [facility] e Number [address] [place] [address] MAGNESIUM (10/31/2020 5:58 AM CDT) Pathologist Sig nature Magnesium 1.7 (L) 1.8 - 2.4 mg/dL [address] Specimen Blood - Blood specimen (specimen) Performing Organization Address [facility] e Number [address] [place] [address] GLUCOSE BY METER, POCT (10/30/2020 8:50 PM CDT) Pathologist Sig nature Glucose POC 106 (H) 70 - 99 mg/dL [facility] POINT OF CARE TESTING Specimen Blood - Blood specimen (specimen) Performing Organization Address [facility] POINT [address] [place] [address] 04 OF CARE TESTING XRAY CHEST PORTABLE - (10/30/2020 5:30 AM CDT)Only the most recent of3 results within the time period is included. Specimen Narrative Performed At This result has an attachment that is no t available. [facility] Patient Name: BETO DELGADO Date of : 1935 Procedure: XRAY CHEST PORTABLE Date of Service: 10/30/2020 EXAM: XRAY CHEST PORTABLE INDICATION:ETT placement HISTORY: 84-year-old. Respiratory failur e. The patient was admitted on 10/28/2020 with a left frontal stroke. Post TPA. COMPARISON(S): 10/29/2020 FINDINGS: Endotracheal tube is in good position. A previous NG tube has been removed. There is no pneumothorax. There are surgical clips in the neck at which I believe are related to previous endarterectomies. The lungs are currently clear of acute infiltrate. No CHF. There appears be a calcified granuloma i n the right lower chest and in the right perihilar region. IMPRESSION: No focal pneumonia or CHF Finalized by: Derrick Saunders MD on 10/30/2020 8:04 AM CDT Patient/Procedure Information: [facility] MRN/[facility]FF[facility]: [id number] Order Number: [id number] Accession Number: [id number] Ordering Provider: NAYELI MURPHY Authorizing Provider: NAYELI MURPHY Procedure Note Interface, [facility] - 10/30/2020 8:06 AM CDT Patient Name: BETO DELGADO Date of : 1935 Procedure: XRAY CHEST PORTABLE Date of Service: 10/30/2020 EXAM: XRAY CHEST PORTABLE INDICATION:ETT placement HISTORY: 84-year-old. Respiratory failur e. The patient was admitted on 10/28/2020 with a left frontal stroke. Post TPA. COMPARISON(S): 10/29/2020 FINDINGS: Endotracheal tube is in good position. A previous NG tube has been removed. There is no pneumothorax. There are surgical clips in the neck at which I believe are related to previous endarterectomies. The lungs are currently clear of acute i nfiltrate. No CHF. There appears be a calcified granuloma i n the right lower chest and in the right perihilar region. IMPRESSION: No focal pneumonia or CHF Finalized by: Derrick Saunders MD on 10/08 8:04 AM CDT Patient/Procedure Information: [facility] MRN/[facility]FF[facility]: [id number] Order Number: [id number] Accession Number: [id number] Ordering Provider: NAYELI MURPHY Authorizing Provider: NAYELI MURPHY Performing Organization Address City/State/ZIP Code Phon e Number [facility] BLOOD GASES ARTERIAL (10/30/2020 5:13 AM CDT) pH Arterial 7.39 7.35 - 7.45 [facility] pCO2 Arterial 34 (L) 35 - 45 mmHg [facility] pO2 Arterial 116 (H) 80 - 100 mmHg [facility] Base Excess Arterial -4 (L) -2 - 2 meq/L [facility] RESPIRATORY [facility] HCO3 (Bicarb) 20 20 - 29 mmol/L [facility] RESPIRATORY THERAPY O2 Sat % Arterial 97 95 - 98 % [facility] RESPIRATORY [facility] Carbon Monoxide 1.0 0.0 - 3.0 % [facility] RESPIRATORY [facility] Methemoglobin 0.6 0.0 - 3.0 % [facility] RESPIRATORY [facility] p50 26.39 25.00 - 29.00 [facility] RESPIRATORY [facility] Allens Test Positive [facility] RESPIRATORY THERAPY Collection Site Rt radial [facility] RESPIRATORY [facility] O2 Source Ventilator [facility] RESPIRATORY [facility] Specimen Blood - Arterial blood specimen (specime n) Narrative Performed At CMV: Rate 16, Vt 500, PEEP 8, FiO2 30% [facility] RESPIRATO RY THERAPY Performing Organization Address City/State/ZIP Code Phon e Number [facility] - [address] [place] [address] RESPIRATORY THERAPY LAB ONLY-COMPLETE BLOOD COUNT WITH DIFFERENTIAL (10/30/2020 4:34 AM CDT) Pathologist Sig nature WBC 11.5 (H) 4.0 - 11.0 K/uL [place] [address] [facility] RBC 3.20 (L) 4.40 - 5.80 [place] [address] [facility] M/uL Hemoglobin 11.0 (L) 13.5 - 17.[address] g/dL Hematocrit 31.1 (L) 40.0 - 50.0 % [address] MCV 97.2 80.0 - 98.[address] MCH 34.4 (H) 25.5 - 34.[address] MCHC 35.4 31.5 - 36.[address] g/dL RDW-CV 13.3 11.5 - 15.5 % [address] RDW-SD 47.8 35.5 - 50.[address] Platelet Count 173 140 - 400 K/uL [address] MPV 10.5 8.5 - 12.[address] Seg Neut Absolute 8.5 (H) 1.8 - 8.0 K/uL [address] Lymphocytes Absolute 1.7 0.8 - 4.1 K/uL [place] [address] [facility] Monocytes Absolute 0.9 0.0 - 1.0 K/uL [place] [address] [facility] Eosinophils Absolute 0.3 0.0 - 0.7 K/uL [place] [address] [facility] Basophil Absolute 0.0 0.0 - 0.2 K/uL [address] Immature Granulocyte 0.05 0.00 - 0.06 [place] [address] [facility] Absolute K/uL Neutrophils Abs. 8,500 /uL [place] [address] [facility] (Segs and Bands) Neutrophils Percent 73.7 % [address] Lymphocytes Percent 15.1 % [place] [address] [facility] Monocytes Percent 8.1 % [address] Immature Granulocyte 0.4 % [place] [address] [facility] Percent Eosinophils Percent 2.4 % [address] Basophil Percent 0.3 % [address] Nucleated RBC 0 /[address] Specimen Blood - Blood specimen (specimen) Performing Organization Address [facility] Phon e Number [address] [place] [address] TRIGLYCERIDE (10/30/2020 4:34 AM CDT) Pathologist Sig [facility] Triglyceride 102 50 - 150 mg/dL [address] Specimen Blood - Blood specimen (specimen) Performing Organization Address [facility] Phon e Number [address] [place] [address] RENAL FUNCTION PANEL (10/30/2020 4:34 AM CDT) Pathologist Sig [facility] Glucose 86 70 - 100 mg/dL [address] BUN 15 6 - 22 mg/dL [address] Creatinine 1.04 0.80 - 1.[address] mg/dL BUN/Creatinine Ratio 14.4 10.0 - 25.0 [place] [address] [facility] Sodium 133 (L) 135 - 145 meq/L [address] Potassium 4.0 3.5 - 5.3 meq/L [address] Chloride 106 99 - 110 meq/L [place] [address] [facility] CO2 19 (L) 20 - 29 meq/L [address] Anion Gap with K 12 6 - 20 meq/L [address] Calcium 8.5 8.5 - 10.5 mg/dL [address] Phosphorus 3.6 2.5 - 4.5 mg/dL [address] Albumin 3.4 (L) 3.5 - 5.0 g/dL [address] Corrected Calcium 9.0 8.5 - 10.5 mg/dL [address] Age [address] eGFR Non- 68 >=[address] Martiniqu[place] mL/min/1.73m2 eGFR 82 >=[address] mL/min/1.73m2 Specimen Blood - Blood specimen (specimen) Performing Organization Address [facility] Phon e Number [address] [place] [address] MAGNESIUM (10/30/2020 4:34 AM CDT) Pathologist Sig [facility] Magnesium 1.9 1.8 - 2.4 mg/dL [address] Specimen Blood - Blood specimen (specimen) Performing Organization Address [facility] Phon e Number [address] [place] [address], [place] [address] CTA HEAD (10/30/2020 12:16 AM CDT) Specimen Narrative Performed At [facility] Patient Name: BETO DELGADO Date of : 1935 Procedure: CTA HEAD Date of Service: 10/30/2020 EXAM: CTA HEAD INDICATION: Male, 84 years year old pa tient, Stroke, follow up COMPARISON(S): MRI brain 10/29/2020, CT perfusion 021 TECHNIQUE: Initial routine unenhanced CT scan of the [facility]. CT angiography was performed with a multi-detector CT scanner. Data acquisition was obtained from the skull base through t he vertex following intravenous administration of 70 ml of Omnip aque 350. 2D MIP images were reconstructed from the axial data set. Pos t-processing of the angiographic images was performed, with multiplana r reformation and 3D volume rendering reconstruction. FINDINGS: NONVASCULAR: Soft tissues and Calvarium: Normal soft tissue structu res. No acute calvarial fracture. Parenchyma: There is stable focal encephalomalacia w ithin occipital lobe on the left, [employer] territory. There are also small areas of peripheral encephalomalacia within posterior frontal a nd posterior parietal lobes on the left, MCA territories. 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 Normal right cerebral hemisphere. The cerebellar ton sils are normally positioned. There are white matter hypodensities scatt ered within bilateral cerebral hemispheres, consistent with chroni c microvascular changes. Normal basal ganglia. Normal th charile. Brainstem: Normal brainstem. Ventricular system and extra-axial spaces: There is no hydrocephalus. Basal cisterns are preserved. Infarct: No acute territorial infarct. Hemorrhage: There is no acute intracrani al hemorrhage. Midline shift: None. Orbits: There has been bilateral cataract surgery. Wit h this exception, the remaining orbits and globes are unre markable. Paranasal sinuses and mastoids: There is minimal mucos al thickening within left maxillary and right sphenoid sinuses. Norm al remaining visualized paranasal sinuses. Mastoid ai r cells are clear bilaterally. ANGIOGRAM HEAD: Right petrous carotid artery: Widely pat ent. Left petrous carotid artery: Widely goldberg nt. Right cavernous/supraclinoid carotid artery: There is moderate stenosis due to calcified plaques. Left cavernous/supraclinoid carotid artery. There is m oderate stenosis due to calcified plaques. Right anterior cerebral artery: Patent A1 segment. Pat ent A2 segment. There is short segment of moderate stenosis involving A3 segment, best seen on coronal 2-D MIP image 66/207. Left anterior cerebral artery: Patent A1 segment. Patent A2 segment. Anterior communicating artery: Normal intact anterior communicating artery (ACOM). Right middle cerebral artery: M1 segment is widely pat ent. M2 segments are widely patent. Left middle cerebral artery: M1 segment is widely goldberg nt. M2 segments are widely patent. Right posterior communicating artery: No ne visualization. Left posterior communicating artery: Non e visualization. 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 Minimal brooks nosis along both PICA V4 segment on the right due to calcified plaque. There is short segment of moderate stenosis involving V4 segment on t he left, pre-PICA. Basilar artery: Widely patent. Right superior cerebellar artery: Patent . Left superior cerebellar artery: Patent. Right posterior cerebral artery: P1 segment is widely patent. There is minimal stenosis along proximal P2 seg ment without flow attenuation. Left posterior cerebral artery: P1 segment is widely patent. There is minimal stenosis along proximal P2 seg ment without flow attenuation. 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 No acute territorial infarct. MRI confirmed punctate i nfarct within left frontal lobe is not visible on CT. No acute intracranial hemorrhage. 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 Short focus moderate stenosis along a th ree segment right ROBB. Stenosis involving V4 segments of both vertebral sepideh stephen, minimal on the right and moderate on the left. Finalized by: Jayme Torres MD on 10/30/2020 1:15 AM CDT Patient/Procedure Information: [facility] MRN/TIFFANY: [id number] Order Number: [id number] Accession Number: [id number] Ordering Provider: SULEIMAN BEAN Authorizing Provider: SULEIMAN BEAN Procedure Note Interface, Radiantres - 10/30/2020 1:18 AM CDT Patient Name: BETO DELGADO Date of : 1935 Procedure: CTA HEAD Date of Service: 10/30/2020 EXAM: CTA HEAD INDICATION: Male, 84 years year old pat ient, Stroke, follow up COMPARISON(S): MRI brain 10/29/2020, CT perfusion 021 TECHNIQUE: Initial routine unenhanced CT scan of the head was performed. CT angiography was performed with a multi-detector CT scanner. Data acquisition was obtained from the skull base through the vertex following intravenous administration of 70 ml of O mnipaque 350. 2D MIP images were reconstructed from the axial data set. Post-processing of the angiographic images was performed, with multiplanar reformation and 3D volume rendering reconstruction. FINDINGS: NONVASCULAR: Soft tissues and Calvarium: Normal soft tissue structures. No acute calvarial fracture. 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 There are also small areas of peripheral encephalomalacia within posterior frontal and posterior parietal lobes on the left, MCA territories. There is film and video editor ming PICA infarct on the left. Normal right cerebral hemisphere. The c erebellar tonsils are normally positioned. There are white matter hypodensities scattered within bilateral cerebral hemispheres, consistent with chronic microvascular changes. Normal basal ganglia. Normal th charlie. Brainstem: Normal brainstem. Ventricular system and extra-axial space s: There is no hydrocephalus. Basal cisterns are preserved. Infarct: No acute territorial infarct. Hemorrhage: There is no acute intracrani al hemorrhage. Midline shift: None. Orbits: There has been bilateral catarac t surgery. With this exception, the remaining orbits and globes are unremarkable. Paranasal sinuses and mastoids: There is minimal mucosal thickening within left maxillary and right sphenoid sinuses. Normal remaining visualized paranasal sinuses. Mastoid air cells are clear bilaterally. ANGIOGRAM HEAD: Right petrous carotid artery: Widely pat ent. Left petrous carotid artery: Widely goldberg nt. Right cavernous/supraclinoid carotid art gualberto: There is moderate stenosis due to calcified plaques. Left cavernous/supraclinoid carotid sepideh ry. There is moderate stenosis due to calcified plaques. Right anterior cerebral artery: Patent A 1 segment. Patent A2 segment. There is short segment of moderate stenosis involving A3 segment, best seen on coronal 2- D MIP image 66/207. Left anterior cerebral artery: Patent A1 segment. Patent A2 segment. Anterior communicating artery: Normal in tact anterior communicating artery (ACOM). Right middle cerebral artery: M1 segment is widely patent. M2 segments are widely patent. Left middle cerebral artery: M1 segment is widely patent. M2 segments are widely patent. Right posterior communicating artery: No ne visualization. Left posterior communicating artery: Non e visualization. 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 Minimal stenosis along both PICA V4 segment on the right due to calcified plaque. There is short segment of moderate stenosis involving V4 segment o n the left, pre-PICA. Basilar artery: Widely patent. Right superior cerebellar artery: Patent . Left superior cerebellar artery: Patent. Right posterior cerebral artery: P1 segm ent is widely patent. There is minimal stenosis along proximal P2 segment without flow attenuation. Left posterior cerebral artery: P1 segm ent is widely patent. There is minimal stenosis along proximal P2 segment without flow attenuation. 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 No acute territorial infarct. MRI confir med punctate infarct within left frontal lobe is not visible on CT. No acute intracranial hemorrhage. 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 Short focus moderate stenosis along a th ree segment right ROBB. Stenosis involving V4 segments of both vertebral arteries, minimal on the right and moderate on the left. Finalized by: Jayme Torres MD on 10/30/2020 1:15 AM CDT Patient/Procedure Information: [facility] MRN/TIFFANY: [id number] Order Number: [id number] Accession Number: [id number] Ordering Provider: SULEIMAN BEAN Authorizing Provider: SULEIMAN BEAN Performing Organization Address [facility] Phon e Number [id number] GLUCOSE BY METER, POCT (10/29/2020 10:24 PM CDT) Pathologist Sig nature Glucose POC 93 70 - 99 mg/dL [facility] O POINT OF CARE TESTING Specimen Blood - Blood specimen (specimen) Performing Organization Address [facility] Phon e Number [facility] [address] [facility], [place] [address] OF CARE TESTING LAB ONLY-URINE MICROSCOPIC REFLEX (10/29/2020 4:06 PM CDT) WBC Urine 6-10 /hpf (A) Negative, 0-5 [place] [facility] /hpf CLIN[facility] RBC Urine 3-5 /hpf (A) Negative, 0-2 [place] [facility] /hpf [facility] Squamous Epithelial Many (>50) Negative, Occ [place] [facility] Cells /lpf (A) (0-10) /lpf, Few CLINIC (11-20) /lpf Bacteria Occ (0-10) Negative [place] [facility] /hpf (A) CLINIC Hyaline Cast 11-20 /lpf (A) 0-2 /lpf [facility] Specimen Urine - Urine specimen obtained by clean catch procedure (specimen) Narrative Performed At The presence of moderate or many squamous epithelial c ells is [facility] suggestive of possible contamination dur ing collection. Culture not performed - reflex criteria not met. Culture is only performed when the urine macroscopic c olor is reported as Bright [place], or whentwoor more of th e following criteria are met: Positive Nitrite, Positive Leukocyte Esterase, WBC's > 5 cells/hpf. Performing Organization Address [facility] Phon e Number [facility] [address] [place] [address] DRUG SCREEN RAPID, URINE (10/29/2020 4:06 PM CDT) Pathologist Sig nature Amphetamines Negative Negative [address] Barbiturates Negative Negative [address] Cocaine Negative Negative [address] Opiates Negative Negative [address] Benzodiazepine Negative Negative [address] Oxycodone Negative Negative [address] Marijuana (THC) Negative Negative [place] [address] CLINIC Specimen Urine - Urine specimen (specimen) Narrative Performed At The sensitivity is the minimum concentration of the dr ug class at [address] which the test is positive. Specific drugs may have di fferent detection levels. Amphetamine 1 000 ng/ml Barbiturates 200 ng/ml Benzodiazepines 2 00 ng/ml Cocaine 300 ng/ml Marijuana/Cannabinoids (THC) 50 ng/ ml Opiates 300 ng/ml Oxycodone 100 ng/ml Unconfirmed screening results must not be used for non -medical purposes (e.g. employment testing, legal testing.) If there is a medical necessity for a confirmation the provider must place an order within 72 hrs. of result verification. Performing Organization Address City/State/ZIP Code Phon e Number [address] [place] [address] URINE DIP, REFLEX TO MICROSCOPIC, REFLEX TO CULTURE (10/29/2020 4:06 PM CDT) Color Urine Yellow [place], Dark [place] [address] Yellow, Straw, CLINIC Yellow, Colorless Clarity Urine Clear Clear [address] Glucose Urine Negative Negative [address] Bilirubin Urine Negative Negative [address] Ketones Urine 5 mg/dL Negative, 5 [place] [address] mg/dL, 10 mg/dL CLINIC Specific [place] 1.023 1.002 - 1.[address] Blood Urine Small (1+) (A) Negative [address] PH Urine 6.5 5.0, 5.5, 6.0, [place] [address] 6.5, 7.0, 7.5, CLINIC 8.0 Protein Urine Trace (10-20) Negative [place] [address] mg/dL (A) CLINIC Urobilinogen < 2 mg/dL < 2 mg/dL [address] Nitrite Negative Negative [address] Leukocyte Esterase Negative Negative [place] [address] Urine CLINIC Specimen Urine - Urine specimen obtained by clean catch procedure (specimen) Narrative Performed At Microscopic Exam Reflexed [address] Performing Organization Address [facility]/ZIP Code Phon e Number [address] [place] [address] PROLACTIN (10/29/2020 2:47 PM CDT) Prolactin 28.5 (H)Comment: 3.5 - 20.0 [facility] Elevated prolactin may ng/mL CLINIC be due to macroprolactin. Consider ordering macroprolactin if clinically indicated. Specimen Blood - Blood specimen (specimen) Performing Organization Address [facility]/ZIP Code Phon e Number [facility] [address] [place] [address] LACTIC ACID (10/29/2020 2:47 PM CDT) Pathologist Sig nature Lactic Acid 1.2 0.5 - 2.2 mmol/L [address] Specimen Blood - Blood specimen (specimen) Performing Organization Address City/[facility]/ZIP Code Phon e Number [place] [address] [place] [address] ECHO ADULT COMPLETE (10/29/2020 2:26 PM CDT) Specimen Narrative Performed At This result has an attachment that is no t available. [facility] Patient: BETO DELGADO MR#: [id number] Exam Date: 10/29/2020 [facility] [address] [place]ansthor[place] [address] BP: 141/69 mmHg HR: 69 bpm : 1935 Exam Location: Height: 72.00 "(182.9 cm) Age: 84 year(s) Patient Room: 539 Weight: 178 lbs.(80.74 kg) Gender: Male Patient Status: Inpatient BSA: 2.03 m2 Narcotics Investigator: DONNIE MALDONADO RDCS Reading Physician: HERNANDO COLON MD Ordering Physician: GARRY SMITH Procedure Indication(s): TIA Examination: TTE Complete 2D(m-mode), Complete Spectral Doppler, Color Doppler Conclusions Left Ventricle: Normal left ventricular systolic functio n. The ejection fraction is visually estimated to be 65 %. Left Atrium: Markedly dilated left atrium. Aortic Valve: Mild aortic regurgitation. Mild aortic stenosis. IAS: No evidence of an atrial shunt. Right Ventricle: Normal right ventricular systolic function. IVC: Normal IVC size with normal respirophasic changes. Pericardium: No significant pericardial effusion.Sinus rhythm. Comparison Study Comparison Study: No previous echo was available for c omparison Findings Left Ventricle: Normal left ventricular size. Normal lef t ventricular wall thickness. Normal left ventricular systolic function. The ejection fraction is visually estimated to be 65 %. There are no left ventricular regional wall motion abnormalities. Grade 1 left ventricular diastolic dysfunction. Left Atrium: Markedly dilated left atrium. Aortic Valve: The aortic valve is tricuspid. Mild aort ic cuspal calcification. Mild aortic regurgitation. Mild aortic stenosis. Aortic valve mean gradient is 12 mmHg. Estimated aortic valve area (by V TI) is 2.0 cm-sq. Aorta: The ascending aorta is normal in size measuring 42.0 m m. Mitral Valve: Normal mitral valve structure. No signif icant mitral regurgitation. No mitral stenosis. IAS: No evidence of an atrial shunt. Right Ventricle: Normal right ventricular size. Normal ri ght ventricular systolic function. Normal right ventricular wall thickness. Right Atrium: Dilated right atrium. Tricuspid Valve: Normal tricuspid valve structure. No significant tricu spid regurgitation. Pulmonic Valve: Normal pulmonary valve structure. No sig nificant pulmonary regurgitation. No pulmonary stenosis. IVC: Normal IVC size with normal respirophasic changes. Pericardium: No significant pericardial effusion. Sinus rhythm. No pleural effusion. Measurements Left Ventricle Aortic Valve Label Value Normal Value Label Value Normal Value Cardiac Output 6.83 L/min LVOT Vmax 140 cm/s Cardiac Index 3.36 AV Vmax 245 cm/s L/min/m-sq LVOTd 21 mm LVDd, 2D 51.2 mm LVOT VTI 28.6 cm LVDs, 2D 29.6 mm LVOT PGmax 8 mmHg IVSd, 2D 11.6 mm AV Vmean 159 cm/s LVPWd, 2D 10.6 mm AV VTI 49.3 cm FS, 2D 42.19 % AV PGmax 24 mmHg LVEF, 2D 73 % VISHNU (Vmax) 2 cm-sq LVEDV, 2D 125 ml AV Vmax, Caliper 245 cm/s LVESV, 2D 34 ml Obstructive Index 0.57 LVEDVI, 2D 61.6 ml/m 2 (Vmax) LVESVI, 2D 16.7 ml/m 2 Obstruction Index 0.58 Stroke Index 48.77 (VTI) ml/m-sq AV PGmean 12 mmHg Left Atrium VISHNU (VTI) 2 cm-sq Label Value Normal Value Mitral Valve LADs Long. 61 mm Label Value Normal Value LA Volume Index 47.1 ml/m-sq MV E Vmax 88 cm/s Aorta MV A Vmax 114 cm/s Label Value Normal Value MV E/E' lateral 9.21 Ao Asc 42 mm MV E/E' septal 13.75 Ao Sinus, 2D 35 mm MV Dec Time 331 ms Heart Rate MV E' septal 0.1 cm/s Label Value Normal Value MV E' lateral 0.1 cm/s Heart Rate 69 bpm MV E/A 0.77 Procedure Note Interface, Inc Results No Pull Forward - 10/29/2020 3:37 PM CDT Patient: BETO DELGADO MR#: [id number] Exam Date: 10/29/2020 [facility] [address] [place]ansthor[place] [address] BP: 141/69 mmHg HR: 69 bpm : 1935 Exa m Location: Height: 72.00 "(182.9 cm) Age: 84 year(s) Pat ient Room: [facility] Weight: 178 lbs.(80.74 kg) Gender: Male Pat ient Status: Inpatient BSA: 2.03 m2 Narcotics Investigator: DONNIE MALDONADO RDCS Reading Physician: JESUS ALBERTO COLON MD Ordering Physician: GARRY RAUSCH I Procedure Indication(s): TIA Examination: TTE Co mplete 2D(m-mode), Complete Spectral Doppler, Color Doppler Conclusions Left Ventricle: Normal left ventricular systolic functio n. The ejection fraction is visually estimated to be 65 %. Left Atrium: Markedly dilated left atrium. Aortic Valve: Mild aortic regurgitation. Mild aortic s tenosis. IAS: No evidence of an atrial shunt. Right Ventricle: Normal right ventricular systolic functi on. IVC: Normal IVC size with normal respirophasi c changes. Pericardium: No significant pericardial effusion.Sinu s rhythm. Comparison Study Comparison Study: No previous echo was a vailable for comparison Findings Left Ventricle: Normal left ventricular size. Normal lef t ventricular wall thickness. Normal left ventricular systolic function. The ejection fraction is visually estimated to be 65 %. There are no left ventricular regional wall motion abnormalities. Grade 1 left ventricular diastolic dysfunction. Left Atrium: Markedly dilated left atrium. Aortic Valve: The aortic valve is tricuspid. Mild aort ic cuspal calcification. Mild aortic regurgitation. Mild aortic stenosis. Aortic valve mean gradient is 12 mmHg. Estimated aortic va lve area (by VTI) is 2.0 cm-sq. Aorta: The ascending aorta is normal in size me asuring 42.0 mm. Mitral Valve: Normal mitral valve structure. No signif icant mitral regurgitation. No mitral stenosis. IAS: No evidence of an atrial shunt. Right Ventricle: Normal right ventricular size. Normal ri ght ventricular systolic function. Normal right ventricular wall thickness. Right Atrium: Dilated right atrium. Tricuspid Valve: Normal tricuspid valve structure. No sig nificant tricuspid regurgitation. Pulmonic Valve: Normal pulmonary valve structure. No sig nificant pulmonary regurgitation. No pulmonary stenosis. IVC: Normal IVC size with normal respirophasi c changes. Pericardium: No significant pericardial effusion. Sinus rhythm. No pleural effusion. Measurements Left Ventricle Aortic Valve Label Value Norm al Value Label Value Normal Value Cardiac Output 6.83 L/min LVOT Vmax 140 cm/s Cardiac Index 3.36 AV Vmax 245 cm/s L/min/m-sq LVO Td 21 mm LVDd, 2D 51.2 mm LVOT VTI 28.6 cm LVDs, 2D 29.6 mm LVOT PGmax 8 mmHg IVSd, 2D 11.6 mm AV Vmean 159 cm/s LVPWd, 2D 10.6 mm AV VTI 49.3 cm FS, 2D 42.19 % AV PGmax 24 mmHg LVEF, 2D 73 % VISHNU (Vmax) 2 cm-sq LVEDV, 2D 125 ml AV Vmax, Caliper 245 cm/s LVESV, 2D 34 ml Obstructive Index 0.57 LVEDVI, 2D 61.6 ml/m2 (Vmax) LVESVI, 2D 16.7 ml/m2 Obstruction Index 0.58 Stroke Index 48.77 (VTI) ml/m-sq AV PGmean 12 mmHg Left Atrium VISHNU (VTI) 2 cm-sq Label Value Norm al Value Mitral Valve LADs Long. 61 mm Label Value Normal Value LA Volume Index 47.1 ml/m-sq MV E Vmax 88 cm/s Aorta MV A Vmax 114 cm/s Label Value Norm al Value MV E/E' lateral 9.21 Ao Asc 42 mm MV E/E' septal 13.75 Ao Sinus, 2D 35 mm MV Dec Time 331 ms Heart Rate MV E' septal 0.1 cm/s Label Value Norm al Value MV E' lateral 0.1 cm/s Heart Rate 69 bpm MV E/A 0.77 Performing Organization Address City/State/ZIP Code Phon e Number [facility] [place], [place] MRI BRAIN WITHOUT AND WITH CONTRAST (10/29/2020 12:56 PM CDT) Specimen Narrative Performed At PS360 Patient Name: BETO DELGADO Date of : 1935 Procedure: MRI BRAIN WITH AND WITHOUT C ONTRAST Date of Service: 10/29/2020 EXAM: MRI BRAIN WITH AND WITHOUT CONTRAS T INDICATION: Stroke, follow up, 24 hour post TPA, with initial DWI negative, complete with contrast to look for other etiologies TECHNIQUE: MRI of the brain performed wi thout and following IV contrast. COMPARISON(S): 10/28/2020 FINDINGS: Diffusion-weighted images demonstrate a small punctate focus of hyperintensity within the left frontal cortex consiste nt with acute lacunar infarct. The ventricles are stable in size and position without evidence of hydrocephalus. There are T2 hyperintensiti es of the cerebral white matter which are most consistent with chronic sm all vessel disease. Small areas of encephalomalacia are seen with in the left posterior frontal lobe, left parietal lobe, left occip ital lobe and left cerebellum consistent with remote infarcts. There is n o mass effect or midline shift. There is no abnormal intr aparenchymal enhancement. On the sagittal images, the midline markers are unrema rkable. The corpus callosum is normal in shape and signal intensity. The posterior fossa is unremarkable. The pituitary and sella are normal. The brainstem and craniocervical junction are unremarkable . There is mild mucosal thickening of the paranasal sinu ses. Visualized orbits and mastoids are unremarkable. IMPRESSION: 1. Single punctate focus of diffusion abnormality in volving the left frontal cortex consistent with acute lac unar infarct. 2. Chronic small vessel disease 3. Small areas of encephalomalacia involving the lef t cerebellum and left posterior frontal, left parietal, and left occipi segundo lobe consistent with remote infarcts. Finalized by: Gideon Silverman MD on 2020 1:40 PM CDT Patient/Procedure Information: [facility] MRN/TIFFANY: [id number] Order Number: [id number] Accession Number: [id number] Ordering Provider: GARRY SMITH Authorizing Provider: GARRY SMITH Procedure Note Interface, Radiantres - 10/29/2020 1:42 PM CDT Patient Name: BETO DELGADO Date of : 1935 Procedure: MRI BRAIN WITH AND WITHOUT C ONTRAST Date of Service: 10/29/2020 EXAM: MRI BRAIN WITH AND WITHOUT CONTRAS T INDICATION: Stroke, follow up, 24 hour p ost TPA, with initial DWI negative, complete with contrast to look for other etiologies TECHNIQUE: MRI of the brain performed wi thout and following IV contrast. COMPARISON(S): 10/28/2020 FINDINGS: Diffusion-weighted images demonstrate a small punctate focus of hyperintensity within the left frontal cortex consistent with acute lacunar infarct. The ventricles are stable in size and position without evidence of hydrocephalus. There are T2 hyperintensities of the cerebral white matter which are most consistent with chronic small vessel disease. Small areas of encephalomalacia are seen within the left posterior frontal lobe, left parietal lobe, left occipital lobe and left cerebellum consistent with remote infarcts. There is no mass effect or midline shift. There is no abnormal intraparenchymal enhancement. On the sagittal images, the midline zackery ers are unremarkable. The corpus callosum is normal in shape and signal intensity. The posterior fossa is unremarkable. The pituitary and sella are normal. The brainstem and craniocervical junction are unremarkable . There is mild mucosal thickening of the paranasal sinuses. Visualized orbits and mastoids are unremarkable. IMPRESSION: 1. Single punctate focus of diffusion a bnormality involving the left frontal cortex consistent with acute lacunar infarct. 2. Chronic small vessel disease 3. Small areas of encephalomalacia invo lving the left cerebellum and left posterior frontal, left parietal, and left occipital lobe consistent with remote infarcts. Finalized by: Gideon Silverman MD on 2020 1:40 PM CDT Patient/Procedure Information: [facility] MRN/TIFFANY: [id number] Order Number: [id number] Accession Number: [id number] Ordering Provider: GARRY SMITH Authorizing Provider: GARRY SMITH Performing Organization Address City/[facility] Phon e Number [id number] ELECTROENCEPHALOGRAM [facility]; Routine with Video; 1 Hour (10/29/2020 12:30 PM CDT) Narrative Performed At Amber Betancur MD 10/29/2020 12:31 PM SH DICTAPHONE ROUTINE EEG Identifying Information: Name: Beto Delgado : 1935 Interpreting Physician: Amber knapp MD Clinical History: Beto Delgado is an 84yr male for which a routine EEG was ordered on for further evaluation of alt ered mental status. EEG date: 10/29/20 Technical Summary: 20 channels of continuous EEG were recor ded in a digital format on a patient who is reported to be sedat ed during the recording. The background rhythm consists of 20-40 microvolt activity in the theta frequency range approximately 6 Hz that was maximal over the posterior head regions and reactive to eye opening and closure. During the recording: No focal slowing was seen. No epileptiform discharges or seizure s were detected. The EKG monitoring channel did not detec t any significant rhythm abnormalities. EEG Interpretation: This EEG is abnormal due to the presence of: 1) Mild-Moderate generalized slowing. - This is a non-specific finding but is consistent with a generalized disturbance of cerebral func tion. It may be seen in a variety of conditions, such as toxic, me tabolic, post-anoxic, multi-focal or diffuse structural abnorm alities. - No electrographic seizures or non-conv ulsive status epilepticus were seen during this recording. Clinical correlation is recommended. Performing Organization Address [facility] Code Phon e Number SH DICTAPHONE SH DICTAPHONE [place], [place] GLUCOSE BY METER, POCT (10/29/2020 11:29 AM CDT) Pathologist Sig [place] Glucose POC 81 70 - 99 mg/dL [facility] O POINT OF CARE TESTING Specimen Blood - Blood specimen (specimen) Performing Organization Address City/State/ZIP Code Phon e Number [facility] [address] [place], [place] [address] OF CARE TESTING LAB ONLY-COMPLETE BLOOD COUNT WITH DIFFERENTIAL (10/29/2020 5:10 AM CDT) Pathologist Sig nature WBC 10.9 4.0 - 11.0 K/uL [address] RBC 3.26 (L) 4.40 - 5.[address] M/uL Hemoglobin 11.0 (L) 13.5 - 17.[address] g/dL Hematocrit 31.3 (L) 40.0 - 50.0 % [address] MCV 96.0 80.0 - 98.[address] MCH 33.7 25.5 - 34.[address] MCHC 35.1 31.5 - 36.[address] g/dL RDW-CV 13.1 11.5 - 15.5 % [address] RDW-SD 46.1 35.5 - 50.[address] Platelet Count 215 140 - 400 K/uL [address] MPV 10.1 8.5 - 12.[address] Seg Neut Absolute 7.2 1.8 - 8.0 K/uL [address] Lymphocytes Absolute 2.5 0.8 - 4.1 K/uL [place] [address] CLINI C Monocytes Absolute 1.0 0.0 - 1.0 K/uL [address] Eosinophils Absolute 0.2 0.0 - 0.7 K/uL [place] [address] CLINI C Basophil Absolute 0.0 0.0 - 0.2 K/uL [address] Immature Granulocyte 0.06 0.00 - 0.[address] Absolute K/uL Neutrophils Abs. 7,200 /uL [address] (Segs and Bands) Neutrophils Percent 66.4 % [address] Lymphocytes Percent 22.6 % [address] Monocytes Percent 8.9 % [address] Immature Granulocyte 0.5 % [address] Percent Eosinophils Percent 1.4 % [address] Basophil Percent 0.2 % [address] Nucleated RBC 0 /[address] Specimen Blood - Blood specimen (specimen) Performing Organization Address [facility] Phon e Number [address] [place] [id number] RENAL FUNCTION PANEL (10/29/2020 5:10 AM CDT) Pathologist Sig nature Glucose 103 (H) 70 - 100 mg/dL [address] BUN 18 6 - 22 mg/dL [address] Creatinine 1.14 0.80 - 1.[address] mg/dL BUN/Creatinine Ratio 15.8 10.0 - 25.[address] Sodium 132 (L) 135 - 145 meq/L [address] Potassium 3.9 3.5 - 5.3 meq/L [address] Chloride 104 99 - 110 meq/L [address] CO2 18 (L) 20 - 29 meq/L [address] Anion Gap with K 14 6 - 20 meq/L [address] Calcium 8.8 8.5 - 10.5 mg/dL [address] Phosphorus 3.2 2.5 - 4.5 mg/dL [address] Albumin 3.4 (L) 3.5 - 5.0 g/dL [address] Corrected Calcium 9.3 8.5 - 10.5 mg/dL [address] Age [address] eGFR Non- 61 >=[address] Martiniquais mL/min/1.73m2 eGFR 74 >=[address] mL/min/1.73m2 Specimen Blood - Blood specimen (specimen) Performing Organization Address [facility] Phon e Number [place] [address] [facility] [address] [place] [id number] MAGNESIUM (10/29/2020 5:10 AM CDT) Pathologist Sig nature Magnesium 1.6 (L) 1.8 - 2.4 mg/dL [address] Specimen Blood - Blood specimen (specimen) Performing Organization Address City/[facility]/ZIP Code Phon e Number [place] [address] [facility] [address] [place] [address] LIPID PANEL (10/29/2020 5:10 AM CDT) Pathologist Sig nature Cholesterol 157 100 - 200 mg/dL [facility] Triglyceride 125 50 - 150 mg/dL [facility] HDL 46 40 - 80 mg/dL [facility] LDL 86 0 - 129 mg/dL [facility] Specimen Blood - Blood specimen (specimen) Performing Organization Address City/[facility]/ZIP Code Phon e Number [facility] [address] [place] [address] BLOOD GASES ARTERIAL (10/29/2020 3:47 AM CDT) pH Arterial 7.49 (H) 7.35 - 7.45 [facility] pCO2 Arterial 27 (L) 35 - 45 mmHg [facility] pO2 Arterial 193 (H) 80 - 100 [facility] Base Excess Arterial -1 -2 - 2 meq/L [facility] HCO3 (Bicarb) 21 20 - 29 [facility] mmol/L [facility] O2 Sat % Arterial 99 (H) 95 - 98 % [facility] Carbon Monoxide 0.6 0.0 - 3.0 % [facility] Methemoglobin 0.4 0.0 - 3.0 % [facility] p50 Comment: No [facility] Allens Test Positive [facility] RESPIRATORY [facility] Collection Site Rt radial [facility] O2 Source [facility] t: APVcmv [address] [facility] - 500 peep 8 40% RESPIRATORY THERAPY Specimen Blood - Arterial blood specimen (specime n) Performing Organization Address City/[facility]/ZIP Code Phon e Number [facility] - [address] [place] [address] RESPIRATORY THERAPY GLUCOSE BY METER, POCT (10/28/2020 8:43 PM CDT) Pathologist Sig nature Glucose POC 99 70 - 99 mg/dL [facility] O POINT OF CARE TESTING Specimen Blood - Blood specimen (specimen) Performing Organization Address City/[facility]/ZIP Code Phon e Number [facility] [address] [place] [address] OF CARE TESTING GLUCOSE BY METER, POCT (10/28/2020 6:11 PM CDT) Pathologist Sig nature Glucose POC 111 (H) 70 - 99 mg/dL [facility] O POINT OF CARE TESTING Specimen Blood - Blood specimen (specimen) Performing Organization Address City/[facility]/ZIP Code Phon e Number [facility] [address], [place] [address] 04 OF CARE TESTING BLOOD GASES ARTERIAL (10/28/2020 4:24 PM CDT) pH Arterial 7.39 7.35 - 7.45 [facility] RESPIRATORY [facility] pCO2 Arterial 38 35 - 45 mmHg [facility] RESPIRATORY [facility] pO2 Arterial 201 (H) 80 - 100 [facility] Base Excess Arterial -2 -2 - 2 meq/L [facility] RESPIRATORY [facility] HCO3 (Bicarb) 23 20 - 29 [facility] mmol/L [facility] O2 Sat % Arterial 99 (H) 95 - 98 % [facility] RESPIRATORY [facility] Carbon Monoxide 0.5 0.0 - 3.0 % [facility] Methemoglobin 0.5 0.0 - 3.0 % [facility] RESPIRATORY [facility] p50 Comment: Non [facility] obtainable [facility] Allens Test Unable to Perform [facility] RESPIRATORY [facility] Collection Site Rt radial [facility] RESPIRATORY [facility] O2 Source Ventilator [facility] RESPIRATORY [facility] Specimen Blood - Arterial blood specimen (specime n) Narrative Performed At CMV: Rate 16, Vt 500, PEEP 8, FiO2 60% [facility] RESPIRATO RY THERAPY Performing Organization Address City/[facility]/ZIP Code Phon e Number [facility] - [address] [address] RESPIRATORY THERAPY MRI BRAIN WITHOUT CONTRAST (10/28/2020 2:23 PM CDT) Specimen Narrative Performed At This result has an attachment that is no t available. PS360 Patient Name: BETO DELGADO Date of : 1935 Procedure: MRI BRAIN WITHOUT CONTRAST Date of Service: 10/28/2020 EXAM: MRI BRAIN WITHOUT CONTRAST INDICATION: Stroke, follow up TECHNIQUE: Axial diffusion images were obtained per peracute stroke protocol COMPARISON(S): CTA brain 10/28/2020 FINDINGS: Diffusion images demonstrate convincing area of acute diffusion restriction.. No midline shift, herniation or hydrocephalus.. IMPRESSION: 1.No evidence of acute ischemia on the diffusion imagi ng. Finalized by: Greg Castellano MD on 10/28/2020 2:41 PM CD T Patient/Procedure Information: [facility] MRN/TIFFANY: [id number] Order Number: [id number] Accession Number: [id number] Ordering Provider: GARRY SMITH Authorizing Provider: GARRY SMITH Procedure Note Interface, [facility] - 10/28/2020 2:43 PM CDT Patient Name: BETO DELGADO Date of : 1935 Procedure: MRI BRAIN WITHOUT CONTRAST Date of Service: 10/28/2020 EXAM: MRI BRAIN WITHOUT CONTRAST INDICATION: Stroke, follow up TECHNIQUE: Axial diffusion images were o btained per hyperacute stroke protocol COMPARISON(S): CTA brain 10/28/2020 FINDINGS: Diffusion images demonstrate convincing area of acute diffusion restriction.. No midline shift, herniation or hydrocephalus.. IMPRESSION: 1.No evidence of acute ischemia on the d iffusion imaging. Finalized by: Greg Castellano MD on 021 2:41 PM CDT Patient/Procedure Information: [facility] MRN/TIFFANY: [id number] Order Number: [id number] Accession Number: [id number] Ordering Provider: GARRY SMITH Authorizing Provider: GARRY SMITH Performing Organization Address City/State/ZIP Code Phon e Number [id number] MRA HEAD WITHOUT CONTRAST (10/28/2020 2:22 PM CDT) Specimen Narrative Performed At This result has an attachment that is no t available. PS360 Patient Name: BETO DELGADO Date of : 1935 Procedure: MRA HEAD WITHOUT CONTRAST Date of Service: 10/28/2020 -------- ADDENDUM #1 -------- Addendum: Additional images obtained. 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 The left posterior inferior cerebellar artery and right posterior inferior cerebellar artery appear to be patent. Left middle cerebral artery is grossly p atent. There is no discrete M2 or M3 identified. The right middle cerebral artery is grossly patent. There is luminal irregularity/narrowing involving the distal right anterior cerebral artery likely A3 segment. Mild luminal irregularity in the right A2 segment more proximally. There is mild luminal irregularity/narrowing involving the left A2 segment anterior c erebral artery. No anterior cerebral artery complete o cclusion. Finalized by: Elijah Quijano MD on 10/28/2020 4:47 PM C DT -------- ORIGINAL REPORT -------- EXAM: MRA HEAD WITHOUT CONTRAST INDICATION: Neuro deficit, acute, stroke suspected. TECHNIQUE: MRA of the brain performed wi thout IV contrast using time of flight imaging. MIP and 3D reformations generated and reviewed. COMPARISON(S): CT angiogram brain dated 10/28/2020. FINDINGS: Right intracranial vertebral artery is d ominant. The left intracranial vertebral artery is limited in evaluation. There is mild luminal irregularity. This is better appreciated on the CTA head dated 10/08. The visualized left posterior in ferior cerebellar artery is grossly patent. Origin of the right posterior inferior cerebellar artery is patent with the vessels incompletely imaged. The basilar a rtery, bilateral superior cerebellar art eries, and posterior cerebral arteries are grossly patent. The posterior communicating arteries are not well visualized. Limited evaluation of the middle cerebra l arteries demonstrates a grossly patent M1 and visualized M2 segments of the middle cerebral arteries. The M3 segments are not included on this limited exam. The A1 and proximal A2 segments of the ante rior cerebral arteries appear to be patent. The A3 and distal anterior cerebral arteries are not included on this exam. There is mild luminal narrowing involving the intracranial internal carotid arteries due to athe rosclerotic plaquing. IMPRESSION: 1. Dominant right vertebral artery with small left vertebral artery demonstrated luminal narrowing. This is better visualized on the previous study dated 10/28/2020. 2. The proximal middle cerebral arteries and anterior cerebral arteries are imaged on today's MRA and appear to be patent. The luminal irregularity/narrowing seen on the CTA involving the distal A2 segm ents of the anterior cerebral arteries a nd left M3 segment of the middle cerebral artery are not included on the MRA images and therefore not well evaluated on this follow-up exam. Edited by: lam 10/28/2020 4:07 PM CDT Finalized by: Elijah Quijano MD on 10/28/2020 4:17 PM C DT Patient/Procedure Information: [facility] MRN/TIFFANY: [id number] Order Number: [id number] Accession Number: [id number] Ordering Provider: GARRY SMITH Authorizing Provider: GARRY SMITH Procedure Note Interface, [facility] - 10/28/2020 4:49 PM CDT Patient Name: BETO DELGADO Date of : 1935 Procedure: MRA HEAD WITHOUT CONTRAST Date of Service: 10/28/2020 -------- ADDENDUM #1 -------- Addendum: Additional images obtained. 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 The left posterior inferior cerebellar artery and right posterior inferior cerebellar artery appear to be patent. Left middle cerebral artery is grossly p atent. There is no discrete M2 or M3 identified. The right middle cerebral artery is grossly patent. There is luminal irregularity/narrowing involving the distal right anterior cerebral artery likely A3 segment. Mild luminal irregularity in the right A2 segment more proximally. There is mild luminal irregularity/narrowing involving the left A2 segment anterior cerebral artery. No anterior cerebral artery complete occlusion. Finalized by: Elijah Quijano MD on 2020 4:47 PM CDT -------- ORIGINAL REPORT -------- EXAM: MRA HEAD WITHOUT CONTRAST INDICATION: Neuro deficit, acute, stroke suspected. TECHNIQUE: MRA of the brain performed wi thout IV contrast using time of flight imaging. MIP and 3D reformations generated and reviewed. COMPARISON(S): CT angiogram brain dated 10/28/2020. FINDINGS: Right intracranial vertebral artery is d ominant. The left intracranial vertebral artery is limited in evaluation. There is mild luminal irregularity. This is better appreciated on the CTA head dated 10/28/2020. The visualized left posterior inferior c erebellar artery is grossly patent. Origin of the right posterior inferior cerebellar artery is patent with the vessels incompletely imaged. 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 The posterior communicating arteries are not well visualized. Limited evaluation of the middle cerebra l arteries demonstrates a grossly patent M1 and visualized M2 segments of the middle cerebral arteries. The M3 segments are not included on this limited exam. The A1 and proximal A2 segments of the anterior cerebral arteri es appear to be patent. The A3 and distal anterior cerebral arteries are not included on this exam. There is mild luminal narrowing involving the intracranial internal carotid arteries due to atherosclerotic plaquing . IMPRESSION: 1. Dominant right vertebral artery with small left vertebral artery demonstrated luminal narrowing. This is better visualized on the previous study dated 10/28/2020. 2. The proximal middle cerebral arteries and anterior cerebral arteries are imaged on today's MRA and appear to be patent. The luminal irregularity/narrowing seen on the CTA involving the distal A2 segments of the anterior cerebral arteries and left M3 segment of the middle cerebral artery are not included on the MRA images and therefore not well evaluated on this follow-up exam. Edited by: lam 10/28/2020 4:07 PM CDT Finalized by: Elijah Quijano MD on 2020 4:17 PM CDT Patient/Procedure Information: [facility] MRN/TIFFANY: [id number] Order Number: [id number] Accession Number: [id number] Ordering Provider: GARRY SMITH Authorizing Provider: GARRY SMITH Performing Organization Address City/State/ZIP Code [facility] e Number [id number] INTUBATION (10/28/2020 2:02 PM CDT) Narrative Performed At Joshua Gonzalez DO 10/28/2020 2:16 PM INTUBATION Date/Time: 10/28/2020 2:02 PM Performed by: Joshua Gonzalez DO Authorized by: Joshua Gonzalez DO Consent: The procedure was performed in an emergent situation. Risks and benefits: risks, benefits and alternatives were discussed Consent given by: spouse Required items: required blood products, implants, devices, and special equipment available Patient identity confirmed: arm band Indications: airway protection Intubation method: video-assisted Patient status: paralyzed (RSI) Preoxygenation: nonrebreather mask Sedatives: etomidate Paralytic: rocuronium Laryngoscope size: Mac 3 Tube size: 8.0 mm Number of attempts: 1 Cricoid pressure: yes Cords visualized: yes Post-procedure assessment: chest rise an d ETCO2 monitor Breath sounds: equal Cuff inflated: yes ETT to lip: 22 cm Tube secured with: ETT carranza Chest x-ray interpreted by me. Chest x-ray findings: endotracheal tube in appropriate position Patient tolerance: patient tolerated the procedure wel l with no immediate complications CTA NECK (10/28/2020 12:50 PM CDT) Specimen Narrative Performed At PS360 Patient Name: BETO DELGADO Date of : 1935 Procedure: CTA NECK Date of Service: 10/28/2020 EXAM: CTA NECK, CTA BRAIN WITH PERFUSION INDICATION: Neuro deficit, acute, stroke suspected TECHNIQUE: 1. CT angiogram of the brain performed without and fol lowing IV contrast administration. MIP reformations generat ed and reviewed. 2. CT angiogram of the neck performed following the [facility] IV contrast injection. MIP reformations generated an d reviewed. 3. Brain perfusion images generated on an independent workstation including cerebral blood volume, cerebral blood flow, mean transit time and Tmax. COMPARISON(S): Head CT dated 10/28/2020 a t T10 01 hours FINDINGS: Noncontrast head CT: Remote left cerebral infarct, als o seen at the left PICA territory. Age-appropriate global parenchymal vol ume loss. No evidence of acute intra-axial hemorrhage. Mild/moderat e motion artifact on the exam. CT angiogram brain: Suboptimal contrast opacification of the intracranial vasculature, potentially on the basis of poor cardiac output. There is occlusion of the left A2/A3 junction and of the right A2 slightly more proximally with reconstitution of the se vessels beyond this point which is quite thready on the left. The rig ht middle cerebral artery is without large vessel occlusion or aneurysm. Similarly on the left, no large vessel occlusion. There is either very diminutive caliber or occlusion of the left M3 in the sylvi an fissure on image 155 of 280. Posteriorly, nondominant intracranial left vertebral a rtery with atheromatous multifocal luminal narrowing. Mild narrow ing involving the right intracranial vertebral artery. Basilar artery an d bilateral posterior cerebral arteries are without flow-limiting stenosis or aneurysm. Multifocal luminal irregularity of the right [employer] at the level of the crural cistern, likely on the bas is of atheromatous disease. Brain perfusion: Symmetric cerebral blood volume and m perico transit time without evidence of infarct or penumbra. CT angiogram neck: Left-sided aortic arch. Common orig in innominate and left common carotid artery. Carotid origins are unrema rkable bilaterally. Severe stenosis at the origin of the righ t vertebral artery which is the dominant vessel. There is occlusion of th e origin of the left vertebral artery which is reconstituted by muscul ar collaterals in the mid cervical spine with thready opacification thro ughout the remainder of the vessel with normal appearance of the distal V3 segment. There is atheromatous disease with soft and calcified plaquing at the carotid bifurcations bilaterally and distal common car otid arteries. No significant narrowing within the carotid vessels. Mode rate motion artifact at the upper neck hampering findings detailed assessment of the cervical internal carotid arteries. IMPRESSION: 1. No acute intracranial hemorrhage. 2. Occluded left A-2/A3 anterior cerebral artery and o ccluded right A2 slightly more proximally with reconstitution distally. There is thready reconstitution distally on the left. Findings may be r eal or artifactual. Consider MR angiogram for further assessm ent to include sedation to decreased motion artifact. 3. Very diminutive caliber of the left M3 within the s ylvian fissure versus occlusion. There is suboptimal contrast opacifi cation of the intracranial vasculature hampering fine detailed assessment. 4. Occluded origin of the left vertebral artery which is reconstituted at the mid cervical V3 segment, however is thready in opacification to the level of the V4 segment. There is severe stenosis at the origin of the right vertebral artery. Findings discussed with GARRY SMITH on 10/28/2020 12:46 PM CDT Finalized by: Ross David DO on 2020 12:51 PM CDT Patient/Procedure Information: [facility] MRN/TIFFANY: [id number] Order Number: [id number] Accession Number: [id number] Ordering Provider: GARRY SMITH Authorizing Provider: GARRY SMITH Procedure [facility] 10/28/2020 12:53 PM CDT Patient Name: BETO DELGADO Date of : 1935 Procedure: CTA NECK Date of Service: 10/28/2020 EXAM: CTA NECK, CTA BRAIN WITH PERFUSION INDICATION: Neuro deficit, acute, stroke suspected TECHNIQUE: 1. CT angiogram of the brain performed w ithout and following IV contrast administration. MIP reformations generated and reviewed. 2. CT angiogram of the neck performed fo llowing the same IV contrast injection. MIP reformations generated and reviewed. 3. Brain perfusion images generated on a n independent workstation including cerebral blood volume, cerebral blood flow, mean transit time and Tmax. COMPARISON(S): Head CT dated 10/28/2020 a t T10 01 hours FINDINGS: Noncontrast head CT: Remote left cerebra l infarct, also seen at the left PICA territory. Age-appropriate global parenchymal volume loss. No evidence of acute intra-axial hemorrhage. Mild/moderate motion artifact on the exam. CT angiogram brain: Suboptimal contrast opacification of the intracranial vasculature, potentially on the basis of poor cardiac output. There is occlusion of the left A2/A3 junction and of the right A2 slightly more proximally with reconstitution of these vessels beyond this point which is quite thready on the left. The right middle cerebral artery is without large vessel occlusion or aneurysm. Similarly on the left, no large vessel occlusion. There is either very diminuti ve caliber or occlusion of the left M3 in the sylvian fissure on image 155 of 280. Posteriorly, nondominant intracranial le ft vertebral artery with atheromatous multifocal luminal narrowing. Mild narrowing involving the right intracranial vertebral artery. Basilar artery and bilateral posterior cerebral arteries are without flow-limiting stenosis or aneurysm. Multifocal luminal irregularity of the right [employer] at the level of the crural cistern, likely on the basis of atheromatous disease. Brain perfusion: Symmetric cerebral bloo d volume and mean transit time without evidence of infarct or penumbra. CT angiogram neck: Left-sided aortic arc h. Common origin innominate and left common carotid artery. Carotid origins are unremarkable bilaterally. Severe stenosis at the origin of the right vertebral artery which is the dominant vessel. There is occlusion of t he origin of the left vertebral artery which is reconstituted by muscular collaterals in the mid cervical spine with thready opacification throughout the remainder of the vessel with normal appearance of the distal V3 segment. There is atheromatous disease with soft and calcified plaquing at the carotid bifurcations bilaterally and distal common carotid arteries. No significant narrowing within the carotid vessels. Moderate mot ion artifact at the upper neck hampering findings detailed assessment of the cervical internal carotid arteries. IMPRESSION: 1. No acute intracranial hemorrhage. 2. Occluded left A-2/A3 anterior cerebra l artery and occluded right A2 slightly more proximally with reconstitution distally. There is thready reconstitution distally on the left. Findings may be real or artifactual. Consider MR angiogram for further assess ment to include sedation to decreased motion artifact. 3. Very diminutive caliber of the left M 3 within the sylvian fissure versus occlusion. There is suboptimal contrast opacification of the intracranial vasculature hampering fine detailed assessment. 4. Occluded origin of the left vertebral artery which is reconstituted at the mid cervical V3 segment, however is thready in opacification to the level of the V4 segment. There is severe stenosis at the origin of the right vertebral artery. Findings discussed with GARRY SMITH on 10/28/2020 12:46 PM CDT Finalized by: Ross David DO on 2020 12:51 PM CDT Patient/Procedure Information: [facility] MRN/TIFFANY: [id number] Order Number: [id number] Accession Number: [id number] Ordering Provider: GARRY SMITH Authorizing Provider: GARRY SMITH Performing Organization Address City/State/ZIP Code Phon e Number PS360 CTA BRAIN WITH PERFUSION (10/28/2020 12:48 PM CDT) Specimen Narrative Performed At PS360 Patient Name: BETO DELGADO Date of : 1935 Procedure: CTA BRAIN WITH PERFUSION Date of Service: 10/28/2020 EXAM: CTA NECK, CTA BRAIN WITH PERFUSION INDICATION: Neuro deficit, acute, stroke suspected TECHNIQUE: 1. CT angiogram of the brain performed without and fol lowing IV contrast administration. MIP reformations generat ed and reviewed. 2. CT angiogram of the neck performed following the sa nc IV contrast injection. MIP reformations generated an d reviewed. 3. Brain perfusion images generated on an independent workstation including cerebral blood volume, cerebral blood flow, mean transit time and Tmax. COMPARISON(S): Head CT dated 10/28/2020 a t T10 01 hours FINDINGS: Noncontrast head CT: Remote left cerebral infarct, als o seen at the left PICA territory. Age-appropriate global parenchymal vol ume loss. No evidence of acute intra-axial hemorrhage. Mild/moderat e motion artifact on the exam. CT angiogram brain: Suboptimal contrast opacification of the intracranial vasculature, potentially on the basis of poor cardiac output. There is occlusion of the left A2/A3 junction and of the right A2 slightly more proximally with reconstitution of the se vessels beyond this point which is quite thready on the left. The rig ht middle cerebral artery is without large vessel occlusion or aneurysm. Similarly on the left, no large vessel occlusion. There is either very diminutive caliber or occlusion of the left M3 in the sylvi an fissure on image 155 of 280. Posteriorly, nondominant intracranial left vertebral a rtery with atheromatous multifocal luminal narrowing. Mild narrow ing involving the right intracranial vertebral artery. Basilar artery an d bilateral posterior cerebral arteries are without flow-limiting stenosis or aneurysm. Multifocal luminal irregularity of the right [employer] at the level of the crural cistern, likely on the bas is of atheromatous disease. Brain perfusion: Symmetric cerebral blood volume and m perico transit time without evidence of infarct or penumbra. CT angiogram neck: Left-sided aortic arch. Common orig in innominate and left common carotid artery. Carotid origins are unrema rkable bilaterally. Severe stenosis at the origin of the righ t vertebral artery which is the dominant vessel. There is occlusion of th e origin of the left vertebral artery which is reconstituted by muscul ar collaterals in the mid cervical spine with thready opacification thro ughout the remainder of the vessel with normal appearance of the distal V3 segment. There is atheromatous disease with soft and calcified plaquing at the carotid bifurcations bilaterally and distal common car otid arteries. No significant narrowing within the carotid vessels. Mode rate motion artifact at the upper neck hampering findings detailed assessment of the cervical internal carotid arteries. IMPRESSION: 1. No acute intracranial hemorrhage. 2. Occluded left A-2/A3 anterior cerebral artery and o ccluded right A2 slightly more proximally with reconstitution distally. There is thready reconstitution distally on the left. Findings may be r eal or artifactual. Consider MR angiogram for further assessm ent to include sedation to decreased motion artifact. 3. Very diminutive caliber of the left M3 within the s ylvian fissure versus occlusion. There is suboptimal contrast opacifi cation of the intracranial vasculature hampering fine detailed assessment. 4. Occluded origin of the left vertebral artery which is reconstituted at the mid cervical V3 segment, however is thready in opacification to the level of the V4 segment. There is severe stenosis at the origin of the right vertebral artery. Findings discussed with GARRY SMITH on 10/28/2020 12:46 PM CDT Finalized by: Ross David DO on 2020 12:51 PM CDT Patient/Procedure Information: [facility] MRN/TIFFANY: [id number] Order Number: [id number] Accession Number: [id number] Ordering Provider: GARRY SMITH Authorizing Provider: GARRY SMITH Procedure Note Interface, [facility] - 10/28/2020 12:53 PM CDT Patient Name: BETO DELGADO Date of : 1935 Procedure: CTA BRAIN WITH PERFUSION Date of Service: 10/28/2020 EXAM: CTA NECK, CTA BRAIN WITH PERFUSION INDICATION: Neuro deficit, acute, stroke suspected TECHNIQUE: 1. CT angiogram of the brain performed w ithout and following IV contrast administration. MIP reformations generated and reviewed. 2. CT angiogram of the neck performed fo llowing the same IV contrast injection. MIP reformations generated and reviewed. 3. Brain perfusion images generated on a n independent workstation including cerebral blood volume, cerebral blood flow, mean transit time and Tmax. COMPARISON(S): Head CT dated 10/28/2020 a t T10 01 hours FINDINGS: Noncontrast head CT: Remote left cerebra l infarct, also seen at the left PICA territory. Age-appropriate global parenchymal volume loss. No evidence of acute intra-axial hemorrhage. Mild/moderate motion artifact on the exam. CT angiogram brain: Suboptimal contrast opacification of the intracranial vasculature, potentially on the basis of poor cardiac output. There is occlusion of the left A2/A3 junction and of the right A2 slightly more proximally with reconstitution of these vessels beyond this point which is quite thready on the left. The right middle cerebral artery is without large vessel occlusion or aneurysm. Similarly on the left, no large vessel occlusion. There is either very diminuti ve caliber or occlusion of the left M3 in the sylvian fissure on image 155 of 280. Posteriorly, nondominant intracranial le ft vertebral artery with atheromatous multifocal luminal narrowing. Mild narrowing involving the right intracranial vertebral artery. Basilar artery and bilateral posterior cerebral arteries are without flow-limiting stenosis or aneurysm. Multifocal luminal irregularity of the right [employer] at the level of the crural cistern, likely on the basis of atheromatous disease. Brain perfusion: Symmetric cerebral bloo d volume and mean transit time without evidence of infarct or penumbra. CT angiogram neck: Left-sided aortic arc h. Common origin innominate and left common carotid artery. Carotid origins are unremarkable bilaterally. Severe stenosis at the origin of the right vertebral artery which is the dominant vessel. There is occlusion of t he origin of the left vertebral artery which is reconstituted by muscular collaterals in the mid cervical spine with thready opacification throughout the remainder of the vessel with normal appearance of the distal V3 segment. There is atheromatous disease with soft and calcified plaquing at the carotid bifurcations bilaterally and distal common carotid arteries. No significant narrowing within the carotid vessels. Moderate mot ion artifact at the upper neck hampering findings detailed assessment of the cervical internal carotid arteries. IMPRESSION: 1. No acute intracranial hemorrhage. 2. Occluded left A-2/A3 anterior cerebra l artery and occluded right A2 slightly more proximally with reconstitution distally. There is thready reconstitution distally on the left. Findings may be real or artifactual. Consider MR angiogram for further assess ment to include sedation to decreased motion artifact. 3. Very diminutive caliber of the left M 3 within the sylvian fissure versus occlusion. There is suboptimal contrast opacification of the intracranial vasculature hampering fine detailed assessment. 4. Occluded origin of the left vertebral artery which is reconstituted at the mid cervical V3 segment, however is thready in opacification to the level of the V4 segment. There is severe stenosis at the origin of the right vertebral artery. Findings discussed with GARRY SMITH on 10/28/2020 12:46 PM CDT Finalized by: Ross David DO on 2020 12:51 PM CDT Patient/Procedure Information: [facility] MRN/TIFFANY: [id number] Order Number: [id number] Accession Number: [id number] Ordering Provider: GARRY SMITH Authorizing Provider: GARRY SMITH Performing Organization Address City/State/ZIP Code Phon e Number [id number] EKG (10/28/2020 12:36 PM CDT) Pathologist Fernando wynn EKG [facility] Normal sinus rhythm Right bundle branch block Septal infarct , age undetermined Abnormal ECG When compared with ECG of 02-OCT-2015 13:45, Nonspecific T wave abnormality no longer evident in La teral leads QT has lengthened Ventricular Rate: 92 BPM Atrial Rate: 92 BPM P-R Interval: 178 ms QRS Duration: 144 ms Q-T Interval: 420 ms QTc Calculation(Bazett): 519 ms Calculated P Laurier: 53 degrees Calculated R Laurier: -19 degrees Calculated T Laurier: 49 degrees Specimen Narrative Performed At This result has an attachment that is no t available. Performing Organization Address City/State/ZIP Code Phon e Number [facility] GLUCOSE BY METER, POCT (10/28/2020 12:20 PM CDT) [facility] Fernando wynn Glucose POC 120 (H) 70 - 99 mg/dL [facility] O POINT OF CARE TESTING Specimen Blood - Blood specimen (specimen) Performing Organization Address City/State/ZIP Code Phon e Number [facility] [address] [place], [place] [address] OF CARE TESTING CRITICAL CARE (10/28/2020 12:19 PM CDT) Narrative Performed At Joshua Gonzalez DO 10/28/2020 2:16 PM CRITICAL CARE Performed by: Joshua Gonzalez DO Authorized by: Joshua Gonzalez DO Critical care time (minutes): 60. Critical care was necessary to treat or prevent imminent or life-threatening deterioration of the following condit ions: LAB PACK CHEMIST failure or compromise. Critical care was time spent personally by me on the f ollowing activities: discussions with consultants, development of treatment plan with patient or surrogate, interpretation of cardiac output measure ments, evaluation of patient's response to treatment, examination of patien t, obtaining history from patient or surrogate, ordering and performing treatments and interventions, ordering and review of la boratory studies, ordering and review of radiographic studies, pulse oximetry, re-ephraim luation of patient's condition, review of old charts and vent ilator management. GLYCATED HEMOGLOBIN (10/28/2020 12:18 PM CDT) Pathologist Sig nature Hgb A1C 5.1 <5.7 % [facility] Estimated Average 100 mg/dL [facility] Y Glucose Specimen Blood - Blood specimen (specimen) Narrative Performed At ADA Interpretive Guidelines [facility] When Using HbA1c for Diagnosis Prediabetes 5.7 - 6.4% Diabetes >= 6.5% When Using HbA1c for Monitoring a Person Known to Have Diabetes, < 7% is a reasonable goal for many nonpregna nt adults, < 7.5% should be considered in children and adolescents (<19 years) with type 1 diab etes. ADA Standards of Medical Care in Diabete s - 2019 Performing Organization Address [facility] Phon e Number [facility] [address] [place] [address] TROPONIN I (10/28/2020 12:18 PM CDT) Pathologist Sig nature Troponin I 0.000 0.000 - 0.033 ng/mL [address] Specimen Blood - Blood specimen (specimen) Performing Organization Address [facility] Phon e Number [place] [address] [facility] [address] [place] [id number] PTT (10/28/2020 12:18 PM CDT) Pathologist Sig [facility] APTT 23 (L) 24 - [address] Specimen Blood - Blood specimen (specimen) Performing Organization Address [facility] Phon e Number [address] [place] [address], [place] [address] PROTIME/INR (10/28/2020 12:18 PM CDT) Pathologist Sig nature Protime 15.0 (H) 12.0 - 14.[address] INR 1.3 (H) 0.9 - 1.[address] Specimen Blood - Blood specimen (specimen) Narrative Performed At INR Standard Intensity = (2.0 - 3.0) [address] INR Higher Intensity = (2.5 - 3.5) Performing Organization Address [facility] Phon e Number [address] [place] [address], [place] [address] BASIC METABOLIC PANEL (10/28/2020 12:18 PM CDT) Pathologist Sig [place] Glucose 113 (H) 70 - 100 mg/dL [address] BUN 16 6 - 22 mg/dL [address] Creatinine 1.06 0.80 - 1.[address] mg/dL BUN/Creatinine Ratio 15.1 10.0 - 25.[address] Sodium 132 (L) 135 - 145 meq/L [address] Potassium 3.8 3.5 - 5.3 meq/L [address] Chloride 99 99 - 110 meq/L [address] CO2 19 (L) 20 - 29 meq/L [address] Anion Gap with K 18 6 - 20 meq/L [address] Calcium 9.7 8.5 - 10.5 mg/dL [address] Age [address] eGFR Non- 66 >=[address] Martiniquais mL/min/1.73m2 eGFR 80 >=[address] mL/min/1.73m2 Specimen Blood - Blood specimen (specimen) Performing Organization Address City/State/ZIP Code Phon e Number [address], [place] [address] COMPLETE BLOOD COUNT WITHOUT DIFFERENTIAL (10/28/2020 12:18 PM CDT) Pathologist Sig [place] WBC 13.1 (H) 4.0 - 11.0 K/uL [address] RBC 3.80 (L) 4.40 - 5.80 M/uL [address] Hemoglobin 12.7 (L) 13.5 - 17.5 g/dL [address] Hematocrit 34.9 (L) 40.0 - 50.0 % [address] MCV 91.8 80.0 - 98.[address] MCH 33.4 25.5 - 34.[address] MCHC 36.4 31.5 - 36.5 g/dL [address] RDW-CV 12.2 11.5 - 15.5 % [address] RDW-SD 40.9 35.5 - 50.[address] Platelet Count 246 140 - 400 K/uL [address] MPV 9.7 8.5 - 12.[address] Specimen Blood - Blood specimen (specimen) Performing Organization Address City/State/ZIP Code Phon e Number [place] [address] [facility] [address] [place] [address] documented in this encounter Visit Diagnoses Diagnosis Cerebrovascular accident (CVA), unspecif ied mechanism (HCC) - Primary Stomatitis Stomatitis and mucositis, unspecified Ischemic stroke (HCC) Acute confusional state Delirium due to conditions classified el sewhere documented in this encounter Discharge Diagnoses Not on filedocumented in this encounter Administered Medications Medication Order MAR Action Action Date Dose Rate Site acetaminophen (TYLENOL) tablet 650 mg 650 mg, Oral, Every four hours prn, Starting on Mon at 1155, Until Discontinued, other (Specify), pain scor e 1-3, Pain stratification is defined as follows for either analog scale (0-10) or critical car e pain observation tool (CPOT, 0-8). a. No pain (0) b. Mild debbie n level (1-3) c. Moderate pain level (4-6) d. Severe pain level (greater than or eq ual to 7) Adult patients: Total dose of acetaminophen from all acetaminophen con taining products should not exceed 4 grams (4,000 mg) per day. Pediatric Patients 0 - 3 months: Maximum of 60 mg/kg/24 hours of acetaminophen. Pediatric Patients old er than 3 months: Maximum of 75 mg/kg/24 hours of acetaminophen (Never exceeding 4 grams/24 polina rs). aspirin chewable tablet 81 mg Given 11/03/2020 8:32 AM CDT 81 mg 81 mg, Oral, Daily, First dose (after last modification) on 10/31/20 at 0900, Until Discontinued Given 11/02/2020 8:25 AM CDT 81 mg Given 11/01/2020 8:58 AM CDT 81 mg atorvaSTATin (LIPITOR) tablet 80 mg Given 11/03/2020 8:33 AM CDT 80 mg 80 mg, Oral, Daily, First dose (after last modification) on 10/31/20 at 0900, Until Discontinued Given 11/02/2020 8:24 AM CDT 80 mg Given 11/01/2020 8:58 AM CDT 80 mg bisacodyl (DULCOLAX) suppository 10 mg 10 mg, Rectal, One time a day prn, Starting on 10/08 at 1529, Until Discontinued, constipation, Use second for constipatio n. If patient cannot take oral medications, use first for constipation. clopidogrel (PLAVIX) tablet 75 mg Given 11/03/2020 8:33 AM CDT 75 mg 75 mg, Oral, Daily, First dose on Mon10/30/20 at 0900, Until Discontinued Given 11/02/2020 8:25 AM CDT 75 mg Given 11/01/2020 8:58 AM CDT 75 mg haloperidol lactate (HALDOL) injection s olution 2.5 mg 2.5 mg, IV, Every six hours prn, Starting on Mon at 1344, Until Discontinued, other (Specify), nausea/vomiting, 0.5 mL , Use SECOND for nausea/vomiting. If ineffective and ondansetron used, call physician for alternative Do not further dilute with 0 .9% sodium chloride. If preference is to further dilute for IV administration: first draw up pa tient-specific dose, then dilute to 10ml with dextrose 5% water. Ok to flush wi th 0.9% Sodium Chloride. heparin (porcine) injection solution Given 11/03/2020 5:03 AM C DT 5,000 Units 5,000 Units 5,000 Units, Subcutaneous, Every eight hours, First dose on Mon10/31/20 at 1400, Until Discontinued, 1 mL Given 11/02/2020 8:36 PM CDT 5,000 Units Given 11/02/2020 2:46 PM CDT 5,000 Units hydrALAZINE (APRESOLINE) injection solut ion 20 mg 20 mg, IV, Every three hours prn, Starting on 10/30 at 0902, Until Discontinued, specified parameter, systo lic blood pressure greater than 220, 1 mL, Use SECOND for hypertension Call MD if target not met after 3 consecutive prn dosages of either labetalol or hydralazine. labetalol (NORMODYNE;TRANDATE) IV solution 20 Given 10:09 PM CDT 20 mg mg 20 mg, IV, Every three hours prn, Starting on Mon10/30/20 at 0902, Until Discontinued, specified parameter, systolic blood pressure greater than 220, 20 mL, Use FIRST for hypertension Call MD if target not met after 3 consecutive prn dosages of either labetalol or hydralazine lisinopril (PRINIVIL, ZESTRIL) tablet 20 mg Given 11/03/2020 8:32 AM CDT 20 mg 20 mg, Oral, Two times a day, First dose (after last modification) on 11/02/20 at 2100, Until Discontinued Given 11/02/2020 7:56 PM CDT 20 mg nalOXone (NARCAN) injection solution (vi al) 0.2 mg 0.2 mg, Injection, Every two minutes prn , Starting on Mon10/28/20 at 1344, Until Discontinued, other (Specify), opioid induced respirat ory depression - PARTIAL reversal, 0.5 mL, PARTIAL REVERSAL/RESPI RATORY DEPRESSION If respiratory rate less than 8/minute - call rapid response and administer (un til respiratory rate increases to 10/minute). Give IV (preferred), IM or S UBQ nalOXone (NARCAN) injection solution (vi al) 0.4 mg 0.4 mg, Injection, Every two minutes prn , Starting on Mon10/28/20 at 1344, Until Discontinued, other (Specify), opioid in duced respiratory arrest - FULL reversal, 1 mL, FULL REVERSAL/RESPIRATORY ARREST If patient is not breathing - call CODE BLUE and administer. Give IV (preferred), IM or SUBQ ondansetron (ZOFRAN) injection solution 4 mg Given 10/31/2020 7:36 PM CDT 4 mg 4 mg, IV, Every four hours prn, Starting on Mon10/28/20 at 1344, Until Discontinued, nausea, vomiting, 2 mL, Use FIRST. If ineffective after 15 minutes use haloperidol if ordered for nausea/vomiting If preference is to further dilute for IV administration: First draw up patient-specific dose, then dilute to 10 mL with 0.9% sodium chloride. QUEtiapine (SEROquel) tablet 25 mg Given 11/02/2020 7:56 PM CDT 25 mg 25 mg, Oral, Bedtime, First dose on 10/31/20 at 2100, Until Discontinued Given 11/01/2020 8:21 PM CDT 25 mg Given 10/31/2020 7:36 PM CDT 25 mg senna-docusate sodium Given 11/03/2020 8:32 AM CDT 1 tablet (SENOKOT-S;PERICOLACE) tablet 1 tablet 1 tablet, Feeding tube, Two times a day, First dose (after last modification) on Mon10/30/20 at 2100, Until Discontinued, Hold if diarrhea Given 11/02/2020 7:56 PM CDT 1 tablet Given 11/02/2020 8:25 AM CDT 1 tablet sodium chloride 0.9% flush (adult) 10 mL Given 11/02/2020 10:46 AM CDT 10 mL 10 mL, IV, Two times a day and prn, First dose on Mon10/28/20 at 2100, Until Discontinued, 10 mL, Flush PIV line as scheduled and as often as necessary before and after meds. Use a push / pause technique when flushing to create turbulence. Given 10/31/2020 8:24 AM CDT 10 mL Given 10/30/2020 8:45 AM CDT 10 mL sodium chloride 0.9% flush (adult) 10 mL Given 11/03/2020 8:33 AM CDT 10 mL 10 mL, IV, Two times a day and prn, First dose on Mon10/28/20 at 2100, Until Discontinued, 10 mL, Flush PIV line as scheduled and as often as necessary before and after meds. Use a push / pause technique when flushing to create turbulence. Given 11/02/2020 7:57 PM CDT 10 mL Given 11/01/2020 8:21 PM CDT 10 mL Medication Order MAR Action Action Date Dose Rate Site atorvaSTATin (LIPITOR) tablet 40 Given 10/29/2020 9:34 AM CDT 4 0 mg mg 40 mg, Feeding tube, Daily, First dose on Mon10/29/20 at 0905, Until Discontinued barium sulfate (E-Z DISK) tablet 700 mg Given 11/02/2020 11:14 AM CDT 700 mg 700 mg, Oral, Now imaging, 1 dose, Starting on Mon11/02/20 at 1111, Until Mon11/02/20 at 1114, E-Z DISK barium sulfate (VARIBAR) suspension 10 m L Given 11/02/2020 11:14 AM CDT 10 mL 10 mL, Oral, Now imaging, 1 dose, Starting on Mon11/02/20 at 1111, Until Mon11/02/20 at 1114, 148 mL, VARIBAR Thin Liquid suspension barium sulfate 40% (VARIBAR) suspension 120 Given 10/08 11:13 AM CDT 120 mL mL 120 mL, Oral, Now imaging, 1 dose, Starting on Mon11/02/20 at 1110, Until Mon11/02/20 at 1113, 240 mL, VARIBAR [place] suspension barium sulfate 40% (VARIBAR) suspension 20 mL Given 11/02/2020 11:13 AM CDT 20 mL 20 mL, Oral, Now imaging, 1 dose, Starting on Mon11/02/20 at 1111, Until Mon11/02/20 at 1113, 240 mL, VARIBAR Honey suspension barium sulfate 40% paste (VARIBAR PUDDING) Given 11/02/2020 11:1 3 AM CDT 5 mL suspension 5 mL 5 mL, Oral, Now imaging, 1 dose, Starting on Mon11/02/20 at 1110, Until Mon11/02/20 at 1113, 230 mL, VARIBAR Pudding paste barium sulfate 98% powder (EZ-HD) suspension 5 Given 0 11/02/2020 11:15 AM CDT 5 mL mL 5 mL, Oral, Now imaging, 1 dose, Starting on Mon11/02/20 at 1111, Until Mon11/02/20 at 1115, 135 mL, EZ-HD chlorhexidine (PERIDEX) 0.12 % solution 15 mL Given 10/30/2020 12:27 AM CDT 15 mL 15 mL, Mouth/Throat, Two times a day, First dose on Mon10/29/20 at 0000, Until Discontinued, 473 mL Given 10/29/2020 2:00 PM CDT 15 mL Given 10/29/2020 12:25 AM CDT 15 mL etomidate (AMIDATE) IV solution 20 mg Given 10/28/2020 1:08 PM CDT 20 mg 20 mg, IV, Now, 1 dose, On Mon10/28/20 at 1330, 10 mL famotidine (PEPCID) IV solution 20 mg Given 10/28/2020 9:11 PM CDT 20 mg 20 mg, IV, Two times a day, First dose on Mon10/28/20 at 1355, Until Discontinued, 2 mL, Medication stored in refrigerator. First draw up patient specific dose, then dilute to 10 mL with 0.9% sodium chloride and administer over 2 minutes. Given 10/28/2020 3:05 PM CDT 20 mg famotidine (PEPCID) tablet 20 mg Given 10/29/2020 9:34 AM CDT 20 mg 20 mg, Feeding tube, Two times a day, First dose on Kelly 10/29/20 at 0900, Until Discontinued fentaNYL 20mcg/ml (2000mcg/100 ml) New Bag 10/29/2020 11:31 PM 75 mcg/hr 3.8 mL/hr 0.9% sodium chloride IV solution CDT 0-200 mcg/hr (0-10 mL/hr), IV, at 0-10 mL/hr, Titrate, Starting on Mon10/28/20 at 1455, Until Mon10/30/20 at 0953, 100 mL, If more than one infusion is ordered to target RASS, use fentanyl infusion titrated to 100 mcg/hr. When fentanyl infusion is greater than 100 mcg/hr, to meet RASS goal, initiate additional sedative infusion to achieve RASS goal. Initiate infusion at 50 mcg/hr. Increase infusion rate by 25 mcg/hr every 15 minutes until patient is comfortable and has achieved a RASS score of 0 to -1. If the RASS score is less than or AT GOAL on current infusion rate and pain is controlled, decrease/wean infusion by 25 mcg/hr every 15 minutes (recommended for acute use). Document titrations in One Chart (MAR or I&O Flowsheet medication group). Patient must be intubated while on this infusion or in the process of weaning post-extubation. Call prescriber to attain weaning/discontinuation orders if the patient is not intubated. New Bag 10/29/2020 2:32 AM CDT 75 mcg/hr 3.8 mL/hr Rate Change 10/28/2020 10:12 PM CDT 75 mcg/hr 3.8 mL/hr fentanyl IV BOLUS taken from INFUSION Given 10/28/2020 8:09 PM CDT 50 mcg *ADULT* 50 mcg, IV, Every fifteen minutes prn, Starting on 10/28/20 at 1350, Until Mon10/30/20 at 0953, other (Specify), see admin instructions, If not to sedation goal, use this fentanyl bolus first (dose per this order). If after 5 minutes goal not achieved, then titrate fentanyl infusion per the infusion order. Given 10/28/2020 3:38 PM CDT 50 mcg Given 10/28/2020 3:01 PM CDT 50 mcg gadobutrol (GADAVIST) 1 MMOL/ML solution 7.5 Given 12:56 PM CDT 7.5 mL mL 7.5 mL, IV, Now imaging, 1 dose, Starting on Kelly 10/29/20 at 1256, Until Kelly 10/29/20 at 1256, 7.5 mL iohexol (OMNIPAQUE) 300 mg/mL solution 100 Given 10/28/2020 12:49 PM CDT 100 mL mL 100 mL, IV, Now imaging, 1 dose, Starting on Mon10/28/20 at 1248, Until Mon10/28/20 at 1249, 100 mL iohexol (OMNIPAQUE) 350 mg/mL solution 1 00 mL Given 10/30/2020 12:17 AM CDT 70 mL 100 mL, IV, Now imaging, 1 dose, Starting on Mon10/30/20 at 0016, Until Mon10/30/20 at 0017, 100 mL lisinopril (PRINIVIL, ZESTRIL) tablet 20 mg Given 11/01/2020 8:58 AM CDT 20 mg 20 mg, Oral, DAILY, First dose on 10/31/20 at 1245, Until Discontinued Given 10/31/2020 1:22 PM CDT 20 mg lisinopril (PRINIVIL, ZESTRIL) tablet 30 mg Given 11/02/2020 8:24 AM CDT 30 mg 30 mg, Oral, DAILY, First dose (after last modification) on Mon11/02/20 at 0900, Until Discontinued LORazepam (ATIVAN) 2 mg/mL injection solution Given 12:22 PM CDT 2 mg 2 mg 2 mg, IV, One time, 1 dose, On Mon10/28/20 at 1325, 1 mL, If preference is to further dilute for IV administration: First draw up patient-specific dose, then dilute with EQUAL VOLUME of 0.9% sodium chloride magnesium sulfate 2 g/50 mL premixed IV Given 10/29/2020 7:44 A M CDT 2 g solution 2 g, IV, Now, 1 dose, On Kelly 10/29/20 at 0655, 50 mL magnesium sulfate 2 gm/50 mL IV solution 2 g Given 11/03/2020 10:26 AM CDT 2 g 2 g, IV, One time, 1 dose, On 11/03/20 at 0925, 50 mL niCARdipine (CARDENE) 25 mg in Rate Change 10/28/2020 1:46 PM CDT 5 mg/hr 50 mL/hr sodium chloride 0.9% 250 mL (Conc: 0.1 mg/mL) 0-15 mg/hr (0-150 mL/hr), IV, at 0-150 mL/hr, Titrate, Starting on Mon10/28/20 at 1340, Until Mon10/30/20 at 1348, 250 mL, Initiate infusion at 5 mg/hour. Increase infusion by 2.5 mg/hour every 15 minutes to keep SBP < 220 mmHg and DBP < 120 mmHg. When weaning, decrease infusion by 2.5 mg/hour every 4 hours as tolerated to achieve hemodynamic goal. Document titrations in One Chart (MAR or I&O Flowsheet medication group). . Rate Change 10/28/2020 1:23 PM CDT 7.5 mg/hr 75 mL/hr New Bag 10/28/2020 12:50 PM CDT 5 mg/hr 50 mL/hr NORepinephrine (LEVOPHED) Rate Change 10/29/2020 3:03 AM 0.03 mcg /kg/min 4.6 mL/hr 8 mg in sodium chloride CDT 0.9% 250 mL (conc: 32 mcg/mL) 0-1 mcg/kg/min 81 kg (0-151.875 mL/hr, rounded to 0-151.9 mL/hr), IV, at 0-151.9 mL/hr, Titrate, Starting on Mon10/28/20 at 1635, Until Mon10/30/20 at 0903, 250 mL, Initiate the infusion at 0.03-0.1 mcg/kg/minute. Increase or decrease the infusion by 0.01 to 0.02 mcg/kg/min every minute to keep SBP between 90-100 mmHg. When discontinuing or weaning, decrease dose gradually by 0.01 - 0.02 mcg/kg/minute every 5 minutes as tolerated to prevent severe hypotension. Document titrations in One Chart (MAR or I&O Flowsheet medication group). Central line preferred if available. Acceptable to give peripherally for urgent need and one-time administration. Pursue a central line for continuous use greater than 24 hours. [facility] [place] Evaluate for transfer to critical care if dose exceeds 0.1 mcg/kg/min. Rate Change 10/29/2020 2:17 AM CDT 0.02 mcg/kg/min 3 mL/hr Rate Change 10/29/2020 1:06 AM CDT 0.03 mcg/kg/min 4.6 mL/hr polyethyl glycol-propyl glycol (SYSTANE) Given 10/30/2020 8:45 AM CDT 1 drop ophthalmic solution 1 drop 1 drop, Both eyes, Every four hours, First dose on Mon10/28/20 at 1355, Until Discontinued, 15 mL Given 10/30/2020 3:50 AM CDT 1 drop Given 10/30/2020 12:27 AM CDT 1 drop propofol (DIPRIVAN) 1000 mg/100 mL IV em ulsion 1 dose, Starting on Mon10/28/20 at 1302, Until 10/08 at 1312, AndersonGabrielle: cabinet override propofol (DIPRIVAN) 1000 Rate Change 10/28/2020 2:30 PM 60 mcg/kg /min 29.2 mL/hr mg/100 mL IV emulsion CDT 0-50 mcg/kg/min 81 kg (0-24.3 mL/hr), IV, at 0-24.3 mL/hr, Titrate, Starting on Mon10/28/20 at 1430, Until Mon10/28/20 at 1439, 100 mL, Initiate the infusion at 20 mcg/kg/min. Increase the infusion by 5 - 10 mcg/kg/min every 3 minutes as needed until a RASS score of -5 is achieved. If the RASS score is <-5 on current infusion rate, decrease the infusion by 5 - 10 mcg/kg/min every 5 minutes until a RASS score of -5 is achieved. Infusion, tubing and cap (needleless connector) should be changed every 12 hours. Document titrations in One Chart (MAR or I&O Flowsheet medication group). Check ABG, BMP, lactic acid level and CPK daily. Discontinue lactic acid level and CPK when propofol discontinued. Rate Change 10/28/2020 1:15 PM CDT 50 mcg/kg/min 24.3 mL/hr New Bag 10/28/2020 1:12 PM CDT 30 mcg/kg/min 14.6 mL/hr propofol (DIPRIVAN) 1000 New Bag 10/30/2020 3:50 AM CDT 20 mc g/kg/min 9.7 mL/hr mg/100 mL IV emulsion 0-50 mcg/kg/min 81 kg (0-24.3 mL/hr), IV, at 0-24.3 mL/hr, Titrate, Starting on Mon10/28/20 at 1455, Until Mon10/30/20 at 0953, 100 mL, Initiate the infusion at 20 mcg/kg/min Titrate the infusion by 5-10 mcg/kg/min every 3 minutes as needed If RASS score is less than or AT GOAL on current infusion rate, decrease/wean infusion by 5-10 mcg/kg/min at least every 4 hours to lowest effective dose. After spontaneous breathing trial, restart sedation at half the rate previously required Propofol titration goal: RASS 0 to - 1 : Suggested level of sedation to facilitate mechanical ventilation Infusion, tubing and cap (needleless connector) should be changed every 12 hours Chart both the rate of infusion and the dose mcg/kg/min New Bag/Tubing 10/29/2020 8:06 PM CDT 20 mcg/kg/min 9.7 mL/hr Rate Verify 10/29/2020 7:00 PM CDT 20 mcg/kg/min 9.7 mL/hr rocuronium (ZEMURON) IV solution (vial) 80 mg Given 10/28/2020 1:29 PM CDT 80 mg 80 mg, IV, Now, 1 dose, On Mon10/28/20 at 1330, 8 mL, WARNING: Paralyzing Agent - causes RESPIRATORY ARREST - patient MUST be ventilated. senna-docusate sodium Given 10/29/2020 9:34 AM CDT 1 tablet (SENOKOT-S;PERICOLACE) tablet 1 tablet 1 tablet, Feeding tube, Two times a day, First dose (after last modification) on Mon10/28/20 at 2100, Until Discontinued, Hold if diarrhea Given 10/28/2020 8:34 PM CDT 1 tablet sodium chloride 0.9% IV solution New Bag 10/31/2020 7:05 AM CDT 100 mL/hr IV, at 100 mL/hr, Continuous, Starting on Mon10/28/20 at 1320, Until 10/31/20 at 1242, 1,000 mL New Bag 10/30/2020 8:01 PM CDT 100 mL/hr New Bag 10/29/2020 8:36 PM CDT 100 mL/hr documented in this encounter Active and Recently Administered Medications Times are shown in CDT. Medication Order 11/01/2020 11/02/2020 11/03/2020 aspirin chewable tablet 81 mg 0858 (Given - Provider: Julieta Lino RN) 0825 (Given - Provider: Bonita Gomes RN) 0832 (Given - Provider: Bonita Gomes RN) 81 mg, Oral, Daily, First dose (after la st modification) on 10/31/20 at 0900, Until Discontinued atorvaSTATin (LIPITOR) tablet 80 mg 0858 (Given - Provider: Julieta Lino RN) 0824 (Given - Provider: Bonita Gomes RN) 0833 (Given - Provider: Bonita Gomes RN) 80 mg, Oral, Daily, First dose (after la st modification) on 10/31/20 at 0900, Until Discontinued barium sulfate (E-Z DISK) tablet 700 mg (COMPLETED) 1114 (Given - Provider: Alan Mayo MD - Comment: LOT: [id number]) 700 mg, Oral, Now imaging, 1 dose, Start ing on Mon11/02/20 at 1111, Until Mon11/02/20 at 1114, E-Z DISK barium sulfate (VARIBAR) suspension 10 mL (COMPLETED) 1114 (Given - Provider: Alan Mayo MD - Comment: LOT: [id number]) 10 mL, Oral, Now imaging, 1 dose, Starti ng on Mon11/02/20 at 1111, Until Mon11/02/20 at 1114, 148 mL, VARIBAR Thin Liquid suspension barium sulfate 40% (VARIBAR) suspension 120 mL (COMPLETED) 1113 (Given - Provider: Alan Mayo MD - Comment: LOT: [id number]) 120 mL, Oral, Now imaging, 1 dose, Start ing on Mon11/02/20 at 1110, Until Mon11/02/20 at 1113, 240 mL, VARIBAR [place] suspension barium sulfate 40% (VARIBAR) suspension 20 mL (COMPLETED) 1112 (Given - Provider: Alan Mayo MD - Comment: LOT: [id number]) 20 mL, Oral, Now imaging, 1 dose, Starti ng on Mon11/02/20 at 1111, Until Mon11/02/20 at 1113, 240 mL, VARIBAR Honey suspension barium sulfate 40% paste (VARIBAR PUDDING) suspension 5 mL ( COMPLETED) 1112 (Given - Provider: Alan Mayo MD - Comment: [id number]) 5 mL, Oral, Now imaging, 1 dose, Startin g on Mon11/02/20 at 1110, Until Mon11/02/20 at 1113, 230 mL, VARIBAR Pudding paste barium sulfate 98% powder (EZ-HD) suspension 5 mL (COMPLETED ) 1114 (Given - Provider: Alan Mayo MD - Comment: LOT: [id number]) 5 mL, Oral, Now imaging, 1 dose, Startin g on Mon11/02/20 at 1111, Until Mon11/02/20 at 1115, 135 mL, EZ-HD clopidogrel (PLAVIX) tablet 75 mg 0858 (Given - Provider: Gerald Lino RN) 0825 (Given - Provider: Bonita Gomes RN) 0833 (Given - Provider: Bonita Gomes RN) 75 mg, Oral, Daily, First dose on Mon10/30/20 at 0900, Until Dis continued heparin (porcine) injection solution 5,000 Units 0036 (Given - Provider: Oliva Campos RN)0546 (Given - Provider: Oliva Campos RN)1457 (Given - Provider: Julieta Lino RN)2020 (Given - Provider: Oliva Campos RN) 0604 (Given - Provider: Oliva Campos RN)1446 (Given - Provider: Bonita Gomes RN)2036 (Given - Provider: Laura Egan RN) 0503 (Given - Provider: Bala nieto RN)1400 (Due)2200 (Due) 5,000 Units, Subcutaneous, Every eight h ours, First dose on Mon10/31/20 at 1400, Until Discontinued, 1 mL lisinopril (PRINIVIL, ZESTRIL) tablet 20 mg (CANCELED) 857 (Given - Provider: Julieta Lino RN) 20 mg, Oral, DAILY, First dose on Mon10/31/20 at 1245, Until Dis continued lisinopril (PRINIVIL, ZESTRIL) tablet 20 mg 1955 (Given - Provider: Laura Egan RN) 0832 (Given - Provider: Bonita Gomes RN)2099 (Due) 20 mg, Oral, Two times a day, First dose (after last modification) on Mon11/02/20 at 2100, Until Discontinued lisinopril (PRINIVIL, ZESTRIL) tablet 30 mg (CANCELED) 08 (Given - Provider: Bonita Gomes RN) 30 mg, Oral, DAILY, First dose (after la st modification) on Mon11/02/20 at 0900, Until Discontinued magnesium sulfate 2 gm/50 mL IV solution 2 g (COMPLETED) 1026 (Given - Provider: Bonita Gomes RN)1249 (Stopped Infusion - Provider: Bonita Gomes RN) 2 g, IV, One time, 1 dose, On Mon11/03/20 at 0925, 50 mL QUEtiapine (SEROquel) tablet 25 mg 2020 (Given - Provider: Sam Campos RN) 1955 (Given - Provider: Laura Egan RN) 2100 (Due) 25 mg, Oral, Bedtime, First dose on Mon10/31/20 at 2100, Until D iscontinued senna-docusate sodium (SENOKOT-S;PERICOLACE) tablet 1 tablet 0858 (Given - Provider: Julieta Lino RN)2020 (Given - Provider: Oliva Campos RN) 0825 (Given - Provider: Bonita Gomes RN)1955 (Given - Provider: Laura Egan RN) 0832 (Given - Provider: Bonita Gomes RN)2099 (Due) 1 tablet, Feeding tube, Two times a day, First dose (after last modification) on Mon10/30/20 at 2100, Until Discontinued, Hold if diarrhea sodium chloride 0.9% flush (adult) 10 mL 0859 (Not Giv en - Provider: Julieta Lino RN - Reason: Not Given - Comment: only one PIV)2021 (Not Indicated - Provider: Oliva Campos RN) 1046 (Given - Provider: Bonita Gomes, MARIPOSA)1957 (Not Indicated - Provider: Laura Egan RN) 0833 (Not Indicated - Provider: Bonita Gomes RN)2099 (Due) 10 mL, IV, Two times a day and prn, Firs t dose on Mon10/28/20 at 2100, Until Discontinued, 10 mL, Flush PIV line as scheduled and as often as necessary before and after meds. Use a push / pause technique when flushing to create turbulence. sodium chloride 0.9% flush (adult) 10 mL 0858 (Given - Provider: Julieta Lino RN)2020 (Given - Provider: Oliva Campos RN) 1047 (Not Indicated - Provider: Bonita Gomes RN)1956 (Given - Provider: Laura Egan RN) 0832 (Not Indicated - Provider: Bonita Gomes RN)0833 (Given - Provider: Bonita Gomes RN)2099 (Due) 10 mL, IV, Two times a day and prn, Firs t dose on Mon10/28/20 at 2100, Until Discontinued, 10 mL, Flush PIV line as scheduled and as often as necessary before and after meds. Use a push / pause technique when flushing to create turbulence. Medication Order 11/01/2020 11/02/2020 11/03/2020 acetaminophen (TYLENOL) tablet 650 mg 650 mg, Oral, Every four hours prn, Star ting on Mon10/30/20 at 1155, Until Discontinued, other (Specify), pain score 1-3, Pain stratification is defined as follows for either analog scale (0-10) or [facility] pain observation tool (CPOT, 0 -8). a. No pain (0) b. Mild pain level (1-3) c. Moderate pain level (4-6) d. Severe pain level (greater than or equal to 7) Adult patients: Total dose of acetam inophen from all acetaminophen containin g products should not exceed 4 grams (4,000 mg) per day. Pediatric Patients 0 - 3 months: Maximum of 60 mg/kg/24 hours of acetaminophen. Pediatric Patients older than 3 months: Maximum of 75 mg/kg/24 ho urs of acetaminophen (Never exceeding 4 grams/24 hours). bisacodyl (DULCOLAX) suppository 10 mg 10 mg, Rectal, One time a day prn, Start ing on Mon10/28/20 at 1529, Until Discontinued, constipation, Use second for constipation. If patient cannot take oral medications, use first for constipation. haloperidol lactate (HALDOL) injection solution 2.5 mg 2.5 mg, IV, Every six hours prn, Startin g on Mon10/28/20 at 1344, Until Discontinued, other (Specify), nausea/vomiting, 0.5 mL, Use SECOND for nausea/vomiting. If ineffective and ondansetron used, call physician for alternative Do not further dilute with 0.9% sodium chloride. If preference is to further dilute for IV administration: first draw up patient- specific dose, then dilute to 10ml with dextros e 5% water. Ok to flush with 0.9% Sodium Chloride. hydrALAZINE (APRESOLINE) injection solution 20 mg 20 mg, IV, Every three hours prn, Starti ng on Mon10/30/20 at 0902, Until Discontinued, specified parameter, systolic blood pressure greater than 220, 1 mL, Use SECOND for hypertension Call MD if target not met after 3 consecutive prn dosages of either labetalol or hydralazine. labetalol (NORMODYNE;TRANDATE) IV solution 20 mg 20 mg, IV, Every three hours prn, Starti ng on Mon10/30/20 at 0902, Until Discontinued, specified parameter, systolic blood pressure greater than 220, 20 mL, Use FIRST for hypertension Call MD if target not met after 3 consecutive prn dosages of either labetalol or hydralazine nalOXone (NARCAN) injection solution (vial) 0.2 mg 0.2 mg, Injection, Every two minutes prn , Starting on Mon10/28/20 at 1344, Until Discontinued, other (Specify), opioid induced respiratory depression - PARTIAL reversal, 0.5 mL, PARTIAL REVERSAL/RESPIRA TORY DEPRESSION If respiratory rate less than 8/minute - call rapid response and administer (until respiratory rate increases to 10/minute). Give IV (preferred), IM or SUBQ nalOXone (NARCAN) injection solution (vial) 0.4 mg 0.4 mg, Injection, Every two minutes prn , Starting on Mon10/28/20 at 1344, Until Discontinued, other (Specify), opioid induced respiratory arrest - FULL reversal, 1 mL, FULL REVERSAL/RESPIRATORY ARREST If patient is not breathing - call CODE BLUE and administer. Give IV (preferred), IM or SUBQ ondansetron (ZOFRAN) injection solution 4 mg 4 mg, IV, Every four hours prn, Starting on Mon10/28/20 at 1344, Until Discontinued, nausea, vomiting, 2 mL, Use FIRST. If ineffective after 15 minutes use haloperidol if ordered for nausea/vomiting If preference is to further dilute for IV a dministration: First draw up patient- specific dose, then dilute to 10 mL with 0.9% sodium chloride. documented in this encounter Additional Health Concerns Infection Onset Date Last Indicated Resolved Time MRSA 09/04/2017 09/04/2017 documented as of this encounter
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
[2020-11-04] MEDS: QUEtiapine 25 MG Tab PO SCH (20:27)
[2020-11-05] MEDS: Aspirin 81 MG Tab.Chew PO SCH (08:15)
[2020-11-05] MEDS: Cyanocobalamin (Vitamin B12) 1,000 MCG Tab PO SCH (08:15)
[2020-11-05] MEDS: atorvaSTATin 40 MG Tab PO SCH (08:15)
[2020-11-05] MEDS: Cephalexin 250 MG Cap PO SCH (08:16)
[2020-11-05] MEDS: Lisinopril 20 MG Tab PO SCH ×2 (08:16→19:46)
[2020-11-05] MEDS: Clopidogrel 75 MG Tab PO SCH (08:16)
[2020-11-05] MEDS: Cholecalciferol (Vitamin D3) 25 MCG Tab PO SCH (08:16)
[2020-11-05] MEDS: Magnesium Oxide 400 MG Tab PO SCH (12:56)
[2020-11-05] MEDS: QUEtiapine 25 MG Tab PO SCH (19:45)
[2020-11-06] MEDS: Clopidogrel 75 MG Tab PO SCH (08:03)
[2020-11-06] MEDS: Aspirin 81 MG Tab.Chew PO SCH (08:03)
[2020-11-06] MEDS: Cholecalciferol (Vitamin D3) 25 MCG Tab PO SCH (08:04)
[2020-11-06] MEDS: Cephalexin 250 MG Cap PO SCH (08:04)
[2020-11-06] MEDS: Lisinopril 20 MG Tab PO SCH ×2 (08:05→19:34)
[2020-11-06] MEDS: Magnesium Oxide 400 MG Tab PO SCH (08:05)
[2020-11-06] MEDS: Cyanocobalamin (Vitamin B12) 1,000 MCG Tab PO SCH (08:05)
[2020-11-06] MEDS: atorvaSTATin 40 MG Tab PO SCH (08:06)
[2020-11-06] MEDS: QUEtiapine 25 MG Tab PO SCH (19:34)
[2020-11-07] MEDS: Magnesium Oxide 400 MG Tab PO SCH (07:58)
[2020-11-07] MEDS: atorvaSTATin 40 MG Tab PO SCH (07:58)
[2020-11-07] MEDS: Cephalexin 250 MG Cap PO SCH (07:58)
[2020-11-07] MEDS: Cholecalciferol (Vitamin D3) 25 MCG Tab PO SCH (08:01)
[2020-11-07] MEDS: Cyanocobalamin (Vitamin B12) 1,000 MCG Tab PO SCH (08:01)
[2020-11-07] MEDS: Clopidogrel 75 MG Tab PO SCH (08:01)
[2020-11-07] MEDS: Aspirin 81 MG Tab.Chew PO SCH (08:02)
[2020-11-07] MEDS: Lisinopril 20 MG Tab PO SCH ×2 (08:02→19:13)
[2020-11-07] MEDS: QUEtiapine 25 MG Tab PO SCH (19:13)
[2020-11-08] MEDS: Aspirin 81 MG Tab.Chew PO SCH (08:16)
[2020-11-08] MEDS: Clopidogrel 75 MG Tab PO SCH (08:17)
[2020-11-08] MEDS: Lisinopril 20 MG Tab PO SCH ×2 (08:17→20:31)
[2020-11-08] MEDS: Cholecalciferol (Vitamin D3) 25 MCG Tab PO SCH (08:17)
[2020-11-08] MEDS: atorvaSTATin 40 MG Tab PO SCH (08:18)
[2020-11-08] MEDS: Cephalexin 250 MG Cap PO SCH (08:18)
[2020-11-08] MEDS: Magnesium Oxide 400 MG Tab PO SCH (08:18)
[2020-11-08] MEDS: Cyanocobalamin (Vitamin B12) 1,000 MCG Tab PO SCH (08:18)
[2020-11-08] MEDS: QUEtiapine 25 MG Tab PO SCH (19:52)
[2020-11-09 06:31] VITALS: PULSE 61
--- NOTE | 2020-11-09 08:24 | PCM.DCSUM1 ---
Discharge Summary - Hospital Course Free Text/Narrative:: Thiago has recovered from a stroke to a level he is able to be discharged to an Assisted Living with his , [facility]. He was evaluated by PT/ OT and feel he is ready to go. He is using a walker. He has a repeat Swallow Study this morning as he doesn't sense any loss of ability to swallow but his study in [place] showed severe aspiration risk. He will be seen in 2 weeks in the clinic post hospital. Diagnosis: Stroke: Yes Modified Spencer Scale: Mod.Disablility Requiring Some Help,Able to Walk Without Assistance (To Assisted Living Facility, [facility]) Modified Hien Scale Score: 3 - Discharge Data Discharge Date: 11/09/20 Discharge Disposition: DC/Tfer to Other Condition: Good - Referral to Home Health Primary Care Physician: Lynette David PA-C - Patient Summary/Data Consults: Consultations 11/03/20 13:46 PT Evaluation and Treatment [CONS] Routine 11/03/20 13:47 OT Evaluation and Treatment [CONS] Routine 11/04/20 08:00 Consult to Speech Language Pathology [HEALTH CARE CONSULTANT Evaluation and Treatment] [CONS] Routine - Patient Instructions Diet: Drink 8-10+ Glasses/Day, No Alcoholic Beverages Diet, Other: Diet order pending at DC Activity: As Tolerated Driving: Do Not Drive Showering/Bathing: May Shower - Discharge Plan Home Medications: Home Meds Cyanocobalamin (Vitamin B-12) [B-12] 1,000 mcg PO DAILY 01/02/20 [History] cephALEXin [Keflex] 250 mg PO DAILY 04/24/20 [History] Cholecalciferol (Vitamin D3) [Vitamin D3] 2,000 unit PO DAILY 10/28/20 [History] Aspirin 81 mg PO DAILY 11/03/20 [History] Clopidogrel Bisulfate [Plavix] 75 mg PO DAILY 11/03/20 [History] QUEtiapine [SEROquel] 25 mg PO BEDTIME 11/03/20 [History] atorvaSTATin Calcium [Atorvastatin Calcium] 80 mg PO DAILY 11/03/20 [History] lisinopriL [Lisinopril] 20 mg PO BID 11/03/20 [History] Oxygen Therapy Mode: Room Air - Discharge Summary/Plan Comment DC Time >30 min.: No Total # of Minutes for Discharge Time: 25 min Discharge Summary/Plan Comment: Be seen in the clinic in 2 weeks for follow up with me. Check BMP and Magnesium and CBC. DC to the [facility]. - General Info Date of Service: 11/09/20 Admission Dx/Problem (Free Text: Admission Diagnosis/Problem Admission Diagnosis/Problem Stroke of unknown etiology Functional Status: Reports: Pain Controlled, Tolerating Diet, Ambulating - Review of Systems General: Reports: No Symptoms HEENT: Reports: No Symptoms Pulmonary: Reports: No Symptoms Cardiovascular: Reports: No Symptoms Gastrointestinal: Reports: No Symptoms Genitourinary: Reports: No Symptoms Musculoskeletal: Reports: No Symptoms Skin: Reports: No Symptoms Neurological: Reports: Pre-Existing Deficit Psychiatric: Reports: No Symptoms - Patient Data Vitals - Most Recent: Last Vital Signs Temp 98 F 11/09/20 06:30 Pulse 61 11/09/20 06:30 Resp 18 11/09/20 06:30 BP 132/57 L 11/09/20 06:30 Pulse Ox 96 11/09/20 06:30 Weight - Most Recent: 167 lb 3.2 oz I&O - Last 24 hours: Intake & Output 11/08/20 11/09/20 11/09/20 22:59 06:59 14:59 Intake Total 200 100 Output Total 300 500 Balance -100 -400 Med Orders - Current: Current Medications Aspirin (Aspirin 81 Mg Tab.Chew) 81 mg PO DAILY [facility] Last Admin: 11/08/20 08:16 Dose: 81 mg Documented by: Atorvastatin Calcium (Atorvastatin 40 Mg Tab) 80 mg PO DAILY [facility] Last Admin: 11/08/20 08:18 Dose: 80 mg Documented by: Cephalexin (Cephalexin 250 Mg Cap) 250 mg PO DAILY [facility] Last Admin: 11/08/20 08:18 Dose: 250 mg Documented by: Cholecalciferol (Cholecalciferol (Vitamin D3) 25 Mcg Tab) 50 mcg PO DAILY [facility] Last Admin: 11/08/20 08:17 Dose: 50 mcg Documented by: Clopidogrel Bisulfate (Clopidogrel 75 Mg Tab) 75 mg PO DAILY [facility] Last Admin: 11/08/20 08:17 Dose: 75 mg Documented by: Cyanocobalamin (Cyanocobalamin (Vitamin B12) 1,000 Mcg Tab) 1,000 mcg PO DAILY [facility] Last Admin: 11/08/20 08:18 Dose: 1,000 mcg Documented by: Lisinopril (Lisinopril 20 Mg Tab) 20 mg PO BID [facility] Last Admin: 11/08/20 20:31 Dose: Not Given Documented by: Magnesium Oxide (Magnesium Oxide 400 Mg Tab) 400 mg PO DAILY [facility] Last Admin: 11/08/20 08:18 Dose: 400 mg Documented by: Quetiapine Fumarate (Quetiapine 25 Mg Tab) 25 mg PO BEDTIME [facility] Last Admin: 11/08/20 19:52 Dose: 25 mg Documented by: - Exam General: Reports: Alert, Oriented, Cooperative, No Acute Distress Lungs: Reports: Clear to Auscultation, Normal Respiratory Effort Cardiovascular: Reports: Regular Rate, Regular Rhythm GI/Abdominal Exam: Normal Bowel Sounds, Soft Skin: Reports: Warm, Dry Neurological: Reports: No New Focal Deficit, Normal Speech Psy/Mental Status: Reports: Alert, Normal Affect, Normal Mood
[2020-11-09] MEDS: Cholecalciferol (Vitamin D3) 25 MCG Tab PO SCH (08:45)
[2020-11-09] MEDS: Cyanocobalamin (Vitamin B12) 1,000 MCG Tab PO SCH (08:45)
[2020-11-09] MEDS: Clopidogrel 75 MG Tab PO SCH (08:48)
[2020-11-09] MEDS: atorvaSTATin 40 MG Tab PO SCH (08:48)
[2020-11-09] MEDS: Cephalexin 250 MG Cap PO SCH (08:49)
[2020-11-09] MEDS: Lisinopril 20 MG Tab PO SCH (08:49)
[2020-11-09] MEDS: Magnesium Oxide 400 MG Tab PO SCH (08:49)
[2020-11-09] MEDS: Aspirin 81 MG Tab.Chew PO SCH (08:49)
[2020-11-09 08:50] VITALS: BP 91/51
--- NOTE | 2020-11-09 12:40 | CR ---
[id number] RAD/RAD Video Swallow Study Exam: RAD Video Swallow Study Clinical Data: DYSPHAGIA COMPARISON: NO PREVIOUS SIMILAR EXAM IS AVAILABLE FINDINGS: The exam was performed by a certified technologist in the patient's hometown No images with contrast were provided to the radiologist IMPRESSION: PLEASE SEE SPEECH PATHOLOGY REPORT Tone Rosales MD 11/09/20 [id number] Thank you for allowing us to participate in the care of your patient.
[2020-11-09] MEDS ORDERED: Lisinopril 10 MG Tab PO SCH (20:00)
== END 2020-11-09 14:00 | disposition other institution (70) | DRG 65 ==
LOC: VM.MS 16:00
PROVIDERS: ADMIT Physician Assistant; ATTEND Physician Assistant
DX: I63.9 Cerebral infarction, unspecified (principal); G93.40 Encephalopathy, unspecified; I10 Essential (primary) hypertension; E78.5 Hyperlipidemia, unspecified; E83.42 Hypomagnesemia; E53.8 Deficiency of other specified B group vitamins; Z20.822 Contact with and (suspected) exposure to COVID-19; N40.0 Benign prostatic hyperplasia without lower urinary tract symptoms; D64.9 Anemia, unspecified; Z98.42 Cataract extraction status, left eye; Z98.41 Cataract extraction status, right eye; Z90.79 Acquired absence of other genital organ(s); Z90.6 Acquired absence of other parts of urinary tract
CPT/HCPCS: 36415; 74230; 83735; 85025; 92526-GN; 92610-GN; 92611-GN; 97110-GP; 97116-GP; 97161-GP; 97165-GO; 97535-GO; A9270-GY; U0002

== ENCOUNTER 2021-11-30 20:16 | Emergency (ER) | payer MEDICARE, OTHER ==
[2021-11-30] MEDS ORDERED: Sodium Chloride 0.9% 10 ML Syringe FLUSH PRN (20:39)
[2021-11-30] MEDS ORDERED: Labetalol 20 MG/4 ML Syringe IVPUSH ONE (20:40)
[2021-11-30 21:16] LABS: PTT,PARTIAL THROMBOPLSTIN TIME 26.3 SEC (20.5-30.9)
[2021-11-30 21:24] LABS: CHLORIDE,CL 96 mmol/L (98-107); SODIUM,NA 130 mmol/L (136-145)
[2021-11-30 21:26] LABS: ANION GAP 13.3 mmol/L (5-15); ESTIMATED GFR 73 mL/min (>=60)
[2021-12-01 00:29] VITALS: PULSE 54
[2021-12-01 00:31] VITALS: BP 158/79
== END 2021-11-30 21:50 | disposition home or self-care (01) ==
LOC: VM.ED 20:16
DX: I10 Essential (primary) hypertension (principal); E78.00 Pure hypercholesterolemia, unspecified; Z79.82 Long term (current) use of aspirin; Z86.73 Personal history of transient ischemic attack (TIA), and cerebral infarction without residual deficits; Z79.899 Other long term (current) drug therapy
CPT/HCPCS: 36415; 80053; 83735; 84100; 84443; 84484; 85025; 85610; 85730; 86140; 93005; 93010; 96374; 99283-25; 99284; J3490

== ENCOUNTER 2022-07-22 08:23 | Day surgery (SDC) | payer MEDICARE, OTHER ==
[~2022-07-22 08:23] MED LIST: Sodium Chloride 0.9% 10 ML Syringe FLUSH PRN
[2022-07-22] MEDS: Lactated Ringers 1,000 ML IV SCH (08:59)
[2022-07-22] MEDS ORDERED: Propofol 200 MG/20 ML SDV ONE ×2 (10:41→11:21)
[2022-07-22] MEDS: Bupivacaine 0.5%/EPINEPHrine 1:200,000 30 ML SDV ONE (11:19)
[2022-07-22 12:24] VITALS: BP 176/76; PULSE 67
== END 2022-07-22 13:00 | disposition home or self-care (01) ==
LOC: VM.SDS 08:23
PROVIDERS: ATTEND Student in an Organized Health Care Education/Training Program
DX: C44.619 Basal cell carcinoma of skin of left upper limb, including shoulder (principal); E78.5 Hyperlipidemia, unspecified; I25.10 Atherosclerotic heart disease of native coronary artery without angina pectoris; I10 Essential (primary) hypertension; D50.9 Iron deficiency anemia, unspecified; I73.9 Peripheral vascular disease, unspecified; N40.0 Benign prostatic hyperplasia without lower urinary tract symptoms; Z98.890 Other specified postprocedural states
CPT/HCPCS: 00400; 88305; J2704; J3490; J7120